=== PATIENT | female | born 2000 | race Caucasian/White ===

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

== ENCOUNTER 2020-01-02 18:16 | Observation (INO) | payer OTHER, SELFPAY ==
[2019-08-16 15:17] VITALS: BMI 20.7
[2020-01-02] VITALS (7 sets, daily range): BP systolic 117–161; BP diastolic 67–84; PULSE 68–85; RESP 15–18; TEMP 36; O2SAT 95–100; BMI 19.5
[2020-01-02] MEDS: SODIUM CHLORIDE 0.9% 1,000 ML 1000 ML IV (18:59)
[2020-01-02] MEDS: ONDANSETRON 4 MG/2 ML INJ IV (18:59)
[2020-01-02 19:02] LABS: Bacteria Urine None Seen; WBC Urine None Seen (0-5/HPF)
--- NOTE | 2020-01-02 19:03 | ED.GENADULT ---
HPI - General Adult General Chief complaint: Diabetic Problem Stated complaint: Thinks Ketoacidosis Time Seen by Provider: 01/02/20 18:45 Source: patient Mode of arrival: Ambulatory Limitations: no limitations History of Present Illness HPI narrative: CC: I feel sick and question whether not I have diabetic ketoacidosis. HPI: The patient is a 19-year-old female who has a history of type 1 diabetes mellitus diagnosed at the age of 16. She has had multiple episodes of diabetic ketoacidosis in the past. She came in today because she was feeling sick. She states that she was on a trip this weekend and has not been eating and just not feeling well. She has been taking her insulin. Periodically her chest gets tight intense. She has been very nauseous but has not vomited but almost vomited. She has been having diarrhea with multiple liquid bowel movements without melena or hematochezia. She denies a history of irritable bowel syndrome, Crohn's disease or ulcerative colitis. She states that she has lost 10 lb over 3 days. She denies any fever chills or sweats. She has been incontinent of urine while she has been sleeping. She denies a history of recurrent seizures but had 1 seizure in grade school when she was sniffing and smelling markers. She denies the use of drugs at this time arm except for marijuana. She does not drink alcohol but does smoke cigarettes. She has complained of a mild headache arm but has not fallen or injured herself. She has tingling paresthesias in her feet. She complains of sinus congestion but no sore throat. She has a cough that is dry and some associated with intermittent wheezing palpitations and dizziness. She denies any other shortness of breath. Her last menstrual period was 2-3 months ago and she has been on Depo-Provera. She has had no other urinary symptoms other than her incontinence while sleeping. Related Data Home Medications Medication Instructions Recorded Confirmed Humalog U-100 Insulin 1 unit SUBCUT ACHS 01/02/20 01/02/20 albuterol sulfate 2 puff INHALATION Q4HR 01/02/20 01/02/20 clonidine HCl 0.1 mg PO BEDTIME 01/02/20 01/02/20 escitalopram oxalate 10 mg PO DAILY 01/02/20 01/02/20 Previous Rx's Medication Instructions Recorded Lantus Solostar U-100 Insulin 20 unit SUBCUT QPM #15 ml 01/03/20 Allergies Allergy/AdvReac Type Severity Reaction Status Date / Time No Known Drug Allergies Allergy Verified 01/02/20 18:30 Review of Systems Review of Systems ROS Unobtainable: All systems reviewed & are unremarkable except as noted in HPI and below Patient History Medical History Atypical chest pain (Acute) Depression (Acute) Diabetic neuropathy (Acute) Genital herpes (Inactive) Type 1 diabetes mellitus (Acute) Surgical History History of wisdom tooth extraction (Acute) Family History (Updated 01/03/20 @ 01:14 by TOMMY Dean) Grandfather Type I diabetes mellitus Father Heart murmur Mother Diabetes mellitus Thyroid disease Grandmother Breast cancer Social History household members: significant other, family and children Smoking Status: Current every day smoker alcohol intake: current Smoking Status: Current every day smoker alcohol intake frequency: holidays/special occasions only Substance Use Type: marijuana Exam Narrative Exam Narrative: PHYSICAL EXAM: CONSTITUTIONAL: Awake, Alert, Oriented, Coherent, Cooperative in NAD. Does not appear toxic or ill. She appears as though she has been arm diaphoretic mildly disheveled pale and very thin. HEAD: AT/NC EENT: PERRL, FROM of eyes, no discharge, no nystagmus No epistaxis or nasal drainage Oral mucosa is moist and pink, posterior pharynx is without erythema or exudate. NECK: Supple, no obvious JVD, Trachea is midline without stridor, no palpable LN or masses. SPINE: No gross deformity, no palpable tenderness of the cervical, thoracic, lumbar or sacral spine. No CVA tenderness. THORAX: No deformity, retractions, chest wall tenderness, subcutaneous air or crepitice. LUNGS: Clear with symmetrical breath sounds without respiratory distress HEART: Normal heart tones, regular rhythm and rate without murmur. ABDOMEN: Soft, non-tender, normal bowel sounds without guarding, rebound, rigidity or palpable mass or organomegaly. EXTREMITIES: No edema, cyanosis, deformity or tenderness. SKIN: No rash, bruising, petechiae or purpura. Multiple tattoos over her arms. NEURO: Awake, alert, oriented, conversive, cranial nerves II-XII are symmetrical and normal, moves all 4 extremities and is ambulatory Initial Vital Signs Initial Vital Signs: Vital Signs Pulse Rate 75 01/02/20 18:30 Respiratory Rate 16 01/02/20 18:30 Blood Pressure 138/84 01/02/20 18:30 Pulse Oximetry 99 01/02/20 18:30 Course Course Course Narrative: 194: The patient's VBG is revealed a pH is 7.350. Orders Ordered: Discontinued Medications Acetaminophen (Tylenol) 650 mg PO Q6HR PRN PRN Reason: Fever/Mild Pain (1-3) Clonidine HCl (Catapres) 0.1 mg PO BEDTIME [facility] Dextrose (D50w) 25 gm IV PRN PRN; Protocol PRN Reason: Hypoglycemia Enoxaparin Sodium (Lovenox) 40 mg SUBCUT DAILY [facility] Last Admin: 01/03/20 10:39 Dose: 40 mg Documented by: CHEL Escitalopram Oxalate (Lexapro) 10 mg PO DAILY [facility] Last Admin: 01/03/20 10:39 Dose: 10 mg Documented by: CHEL Sodium Chloride (Normal Saline 0.9%) 1,000 mls @ 1,000 mls/hr IV BOLUS ONE Stop: 01/02/20 19:45 Last Infusion: 01/02/20 21:52 Dose: 0 mls/hr Documented by: Admin: 01/02/20 18:59 Dose: 1,000 mls/hr Documented by: KBROTEM Sodium Chloride (Normal Saline 0.9%) 1,000 mls @ 150 mls/hr IV CONT [facility] Last Admin: 01/02/20 22:41 Dose: 150 mls/hr Documented by: ELIO Sodium Chloride (Normal Saline 0.9%) 1,000 mls @ 100 mls/hr IV CONT FAREED Last Infusion: 01/03/20 09:28 Dose: 0 mls/hr Documented by: Admin: 01/02/20 22:56 Dose: 100 mls/hr Documented by: KACEY Potassium Chloride 40 meq/ (Sodium Chloride) 520 mls @ 130 mls/hr IV NOW ONE Stop: 01/03/20 09:54 Last Infusion: 01/03/20 10:50 Dose: 0 mls/hr Documented by: CHEL Cosigned by: Y Admin: 01/03/20 06:13 Dose: 130 mls/hr Documented by: DALTON Cosigned by: MICHAEL Insulin Aspart (Novolog Flexpen) 0 unit SUBCUT ACHS [facility]; Protocol Last Admin: 01/03/20 17:15 Dose: 1 unit Documented by: TRACEY Cosigned by: MARIANO Admin: 01/03/20 12:41 Dose: 2 unit Documented by: CHEL Cosigned by: MUNA Admin: 01/03/20 09:25 Dose: Not Given Documented by: CHEL Insulin Glargine (Lantus Solostar (Pen)) 20 unit SUBCUT BEDTIME [facility] Last Admin: 01/03/20 01:37 Dose: Not Given Documented by: MICHAEL Insulin Glargine (Lantus Solostar (Pen)) 25 unit SUBCUT BEDTIME [facility] Last Admin: 01/03/20 00:52 Dose: 25 unit Documented by: MICHAEL Cosigned by: DALTON Insulin Glargine (Lantus Solostar (Pen)) 15 unit SUBCUT BEDTIME [facility] Insulin Human Regular (Humulin R) 10 unit IV NOW ONE Stop: 01/02/20 21:23 Last Admin: 01/02/20 21:51 Dose: 10 unit Documented by: RAHEEL Cosigned by: MONA Metoclopramide HCl (Reglan) 5 mg IV Q8HR [facility] Last Admin: 01/03/20 14:15 Dose: Not Given Documented by: Admin: 01/03/20 06:13 Dose: 5 mg Documented by: DALTON Naloxone HCl (Narcan) 0.2 mg IV Q2MIN PRN PRN Reason: Opiate Reversal Ondansetron HCl (Zofran) 4 mg IV NOW ONE Stop: 01/02/20 18:47 Last Admin: 01/02/20 18:59 Dose: 4 mg Documented by: KBROTEM Sodium Chloride (Normal Saline 0.9% Flush) 10 ml IV PRN PRN PRN Reason: Flush Sodium Chloride (Normal Saline 0.9% Flush) 10 ml IV BID [facility] Vital Signs Vital signs: Vital Signs - 8 hr 01/02/20 18:30 Pulse Rate 75 Respiratory Rate 16 Blood Pressure 138/84 Pulse Oximetry 99 Medical Decision Making Medical Records Medical records reviewed: Yes I reviewed the patient's medical records. Lab Data Lab results reviewed: Yes I reviewed the patient's lab results. Result diagrams: 01/03/20 04:22 01/03/20 04:22 Labs: Lab Results 01/02/20 01/02/20 01/02/20 Range/Units 18:31 18:31 18:31 WBC 5.6 (4.5-11.0) X10^3/uL RBC 4.41 (4.0-5.2) X10^6/uL Hgb 14.4 (12.0-16.0) g/dL Hct 42.7 (36-46) % MCV 97.0 (80-100) fL MCH 32.7 (26-34) PG MCHC 33.7 (30-36) % RDW 13.0 (11.6-14.8) % Plt Count 197 (150-400) X10^3/uL Neut % (Auto) 45.1 L (50-75) % Lymph % (Auto) 36.8 (25-40) % [place] % (Auto) 7.7 (3-14) % Eos % (Auto) 9.9 H (2-4) % Baso % (Auto) 0.5 (0-2) % Neut # (Auto) 2500 (4579-0605) /uL Lymph # (Auto) 2100 (3852-9158) /uL [place] # (Auto) 400 (0-900) /uL Eos # (Auto) 600 H (0-450) /uL Baso # (Auto) 0 (0-100) /uL VBG pH (7.33-7.43) Sodium 138 (137-145) mmol/L Potassium 4.0 (3.4-5.1) mmol/L Chloride 99 (98-107) mmol/L Carbon Dioxide 22 (22-32) mmol/L BUN 10 (7-17) mg/dL Creatinine 0.50 L (0.52-1.04) mg/dL Estimated GFR > 60.0 (>60) mL/min BUN/Creatinine Ratio 20.0 (6-22) Glucose 397 H (70-100) mg/dL Hemoglobin A1c (4.0-6.0) % Lactate 1.6 (0.7-2.1) mmol/L Calcium 10.3 H (8.4-10.2) mg/dL Magnesium 1.9 (1.6-2.3) mg/dL Total Bilirubin 1.0 (0.2-1.3) mg/dL AST 21 (14-36) IU/L ALT 17 (<35) IU/L Alkaline Phosphatase 142 H (38-126) U/L Total Protein 9.0 H (6.3-8.2) g/dL Albumin 5.2 H (3.5-5.0) g/dL Globulin 3.8 (1.7-4.1) g/dL Albumin/Globulin Ratio 1.4 (1.0-2.8) Lipase 64 (23-300) U/L Urine RBC (0-5/HPF) Urine WBC (0-5/HPF) Urine Bacteria (None) Ur Culture Indicated? Urine Test (Negative) U Opiates 300ng/mL cut (Negative) Ur Oxycodone Screen (Negative) Urine Methadone Screen (Negative) Ur Barbiturates Screen (Negative) U Tricyclic Antidepress (Negative) Ur Phencyclidine Scrn (Negative) Ur Amphetamines Screen (Negative) U Methamphetamines Scrn (Negative) Ur MDMA Scrn (Ecstasy) (Negative) U Benzodiazepines Scrn (Negative) Urine Cocaine Screen (Negative) U Marijuana (THC) Screen (Negative) Ketones 4.64 H (<0.27) mmol/L 01/02/20 01/02/20 01/02/20 Range/Units 18:31 18:31 18:31 WBC (4.5-11.0) X10^3/uL RBC (4.0-5.2) X10^6/uL Hgb (12.0-16.0) g/dL Hct (36-46) % MCV (80-100) fL MCH (26-34) PG MCHC (30-36) % RDW (11.6-14.8) % Plt Count (150-400) X10^3/uL Neut % (Auto) (50-75) % Lymph % (Auto) (25-40) % [place] % (Auto) (3-14) % Eos % (Auto) (2-4) % Baso % (Auto) (0-2) % Neut # (Auto) (3978-2892) /uL Lymph # (Auto) (1058-8151) /uL [place] # (Auto) (0-900) /uL Eos # (Auto) (0-450) /uL Baso # (Auto) (0-100) /uL VBG pH (7.33-7.43) Sodium (137-145) mmol/L Potassium (3.4-5.1) mmol/L Chloride (98-107) mmol/L Carbon Dioxide (22-32) mmol/L BUN (7-17) mg/dL Creatinine (0.52-1.04) mg/dL Estimated GFR (>60) mL/min BUN/Creatinine Ratio (6-22) Glucose (70-100) mg/dL Hemoglobin A1c (4.0-6.0) % Lactate (0.7-2.1) mmol/L Calcium (8.4-10.2) mg/dL Magnesium (1.6-2.3) mg/dL Total Bilirubin (0.2-1.3) mg/dL AST (14-36) IU/L ALT (<35) IU/L Alkaline Phosphatase (38-126) U/L Total Protein (6.3-8.2) g/dL Albumin (3.5-5.0) g/dL Globulin (1.7-4.1) g/dL Albumin/Globulin Ratio (1.0-2.8) Lipase (23-300) U/L Urine RBC 0-1/hpf (0-5/HPF) Urine WBC None seen (0-5/HPF) Urine Bacteria None seen (None) Ur Culture Indicated? Cult not indicated Urine Test Negative (Negative) U Opiates 300ng/mL cut Negative (Negative) Ur Oxycodone Screen Negative (Negative) Urine Methadone Screen Negative (Negative) Ur Barbiturates Screen Negative (Negative) U Tricyclic Antidepress Negative (Negative) Ur Phencyclidine Scrn Negative (Negative) Ur Amphetamines Screen Negative (Negative) U Methamphetamines Scrn Negative (Negative) Ur MDMA Scrn (Ecstasy) Negative (Negative) U Benzodiazepines Scrn Negative (Negative) Urine Cocaine Screen Negative (Negative) U Marijuana (THC) Screen Positive H (Negative) Ketones (<0.27) mmol/L 01/02/20 01/02/20 Range/Units 18:31 19:18 WBC (4.5-11.0) X10^3/uL RBC (4.0-5.2) X10^6/uL Hgb (12.0-16.0) g/dL Hct (36-46) % MCV (80-100) fL MCH (26-34) PG MCHC (30-36) % RDW (11.6-14.8) % Plt Count (150-400) X10^3/uL Neut % (Auto) (50-75) % Lymph % (Auto) (25-40) % [place] % (Auto) (3-14) % Eos % (Auto) (2-4) % Baso % (Auto) (0-2) % Neut # (Auto) (8293-6979) /uL Lymph # (Auto) (9252-1053) /uL [place] # (Auto) (0-900) /uL Eos # (Auto) (0-450) /uL Baso # (Auto) (0-100) /uL VBG pH 7.35 (7.33-7.43) Sodium (137-145) mmol/L Potassium (3.4-5.1) mmol/L Chloride (98-107) mmol/L Carbon Dioxide (22-32) mmol/L BUN (7-17) mg/dL Creatinine (0.52-1.04) mg/dL Estimated GFR (>60) mL/min BUN/Creatinine Ratio (6-22) Glucose (70-100) mg/dL Hemoglobin A1c 10.9 H (4.0-6.0) % Lactate (0.7-2.1) mmol/L Calcium (8.4-10.2) mg/dL Magnesium (1.6-2.3) mg/dL Total Bilirubin (0.2-1.3) mg/dL AST (14-36) IU/L ALT (<35) IU/L Alkaline Phosphatase (38-126) U/L Total Protein (6.3-8.2) g/dL Albumin (3.5-5.0) g/dL Globulin (1.7-4.1) g/dL Albumin/Globulin Ratio (1.0-2.8) Lipase (23-300) U/L Urine RBC (0-5/HPF) Urine WBC (0-5/HPF) Urine Bacteria (None) Ur Culture Indicated? Urine Test (Negative) U Opiates 300ng/mL cut (Negative) Ur Oxycodone Screen (Negative) Urine Methadone Screen (Negative) Ur Barbiturates Screen (Negative) U Tricyclic Antidepress (Negative) Ur Phencyclidine Scrn (Negative) Ur Amphetamines Screen (Negative) U Methamphetamines Scrn (Negative) Ur MDMA Scrn (Ecstasy) (Negative) U Benzodiazepines Scrn (Negative) Urine Cocaine Screen (Negative) U Marijuana (THC) Screen (Negative) Ketones (<0.27) mmol/L Point of Care Testing Test Results Negative Glucose POC 363 Urine Dip Bedside Urine Glucose 1000 mg/dl Bedside Urine Bilirubin - Negative Bedside Urine Ketone +++ 80 Urine Specific [place] 1.025 Bedside Urine Occult Blood - Negative Bedside Urine pH 5.5 Bedside Urine Protein + 30 Bedside Urine Urobilinogen - Negative Bedside Urine Nitrite - Negative Bedside Urine Leukocytes - Negative Esterase Point of care testing: Point of Care Testing Test Results Negative Glucose POC 363 Urine Dip Bedside Urine Glucose 1000 mg/dl Bedside Urine Bilirubin - Negative Bedside Urine Ketone +++ 80 Urine Specific [place] 1.025 Bedside Urine Occult Blood - Negative Bedside Urine pH 5.5 Bedside Urine Protein + 30 Bedside Urine Urobilinogen - Negative Bedside Urine Nitrite - Negative Bedside Urine Leukocytes - Negative Esterase ECG Data Attestation: I personally reviewed and interpreted this ECG as follows: Interpretation: The patient's EKG obtained at 19:0 6:40 a.m. on January 02 reveals a normal sinus rhythm with inverted T-waves in V1. Her T-waves are prominent and mildly peaked. There are no other abnormal ST or T-wave abnormalities noted. Ventricular rate is 60. Intervals are normal she has a normal axis. Her EKG otherwise is normal. Discharge Plan Departure Patient Disposition: Admitted as Observation Clinical Impression: Acute hyperglycemia, Dehydration, Nausea, Diabetic ketosis Discharge Date/Time: 01/02/20 22:29 Instructions: DI for Dehydration -- Adult, DI for Diabetes Type 1 -- Adult, DI for Hyperglycemia -- Adult, DI for Nausea -- Adult, DI for Diabetic Ketoacidosis Referrals: Huber Medina DO [Primary Care Provider] - 1 Week Admit Date/Time: 01/02/20 22:19 Admit Provider: Roge Reeves
[2020-01-02 19:10] LABS: Alanine Aminotransferase 17 IU/L (<35); Albumin 5.2 g/dL (3.5-5.0); Albumin Globulin Ratio 1.4 (1.0-2.8); Alkaline Phosphatase 142 U/L (38-126); Aspartate Aminotransferase 21 IU/L (14-36); Blood Urea Nitrogen 10 mg/dL (7-17); Calcium 10.3 mg/dL (8.4-10.2); Carbon Dioxide 22 mmol/L (22-32); Chloride 99 mmol/L (98-107); Estimated Glomerular Filt Rate > 60.0 mL/min (>60); Globulin 3.8 g/dL (1.7-4.1); Glucose 397 mg/dL (70-100); HEMOLYSIS < 15 (0-50); Lipase 64 U/L (23-300); Magnesium 1.9 mg/dL (1.6-2.3); Sodium 138 mmol/L (137-145)
[2020-01-02 19:13] LABS: Add Manual Diff / Slide Review NO; Basophils Absolute Auto 0 /uL (0-100); Basophils Percent Auto 0.5 % (0-2); Eosinophils Absolute Auto 600 /uL (0-450); Eosinophils Percent Auto 9.9 % (2-4); Hematocrit 42.7 % (36-46); Hemoglobin 14.4 g/dL (12.0-16.0); Lymphocytes Absolute Auto 2100 /uL (1100-4500); Lymphocytes Percent Auto 36.8 % (25-40); Mean Corpuscular HGB Conc 33.7 % (30-36); Mean Corpuscular Hemoglobin 32.7 PG (26-34); Monocytes Absolute Auto 400 /uL (0-900); Monocytes Percent Auto 7.7 % (3-14); Neutrophils Absolute Auto 2500 /uL (1500-7000); Neutrophils Percent Auto 45.1 % (50-75); Platelet Count 197 X10^3/uL (150-400); Red Blood Cell Count 4.41 X10^6/uL (4.0-5.2); White Blood Cell Count 5.6 X10^3/uL (4.5-11.0)
[2020-01-02 19:14] LABS: Ketones (Beta-Hydroxybutyrate) 4.64 mmol/L (<0.27)
[2020-01-02 19:23] LABS: Ur Creatinine Normal (Normal); Ur Specific Gravity Normal (Normal); Urine Tetrahydrocannabinol Positive (Negative); Urine pH Normal (Normal)
[2020-01-02 19:24] LABS: Culture Indicated Urine Cult Not Indicated; RBC Urine 0-1/HPF (0-5/HPF); UR Morphine/Opiate cutoff 300 Negative (Negative); Urine Amphetamines Negative (Negative); Urine Barbiturates Negative (Negative); Urine Benzodiazepines Negative (Negative); Urine Cocaine Negative (Negative); Urine MDMA Negative (Negative); Urine Methadone Negative (Negative); Urine Methamphetamines Negative (Negative); Urine Oxycodone Negative (Negative); Urine Phencyclidine Negative (Negative); Urine Tricyclic Antidepressant Negative (Negative)
[2020-01-02 19:25] LABS: Pregnancy Test Urine Negative (Negative)
[2020-01-02 19:40] LABS: Lactate (Lactic Acid) 1.6 mmol/L (0.7-2.1)
[2020-01-02 19:41] LABS: pH VBG 7.35 (7.33-7.43)
[2020-01-02] MEDS: INSULIN REGULAR 100 UNIT/ML 3 ML VIAL 10 UNIT IV (21:51)
[2020-01-02 21:52] LABS: Hemoglobin A1C% w Est Avg Glu 10.9 % (4.0-6.0)
--- NOTE | 2020-01-02 22:33 | P.HP_ITS ---
History of Present Illness History of Present Illness Date Patient Seen: 01/02/20 Time Patient Seen: 22:10 Chief complaint: Thinks Ketoacidosis Narrative: Ms. Nettie Stone is a 19 year old female with history significant for type 1 diabetes, depression, atypical chest pain and neuropathy who presents to the ER for ?feeling sick?. Patient stays she was visiting a friend in [place] for 4 days reports that all she had to drink was apple juice. She has been feeling nauseated off and on reports no vomiting. She has not been eating and developed diarrhea that has become liquid in character without melena or hematochezia. She reports a 10 lb weight loss in 3 days. She reports she has been taking her insulin but acknowledges that her blood sugars have been running high. Her last admission for diabetic ketoacidosis was in July 2019. Patient additionally endorses history of depression for which she takes escitalopram daily and acknowledges feeling depressed but denies suicidal ideation but has had prior suicide attempt. At present she is alert and conversant denies fevers or chills, headaches or dizziness. She has no nasal congestion or sore throat. She reports developing intermittent tightness across her chest but denies palpitations. She has no shortness of breath cough or wheezing. She has nausea and diarrhea as discussed above. Patient complains of urinary incontinence in her sleep but denies urgency frequency or burning. She denies vaginal pain or irritation, last menstrual period 2 months ago and is using Depo-Provera control She denies back or joint pains and is independent in ADLs. Upon arrival to the ER temperature is not documented, has a heart rate of 75, blood pressure 138/84, respirations 16 saturation 99% on room air. Twelve lead EKG was obtained showing sinus rhythm sinus arrhythmia with an incomplete right bundle branch block, no ectopy or ischemia. On laboratory evaluation shows whit e count of 5.6, hemoglobin of 14.4, hematocrit of 42.7 and platelets of 197. She has an increased eosinophil count at 9.9%. Her electrolytes are within normal range with BUN of 10 and creatinine is 0.5 and blood sugar is 397. Her total bilirubin is 1.0 with an AST of 21, ALT of 17 and elevated alkaline phosphatase of 142. Her magnesium level is 1.9. She has serum ketones 4.64 in urine is positive for ketones protein but negative for leukocyte esterase wbc's or nitrates. Urine is negative, urine tox screen is positive for marijuana. In the ER the patient received Zofran and 1 L of normal saline and 10 units of insulin IV. The patient is admitted to the medicine service for gastroenteritis with type 1 diabetes and hyperglycemia. Patient History Medical History Atypical chest pain (Acute) Depression (Acute) Diabetic neuropathy (Acute) Genital herpes (Inactive) Type 1 diabetes mellitus (Acute) Surgical History History of wisdom tooth extraction (Acute) Family & Social History Family History (Updated 01/03/20 @ 01:14 by TOMMY Dean) Grandfather Type I diabetes mellitus Father Heart murmur Mother Diabetes mellitus Thyroid disease Grandmother Breast cancer Social History: household members significant other,family,children Safety & Behavioral: Feels Safe in Current Yes Environment Tobacco & Substance use: Smoking Status Current every day smoker alcohol intake frequency holiday/special occasion Substance Use Type marijuana Comment: Patient states she is single lives in a single family home with her parents. She endorses a family history of cancer with her mother having thyroid cancer, grandmother and great grandmother having breast cancer. Her grandfather also is a type 1 diabetic. She knows little of her father's health history but does know he has a murmur. Occupation: Unemployed Smoking: Patient is a current smoker stating she smokes 1-2 times per week associated with stress. Alcohol: Patient reports rarely drinking alcohol. Substance use: Patient reports daily marijuana use for sleep. Advanced directives: Patient does not have formal advanced directives but states her wish to be FULL CODE. She designates her mother Deloris Garcias to be her surrogate decision maker. Meds Home Medications and Allergies Home Medications Medication Instructions Recorded Confirmed Type Lantus Solostar U-100 Insulin 20 unit SUBCUT QPM 08/16/19 01/02/20 History albuterol sulfate 2 puff INHALATION Q4HR 01/02/20 01/02/20 History clonidine HCl 0.1 mg PO BEDTIME 01/02/20 01/02/20 History escitalopram oxalate 10 mg PO DAILY 01/02/20 01/02/20 History insulin lispro [Humalog U-100 1 unit SUBCUT ACHS 01/02/20 01/02/20 History Insulin] Allergies Allergy/AdvReac Type Severity Reaction Status Date / Time No Known Drug Allergies Allergy Verified 01/02/20 18:30 Review of Systems Review of Systems Narrative: All systems reviewed and found unremarkable under discussed in the HPI above. Exam Vital Signs (past 8 hours): - 01/02/20 18:30 01/02/20 19:30 01/02/20 21:37 Pulse Rate 75 73 72 Respiratory Rate 16 18 Blood Pressure 138/84 Blood Pressure [Left Arm] 117/67 121/77 Pulse Oximetry 99 100 98 01/02/20 22:27 Pulse Rate 85 Respiratory Rate 15 Blood Pressure 133/82 Blood Pressure [Left Arm] Pulse Oximetry 98 Oxygen Delivery Method Room Air Narrative Exam Narrative: GENERAL APPEARANCE: well developed, thin female with a BMI of 19.5 in no acute distress. HEENT: Normocephalic, PERRLA, conjunctiva clear, EOMs intact without nystagmus, no sinus tenderness to percussion, no rhinorrhea, mucous membranes are moist and pink without lesions or exudate. NECK/THYROID: neck supple, no JVD, no carotid bruit, no thyromegaly, trachea midline. LYMPH NODES: no cervical or supraclavicular lymphadenopathy. SKIN: Asher, warm and dry, Multiple tattoos on arms and facial body piercing, redness surrounding lower lip piercing. HEART: regular rate and rhythm, S1-S2, no murmur, no rubs or gallops, brisk capillary refill, no edema LUNGS: clear to auscultation bilaterally, no coarseness crackles or wheezing, no cough present CHEST: Symmetrical movement, no accessory muscle use, good tidal volume. ABDOMEN: Soft, no distention, mild epigastric tenderness, no guarding or peritoneal signs, no organomegaly, no flank or suprapubic tenderness, active bowel tones. BACK: Normal curvature, nontender to palpation, no CVA tenderness on percussion EXTREMITIES: moves all extremities, strength is 5/5 and symmetrical, no deformities or joint effusions. NEUROLOGIC: AAO x4, cranial nerves 2-12 grossly intact, diminished sensation plantar surface bilateral feet. PSYCH: Difficult historian, providing differing information to defer providers, interactive, denies suicidal ideation. Objective Labs Result Diagrams: 01/02/20 18:31 01/02/20 18:31 Labs: Laboratory Results - last 24 hr 01/02/20 01/02/20 01/02/20 18:31 18:31 18:31 WBC 5.6 RBC 4.41 Hgb 14.4 Hct 42.7 MCV 97.0 MCH 32.7 MCHC 33.7 RDW 13.0 Plt Count 197 Neut % (Auto) 45.1 L Lymph % (Auto) 36.8 [place] % (Auto) 7.7 Eos % (Auto) 9.9 H Baso % (Auto) 0.5 Neut # (Auto) 2500 Lymph # (Auto) 2100 [place] # (Auto) 400 Eos # (Auto) 600 H Baso # (Auto) 0 VBG pH Sodium 138 Potassium 4.0 Chloride 99 Carbon Dioxide 22 BUN 10 Creatinine 0.50 L Estimated GFR > 60.0 BUN/Creatinine Ratio 20.0 Glucose 397 H Hemoglobin A1c Lactate 1.6 Calcium 10.3 H Magnesium 1.9 Total Bilirubin 1.0 AST 21 ALT 17 Alkaline Phosphatase 142 H Total Protein 9.0 H Albumin 5.2 H Globulin 3.8 Albumin/Globulin Ratio 1.4 Lipase 64 Urine RBC Urine WBC Urine Bacteria Ur Culture Indicated? Urine Test U Opiates 300ng/mL cut Ur Oxycodone Screen Urine Methadone Screen Ur Barbiturates Screen U Tricyclic Antidepress Ur Phencyclidine Scrn Ur Amphetamines Screen U Methamphetamines Scrn Ur MDMA Scrn (Ecstasy) U Benzodiazepines Scrn Urine Cocaine Screen U Marijuana (THC) Screen Ketones 4.64 H 01/02/20 01/02/20 01/02/20 18:31 18:31 18:31 WBC RBC Hgb Hct MCV MCH MCHC RDW Plt Count Neut % (Auto) Lymph % (Auto) [place] % (Auto) Eos % (Auto) Baso % (Auto) Neut # (Auto) Lymph # (Auto) [place] # (Auto) Eos # (Auto) Baso # (Auto) VBG pH Sodium Potassium Chloride Carbon Dioxide BUN Creatinine Estimated GFR BUN/Creatinine Ratio Glucose Hemoglobin A1c Lactate Calcium Magnesium Total Bilirubin AST ALT Alkaline Phosphatase Total Protein Albumin Globulin Albumin/Globulin Ratio Lipase Urine RBC 0-1/hpf Urine WBC None seen Urine Bacteria None seen Ur Culture Indicated? Cult not indicated Urine Test Negative U Opiates 300ng/mL cut Negative Ur Oxycodone Screen Negative Urine Methadone Screen Negative Ur Barbiturates Screen Negative U Tricyclic Antidepress Negative Ur Phencyclidine Scrn Negative Ur Amphetamines Screen Negative U Methamphetamines Scrn Negative Ur MDMA Scrn (Ecstasy) Negative U Benzodiazepines Scrn Negative Urine Cocaine Screen Negative U Marijuana (THC) Screen Positive H Ketones 01/02/20 01/02/20 01/02/20 18:31 19:20 Unknown WBC RBC Hgb Hct MCV MCH MCHC RDW Plt Count Neut % (Auto) Lymph % (Auto) [place] % (Auto) Eos % (Auto) Baso % (Auto) Neut # (Auto) Lymph # (Auto) [place] # (Auto) Eos # (Auto) Baso # (Auto) VBG pH 7.35 Sodium Potassium Chloride Carbon Dioxide BUN Creatinine Estimated GFR BUN/Creatinine Ratio Glucose Hemoglobin A1c 10.9 H Lactate Calcium Magnesium Total Bilirubin AST ALT Alkaline Phosphatase Total Protein Albumin Globulin Albumin/Globulin Ratio Lipase Urine RBC Urine WBC Urine Bacteria Ur Culture Indicated? Urine Test U Opiates 300ng/mL cut Ur Oxycodone Screen Urine Methadone Screen Ur Barbiturates Screen U Tricyclic Antidepress Ur Phencyclidine Scrn Ur Amphetamines Screen U Methamphetamines Scrn Ur MDMA Scrn (Ecstasy) U Benzodiazepines Scrn Urine Cocaine Screen U Marijuana (THC) Screen Ketones Cancelled Assessment & Plan Assessment & Plan narrative: This is a thin 19-year-old female patient with history of type 1 diabetes with prior episodes of diabetic ketoacidosis who pre sents today with ketotic hyperglycemia in the setting of poor nutrition secondary to gastroenteritis. 1. Diabetic type 1, uncontrolled with hyperglycemia, present on admission, active. -patient with recurrent admissions for diabetic ketoacidosis last admission at [facility] was July 2019. -patient was subjective symptoms of intermittent nausea likely related to gastroparesis, absence of Kussmaul's respirations with respiratory rate of 16. -blood sugar on admission is 397, serum ketones are for 4.64, CO2 level on chemistries 22 with initial anion gap of 17. -patient states she subjectively feeling better following receiving 1 liter IV fluid in the emergency room and infusion 150 cc/hour, and 10 units regular insulin IV. -upon arrival to the floor the patient's fingerstick blood sugars 189, continue fingerstick blood sugars AC and HS with correctional insulin medium dose range. -will continue patient's home regimen of Lantus 25 mg subcutaneously nightly -medium constant carbohydrate diet -ordered Reglan 5 mg every 6 hours as needed for nausea. -patient requires reinforcement of diabetic diet and disease management. 2. Metabolic acidosis secondary to hyperglycemia complicated by dehydration, present on admission, active. -blood sugar on admission is 397, improved to 189 post 10 units of IV insulin, serum ketones are for 4.64, CO2 level on chemistries 22 with initial anion gap of 17. -No respiratory compensation or complaints of shortness of breath. -Will continue to hydrate the patient received 1 L normal saline in the emergency department, will continue 150 cc/hour. 3. Acute gastroenteritis, probable viral, present on admission, active. -Patient with 3-4 days of nausea, vomiting and diarrhea which is become watery. Patient reports poor appetite and 10 lb weight loss in 3 days. -Patient denies questionable food sources but has been traveling and non adhere nt to a diabetic diet. -White blood cell count is 5.6, no left shift, eosinophilia of 9.9%. -Obtain GI PCR. Patient has not had a stool since arriving at the hospital. 4. Depression, chronic, present on admission, active. -History of depression with previous suicidal attempt by alcohol overdose. The patient presently denies suicidal ideation. -Continue home regimen of escitalopram 10 mg daily. VTE prophylaxis: SCDs, Lovenox Diet: Medium constant carbohydrate IVF: Normal saline 150 cc/hour decreased to 100 cc/hour. The patient is admitted to the hospital due to the severity of her symptoms and risk for worsening condition complications and adverse events. Patient is admitted as observation with expected length of stay to be less than 2 midnights. Scores GCS Geovany coma scale eye opening: Spontaneous Davis coma scale verbal response: Orientated Davis coma scale motor response: Obey commands Geovany coma scale total score: 15
[2020-01-02] MEDS: SODIUM CHLORIDE 0.9% 1,000 ML 150 ML IV (22:41)
[2020-01-02] MEDS: SODIUM CHLORIDE 0.9% 1,000 ML 100 ML IV (22:56)
[2020-01-03] VITALS (8 sets, daily range): BP systolic 102–122; BP diastolic 54–76; PULSE 64–72; RESP 16–20; TEMP 36.1–36.9; O2SAT 95–100; BMI 19.2
[2020-01-03] MEDS: INSULIN GLARGINE 100 UNIT/ML 3ML PEN 25 UNIT SUBCUT (00:52)
--- NOTE | 2020-01-03 02:39 | PC.NURSE ---
Shift note: Patient is AxOx3, able to make needs known, uses call light appropriately. Has had a steady stream of visitors and family members at bedside. Given patient verbal education on the risks of unmanaged diabetes and potential group home side effects of elevated blood sugar. Patient acknowledges teaching and states she's aware she needs to make changes. Reports that over the weekend was helping a friend move and didn't really eat for 3 days and only had access to apple juice. Patient also reports that her depression makes it hard to manage her diabetes. RN PATIENT SERVICES notified of patients depression statements. Patient reported to this RN no symptoms of neuropathy but did report them to RN PATIENT SERVICES during H&P, patient has neuropathy to the soles of both feet. At 0200 blood sugar check, patient had CB and 45, RN PATIENT SERVICES notified and patient given orange juice, cheese stick, peanut butter with crackers. At recheck at 0245 was 84, will continue to monitor it closely. VSS, on room air, heart rate regular. Patient is a moderate fall risk, bed alarm on and functioning, call light in reach.
[2020-01-03 04:34] LABS: Add Manual Diff / Slide Review NO; Basophils Absolute Auto 0 /uL (0-100); Basophils Percent Auto 0.5 % (0-2); Eosinophils Absolute Auto 1100 /uL (0-450); Hematocrit 35.8 % (36-46); Hemoglobin 12.3 g/dL (12.0-16.0); Lymphocytes Absolute Auto 3400 /uL (1100-4500); Lymphocytes Percent Auto 46.5 % (25-40); Mean Corpuscular HGB Conc 34.4 % (30-36); Mean Corpuscular Hemoglobin 33.4 PG (26-34); Mean Corpuscular Volume 96.9 fL (80-100); Monocytes Absolute Auto 700 /uL (0-900); Monocytes Percent Auto 9.6 % (3-14); Neutrophils Absolute Auto 2100 /uL (1500-7000); Neutrophils Percent Auto 28.4 % (50-75); Platelet Count 167 X10^3/uL (150-400); Red Blood Cell Count 3.69 X10^6/uL (4.0-5.2); White Blood Cell Count 7.4 X10^3/uL (4.5-11.0)
[2020-01-03 04:44] LABS: Blood Urea Nitrogen 10 mg/dL (7-17); Calcium 8.9 mg/dL (8.4-10.2); Carbon Dioxide 24 mmol/L (22-32); Chloride 106 mmol/L (98-107); Estimated Glomerular Filt Rate > 60.0 mL/min (>60); Glucose 93 mg/dL (70-100); HEMOLYSIS < 15 (0-50); Potassium 3.3 mmol/L (3.4-5.1); Sodium 140 mmol/L (137-145)
[2020-01-03 04:45] LABS: Magnesium 1.8 mg/dL (1.6-2.3); Phosphorous 4.1 mg/dL (4.5-5.5)
[2020-01-03] MEDS: POTASSIUM CHLORIDE 40 MEQ in SODIUM CHLORIDE 0.9% 500 ML 130 ML IV (06:13)
[2020-01-03] MEDS: METOCLOPRAMIDE 10 MG/2 ML INJ 5 MG IV (06:13)
[2020-01-03] MEDS: ESCITALOPRAM 10 MG TABLET PO (10:39)
[2020-01-03] MEDS: ENOXAPARIN 40 MG/0.4 ML SYRINGE SUBCUT (10:39)
--- NOTE | 2020-01-03 10:55 | PC.NURSE ---
Day Shift- Pt slept most of morning, pt's mother Leslie rooming in who stated pt didn't go to sleep until 0500 this morning. RVP swab sent to lab at [address] Grimaldo order. Pt denies nausea, shortness of breath, chest pain or pressure. Chronic neuropathy to soles of feet. IVF S/L'd, K-rider completed started from rn shift mgr. Crab Fisherman Jud into see pt around 1040. BG rechecked at 1045 for 81 mg per DL, pt wanted to try her breakfast meal of frittata and potatoes. No sliding scale given at that time per parameters.
--- NOTE | 2020-01-03 11:19 | DIET.PN ---
Dietary Progress Note Assessment: 19y F admitted for T1D related hyperglycemia and gastroenteritis who has been previously admitted 08/13 for DKA. Pt referred to nutrition for DM education and motivational interviewing/behavior modifications. Pt still under care of [facility] until 21y. will allow CGM and insulin pump if she can have good BG control for 3mo. Pt reports being compliant for a week or two at a time then falls off. Pt's mom reports pt's A1c of 10.7 better than 6mo ago when it was 13. Barriers include being 19yo, having sweet tooth, depression, close contacts eating non-compliant foods/habits around her, feeling its not fair that she has T1D. Motivations include: better compliance when having regular work schedule (currently unemployed), motivation for good control to get insulin pump, feeling better when in better control. Pt lives at home with parents with siblings (she is 2nd of 6), dx c T1D at 16yo, feels she got good initial education but endorses that continued ed is helpful. HT: 160cm WT: 49.2kg UBW: 53kg (08/13) BMI: 19.2 Labs: BG on admit 397 H, BG before breakfast 87, A1c 10.9 H, K+ 3.3 L repleting, Cr 0.4 L, Phos 4.1 L MNA: 8 at risk for malnutrition Marcelo: 22 Nutrition Diagnosis: Interventions: 1. 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 Pt and mom are watching set of [place] videos explaining T1D and its complications in hand drawn cartoon style through [facility] Ed series and one on Diabetic Gastroparesis through [employer]. 2. Recc pts boyfriend, siblings, and close friends watch same video set so they understand how to support her. Mom took photo of [employer] links to share. 3. Discussed pt's sweet tooth, shared better choices when she wants to consume sweet foods (including [employer]rina[employer] stevia chocolate chips and Zevia soft drinks). 4. Reinforced pts efforts for better control, that falling off track happens, encouraged strategies of support around barriers. Diet Order: CCD3 EER: 1700kcal, 50g PRO (1g/kg), 1.6L fluids Monitoring/Evaluations: pt has contact info if she wants to come in or call for support
[2020-01-03 12:20] LABS: Adenovirus Not Detected (Not Detect); Bordetella pertussis Not Detected (Not Detect); Chlamydophila pneumoniae Not Detected (Not Detect); Coronavirus 229E Not Detected (Not Detect); Coronavirus HKU1 Not Detected (Not Detect); Coronavirus NL 63 Not Detected (Not Detect); Coronavirus OC43 Not Detected (Not Detect); Human Metapneumovirus Not Detected (Not Detect); Human Rhinovirus/Enterovirus Not Detected (Not Detect); Influenza A Not Detected (Not Detect); Influenza B Not Detected (Not Detect); Mycoplasma pneumoniae Not Detected (Not Detect); Parainfluenza Virus 1 Not Detected (Not Detect); Parainfluenza Virus 2 Not Detected (Not Detect); Parainfluenza Virus 3 Not Detected (Not Detect); Parainfluenza Virus 4 Not Detected (Not Detect); Respiratory Syncytial Virus Not Detected (Not Detect)
[2020-01-03] MEDS: INSULIN ASPART 100 UNIT/ML INSULN PEN SUBCUT ×2 (12:41→17:15)
--- NOTE | 2020-01-03 14:28 | P.DS_ITS ---
History of Present Illness History of Present Illness Date Patient Seen: 01/02/20 Chief complaint: Thinks Ketoacidosis Narrative: Written by Roge SANDERS: Ms. Nettie Stone is a 19 year old female with history significant for type 1 diabetes, depression, atypical chest pain and neuropathy who presents to the ER for ?feeling sick?. Patient stays she was visiting a friend in [place] for 4 days reports that all she had to drink was apple juice. She has been feeling nauseated off and on reports no vomiting. She has not been eating and developed diarrhea that has become liquid in character without melena or hematochezia. She reports a 10 lb weight loss in 3 days. She reports she has been taking her insulin but acknowledges that her blood sugars have been running high. Her last admission for diabetic ketoacidosis was in July 2019. Michaelle ent additionally endorses history of depression for which she takes escitalopram daily and acknowledges feeling depressed but denies suicidal ideation but has had prior suicide attempt. At present she is alert and conversant denies fevers or chills, headaches or dizziness. She has no nasal congestion or sore throat. She reports developing intermittent tightness across her chest but denies palpi tations. She has no shortness of breath cough or wheezing. She has nausea and diarrhea as discussed above. Patient complains of urinary incontinence in her sleep but denies urgency frequency or burning. She denies vaginal pain or irritation, last menstrual period 2 months ago and is using Depo-Provera control She denies back or joint pains and is independent in ADLs. Upon arrival to the ER temperature is not documented, has a heart rate of 75, blood pressure 138/84, respirations 16 saturation 99% on room air. Twelve lead EKG was obtained showing sinus rhythm sinus arrhythmia with an incomplete right bundle branch block, no ectopy or ischemia. On laboratory evaluation shows white count of 5.6, hemoglobin of 14.4, hematocrit of 42.7 and platelets of 197. She has an increased eosinophil count at 9.9%. Her electrolytes are within normal range with BUN of 10 and creatinine is 0.5 and blood sugar is 397. Her total bilirubin is 1.0 with an AST of 21, ALT of 17 and elevated alkaline phosphatase of 142. Her magnesium level is 1.9. She has serum ketones 4.64 in urine is positive for ketones protein but negative for leukocyte esterase wbc's or nitrates. Urine is negative, urine tox screen is positive for marijuana. In the ER the patient received Zofran and 1 L of normal saline and 10 units of insulin IV. The patient is admitted to the medicine service for gastroenteritis with type 1 diabetes and hyperglycemia. Discharge Providers Provider Date of admission: 01/02/20 22:19 Discharge Date: 01/03/20 Primary care physician: Huber Medina DO Consults: 01/02/20 22:26 Consult to Dietitian, Adult Routine Comment: Reason For Exam: Diabetes type 1, acute weight loss 10# in 3 days Discharge provider: Cathy Grimaldo DO Summary Hospital Course Discharge Diagnosis: 1. Early diabetic ketoacidosis, secondary to diabetes mellitus type 1, present on admission. DKA resolved. 2. Anion gap metabolic acidosis, secondary to DKA, present on admission. Resolved. 3. Acute gastroenteritis, likely viral, present on admission. Resolved. 4. Acute hypokalemia, not present on admission. Resolved. 5. Depression, chronic, present on admission. Stable. Hospital Course: Nettie Cuellar is a 19-year-old female with a past medical history significant for diabetes mellitus type 1 with prior episodes of diabetic ketoacidosis who presented today mild DKA in the setting of poor nutrition secondary to gastroenteritis. 1. Early diabetic ketoacidosis, secondary to diabetes mellitus type 1, present on admission. DKA resolved. -Patient with recurrent admissions for diabetic ketoacidosis last admission at [facility] was July 2019. -Patient presented with nausea, vomiting, and watery diarrhea for 3-4 days possibly due to viral gastroenteritis versus symptomatic hyperglycemia. -Initial blood glucose 397 on admission. Serum ketones elevated at 4.64. Initial anion gap 17. Serum bicarb 22. -Received regular insulin 10 units IV x1, 1 L NS, and normal saline 150 mL/hr in ED. Blood glucose improved to 189 and anion gap closed now 10. -Continued ACHS blood glucose checks and medium dose correctional scale insulin -Restarted patient's home Lantus 25 units at bedtime when the patient arrived to the floor. Patient became hypoglycemic and was provided food with resolution. -Continued carbohydrate consistent diet. -Ordered Reglan 5 mg every 6 hours as needed for nausea. -Consulted dietitian who provided patient with several different resources including videos regarding physiology of diabetes and diabetic diet including carb counting. Recommended outpatient diabetic self management education (DSME) and referral will need to be placed by patient's PCP. 2. Anion gap metabolic acidosis, secondary to DKA, present on admission. Resolved. -Initial blood glucose 397 on admission. Serum ketones elevated at 4.64. Initial anion gap 17. Serum bicarb 22. -No respiratory compensation or complaints of shortness of breath. -Continued to treat underlying cause as above. 3. Acute gastroenteritis, likely viral, present on admission. Resolved. -Patient presented with nausea, vomiting, and watery diarrhea for 3-4 days. Patient reports poor appetite and approximately 10 lbs weight loss over 3 days. -Patient denies questionable food sources but has been traveling and non- adherent to a diabetic diet. -Initial WBC 5.6 without left shift and eosinophilia of 9.9%. -GI stool panel not performed as patient had well-formed stool. Respiratory viral PCR negative. 4. Acute hypokalemia, not present on admission. Resolved. -Initial electrolyte were within normal limits with potassium 4.0 and magnesium 1.9. Continued to monitor electrolytes closely and replete as necessary. Patient's potassium dropped to 3.3 due to IV fluid administration and received potassium chloride 40 mEq IV x1. -Continued to monitor electrolytes closely and replete as necessary. 5. Depression, chronic, present on admission. Stable. -History of depression with previous suicidal attempt by alcohol overdose. The patient presently denies suicidal ideation. -Continued home escitalopram 10 mg daily. Exam Vital Signs (past 8 hours): - 01/03/20 06:57 01/03/20 07:30 01/03/20 07:35 Temperature 98.5 F Pulse Rate 72 Respiratory Rate 16 Blood Pressure 102/57 L Pulse Oximetry 100 99 99 Oxygen Delivery Method Room Air Oxygen Flow Rate 0 Narrative Exam Narrative: General: Young thin female sitting in bed and in no acute distress, well- developed, appropriately interactive. HEENT: Normocephalic, atraumatic. External ears without defect. Pupils equal, round, and reactive to light. Anicteric sclerae, moist conjunctivae, and no lid lag. Oropharynx free of erythema and cobble stoning with moist mucosa. Neck: Supple with full range of motion. No jugular venous distension. No lymphadenopathy or thyromegaly. Cardiovascular: Regular rate and rhythm without murmurs, rubs, or gallops appreciated Pulmonary: Clear to auscultation bilaterally without crackles, wheezes, or rhonchi. Normal respiratory effort with no use of accessory muscles. Abdomen: Soft, bowel sounds present, nontender, nondistended. No hepatos plenomegaly or masses appreciated. Extremities: No clubbing, cyanosis, or edema. Skin: Normal temperature, turgor, and texture; no rash, ulcers, or subcutaneous nodules appreciated. Neurological: Cranial nerves grossly intact. Normal muscle strength, tone, and bulk. Reflexes, coordination, and sensory function within normal limits. No known gait impairment. Psychiatric: Mildly depressed mood and affect. Alert and oriented to person, place, and time. Objective Labs Result Diagrams: 01/03/20 04:22 01/03/20 04:22 Labs: Laboratory Results - last 24 hr 01/02/20 01/02/20 01/02/20 18:31 18:31 18:31 WBC 5.6 RBC 4.41 Hgb 14.4 Hct 42.7 MCV 97.0 MCH 32.7 MCHC 33.7 RDW 13.0 Plt Count 197 Neut % (Auto) 45.1 L Lymph % (Auto) 36.8 [place] % (Auto) 7.7 Eos % (Auto) 9.9 H Baso % (Auto) 0.5 Neut # (Auto) 2500 Lymph # (Auto) 2100 [place] # (Auto) 400 Eos # (Auto) 600 H Baso # (Auto) 0 VBG pH Sodium 138 Potassium 4.0 Chloride 99 Carbon Dioxide 22 BUN 10 Creatinine 0.50 L Estimated GFR > 60.0 BUN/Creatinine Ratio 20.0 Glucose 397 H Hemoglobin A1c Lactate 1.6 Calcium 10.3 H Phosphorus Magnesium 1.9 Total Bilirubin 1.0 AST 21 ALT 17 Alkaline Phosphatase 142 H Total Protein 9.0 H Albumin 5.2 H Globulin 3.8 Albumin/Globulin Ratio 1.4 Lipase 64 Urine RBC Urine WBC Urine Bacteria Ur Culture Indicated? Urine Test U Opiates 300ng/mL cut Ur Oxycodone Screen Urine Methadone Screen Ur Barbiturates Screen U Tricyclic Antidepress Ur Phencyclidine Scrn Ur Amphetamines Screen U Methamphetamines Scrn Ur MDMA Scrn (Ecstasy) U Benzodiazepines Scrn Urine Cocaine Screen U Marijuana (THC) Screen Ketones 4.64 H Chlamy pneumoniae PCR Adenovirus (PCR) B.parapertussis DNA PCR Coronavirus OC43 (PCR) Coronavirus HKU1 (PCR) Coronavirus 229E (PCR) Coronavirus NL63 (PCR) Human Metapneumovir PCR Influenza Type A (PCR) Influenza Type B (PCR) M. pneumoniae (PCR) Parainfluenza 1 (PCR) Parainfluenza 2 (PCR) Parainfluenza 3 (PCR) Parainfluenza 4 (PCR) RSV (PCR) Entero/Rhino (PCR) 01/02/20 01/02/20 01/02/20 18:31 18:31 18:31 WBC RBC Hgb Hct MCV MCH MCHC RDW Plt Count Neut % (Auto) Lymph % (Auto) [place] % (Auto) Eos % (Auto) Baso % (Auto) Neut # (Auto) Lymph # (Auto) [place] # (Auto) Eos # (Auto) Baso # (Auto) VBG pH Sodium Potassium Chloride Carbon Dioxide BUN Creatinine Estimated GFR BUN/Creatinine Ratio Glucose Hemoglobin A1c Lactate Calcium Phosphorus Magnesium Total Bilirubin AST ALT Alkaline Phosphatase Total Protein Albumin Globulin Albumin/Globulin Ratio Lipase Urine RBC 0-1/hpf Urine WBC None seen Urine Bacteria None seen Ur Culture Indicated? Cult not indicated Urine Test Negative U Opiates 300ng/mL cut Negative Ur Oxycodone Screen Negative Urine Methadone Screen Negative Ur Barbiturates Screen Negative U Tricyclic Antidepress Negative Ur Phencyclidine Scrn Negative Ur Amphetamines Screen Negative U Methamphetamines Scrn Negative Ur MDMA Scrn (Ecstasy) Negative U Benzodiazepines Scrn Negative Urine Cocaine Screen Negative U Marijuana (THC) Screen Positive H Ketones Chlamy pneumoniae PCR Adenovirus (PCR) B.parapertussis DNA PCR Coronavirus OC43 (PCR) Coronavirus HKU1 (PCR) Coronavirus 229E (PCR) Coronavirus NL63 (PCR) Human Metapneumovir PCR Influenza Type A (PCR) Influenza Type B (PCR) M. pneumoniae (PCR) Parainfluenza 1 (PCR) Parainfluenza 2 (PCR) Parainfluenza 3 (PCR) Parainfluenza 4 (PCR) RSV (PCR) Entero/Rhino (PCR) 01/02/20 01/02/20 01/02/20 18:31 19:18 Unknown WBC RBC Hgb Hct MCV MCH MCHC RDW Plt Count Neut % (Auto) Lymph % (Auto) [place] % (Auto) Eos % (Auto) Baso % (Auto) Neut # (Auto) Lymph # (Auto) [place] # (Auto) Eos # (Auto) Baso # (Auto) VBG pH 7.35 Sodium Potassium Chloride Carbon Dioxide BUN Creatinine Estimated GFR BUN/Creatinine Ratio Glucose Hemoglobin A1c 10.9 H Lactate Calcium Phosphorus Magnesium Total Bilirubin AST ALT Alkaline Phosphatase Total Protein Albumin Globulin Albumin/Globulin Ratio Lipase Urine RBC Urine WBC Urine Bacteria Ur Culture Indicated? Urine Test U Opiates 300ng/mL cut Ur Oxycodone Screen Urine Methadone Screen Ur Barbiturates Screen U Tricyclic Antidepress Ur Phencyclidine Scrn Ur Amphetamines Screen U Methamphetamines Scrn Ur MDMA Scrn (Ecstasy) U Benzodiazepines Scrn Urine Cocaine Screen U Marijuana (THC) Screen Ketones Cancelled Chlamy pneumoniae PCR Adenovirus (PCR) B.parapertussis DNA PCR Coronavirus OC43 (PCR) Coronavirus HKU1 (PCR) Coronavirus 229E (PCR) Coronavirus NL63 (PCR) Human Metapneumovir PCR Influenza Type A (PCR) Influenza Type B (PCR) M. pneumoniae (PCR) Parainfluenza 1 (PCR) Parainfluenza 2 (PCR) Parainfluenza 3 (PCR) Parainfluenza 4 (PCR) RSV (PCR) Entero/Rhino (PCR) 01/03/20 01/03/20 01/03/20 04:22 04:22 04:22 WBC 7.4 RBC 3.69 L Hgb 12.3 Hct 35.8 L MCV 96.9 MCH 33.4 MCHC 34.4 RDW 13.0 Plt Count 167 Neut % (Auto) 28.4 L Lymph % (Auto) 46.5 H [place] % (Auto) 9.6 Eos % (Auto) 15.0 H Baso % (Auto) 0.5 Neut # (Auto) 2100 Lymph # (Auto) 3400 [place] # (Auto) 700 Eos # (Auto) 1100 H Baso # (Auto) 0 VBG pH Sodium 140 Potassium 3.3 L Chloride 106 Carbon Dioxide 24 BUN 10 Creatinine 0.40 L Estimated GFR > 60.0 BUN/Creatinine Ratio 25.0 H Glucose 93 D Hemoglobin A1c Lactate Calcium 8.9 Phosphorus 4.1 L Magnesium Total Bilirubin AST ALT Alkaline Phosphatase Total Protein Albumin Globulin Albumin/Globulin Ratio Lipase Urine RBC Urine WBC Urine Bacteria Ur Culture Indicated? Urine Test U Opiates 300ng/mL cut Ur Oxycodone Screen Urine Methadone Screen Ur Barbiturates Screen U Tricyclic Antidepress Ur Phencyclidine Scrn Ur Amphetamines Screen U Methamphetamines Scrn Ur MDMA Scrn (Ecstasy) U Benzodiazepines Scrn Urine Cocaine Screen U Marijuana (THC) Screen Ketones Chlamy pneumoniae PCR Adenovirus (PCR) B.parapertussis DNA PCR Coronavirus OC43 (PCR) Coronavirus HKU1 (PCR) Coronavirus 229E (PCR) Coronavirus NL63 (PCR) Human Metapneumovir PCR Influenza Type A (PCR) Influenza Type B (PCR) M. pneumoniae (PCR) Parainfluenza 1 (PCR) Parainfluenza 2 (PCR) Parainfluenza 3 (PCR) Parainfluenza 4 (PCR) RSV (PCR) Entero/Rhino (PCR) 01/03/20 01/03/20 04:22 08:50 WBC RBC Hgb Hct MCV MCH MCHC RDW Plt Count Neut % (Auto) Lymph % (Auto) [place] % (Auto) Eos % (Auto) Baso % (Auto) Neut # (Auto) Lymph # (Auto) [place] # (Auto) Eos # (Auto) Baso # (Auto) VBG pH Sodium Potassium Chloride Carbon Dioxide BUN Creatinine Estimated GFR BUN/Creatinine Ratio Glucose Hemoglobin A1c Lactate Calcium Phosphorus Magnesium 1.8 Total Bilirubin AST ALT Alkaline Phosphatase Total Protein Albumin Globulin Albumin/Globulin Ratio Lipase Urine RBC Urine WBC Urine Bacteria Ur Culture Indicated? Urine Test U Opiates 300ng/mL cut Ur Oxycodone Screen Urine Methadone Screen Ur Barbiturates Screen U Tricyclic Antidepress Ur Phencyclidine Scrn Ur Amphetamines Screen U Methamphetamines Scrn Ur MDMA Scrn (Ecstasy) U Benzodiazepines Scrn Urine Cocaine Screen U Marijuana (THC) Screen Ketones Chlamy pneumoniae PCR Not detected Adenovirus (PCR) Not detected B.parapertussis DNA PCR Not detected Coronavirus OC43 (PCR) Not detected Coronavirus HKU1 (PCR) Not detected Coronavirus 229E (PCR) Not detected Coronavirus NL63 (PCR) Not detected Human Metapneumovir PCR Not detected Influenza Type A (PCR) Not detected Influenza Type B (PCR) Not detected M. pneumoniae (PCR) Not detected Parainfluenza 1 (PCR) Not detected Parainfluenza 2 (PCR) Not detected Parainfluenza 3 (PCR) Not detected Parainfluenza 4 (PCR) Not detected RSV (PCR) Not detected Entero/Rhino (PCR) Not detected Discharge Plan Discharge Plan Patient Disposition: Home Discharge comment: You are being discharged home. You had mild diabetic ketoacidosis which has been treated. There was no source of infection found. You likely went into DKA due to your diet. Your hemoglobin A1c is 10.9% which is an average blood glucose of 250-300 at all times. Your goal hemoglobin A1c should be less than 7%. 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 Recommend a referral to diabetic Education here at [facility]. Continue your usual insulin regimen with Humalog after meals based on sliding scale and Lantus 25 units at bedtime. Please consider adding nutritional insulin either scheduled, based on carb load, or sliding scale to your regimen. Recommend consideration of continuous glucose monitor and insulin pump in the near future. Please continue monitoring your blood glucose levels multiple times throughout the day. Continue yearly eye check for retinopathy and every 6 month feet check for neuropathy. You have been provided counseling regarding the disease process of diabetes and the risks and complications that can occur and provided several resources from the dietitian and physicians. You have been provided a temporary prescription for Lantus 25 units subcutaneous at bedtime qty 3 pens. Discharge orders & Medications Prescriptions: Continued clonidine HCl 0.1 mg Tablet 0.1 mg PO BEDTIME RF: 0 albuterol sulfate 90 mcg/actuation Hfa Aerosol Inhaler 2 puff INHALATION Q4HR RF: 0 Humalog U-100 Insulin 100 unit/mL Cartridge 1 unit subcut ACHS RF: 0 escitalopram oxalate 10 mg Tablet 10 mg PO DAILY RF: 0 Lantus Solostar U-100 Insulin 100 unit/mL (3 mL) Insulin Pen 20 unit SUBCUT QPM Qty: 15 RF: 0 Follow up/Referrals: Huber Medina DO [Primary Care Provider] - 1 Week Diet/Activity/Treatments Diet: Diet as Tolerated, Carb-consistent/Diabetic and Low-fat Activity: Activity as tolerated Visit Report/Discharge Packet Instructions: DI for Dehydration -- Adult, DI for Diabetes Type 1 -- Adult, DI for Hyperglycemia -- Adult, DI for Nausea -- Adult, DI for Diabetic Ketoacidosis Discharge Data Primary Care Provider: Huber Medina Attending Provider: Roge Reeves Admit Date/Time: 01/02/20 22:19
--- NOTE | 2020-01-03 15:01 | CM.DANOTE ---
DCP/Assessment: Reviewed chart. Patient is a 19yr old female admitted to [facility] with DKA. Primary payor is 1)[employer] 2)[employer] pay. PCP listed is Huber Medina. Met with patient and mother at bedside explained CM/SW role. Patient drawing in bed at time of visit. Patient diagnosed with diabetes approximately 2yrs ago. Patient reports that she lives with her family and that they are very supportive. Dietitian saw patient today and provided outpatient recommendations. No additional resources indicated. P: Home when stable. BRIANNA Barrios Discharge Planning/Care Management CM Discharge Assessment Start: 01/03/20 14:57 Freq: Status: Active Protocol: Document 01/03/20 14:57 KJS (Rec: 01/03/20 15:01 KJS [id number]) Discharge Planning Assessment Assigned Youth Accommodation Support Worker BRIANNA Barrios Contact Information Deloris Garcias (mother) [phone] Advance Directives? No History Provided By Patient,Family Member,Medical Record Prior Living Arrangements House Household Members significant other,family, children Independent with ADL's Yes Is patient alert and oriented? Yes Caregiver for Another No Barriers to Discharge No Discharge Plan Home Transportation Arrangement Family to provide transportation Referrals Initiated Granulator Additional Comment Patient active as outpatient with counseling for anxiety and depression. Whiteboard Updated in Patient Room with Yes name and ext. # of Youth Accommodation Support Worker Review Status In Process Next Review Type Continued Stay Review
--- NOTE | 2020-01-03 18:29 | PC.NURSE ---
Assumed care of pt at 1500. Pt resting in bed during bedside hand-off. BG 175 at dinner, 1 unit of insulin given per mar. Discharge paperwork and education provided. Pt verbalized she will monitor her BG and nutritional intake closer she states she will follow her insulin orders as directed. Pt escorted off unit by SHIPPING LEAD and step-father. Pt left in stable condition with all personal belongings including d/c paperwork and script for lantus.
== END 2020-01-03 18:30 | disposition home or self-care (01) ==
LOC: ED 21:58 → AC 22:21
PROVIDERS: Internal Medicine; Admitting Provider Nurse Practitioner Adult Health; Emergency Provider Emergency Medicine; PCP Pediatrics; Visit Provider Nurse Practitioner Adult Health
DX: E10.10 Type 1 diabetes mellitus with ketoacidosis without coma (principal); R11.0 Nausea; K52.9 Noninfective gastroenteritis and colitis, unspecified; R07.89 Other chest pain; I49.9 Cardiac arrhythmia, unspecified; E86.0 Dehydration; E87.6 Hypokalemia; N39.44 Nocturnal enuresis; F32.9 Major depressive disorder, single episode, unspecified; F17.210 Nicotine dependence, cigarettes, uncomplicated; F12.90 Cannabis use, unspecified, uncomplicated; Z79.4 Long term (current) use of insulin
CPT/HCPCS: 36415; 80048; 80053; 80305; 81003; 81015; 81025; 82009; 82962; 83036; 83605; 83690; 83735; 83986; 84100; 85025; 87633; 93005; 96361; 96365; 96366; 96372; 96375; 99284; G0378; J1650; J2405; J2765; J3480

== ENCOUNTER 2020-01-29 19:13 | Emergency (ER) | payer OTHER, SELFPAY ==
[2020-01-02 22:43] VITALS: BMI 19.5
[2020-01-29 19:43] VITALS: BP 137/94; PULSE 156; RESP 24; TEMP 36.1; O2SAT 98
--- NOTE | 2020-01-29 20:01 | ED.SOB ---
HPI - SOB/Dyspnea General Chief Complaint: Shortness of Breath/Dyspnea Stated Complaint: HIGH GLUCOSE HIGH BLOOD PRESSURE HARD TIME BREATHI Time Seen by Provider: 01/29/20 19:35 Source: patient Mode of arrival: Ambulatory History of Present Illness HPI Narrative: 19-year-old female smoker with type 1 diabetes and history of DKA presents with chief complaint of about 1 weeks worth of some feeling a bit under the weather including some cough and shortness of breath for which she was evaluated by her primary care provider and told she has a viral upper respiratory infection. She has been using her insulin as prescribed including in infection regimen instituted by her primary. She denies any fever or chills but is nauseated in the absence of vomiting. She denies any change in bowel habits and has no dysuria, frequency or urgency. She denies any vaginal bleeding or discharge. MD Complaint: shortness of breath and cough Onset (ago): day(s) Context: recent illness Severity: moderate Consistency/Duration: intermittent Relieving factors: nothing Exacerbating factors: exertion Associated symptoms: cough, polyuria and polydipsia Treatment prior to arrival: none Related Data Home oxygen amount: none Home Medications Medication Instructions Recorded Confirmed Humalog U-100 Insulin 1 unit SUBCUT ACHS 01/02/20 01/02/20 albuterol sulfate 2 puff INHALATION Q4HR 01/02/20 01/02/20 clonidine HCl 0.1 mg PO BEDTIME 01/02/20 01/02/20 escitalopram oxalate 10 mg PO DAILY 01/02/20 01/02/20 Previous Rx's Medication Instructions Recorded Lantus Solostar U-100 Insulin 20 unit SUBCUT QPM #15 ml 01/03/20 Allergies Allergy/AdvReac Type Severity Reaction Status Date / Time No Known Drug Allergies Allergy Verified 01/02/20 18:30 Review of Systems Constitutional Constitutional: Denies chills, Denies fatigue, Denies fever(s), Denies frequent falls, Denies lethargy and Reports weakness Eyes Eyes: Denies change in vision, Denies eye discharge, Denies irritation and Denies loss of vision ENT Ears, Nose, Mouth, and Throat: Denies change in voice, Denies dizziness, Denies neck pain, Denies sore throat and Denies throat swelling Cardiovascular Cardiovascular: Denies chest pain, Denies irregular heart rhythm, Denies lightheadedness, Denies palpitations, Denies dyspnea, Denies dyspnea on exertion and Denies orthopnea Respiratory Respiratory: Denies cough, Denies dyspnea, Denies dyspnea on exertion and Denies wheezing Gastrointestinal Gastrointestinal: Denies abdominal pain, Denies change in bowel habits, Denies diarrhea, Reports nausea and Denies vomiting Genitourinary Genitourinary: Denies hematuria, Denies flank pain, Denies urinary incontinence and Denies urinary urgency Musculoskeletal Musculoskeletal: Denies back pain, Denies muscle weakness, Denies neck pain, Denies numbness and Denies tingling Integumentary/Breasts Skin/Breast: Denies pruritus, Denies erythema, Denies rash and Denies wounds Neurologic Neurologic: Denies behavioral changes, Denies confusion, Denies dizziness, Denies frequent falls, Denies loss of vision, Denies numbness, Denies tingling and Reports weakness Psychiatric Psychiatric: Denies anxiety, Denies behavioral changes, Denies confusion, Denies depression, Denies homicidal ideation and Denies suicidal ideation Endocrine Endocrine: Denies fatigue, Denies flushing and Denies palpitations Hematologic/Lymphatic Hematologic/Lymphatic: Denies easy bruising Allergic/Immunologic Allergic/Immunologic: Denies urticaria, Denies throat swelling and Denies wheezing Patient History Medical History Atypical chest pain (Acute) Depression (Acute) Diabetic neuropathy (Acute) Genital herpes (Inactive) Type 1 diabetes mellitus (Acute) Surgical History History of wisdom tooth extraction (Acute) Family History Grandfather Type I diabetes mellitus Father Heart murmur Mother Diabetes mellitus Thyroid disease Grandmother Breast cancer Social History household members: significant other, family and children Smoking Status: Current some day smoker alcohol intake: current Smoking Status: Current some day smoker alcohol intake frequency: holidays/special occasions only Substance Use Type: marijuana Exam Narrative Exam Narrative: GENERAL: [19] year old patient appears stated age. Well-nourished, well-developed patient, in mild distress. HEAD: Atraumatic. Normocephalic. EYES: Pupils equal round and reactive. Extraocular motions intact. No scleral icterus. No injection or drainage. ENT: Nose without bleeding, purulent drainage. Throat without erythema, tonsillar hypertrophy or exudate. Airway patent. NECK: Trachea midline. Non tender CARDIOVASCULAR: Tachycardic rate and rhythm without murmurs, gallops, or rubs. RESPIRATORY: Clear to auscultation. Breath sounds equal bilaterally. No wheezes, rales, or rhonchi. GASTROINTESTINAL: Abdomen soft, non-tender, nondistended. EXTREMITIES: No edema or joint tenderness. BACK: Nontender without deformity or crepitance. No flank tenderness. NEURO: AOx3. SKIN: No rash or erythema of visible areas Initial Vital Signs Initial Vital Signs: Vital Signs Temperature 96.9 F L 01/29/20 19:43 Pulse Rate 156 H 01/29/20 19:43 Respiratory Rate 24 01/29/20 19:43 Blood Pressure 137/94 H 01/29/20 19:43 Pulse Oximetry 98 01/29/20 19:43 Course Orders Ordered: Discontinued Medications Lactated Ringer's (Lactated Ringers) 1,000 mls @ 1,000 mls/hr IV BOLUS ONE Stop: 01/29/20 21:00 Last Infusion: 01/29/20 21:37 Dose: 0 mls/hr Documented by: Admin: 01/29/20 20:19 Dose: 1,000 mls/hr Documented by: RAHEEL Lactated Ringer's (Lactated Ringers) 1,000 mls @ 1,000 mls/hr IV BOLUS ONE Stop: 01/29/20 22:12 Last Infusion: 01/29/20 22:15 Dose: 0 mls/hr Documented by: Admin: 01/29/20 21:36 Dose: 1,000 mls/hr Documented by: MELA Ondansetron HCl (Zofran) 4 mg IV NOW ONE Stop: 01/29/20 20:02 Last Admin: 01/29/20 20:19 Dose: 4 mg Documented by: RAHEEL Reevaluation(s) Reevaluation #1: patient upright, feeling much better. Repeating labs Vital Signs Vital signs: Vital Signs - 8 hr 01/29/20 19:43 01/29/20 20:30 01/29/20 21:11 Temperature 96.9 F L Pulse Rate 156 H 113 H 110 H Respiratory Rate 24 23 23 Blood Pressure 137/94 H Blood Pressure [Right Arm] 115/67 111/75 Pulse Oximetry 98 96 95 01/29/20 22:53 Temperature Pulse Rate 90 Respiratory Rate 24 Blood Pressure Blood Pressure [Right Arm] 108/79 Pulse Oximetry 94 MDM - SOB/Dyspnea Lab Data Result diagrams: 01/29/20 20:05 01/29/20 22:40 Labs: Lab Results 01/29/20 01/29/20 01/29/20 Range/Units 20:05 20:05 20:05 WBC 12.4 H (4.5-11.0) X10^3/uL RBC 4.78 (4.0-5.2) X10^6/uL Hgb 15.9 (12.0-16.0) g/dL Hct 46.2 H (36-46) % MCV 96.6 (80-100) fL MCH 33.3 (26-34) PG MCHC 34.5 (30-36) % RDW 13.0 (11.6-14.8) % Plt Count 204 (150-400) X10^3/uL Neut % (Auto) 48.9 L (50-75) % Lymph % (Auto) 24.0 L (25-40) % [place] % (Auto) 8.1 (3-14) % Eos % (Auto) 18.1 H (2-4) % Baso % (Auto) 0.9 (0-2) % Neut # (Auto) 6100 (6868-9468) /uL Lymph # (Auto) 3000 (5083-0788) /uL [place] # (Auto) 1000 H (0-900) /uL Eos # (Auto) 2200 H (0-450) /uL Baso # (Auto) 100 (0-100) /uL VBG pH (7.33-7.43) VBG pCO2 (45-50) mmHg VBG pO2 (35-45) mmHg VBG HCO3 (23-28) mmol/L VBG Total CO2 (24-29) mmol/L VBG O2 Saturation (70-75) % VBG Base Excess (0-4) mmol/L Sodium 136 L (137-145) mmol/L Potassium 3.9 (3.4-5.1) mmol/L Chloride 104 (98-107) mmol/L Carbon Dioxide 17 L (22-32) mmol/L BUN 11 (7-17) mg/dL Creatinine 0.40 L (0.52-1.04) mg/dL Estimated GFR > 60.0 (>60) mL/min BUN/Creatinine Ratio 27.5 H (6-22) Glucose 172 H (70-100) mg/dL Lactate 3.9 H (0.7-2.1) mmol/L Calcium 10.6 H (8.4-10.2) mg/dL Total Bilirubin 0.5 (0.2-1.3) mg/dL AST 29 (14-36) IU/L ALT 18 (<35) IU/L Alkaline Phosphatase 118 (38-126) U/L Total Protein 9.1 H (6.3-8.2) g/dL Albumin 5.0 (3.5-5.0) g/dL Globulin 4.1 (1.7-4.1) g/dL Albumin/Globulin Ratio 1.2 (1.0-2.8) Procalcitonin (<0.5) ng/mL Urine RBC (0-5/HPF) Urine WBC (0-5/HPF) Ur Squamous Epith Cells (0-5/HPF) Urine Bacteria (None) Hyaline Casts (None) Ur Culture Indicated? Ketones 0.73 H (<0.27) mmol/L Chlamy pneumoniae PCR (Not Detect) Adenovirus (PCR) (Not Detect) B.parapertussis DNA PCR (Not Detect) Coronavirus OC43 (PCR) (Not Detect) Coronavirus HKU1 (PCR) (Not Detect) Coronavirus 229E (PCR) (Not Detect) Coronavirus NL63 (PCR) (Not Detect) Human Metapneumovir PCR (Not Detect) Influenza Type A (PCR) (Not Detect) Influenza Type B (PCR) (Not Detect) M. pneumoniae (PCR) (Not Detect) Parainfluenza 1 (PCR) (Not Detect) Parainfluenza 2 (PCR) (Not Detect) Parainfluenza 3 (PCR) (Not Detect) Parainfluenza 4 (PCR) (Not Detect) RSV (PCR) (Not Detect) Entero/Rhino (PCR) (Not Detect) 01/29/20 01/29/2001/28/20 Range/Units 20:06 20:10 20:18 WBC (4.5-11.0) X10^3/uL RBC (4.0-5.2) X10^6/uL Hgb (12.0-16.0) g/dL Hct (36-46) % MCV (80-100) fL MCH (26-34) PG MCHC (30-36) % RDW (11.6-14.8) % Plt Count (150-400) X10^3/uL Neut % (Auto) (50-75) % Lymph % (Auto) (25-40) % [place] % (Auto) (3-14) % Eos % (Auto) (2-4) % Baso % (Auto) (0-2) % Neut # (Auto) (9339-4266) /uL Lymph # (Auto) (3192-8505) /uL [place] # (Auto) (0-900) /uL Eos # (Auto) (0-450) /uL Baso # (Auto) (0-100) /uL VBG pH 7.40 (7.33-7.43) VBG pCO2 27.7 L (45-50) mmHg VBG pO2 45 (35-45) mmHg VBG HCO3 17 L (23-28) mmol/L VBG Total CO2 18 L (24-29) mmol/L VBG O2 Saturation 82 H (70-75) % VBG Base Excess -7.0 L (0-4) mmol/L Sodium (137-145) mmol/L Potassium (3.4-5.1) mmol/L Chloride (98-107) mmol/L Carbon Dioxide (22-32) mmol/L BUN (7-17) mg/dL Creatinine (0.52-1.04) mg/dL Estimated GFR (>60) mL/min BUN/Creatinine Ratio (6-22) Glucose (70-100) mg/dL Lactate (0.7-2.1) mmol/L Calcium (8.4-10.2) mg/dL Total Bilirubin (0.2-1.3) mg/dL AST (14-36) IU/L ALT (<35) IU/L Alkaline Phosphatase (38-126) U/L Total Protein (6.3-8.2) g/dL Albumin (3.5-5.0) g/dL Globulin (1.7-4.1) g/dL Albumin/Globulin Ratio (1.0-2.8) Procalcitonin < 0.05 (<0.5) ng/mL Urine RBC (0-5/HPF) Urine WBC (0-5/HPF) Ur Squamous Epith Cells (0-5/HPF) Urine Bacteria (None) Hyaline Casts (None) Ur Culture Indicated? Ketones (<0.27) mmol/L Chlamy pneumoniae PCR Not detected (Not Detect) Adenovirus (PCR) Not detected (Not Detect) B.parapertussis DNA PCR Not detected (Not Detect) Coronavirus OC43 (PCR) Not detected (Not Detect) Coronavirus HKU1 (PCR) Not detected (Not Detect) Coronavirus 229E (PCR) Not detected (Not Detect) Coronavirus NL63 (PCR) Not detected (Not Detect) Human Metapneumovir PCR Not detected (Not Detect) Influenza Type A (PCR) Not detected (Not Detect) Influenza Type B (PCR) Not detected (Not Detect) M. pneumoniae (PCR) Not detected (Not Detect) Parainfluenza 1 (PCR) Not detected (Not Detect) Parainfluenza 2 (PCR) Not detected (Not Detect) Parainfluenza 3 (PCR) Not detected (Not Detect) Parainfluenza 4 (PCR) Not detected (Not Detect) RSV (PCR) Not detected (Not Detect) Entero/Rhino (PCR) Not detected (Not Detect) 01/29/20 01/29/20 01/29/20 Range/Units 22:38 22:40 22:40 WBC (4.5-11.0) X10^3/uL RBC (4.0-5.2) X10^6/uL Hgb (12.0-16.0) g/dL Hct (36-46) % MCV (80-100) fL MCH (26-34) PG MCHC (30-36) % RDW (11.6-14.8) % Plt Count (150-400) X10^3/uL Neut % (Auto) (50-75) % Lymph % (Auto) (25-40) % [place] % (Auto) (3-14) % Eos % (Auto) (2-4) % Baso % (Auto) (0-2) % Neut # (Auto) (3401-3269) /uL Lymph # (Auto) (1432-9974) /uL [place] # (Auto) (0-900) /uL Eos # (Auto) (0-450) /uL Baso # (Auto) (0-100) /uL VBG pH (7.33-7.43) VBG pCO2 (45-50) mmHg VBG pO2 (35-45) mmHg VBG HCO3 (23-28) mmol/L VBG Total CO2 (24-29) mmol/L VBG O2 Saturation (70-75) % VBG Base Excess (0-4) mmol/L Sodium 134 L (137-145) mmol/L Potassium 3.9 (3.4-5.1) mmol/L Chloride 102 (98-107) mmol/L Carbon Dioxide 25 (22-32) mmol/L BUN 10 (7-17) mg/dL Creatinine 0.40 L (0.52-1.04) mg/dL Estimated GFR > 60.0 (>60) mL/min BUN/Creatinine Ratio 25.0 H (6-22) Glucose 181 H (70-100) mg/dL Lactate 1.9 (0.7-2.1) mmol/L Calcium 9.7 (8.4-10.2) mg/dL Total Bilirubin (0.2-1.3) mg/dL AST (14-36) IU/L ALT (<35) IU/L Alkaline Phosphatase (38-126) U/L Total Protein (6.3-8.2) g/dL Albumin (3.5-5.0) g/dL Globulin (1.7-4.1) g/dL Albumin/Globulin Ratio (1.0-2.8) Procalcitonin (<0.5) ng/mL Urine RBC 0-1/hpf (0-5/HPF) Urine WBC 0-1/hpf (0-5/HPF) Ur Squamous Epith Cells 0-1 /hpf (0-5/HPF) Urine Bacteria Occasional (0-1) (None) Hyaline Casts 0-1/lpf (None) Ur Culture Indicated? Cult not indicated Ketones (<0.27) mmol/L Chlamy pneumoniae PCR (Not Detect) Adenovirus (PCR) (Not Detect) B.parapertussis DNA PCR (Not Detect) Coronavirus OC43 (PCR) (Not Detect) Coronavirus HKU1 (PCR) (Not Detect) Coronavirus 229E (PCR) (Not Detect) Coronavirus NL63 (PCR) (Not Detect) Human Metapneumovir PCR (Not Detect) Influenza Type A (PCR) (Not Detect) Influenza Type B (PCR) (Not Detect) M. pneumoniae (PCR) (Not Detect) Parainfluenza 1 (PCR) (Not Detect) Parainfluenza 2 (PCR) (Not Detect) Parainfluenza 3 (PCR) (Not Detect) Parainfluenza 4 (PCR) (Not Detect) RSV (PCR) (Not Detect) Entero/Rhino (PCR) (Not Detect) Point of Care Testing Test Results Negative Urine Dip Bedside Urine Glucose Negative Bedside Urine Bilirubin - Negative Bedside Urine Ketone +/- 5 Urine Specific [place] 1.015 Bedside Urine Occult Blood - Negative Bedside Urine pH 6.0 Bedside Urine Protein ++ 100 Bedside Urine Urobilinogen - Negative Bedside Urine Nitrite - Negative Bedside Urine Leukocytes ++ 125 Esterase Imaging Data Chest x-ray: Radiologist's Impression: [address] [address] XRay Report Signed Patient: Nettie Stone PMR#: [id number] : 2000Acct:[id number] Age/Sex: 19 / FDate of Service: 01/29/20 Loc: ED Accession Number: [id number] Procedure: XR chest 1V Ordering Provider: Davon Brady D.O. PROCEDURE: XR CHEST 1V INDICATIONS: cough, trouble breathing TECHNIQUE: One view of the chest was acquired. COMPARISON: [facility], , XR CHEST 1V, 08/16/2019, 10:58. FINDINGS: Surgical changes and devices: None. Lungs and pleura: Lungs are clear. No pleural effusions or pneumothorax. Mediastinum: Mediastinal contours appear normal. Heart size is normal. Bones and chest wall: No suspicious bony lesions. Overlying soft tissues appear unremarkable. IMPRESSION: No acute process. Dictated by: Kylie Banks M.D. on 01/29/2020 at 20:42 Approved by: Kylie Banks M.D. on 01/29/2020 at 20:42 Discharge Plan Departure Patient Disposition: Home Clinical Impression: Acute hyperglycemia Discharge Date/Time: 01/29/20 23:39 Instructions: DI for Hyperglycemia -- Adult Activity Restrictions/Additional Instructions: *You have been diagnosed with [acute hyperglycemia, resolved] *What to do: *Take medications as directed *Follow up with your primary care provider in 2-3 days, call for an appointment. Let them know you were seen in the Emergency Department and that we ask that you be seen in follow up *Return to ER if you should have any new, worsening or concerning symptoms Prescriptions: No Action clonidine HCl 0.1 mg Tablet 0.1 mg PO BEDTIME RF: 0 albuterol sulfate 90 mcg/actuation Hfa Aerosol Inhaler 2 puff INHALATION Q4HR RF: 0 Humalog U-100 Insulin 100 unit/mL Cartridge 1 unit subcut ACHS RF: 0 escitalopram oxalate 10 mg Tablet 10 mg PO DAILY RF: 0 Lantus Solostar U-100 Insulin 100 unit/mL (3 mL) Insulin Pen 20 unit SUBCUT QPM Qty: 15 RF: 0 Referrals: Huber Medina DO [Primary Care Provider] -
[2020-01-29] MEDS: LACTATED RINGERS 1,000 ML 1000 ML IV ×2 (20:19→21:36)
[2020-01-29] MEDS: ONDANSETRON 4 MG/2 ML INJ IV (20:19)
[2020-01-29 20:30] VITALS: BP 115/67; PULSE 113; RESP 23; O2SAT 96
[2020-01-29 20:40] LABS: Add Manual Diff / Slide Review NO; Basophils Absolute Auto 100 /uL (0-100); Basophils Percent Auto 0.9 % (0-2); Eosinophils Absolute Auto 2200 /uL (0-450); Eosinophils Percent Auto 18.1 % (2-4); Hematocrit 46.2 % (36-46); Hemoglobin 15.9 g/dL (12.0-16.0); Lymphocytes Absolute Auto 3000 /uL (1100-4500); Mean Corpuscular HGB Conc 34.5 % (30-36); Mean Corpuscular Hemoglobin 33.3 PG (26-34); Mean Corpuscular Volume 96.6 fL (80-100); Monocytes Absolute Auto 1000 /uL (0-900); Monocytes Percent Auto 8.1 % (3-14); Neutrophils Absolute Auto 6100 /uL (1500-7000); Neutrophils Percent Auto 48.9 % (50-75); Platelet Count 204 X10^3/uL (150-400); Red Blood Cell Count 4.78 X10^6/uL (4.0-5.2); White Blood Cell Count 12.4 X10^3/uL (4.5-11.0)
[2020-01-29 20:45] LABS: PCO2 VBG 27.7 mmHg (45-50); PO2 VBG 45 mmHg (35-45)
[2020-01-29 20:46] LABS: HCO3 VBG 17 mmol/L (23-28); Oxygen Saturation VBG 82 % (70-75); Total CO2 VBG 18 mmol/L (24-29)
[2020-01-29 20:49] LABS: Alanine Aminotransferase 18 IU/L (<35); Albumin Globulin Ratio 1.2 (1.0-2.8); Alkaline Phosphatase 118 U/L (38-126); Aspartate Aminotransferase 29 IU/L (14-36); BUN Creatinine Ratio 27.5 (6-22); Bilirubin Total 0.5 mg/dL (0.2-1.3); Blood Urea Nitrogen 11 mg/dL (7-17); Calcium 10.6 mg/dL (8.4-10.2); Carbon Dioxide 17 mmol/L (22-32); Chloride 104 mmol/L (98-107); Estimated Glomerular Filt Rate > 60.0 mL/min (>60); Globulin 4.1 g/dL (1.7-4.1); Glucose 172 mg/dL (70-100); HEMOLYSIS 45 (0-50); Potassium 3.9 mmol/L (3.4-5.1); Sodium 136 mmol/L (137-145); Total Protein 9.1 g/dL (6.3-8.2)
[2020-01-29 20:52] LABS: Lactate (Lactic Acid) 3.9 mmol/L (0.7-2.1)
[2020-01-29 20:53] LABS: Ketones (Beta-Hydroxybutyrate) 0.73 mmol/L (<0.27)
[2020-01-29 21:11] VITALS: BP 111/75; PULSE 110; RESP 23; O2SAT 95
[2020-01-29 21:16] LABS: Procalcitonin < 0.05 ng/mL (<0.5)
[2020-01-29 22:17] LABS: Adenovirus Not Detected (Not Detect); Bordetella pertussis Not Detected (Not Detect); Chlamydophila pneumoniae Not Detected (Not Detect); Coronavirus 229E Not Detected (Not Detect); Coronavirus HKU1 Not Detected (Not Detect); Coronavirus NL 63 Not Detected (Not Detect); Coronavirus OC43 Not Detected (Not Detect); Human Metapneumovirus Not Detected (Not Detect); Human Rhinovirus/Enterovirus Not Detected (Not Detect); Influenza A Not Detected (Not Detect); Influenza B Not Detected (Not Detect); Mycoplasma pneumoniae Not Detected (Not Detect); Parainfluenza Virus 1 Not Detected (Not Detect); Parainfluenza Virus 2 Not Detected (Not Detect); Parainfluenza Virus 3 Not Detected (Not Detect); Parainfluenza Virus 4 Not Detected (Not Detect); Respiratory Syncytial Virus Not Detected (Not Detect)
[2020-01-29 22:29] LABS: Reflexed Lactate in 2 Hours Y
[2020-01-29 22:53] VITALS: BP 108/79; PULSE 90; RESP 24; O2SAT 94
[2020-01-29 23:00] LABS: Blood Urea Nitrogen 10 mg/dL (7-17); Calcium 9.7 mg/dL (8.4-10.2); Carbon Dioxide 25 mmol/L (22-32); Chloride 102 mmol/L (98-107); Estimated Glomerular Filt Rate > 60.0 mL/min (>60); Glucose 181 mg/dL (70-100); HEMOLYSIS < 15 (0-50); Lactate 2HR (Lactic Acid Rflx) 1.9 mmol/L (0.7-2.1); Potassium 3.9 mmol/L (3.4-5.1); Sodium 134 mmol/L (137-145)
[2020-01-29 23:14] LABS: Bacteria Urine Occasional (0-1); Culture Indicated Urine Cult Not Indicated; Hyaline Casts Urine 0-1/LPF; RBC Urine 0-1/HPF (0-5/HPF); Squamous Epithelial Cell Urine 0-1 /HPF (0-5/HPF); WBC Urine 0-1/HPF (0-5/HPF)
[2020-01-29 23:39] VITALS: BP 118/72; PULSE 79; RESP 16; O2SAT 99
== END 2020-01-29 23:39 | disposition home or self-care (01) ==
PROVIDERS: Emergency Provider Emergency Medicine; PCP Pediatrics
DX: E10.65 Type 1 diabetes mellitus with hyperglycemia (principal); R06.02 Shortness of breath; R05 Cough; I10 Essential (primary) hypertension
CPT/HCPCS: 36415; 71045; 80048; 80053; 81003; 81015; 81025; 82009; 82805; 83605; 84145; 85025; 87040; 87633; 93005; 93010; 96361; 96374; 99284; J2405

== ENCOUNTER 2020-02-07 18:05 | Observation (INO) | payer OTHER, SELFPAY ==
[2020-01-02 22:43] VITALS: BMI 19.5
[2020-02-07] VITALS (7 sets, daily range): BP systolic 113–130; BP diastolic 65–87; PULSE 86–130; RESP 18–30; TEMP 36.7; O2SAT 94–97; BMI 19.5
--- NOTE | 2020-02-07 18:33 | ED.GENADULT ---
HPI - General Adult <DO Yani Hampton Last Filed: 02/07/20 19:07> General Chief complaint: Diabetic Problem Stated complaint: Type 1 Diabetic/Cough/SOB/Weakness/R Kidney Pain Time Seen by Provider: 02/07/20 18:29 Mode of arrival: Ambulatory Related Data Home Medications Medication Instructions Recorded Confirmed Humalog U-100 Insulin 1 unit SUBCUT ACHS 01/02/20 01/02/20 albuterol sulfate 2 puff INHALATION Q4HR 01/02/20 01/02/20 clonidine HCl 0.1 mg PO BEDTIME 01/02/20 01/02/20 escitalopram oxalate 10 mg PO DAILY 01/02/20 01/02/20 Previous Rx's Medication Instructions Recorded Lantus Solostar U-100 Insulin 20 unit SUBCUT QPM #15 ml 01/03/20 Allergies Allergy/AdvReac Type Severity Reaction Status Date / Time No Known Drug Allergies Allergy Verified 01/02/20 18:30 Patient History <DO Yani Hampton Last Filed: 02/07/20 19:07> Social History household members: significant other, family and children Smoking Status: Current some day smoker alcohol intake: current Smoking Status: Current some day smoker alcohol intake frequency: holidays/special occasions only Substance Use Type: marijuana Exam <DO Yani Hampton Last Filed: 02/07/20 19:07> Initial Vital Signs Initial Vital Signs: Vital Signs Temperature 98.1 F 02/07/20 18:09 Pulse Rate 130 H 02/07/20 18:09 Respiratory Rate 24 02/07/20 18:09 Blood Pressure 130/87 02/07/20 18:09 Pulse Oximetry 97 02/07/20 18:09 <TOMMY Robles - Last Filed: 02/07/20 21:56> Initial Vital Signs Initial Vital Signs: Vital Signs Temperature 98.1 F 02/07/20 18:09 Pulse Rate 130 H 02/07/20 18:09 Respiratory Rate 24 02/07/20 18:09 Blood Pressure 130/87 02/07/20 18:09 Pulse Oximetry 97 02/07/20 18:09 Course <DO Yani Hampton Last Filed: 02/07/20 19:07> Orders Ordered: ED Orders 02/07/20 18:30 Urinalysis and Microscopic Stat Urine Culture Stat Urine Drug Screen, Rapid Stat 02/07/20 18:36 CMP [Comprehensive Metabolic Panel] Stat Complete Blood Count AUTO DIFF Stat Ethanol (ETOH) Stat Lactate (Lactic Acid) Stat Lipase Stat Magnesium Stat Phosphorous Stat Test Serum,Qual Stat Procalcitonin Stat Thyroid Stimulating Hormone Stat 02/07/20 18:45 Blood Culture Stat 02/07/20 18:48 XR chest 1V Stat 02/07/20 19:17 Arterial Blood Gas Stat 02/07/20 20:39 Respiratory Panel (Film Array) Stat Sodium Chloride (Normal Saline 0.9%) 1,000 mls @ 200 mls/hr IV CONT FAREED Last Admin: 02/07/20 20:04 Dose: 200 mls/hr Documented by: QUIRINO Potassium Phosphate 10 mmol/ (Sodium Chloride) 1,003.3333 mls @ 100 mls/hr IV CONT FAREED Last Admin: 02/07/20 20:03 Dose: 100 mls/hr Documented by: QUIRINO INSULIN DRIP PREMIX (Myxredlin Drip Premix) 100 unit in 100 mls @ 5 mls/hr IV TITRATE FAREED; Protocol Last Titration: 02/07/20 21:44 Dose: 0 mls/hr Documented by: LANNY Cosigned by: JONNATHAN Admin: 02/07/20 20:37 Dose: 5 ml/hr, 5 mls/hr Documented by: LANNY Cosigned by: JONNATHAN Discontinued Medications Albuterol/Ipratropium (Duoneb) 6 ml INH NOW ONE Stop: 02/07/20 19:38 Last Admin: 02/07/20 19:33 Dose: 6 ml Documented by: JORGE Sodium Chloride (Normal Saline 0.9%) 1,000 mls @ 1,000 mls/hr IV BOLUS ONE Stop: 02/07/20 19:38 Last Infusion: 02/07/20 20:00 Dose: 0 mls/hr Documented by: Admin: 02/07/20 18:52 Dose: 1,000 mls/hr Documented by: QUIRINO Levalbuterol HCl (Xopenex) 0.63 mg INH NOW ONE Stop: 02/07/20 18:49 Last Admin: 02/07/20 20:04 Dose: Not Given Documented by: QUIRINO Vital Signs Vital signs: Vital Signs - 8 hr 02/07/20 18:09 02/07/20 19:33 02/07/20 20:30 Temperature 98.1 F Pulse Rate 130 H 106 H 97 H Respiratory Rate 24 30 H 18 Blood Pressure 130/87 Blood Pressure [Right Arm] 116/65 Pulse Oximetry 97 94 97 02/07/20 21:30 Temperature Pulse Rate 86 Respiratory Rate 20 Blood Pressure Blood Pressure [Right Arm] 116/67 Pulse Oximetry 96 <TOMMY Robles - Last Filed: 02/07/20 21:56> Orders Ordered: ED Orders 02/07/20 18:30 Urinalysis and Microscopic Stat Urine Culture Stat Urine Drug Screen, Rapid Stat 02/07/20 18:36 CMP [Comprehensive Metabolic Panel] Stat Complete Blood Count AUTO DIFF Stat Ethanol (ETOH) Stat Lactate (Lactic Acid) Stat Lipase Stat Magnesium Stat Phosphorous Stat Test Serum,Qual Stat Procalcitonin Stat Thyroid Stimulating Hormone Stat 02/07/20 18:45 Blood Culture Stat 02/07/20 18:48 XR chest 1V Stat 02/07/20 19:17 Arterial Blood Gas Stat 02/07/20 20:39 Respiratory Panel (Film Array) Stat Sodium Chloride (Normal Saline 0.9%) 1,000 mls @ 200 mls/hr IV CONT FAREED Last Admin: 02/07/20 20:04 Dose: 200 mls/hr Documented by: QUIRINO Potassium Phosphate 10 mmol/ (Sodium Chloride) 1,003.3333 mls @ 100 mls/hr IV CONT FAREED Last Admin: 02/07/20 20:03 Dose: 100 mls/hr Documented by: QUIRINO INSULIN DRIP PREMIX (Myxredlin Drip Premix) 100 unit in 100 mls @ 5 mls/hr IV TITRATE FAREED; Protocol Last Titration: 02/07/20 21:44 Dose: 0 mls/hr Documented by: LANNY Cosigned by: JONNATHAN Admin: 02/07/20 20:37 Dose: 5 ml/hr, 5 mls/hr Documented by: LANNY Cosigned by: JONNATHAN Discontinued Medications Albuterol/Ipratropium (Duoneb) 6 ml INH NOW ONE Stop: 02/07/20 19:38 Last Admin: 02/07/20 19:33 Dose: 6 ml Documented by: JORGE Sodium Chloride (Normal Saline 0.9%) 1,000 mls @ 1,000 mls/hr IV BOLUS ONE Stop: 02/07/20 19:38 Last Infusion: 02/07/20 20:00 Dose: 0 mls/hr Documented by: Admin: 02/07/20 18:52 Dose: 1,000 mls/hr Documented by: QUIRINO Levalbuterol HCl (Xopenex) 0.63 mg INH NOW ONE Stop: 02/07/20 18:49 Last Admin: 02/07/20 20:04 Dose: Not Given Documented by: QUIRINO Vital Signs Vital signs: Vital Signs - 8 hr 02/07/20 18:09 02/07/20 19:33 02/07/20 20:30 Temperature 98.1 F Pulse Rate 130 H 106 H 97 H Respiratory Rate 24 30 H 18 Blood Pressure 130/87 Blood Pressure [Right Arm] 116/65 Pulse Oximetry 97 94 97 02/07/20 21:30 Temperature Pulse Rate 86 Respiratory Rate 20 Blood Pressure Blood Pressure [Right Arm] 116/67 Pulse Oximetry 96 Medical Decision Making <Duke Graham, - Last Filed: 02/07/20 19:07> Lab Data Result diagrams: 02/07/20 18:36 02/07/20 18:36 Labs: Lab Results 02/07/20 02/07/20 02/07/20 Range/Units 18:30 18:30 18:36 WBC 6.6 (4.5-11.0) X10^3/uL RBC 4.43 (4.0-5.2) X10^6/uL Hgb 14.7 (12.0-16.0) g/dL Hct 42.6 (36-46) % MCV 96.2 (80-100) fL MCH 33.3 (26-34) PG MCHC 34.6 (30-36) % RDW 13.1 (11.6-14.8) % Plt Count 163 (150-400) X10^3/uL Neut % (Auto) 59.9 (50-75) % Lymph % (Auto) 19.7 L (25-40) % Mchenry % (Auto) 12.5 (3-14) % Eos % (Auto) 7.4 H (2-4) % Baso % (Auto) 0.5 (0-2) % Neut # (Auto) 3900 (7608-8524) /uL Lymph # (Auto) 1300 (4043-1604) /uL Mchenry # (Auto) 800 (0-900) /uL Eos # (Auto) 500 H (0-450) /uL Baso # (Auto) 0 (0-100) /uL ABG pH (7.35-7.45) ABG pCO2 (35-45) mmHg ABG pO2 (80-100) mmHg ABG HCO3 (22-26) mmol/L ABG Total CO2 (21-31) mmol/L ABG O2 Saturation (95-100) % ABG Base Excess (-2-2) mmol/L FiO2 Sodium (137-145) mmol/L Potassium (3.4-5.1) mmol/L Chloride (98-107) mmol/L Carbon Dioxide (22-32) mmol/L BUN (7-17) mg/dL Creatinine (0.52-1.04) mg/dL Estimated GFR (>60) mL/min BUN/Creatinine Ratio (6-22) Glucose (70-100) mg/dL Lactate (0.7-2.1) mmol/L Calcium (8.4-10.2) mg/dL Phosphorus (4.5-5.5) mg/dL Magnesium (1.6-2.3) mg/dL Total Bilirubin (0.2-1.3) mg/dL AST (14-36) IU/L ALT (<35) IU/L Alkaline Phosphatase (38-126) U/L Total Protein (6.3-8.2) g/dL Albumin (3.5-5.0) g/dL Globulin (1.7-4.1) g/dL Albumin/Globulin Ratio (1.0-2.8) Lipase (23-300) U/L Procalcitonin (<0.5) ng/mL TSH (0.47-4.68) uIU/mL Serum , Qual (Negative) Urine Color Yellow Urine Appearance Clear Urine pH 5.0 (4.5-8.0) Ur Specific [place] 1.015 (1.000-1.035) Urine Protein Negative (Negative) Urine Glucose (UA) 1+ H (Negative) g/dL Urine Ketones 3+ H (NEGATIVE) Urine Occult Blood Trace-lysed (Negative) Urine Nitrate Negative (Negative) Urine Bilirubin Negative (NEGATIVE) Urine Urobilinogen 0.2 (0.2) E.U./dL Ur Leukocyte Esterase Negative (NEGATIVE) Urine RBC 0-1/hpf (0-5/HPF) Urine WBC 5-10/hpf H (0-5/HPF) Ur Squamous Epith Cells 1-5 /hpf (0-5/HPF) Amorphous Sediment 1+ Urine Bacteria Few (2-10) H (None) Ur Culture Indicated? Specimen cultured U Opiates 300ng/mL cut Negative (Negative) Ur Oxycodone Screen Negative (Negative) Urine Methadone Screen Negative (Negative) Ur Barbiturates Screen Negative (Negative) U Tricyclic Antidepress Negative (Negative) Ur Phencyclidine Scrn Negative (Negative) Ur Amphetamines Screen Negative (Negative) U Methamphetamines Scrn Negative (Negative) Ur MDMA Scrn (Ecstasy) Negative (Negative) U Benzodiazepines Scrn Negative (Negative) Urine Cocaine Screen Negative (Negative) U Marijuana (THC) Screen Positive H (Negative) Ethyl Alcohol ( - 10) mg/dL 02/07/20 02/07/20 02/07/20 Range/Units 18:36 18:36 18:36 WBC (4.5-11.0) X10^3/uL RBC (4.0-5.2) X10^6/uL Hgb (12.0-16.0) g/dL Hct (36-46) % MCV (80-100) fL MCH (26-34) PG MCHC (30-36) % RDW (11.6-14.8) % Plt Count (150-400) X10^3/uL Neut % (Auto) (50-75) % Lymph % (Auto) (25-40) % Mchenry % (Auto) (3-14) % Eos % (Auto) (2-4) % Baso % (Auto) (0-2) % Neut # (Auto) (1050-0703) /uL Lymph # (Auto) (4741-4295) /uL Mchenry # (Auto) (0-900) /uL Eos # (Auto) (0-450) /uL Baso # (Auto) (0-100) /uL ABG pH (7.35-7.45) ABG pCO2 (35-45) mmHg ABG pO2 (80-100) mmHg ABG HCO3 (22-26) mmol/L ABG Total CO2 (21-31) mmol/L ABG O2 Saturation (95-100) % ABG Base Excess (-2-2) mmol/L FiO2 Sodium 133 L (137-145) mmol/L Potassium 4.2 (3.4-5.1) mmol/L Chloride 100 (98-107) mmol/L Carbon Dioxide 19 L (22-32) mmol/L BUN 15 (7-17) mg/dL Creatinine 0.50 L (0.52-1.04) mg/dL Estimated GFR > 60.0 (>60) mL/min BUN/Creatinine Ratio 30.0 H (6-22) Glucose 386 H D (70-100) mg/dL Lactate 2.9 H (0.7-2.1) mmol/L Calcium 10.3 H (8.4-10.2) mg/dL Phosphorus 3.8 L (4.5-5.5) mg/dL Magnesium 1.9 (1.6-2.3) mg/dL Total Bilirubin 0.5 (0.2-1.3) mg/dL AST 20 (14-36) IU/L ALT 16 (<35) IU/L Alkaline Phosphatase 137 H (38-126) U/L Total Protein 8.3 H (6.3-8.2) g/dL Albumin 4.7 (3.5-5.0) g/dL Globulin 3.6 (1.7-4.1) g/dL Albumin/Globulin Ratio 1.3 (1.0-2.8) Lipase (23-300) U/L Procalcitonin (<0.5) ng/mL TSH (0.47-4.68) uIU/mL Serum , Qual (Negative) Urine Color Urine Appearance Urine pH (4.5-8.0) Ur Specific [place] (1.000-1.035) Urine Protein (Negative) Urine Glucose (UA) (Negative) g/dL Urine Ketones (NEGATIVE) Urine Occult Blood (Negative) Urine Nitrate (Negative) Urine Bilirubin (NEGATIVE) Urine Urobilinogen (0.2) E.U./dL Ur Leukocyte Esterase (NEGATIVE) Urine RBC (0-5/HPF) Urine WBC (0-5/HPF) Ur Squamous Epith Cells (0-5/HPF) Amorphous Sediment Urine Bacteria (None) Ur Culture Indicated? U Opiates 300ng/mL cut (Negative) Ur Oxycodone Screen (Negative) Urine Methadone Screen (Negative) Ur Barbiturates Screen (Negative) U Tricyclic Antidepress (Negative) Ur Phencyclidine Scrn (Negative) Ur Amphetamines Screen (Negative) U Methamphetamines Scrn (Negative) Ur MDMA Scrn (Ecstasy) (Negative) U Benzodiazepines Scrn (Negative) Urine Cocaine Screen (Negative) U Marijuana (THC) Screen (Negative) Ethyl Alcohol < 10 ( - 10) mg/dL 02/07/20 02/07/20 02/07/20 Range/Units 18:36 18:36 18:36 WBC (4.5-11.0) X10^3/uL RBC (4.0-5.2) X10^6/uL Hgb (12.0-16.0) g/dL Hct (36-46) % MCV (80-100) fL MCH (26-34) PG MCHC (30-36) % RDW (11.6-14.8) % Plt Count (150-400) X10^3/uL Neut % (Auto) (50-75) % Lymph % (Auto) (25-40) % Mchenry % (Auto) (3-14) % Eos % (Auto) (2-4) % Baso % (Auto) (0-2) % Neut # (Auto) (5089-0257) /uL Lymph # (Auto) (3470-4729) /uL Mchenry # (Auto) (0-900) /uL Eos # (Auto) (0-450) /uL Baso # (Auto) (0-100) /uL ABG pH (7.35-7.45) ABG pCO2 (35-45) mmHg ABG pO2 (80-100) mmHg ABG HCO3 (22-26) mmol/L ABG Total CO2 (21-31) mmol/L ABG O2 Saturation (95-100) % ABG Base Excess (-2-2) mmol/L FiO2 Sodium (137-145) mmol/L Potassium (3.4-5.1) mmol/L Chloride (98-107) mmol/L Carbon Dioxide (22-32) mmol/L BUN (7-17) mg/dL Creatinine (0.52-1.04) mg/dL Estimated GFR (>60) mL/min BUN/Creatinine Ratio (6-22) Glucose (70-100) mg/dL Lactate (0.7-2.1) mmol/L Calcium (8.4-10.2) mg/dL Phosphorus (4.5-5.5) mg/dL Magnesium (1.6-2.3) mg/dL Total Bilirubin (0.2-1.3) mg/dL AST (14-36) IU/L ALT (<35) IU/L Alkaline Phosphatase (38-126) U/L Total Protein (6.3-8.2) g/dL Albumin (3.5-5.0) g/dL Globulin (1.7-4.1) g/dL Albumin/Globulin Ratio (1.0-2.8) Lipase 50 (23-300) U/L Procalcitonin (<0.5) ng/mL TSH 1.35 (0.47-4.68) uIU/mL Serum , Qual Negative (Negative) Urine Color Urine Appearance Urine pH (4.5-8.0) Ur Specific [place] (1.000-1.035) Urine Protein (Negative) Urine Glucose (UA) (Negative) g/dL Urine Ketones (NEGATIVE) Urine Occult Blood (Negative) Urine Nitrate (Negative) Urine Bilirubin (NEGATIVE) Urine Urobilinogen (0.2) E.U./dL Ur Leukocyte Esterase (NEGATIVE) Urine RBC (0-5/HPF) Urine WBC (0-5/HPF) Ur Squamous Epith Cells (0-5/HPF) Amorphous Sediment Urine Bacteria (None) Ur Culture Indicated? U Opiates 300ng/mL cut (Negative) Ur Oxycodone Screen (Negative) Urine Methadone Screen (Negative) Ur Barbiturates Screen (Negative) U Tricyclic Antidepress (Negative) Ur Phencyclidine Scrn (Negative) Ur Amphetamines Screen (Negative) U Methamphetamines Scrn (Negative) Ur MDMA Scrn (Ecstasy) (Negative) U Benzodiazepines Scrn (Negative) Urine Cocaine Screen (Negative) U Marijuana (THC) Screen (Negative) Ethyl Alcohol ( - 10) mg/dL 02/07/20 02/07/20 02/07/20 Range/Units 18:36 19:17 20:50 WBC (4.5-11.0) X10^3/uL RBC (4.0-5.2) X10^6/uL Hgb (12.0-16.0) g/dL Hct (36-46) % MCV (80-100) fL MCH (26-34) PG MCHC (30-36) % RDW (11.6-14.8) % Plt Count (150-400) X10^3/uL Neut % (Auto) (50-75) % Lymph % (Auto) (25-40) % Mchenry % (Auto) (3-14) % Eos % (Auto) (2-4) % Baso % (Auto) (0-2) % Neut # (Auto) (3748-1854) /uL Lymph # (Auto) (7485-2782) /uL Mchenry # (Auto) (0-900) /uL Eos # (Auto) (0-450) /uL Baso # (Auto) (0-100) /uL ABG pH 7.39 (7.35-7.45) ABG pCO2 29.2 L (35-45) mmHg ABG pO2 65 L (80-100) mmHg ABG HCO3 18 L (22-26) mmol/L ABG Total CO2 18 L (21-31) mmol/L ABG O2 Saturation 93 L (95-100) % ABG Base Excess -7.0 L (-2-2) mmol/L FiO2 21 Sodium (137-145) mmol/L Potassium (3.4-5.1) mmol/L Chloride (98-107) mmol/L Carbon Dioxide (22-32) mmol/L BUN (7-17) mg/dL Creatinine (0.52-1.04) mg/dL Estimated GFR (>60) mL/min BUN/Creatinine Ratio (6-22) Glucose (70-100) mg/dL Lactate 2.0 (0.7-2.1) mmol/L Calcium (8.4-10.2) mg/dL Phosphorus (4.5-5.5) mg/dL Magnesium (1.6-2.3) mg/dL Total Bilirubin (0.2-1.3) mg/dL AST (14-36) IU/L ALT (<35) IU/L Alkaline Phosphatase (38-126) U/L Total Protein (6.3-8.2) g/dL Albumin (3.5-5.0) g/dL Globulin (1.7-4.1) g/dL Albumin/Globulin Ratio (1.0-2.8) Lipase (23-300) U/L Procalcitonin < 0.05 (<0.5) ng/mL TSH (0.47-4.68) uIU/mL Serum , Qual (Negative) Urine Color Urine Appearance Urine pH (4.5-8.0) Ur Specific [place] (1.000-1.035) Urine Protein (Negative) Urine Glucose (UA) (Negative) g/dL Urine Ketones (NEGATIVE) Urine Occult Blood (Negative) Urine Nitrate (Negative) Urine Bilirubin (NEGATIVE) Urine Urobilinogen (0.2) E.U./dL Ur Leukocyte Esterase (NEGATIVE) Urine RBC (0-5/HPF) Urine WBC (0-5/HPF) Ur Squamous Epith Cells (0-5/HPF) Amorphous Sediment Urine Bacteria (None) Ur Culture Indicated? U Opiates 300ng/mL cut (Negative) Ur Oxycodone Screen (Negative) Urine Methadone Screen (Negative) Ur Barbiturates Screen (Negative) U Tricyclic Antidepress (Negative) Ur Phencyclidine Scrn (Negative) Ur Amphetamines Screen (Negative) U Methamphetamines Scrn (Negative) Ur MDMA Scrn (Ecstasy) (Negative) U Benzodiazepines Scrn (Negative) Urine Cocaine Screen (Negative) U Marijuana (THC) Screen (Negative) Ethyl Alcohol ( - 10) mg/dL Point of Care Testing Glucose POC 234 Point of care testing: Point of Care Testing Glucose POC 234 <TOMMY Robles - Last Filed: 02/07/20 21:56> Lab Data Labs: Lab Results 02/07/20 02/07/20 02/07/20 Range/Units 18:30 18:30 18:36 WBC 6.6 (4.5-11.0) X10^3/uL RBC 4.43 (4.0-5.2) X10^6/uL Hgb 14.7 (12.0-16.0) g/dL Hct 42.6 (36-46) % MCV 96.2 (80-100) fL MCH 33.3 (26-34) PG MCHC 34.6 (30-36) % RDW 13.1 (11.6-14.8) % Plt Count 163 (150-400) X10^3/uL Neut % (Auto) 59.9 (50-75) % Lymph % (Auto) 19.7 L (25-40) % Mchenry % (Auto) 12.5 (3-14) % Eos % (Auto) 7.4 H (2-4) % Baso % (Auto) 0.5 (0-2) % Neut # (Auto) 3900 (4158-1277) /uL Lymph # (Auto) 1300 (7600-4157) /uL [place]hen[place] # (Auto) 800 (0-900) /uL Eos # (Auto) 500 H (0-450) /uL Baso # (Auto) 0 (0-100) /uL ABG pH (7.35-7.45) ABG pCO2 (35-45) mmHg ABG pO2 (80-100) mmHg ABG HCO3 (22-26) mmol/L ABG Total CO2 (21-31) mmol/L ABG O2 Saturation (95-100) % ABG Base Excess (-2-2) mmol/L FiO2 Sodium (137-145) mmol/L Potassium (3.4-5.1) mmol/L Chloride (98-107) mmol/L Carbon Dioxide (22-32) mmol/L BUN (7-17) mg/dL Creatinine (0.52-1.04) mg/dL Estimated GFR (>60) mL/min BUN/Creatinine Ratio (6-22) Glucose (70-100) mg/dL Lactate (0.7-2.1) mmol/L Calcium (8.4-10.2) mg/dL Phosphorus (4.5-5.5) mg/dL Magnesium (1.6-2.3) mg/dL Total Bilirubin (0.2-1.3) mg/dL AST (14-36) IU/L ALT (<35) IU/L Alkaline Phosphatase (38-126) U/L Total Protein (6.3-8.2) g/dL Albumin (3.5-5.0) g/dL Globulin (1.7-4.1) g/dL Albumin/Globulin Ratio (1.0-2.8) Lipase (23-300) U/L Procalcitonin (<0.5) ng/mL TSH (0.47-4.68) uIU/mL Serum , Qual (Negative) Urine Color Yellow Urine Appearance Clear Urine pH 5.0 (4.5-8.0) Ur Specific [place] 1.015 (1.000-1.035) Urine Protein Negative (Negative) Urine Glucose (UA) 1+ H (Negative) g/dL Urine Ketones 3+ H (NEGATIVE) Urine Occult Blood Trace-lysed (Negative) Urine Nitrate Negative (Negative) Urine Bilirubin Negative (NEGATIVE) Urine Urobilinogen 0.2 (0.2) E.U./dL Ur Leukocyte Esterase Negative (NEGATIVE) Urine RBC 0-1/hpf (0-5/HPF) Urine WBC 5-10/hpf H (0-5/HPF) Ur Squamous Epith Cells 1-5 /hpf (0-5/HPF) Amorphous Sediment 1+ Urine Bacteria Few (2-10) H (None) Ur Culture Indicated? Specimen cultured U Opiates 300ng/mL cut Negative (Negative) Ur Oxycodone Screen Negative (Negative) Urine Methadone Screen Negative (Negative) Ur Barbiturates Screen Negative (Negative) U Tricyclic Antidepress Negative (Negative) Ur Phencyclidine Scrn Negative (Negative) Ur Amphetamines Screen Negative (Negative) U Methamphetamines Scrn Negative (Negative) Ur MDMA Scrn (Ecstasy) Negative (Negative) U Benzodiazepines Scrn Negative (Negative) Urine Cocaine Screen Negative (Negative) U Marijuana (THC) Screen Positive H (Negative) Ethyl Alcohol ( - 10) mg/dL 02/07/20 02/07/20 02/07/20 Range/Units 18:36 18:36 18:36 WBC (4.5-11.0) X10^3/uL RBC (4.0-5.2) X10^6/uL Hgb (12.0-16.0) g/dL Hct (36-46) % MCV (80-100) fL MCH (26-34) PG MCHC (30-36) % RDW (11.6-14.8) % Plt Count (150-400) X10^3/uL Neut % (Auto) (50-75) % Lymph % (Auto) (25-40) % Mchen[place] % (Auto) (3-14) % Eos % (Auto) (2-4) % Baso % (Auto) (0-2) % Neut # (Auto) (7917-8167) /uL Lymph # (Auto) (4641-2442) /uL [place] # (Auto) (0-900) /uL Eos # (Auto) (0-450) /uL Baso # (Auto) (0-100) /uL ABG pH (7.35-7.45) ABG pCO2 (35-45) mmHg ABG pO2 (80-100) mmHg ABG HCO3 (22-26) mmol/L ABG Total CO2 (21-31) mmol/L ABG O2 Saturation (95-100) % ABG Base Excess (-2-2) mmol/L FiO2 Sodium 133 L (137-145) mmol/L Potassium 4.2 (3.4-5.1) mmol/L Chloride 100 (98-107) mmol/L Carbon Dioxide 19 L (22-32) mmol/L BUN 15 (7-17) mg/dL Creatinine 0.50 L (0.52-1.04) mg/dL Estimated GFR > 60.0 (>60) mL/min BUN/Creatinine Ratio 30.0 H (6-22) Glucose 386 H D (70-100) mg/dL Lactate 2.9 H (0.7-2.1) mmol/L Calcium 10.3 H (8.4-10.2) mg/dL Phosphorus 3.8 L (4.5-5.5) mg/dL Magnesium 1.9 (1.6-2.3) mg/dL Total Bilirubin 0.5 (0.2-1.3) mg/dL AST 20 (14-36) IU/L ALT 16 (<35) IU/L Alkaline Phosphatase 137 H (38-126) U/L Total Protein 8.3 H (6.3-8.2) g/dL Albumin 4.7 (3.5-5.0) g/dL Globulin 3.6 (1.7-4.1) g/dL Albumin/Globulin Ratio 1.3 (1.0-2.8) Lipase (23-300) U/L Procalcitonin (<0.5) ng/mL TSH (0.47-4.68) uIU/mL Serum , Qual (Negative) Urine Color Urine Appearance Urine pH (4.5-8.0) Ur Specific [place] (1.000-1.035) Urine Protein (Negative) Urine Glucose (UA) (Negative) g/dL Urine Ketones (NEGATIVE) Urine Occult Blood (Negative) Urine Nitrate (Negative) Urine Bilirubin (NEGATIVE) Urine Urobilinogen (0.2) E.U./dL Ur Leukocyte Esterase (NEGATIVE) Urine RBC (0-5/HPF) Urine WBC (0-5/HPF) Ur Squamous Epith Cells (0-5/HPF) Amorphous Sediment Urine Bacteria (None) Ur Culture Indicated? U Opiates 300ng/mL cut (Negative) Ur Oxycodone Screen (Negative) Urine Methadone Screen (Negative) Ur Barbiturates Screen (Negative) U Tricyclic Antidepress (Negative) Ur Phencyclidine Scrn (Negative) Ur Amphetamines Screen (Negative) U Methamphetamines Scrn (Negative) Ur MDMA Scrn (Ecstasy) (Negative) U Benzodiazepines Scrn (Negative) Urine Cocaine Screen (Negative) U Marijuana (THC) Screen (Negative) Ethyl Alcohol < 10 ( - 10) mg/dL 02/07/20 02/07/20 02/07/20 Range/Units 18:36 18:36 18:36 WBC (4.5-11.0) X10^3/uL RBC (4.0-5.2) X10^6/uL Hgb (12.0-16.0) g/dL Hct (36-46) % MCV (80-100) fL MCH (26-34) PG MCHC (30-36) % RDW (11.6-14.8) % Plt Count (150-400) X10^3/uL Neut % (Auto) (50-75) % Lymph % (Auto) (25-40) % [place] % (Auto) (3-14) % Eos % (Auto) (2-4) % Baso % (Auto) (0-2) % Neut # (Auto) (9012-7582) /uL Lymph # (Auto) (1926-1054) /uL [place] # (Auto) (0-900) /uL Eos # (Auto) (0-450) /uL Baso # (Auto) (0-100) /uL ABG pH (7.35-7.45) ABG pCO2 (35-45) mmHg ABG pO2 (80-100) mmHg ABG HCO3 (22-26) mmol/L ABG Total CO2 (21-31) mmol/L ABG O2 Saturation (95-100) % ABG Base Excess (-2-2) mmol/L FiO2 Sodium (137-145) mmol/L Potassium (3.4-5.1) mmol/L Chloride (98-107) mmol/L Carbon Dioxide (22-32) mmol/L BUN (7-17) mg/dL Creatinine (0.52-1.04) mg/dL Estimated GFR (>60) mL/min BUN/Creatinine Ratio (6-22) Glucose (70-100) mg/dL Lactate (0.7-2.1) mmol/L Calcium (8.4-10.2) mg/dL Phosphorus (4.5-5.5) mg/dL Magnesium (1.6-2.3) mg/dL Total Bilirubin (0.2-1.3) mg/dL AST (14-36) IU/L ALT (<35) IU/L Alkaline Phosphatase (38-126) U/L Total Protein (6.3-8.2) g/dL Albumin (3.5-5.0) g/dL Globulin (1.7-4.1) g/dL Albumin/Globulin Ratio (1.0-2.8) Lipase 50 (23-300) U/L Procalcitonin (<0.5) ng/mL TSH 1.35 (0.47-4.68) uIU/mL Serum , Qual Negative (Negative) Urine Color Urine Appearance Urine pH (4.5-8.0) Ur Specific [place] (1.000-1.035) Urine Protein (Negative) Urine Glucose (UA) (Negative) g/dL Urine Ketones (NEGATIVE) Urine Occult Blood (Negative) Urine Nitrate (Negative) Urine Bilirubin (NEGATIVE) Urine Urobilinogen (0.2) E.U./dL Ur Leukocyte Esterase (NEGATIVE) Urine RBC (0-5/HPF) Urine WBC (0-5/HPF) Ur Squamous Epith Cells (0-5/HPF) Amorphous Sediment Urine Bacteria (None) Ur Culture Indicated? U Opiates 300ng/mL cut (Negative) Ur Oxycodone Screen (Negative) Urine Methadone Screen (Negative) Ur Barbiturates Screen (Negative) U Tricyclic Antidepress (Negative) Ur Phencyclidine Scrn (Negative) Ur Amphetamines Screen (Negative) U Methamphetamines Scrn (Negative) Ur MDMA Scrn (Ecstasy) (Negative) U Benzodiazepines Scrn (Negative) Urine Cocaine Screen (Negative) U Marijuana (THC) Screen (Negative) Ethyl Alcohol ( - 10) mg/dL 02/07/20 02/07/20 02/07/20 Range/Units 18:36 19:17 20:50 WBC (4.5-11.0) X10^3/uL RBC (4.0-5.2) X10^6/uL Hgb (12.0-16.0) g/dL Hct (36-46) % MCV (80-100) fL MCH (26-34) PG MCHC (30-36) % RDW (11.6-14.8) % Plt Count (150-400) X10^3/uL Neut % (Auto) (50-75) % Lymph % (Auto) (25-40) % [place] % (Auto) (3-14) % Eos % (Auto) (2-4) % Baso % (Auto) (0-2) % Neut # (Auto) (2513-4518) /uL Lymph # (Auto) (1819-2933) /uL [place] # (Auto) (0-900) /uL Eos # (Auto) (0-450) /uL Baso # (Auto) (0-100) /uL ABG pH 7.39 (7.35-7.45) ABG pCO2 29.2 L (35-45) mmHg ABG pO2 65 L (80-100) mmHg ABG HCO3 18 L (22-26) mmol/L ABG Total CO2 18 L (21-31) mmol/L ABG O2 Saturation 93 L (95-100) % ABG Base Excess -7.0 L (-2-2) mmol/L FiO2 21 Sodium (137-145) mmol/L Potassium (3.4-5.1) mmol/L Chloride (98-107) mmol/L Carbon Dioxide (22-32) mmol/L BUN (7-17) mg/dL Creatinine (0.52-1.04) mg/dL Estimated GFR (>60) mL/min BUN/Creatinine Ratio (6-22) Glucose (70-100) mg/dL Lactate 2.0 (0.7-2.1) mmol/L Calcium (8.4-10.2) mg/dL Phosphorus (4.5-5.5) mg/dL Magnesium (1.6-2.3) mg/dL Total Bilirubin (0.2-1.3) mg/dL AST (14-36) IU/L ALT (<35) IU/L Alkaline Phosphatase (38-126) U/L Total Protein (6.3-8.2) g/dL Albumin (3.5-5.0) g/dL Globulin (1.7-4.1) g/dL Albumin/Globulin Ratio (1.0-2.8) Lipase (23-300) U/L Procalcitonin < 0.05 (<0.5) ng/mL TSH (0.47-4.68) uIU/mL Serum , Qual (Negative) Urine Color Urine Appearance Urine pH (4.5-8.0) Ur Specific [place] (1.000-1.035) Urine Protein (Negative) Urine Glucose (UA) (Negative) g/dL Urine Ketones (NEGATIVE) Urine Occult Blood (Negative) Urine Nitrate (Negative) Urine Bilirubin (NEGATIVE) Urine Urobilinogen (0.2) E.U./dL Ur Leukocyte Esterase (NEGATIVE) Urine RBC (0-5/HPF) Urine WBC (0-5/HPF) Ur Squamous Epith Cells (0-5/HPF) Amorphous Sediment Urine Bacteria (None) Ur Culture Indicated? U Opiates 300ng/mL cut (Negative) Ur Oxycodone Screen (Negative) Urine Methadone Screen (Negative) Ur Barbiturates Screen (Negative) U Tricyclic Antidepress (Negative) Ur Phencyclidine Scrn (Negative) Ur Amphetamines Screen (Negative) U Methamphetamines Scrn (Negative) Ur MDMA Scrn (Ecstasy) (Negative) U Benzodiazepines Scrn (Negative) Urine Cocaine Screen (Negative) U Marijuana (THC) Screen (Negative) Ethyl Alcohol ( - 10) mg/dL Point of Care Testing Glucose POC 234 Point of care testing: Point of Care Testing Glucose POC 234 Discharge Plan Departure Patient Disposition: Admitted As Inpatient Referrals: eSveriano Arrieta [Primary Care Provider] -
[2020-02-07 18:38] LABS: Appearance Urine UA CLEAR; Bilirubin Urine UA NEGATIVE (NEGATIVE); Color Urine UA YELLOW; Glucose Urine UA 1+ g/dL (Negative); Ketones Urine UA 3+ (NEGATIVE); Leukocyte Esterase Urine UA NEGATIVE (NEGATIVE); Nitrite Urine UA NEGATIVE (Negative); Occult Blood Urine UA TRACE-LYSED (Negative); Protein Urine UA NEGATIVE (Negative); Specific Gravity Urine UA 1.015 (1.000-1.035); Urobilinogen Urine UA 0.2 E.U./dL (0.2)
[2020-02-07 18:44] LABS: Add Manual Diff / Slide Review NO; Basophils Absolute Auto 0 /uL (0-100); Basophils Percent Auto 0.5 % (0-2); Eosinophils Absolute Auto 500 /uL (0-450); Eosinophils Percent Auto 7.4 % (2-4); Hematocrit 42.6 % (36-46); Hemoglobin 14.7 g/dL (12.0-16.0); Lymphocytes Absolute Auto 1300 /uL (1100-4500); Lymphocytes Percent Auto 19.7 % (25-40); Mean Corpuscular HGB Conc 34.6 % (30-36); Mean Corpuscular Hemoglobin 33.3 PG (26-34); Mean Corpuscular Volume 96.2 fL (80-100); Monocytes Absolute Auto 800 /uL (0-900); Monocytes Percent Auto 12.5 % (3-14); Neutrophils Absolute Auto 3900 /uL (1500-7000); Neutrophils Percent Auto 59.9 % (50-75); Platelet Count 163 X10^3/uL (150-400); Red Blood Cell Count 4.43 X10^6/uL (4.0-5.2); Red Cell Distribution Width 13.1 % (11.6-14.8); White Blood Cell Count 6.6 X10^3/uL (4.5-11.0)
[2020-02-07 18:44] LABS: UR Morphine/Opiate cutoff 300 Negative (Negative); Ur Creatinine Normal (Normal); Ur Specific Gravity Normal (Normal); Urine Amphetamines Negative (Negative); Urine Barbiturates Negative (Negative); Urine Benzodiazepines Negative (Negative); Urine Cocaine Negative (Negative); Urine MDMA Negative (Negative); Urine Methadone Negative (Negative); Urine Methamphetamines Negative (Negative); Urine Oxycodone Negative (Negative); Urine Phencyclidine Negative (Negative); Urine Tetrahydrocannabinol Positive (Negative); Urine Tricyclic Antidepressant Negative (Negative); Urine pH Normal (Normal)
[2020-02-07 18:46] LABS: Amorphous Sediment Urine 1+; Bacteria Urine Few (2-10); Culture Indicated Urine Specimen Cultured; RBC Urine 0-1/HPF (0-5/HPF); Squamous Epithelial Cell Urine 1-5 /HPF (0-5/HPF); WBC Urine 5-10/HPF (0-5/HPF)
--- NOTE | 2020-02-07 18:48 | DI.RAD.S_ITS ---
PROCEDURE: XR CHEST 1V INDICATIONS: wheezing, DKA, eval for PNA TECHNIQUE: One view of the chest was acquired. COMPARISON: [facility], CR, XR CHEST 1V, 01/29/2020, 20:30. FINDINGS: Surgical changes and devices: None. Lungs and pleura: Lungs are clear. No pleural effusions or pneumothorax. Mediastinum: Mediastinal contours appear normal. Heart size is normal. Bones and chest wall: No suspicious bony lesions. Overlying soft tissues appear unremarkable. IMPRESSION: No evidence acute pulmonary process. Dictated by: Bola Salinas M.D. on 02/07/2020 at 19:13 Approved by: Bola Salinas M.D. on 02/07/2020 at 19:14
[2020-02-07] MEDS: SODIUM CHLORIDE 0.9% 1,000 ML 1000 ML IV (18:52)
[2020-02-07 18:59] LABS: Alanine Aminotransferase 16 IU/L (<35); Albumin 4.7 g/dL (3.5-5.0); Albumin Globulin Ratio 1.3 (1.0-2.8); Alkaline Phosphatase 137 U/L (38-126); Aspartate Aminotransferase 20 IU/L (14-36); Bilirubin Total 0.5 mg/dL (0.2-1.3); Blood Urea Nitrogen 15 mg/dL (7-17); Calcium 10.3 mg/dL (8.4-10.2); Carbon Dioxide 19 mmol/L (22-32); Chloride 100 mmol/L (98-107); Estimated Glomerular Filt Rate > 60.0 mL/min (>60); Ethanol (ETOH) < 10 mg/dL; Globulin 3.6 g/dL (1.7-4.1); Glucose 386 mg/dL (70-100); HEMOLYSIS < 15 (0-50); Lactate (Lactic Acid) 2.9 mmol/L (0.7-2.1); Magnesium 1.9 mg/dL (1.6-2.3); Phosphorous 3.8 mg/dL (4.5-5.5); Potassium 4.2 mmol/L (3.4-5.1); Sodium 133 mmol/L (137-145); Total Protein 8.3 g/dL (6.3-8.2)
[2020-02-07 19:00] LABS: Lipase 50 U/L (23-300)
[2020-02-07 19:09] LABS: Pregnancy Test Serum,Qual Negative (Negative)
[2020-02-07] MEDS: ALBUTEROL/IPRATROPIUM 3 ML AMPUL 6 ML INH (19:33)
[2020-02-07 19:42] LABS: Thyroid Stimulating Hormone 1.35 uIU/mL (0.47-4.68)
[2020-02-07 19:56] LABS: Fractionated Inspired Oxygen 21; HCO3 ABG 18 mmol/L (22-26); Oxygen Saturation ABG 93 % (95-100); PCO2 ABG 29.2 mmHg (35-45); PO2 ABG 65 mmHg (80-100); TCO2 ABG 18 mmol/L (21-31); pH ABG 7.39 (7.35-7.45)
[2020-02-07] MEDS: POTASSIUM PHOSPHATE 10 MMOL in SODIUM CHLORIDE 0.9% 1,000 ML 100 MMOL IV (20:03)
[2020-02-07] MEDS: SODIUM CHLORIDE 0.9% 1,000 ML 200 ML IV (20:04)
[2020-02-07] MEDS: INSULIN DRIP PREMIX 100 UNIT/100 ML PLAST..BAG IV (20:37)
[2020-02-07 20:39] LABS: Reflexed Lactate in 2 Hours Y
[2020-02-07 21:08] LABS: Procalcitonin < 0.05 ng/mL (<0.5)
[2020-02-07 22:03] LABS: Adenovirus Not Detected (Not Detect); Coronavirus 229E Not Detected (Not Detect); Coronavirus HKU1 Detected (Not Detect)
[2020-02-07 22:04] LABS: Bordetella pertussis Not Detected (Not Detect); Chlamydophila pneumoniae Not Detected (Not Detect); Coronavirus NL 63 Not Detected (Not Detect); Coronavirus OC43 Not Detected (Not Detect); Human Metapneumovirus Not Detected (Not Detect); Human Rhinovirus/Enterovirus Not Detected (Not Detect); Influenza A Not Detected (Not Detect); Influenza B Not Detected (Not Detect); Mycoplasma pneumoniae Not Detected (Not Detect); Parainfluenza Virus 1 Not Detected (Not Detect); Parainfluenza Virus 2 Not Detected (Not Detect); Parainfluenza Virus 3 Not Detected (Not Detect); Parainfluenza Virus 4 Not Detected (Not Detect); Respiratory Syncytial Virus Not Detected (Not Detect)
[2020-02-07 22:44] LABS: BUN Creatinine Ratio 33.3 (6-22); Blood Urea Nitrogen 12 mg/dL (7-17); Calcium 8.8 mg/dL (8.4-10.2); Carbon Dioxide 21 mmol/L (22-32); Chloride 108 mmol/L (98-107); Estimated Glomerular Filt Rate > 60.0 mL/min (>60); Glucose 202 mg/dL (70-100); HEMOLYSIS < 15 (0-50); Potassium 3.6 mmol/L (3.4-5.1); Sodium 136 mmol/L (137-145)
--- NOTE | 2020-02-07 23:37 | P.HP_ITS ---
History of Present Illness History of Present Illness Date Patient Seen: 02/07/20 Time Patient Seen: 22:30 Chief complaint: Type 1 Diabetic/Cough/SOB/Weakness/R Kidney Pain Narrative: Ms. Nettie Stone is a 19 year old female with history significant for type 1 diabetes, depression, atypical chest pain and neuropathy who presents to the ER for ?feeling sick?. States she has been short of breath, and intermittently using her inhalers. She does state she has had nausea, has not vomited, and that her kidneys hurt. Denies cough, congestion, abdominal pain, dysurea, diarrhea or constipation. She reports she has been taking her insulin but acknowledges that her blood sugars have been running high. Her last admission for diabetic ketoacidosis was in December of this year. She was again seen in the ED a week ago for hyperglycemia and discharged to home. Mother who is in the room with her states she lives with 7 family members, none of whom report cold or flu symptoms, but are continuing to work in public spaces. Patient additionally endorses history of depression for which she takes escitalopram daily and acknowledges feeling depressed but denies suicidal ideation but has had prior suicide attempt. At present she is alert and conversant denies fevers or chills, headaches or dizziness. She has no nasal congestion or sore throat. Last menstrual period 4 months ago and is using Depo-Provera control and is overdue for her injection. She denies back or joint pains and is independent in ADLs. Patient History Medical History Acute hyperglycemia (Acute) Atypical chest pain (Inactive) Coronavirus infection (Acute) Depression (Acute) Diabetic neuropathy (Acute) Genital herpes (Chronic) Hyperosmolar hyperglycemic coma due to diabetes mellitus without ketoacidosis (Acute) Type 1 diabetes mellitus (Acute) Surgical History History of wisdom tooth extraction (Acute) Family & Social History Family History Grandfather Type I diabetes mellitus Father Heart murmur Mother Diabetes mellitus Thyroid disease Grandmother Breast cancer Social History: household members significant other,family,children Safety & Behavioral: Feels Safe in Current Yes Environment Been Physically Hurt or No Threatened By a Person Tobacco & Substance use: Tobacco type e-cigarettes Smoking Status Current some day smoker alcohol intake current alcohol intake frequency holiday/special occasion Substance Use Type marijuana Meds Home Medications and Allergies Home Medications Medication Instructions Recorded Confirmed Type Humalog U-100 Insulin 1 unit SUBCUT ACHS 01/02/20 01/02/20 History albuterol sulfate 2 puff INHALATION Q4HR 01/02/20 01/02/20 History clonidine HCl 0.1 mg PO BEDTIME 01/02/20 01/02/20 History escitalopram oxalate 10 mg PO DAILY 01/02/20 01/02/20 History Lantus Solostar U-100 Insulin 20 unit SUBCUT QPM #15 ml 01/03/20 Rx Allergies Allergy/AdvReac Type Severity Reaction Status Date / Time No Known Drug Allergies Allergy Verified 01/02/20 18:30 Review of Systems Review of Systems ROS: Yes All systems reviewed with the patient and are negative except as otherwise documented Exam Vital Signs (past 8 hours): - 02/07/20 18:09 02/07/20 19:33 02/07/20 20:30 Temperature 98.1 F Pulse Rate 130 H 106 H 97 H Respiratory Rate 24 30 H 18 Blood Pressure 130/87 Blood Pressure [Right Arm] 116/65 Pulse Oximetry 97 94 97 02/07/20 21:30 02/07/20 22:00 02/07/20 22:30 Temperature Pulse Rate 86 89 90 Respiratory Rate 20 18 18 Blood Pressure Blood Pressure [Right Arm] 116/67 113/66 114/67 Pulse Oximetry 96 97 95 02/07/20 22:42 Temperature Pulse Rate Respiratory Rate Blood Pressure Blood Pressure [Right Arm] Pulse Oximetry 96 Oxygen Delivery Method Room Air Narrative Exam Narrative: Gen: Alert, oriented, ill-appearing 19 y.o. female HEENT: normocephalic, atraumatic, conjunctiva clear, sclera non-icteric, oral mucosa pink and moist Neck: supple, full ROM Resp: Bilateral wheezing, worse in upper lung abrams, non-labored breathing, 93% O2 sat CV: RRR, no murmur or rubs Abd: soft, non-tender, normoactive BTs Skin: no lesions or rashes, dry and intact Neuro: Alert and oriented X 4 w/no focal deficits Extremities: moves all 4 extremities, is ambulatory, negative Margoth?s sign Psyche: depressed affect. Objective Labs Result Diagrams: 02/07/20 18:36 02/07/20 23:40 Labs: Laboratory Results - last 24 hr 02/07/20 02/07/20 02/07/20 18:30 18:30 18:36 WBC 6.6 RBC 4.43 Hgb 14.7 Hct 42.6 MCV 96.2 MCH 33.3 MCHC 34.6 RDW 13.1 Plt Count 163 Neut % (Auto) 59.9 Lymph % (Auto) 19.7 L [place] % (Auto) 12.5 Eos % (Auto) 7.4 H Baso % (Auto) 0.5 Neut # (Auto) 3900 Lymph # (Auto) 1300 [place] # (Auto) 800 Eos # (Auto) 500 H Baso # (Auto) 0 ABG pH ABG pCO2 ABG pO2 ABG HCO3 ABG Total CO2 ABG O2 Saturation ABG Base Excess FiO2 Sodium Potassium Chloride Carbon Dioxide BUN Creatinine Estimated GFR BUN/Creatinine Ratio Glucose Lactate Calcium Phosphorus Magnesium Total Bilirubin AST ALT Alkaline Phosphatase Total Protein Albumin Globulin Albumin/Globulin Ratio Lipase Procalcitonin TSH Serum , Qual Urine Color Yellow Urine Appearance Clear Urine pH 5.0 Ur Specific [place] 1.015 Urine Protein Negative Urine Glucose (UA) 1+ H Urine Ketones 3+ H Urine Occult Blood Trace-lysed Urine Nitrate Negative Urine Bilirubin Negative Urine Urobilinogen 0.2 Ur Leukocyte Esterase Negative Urine RBC 0-1/hpf Urine WBC 5-10/hpf H Ur Squamous Epith Cells 1-5 /hpf Amorphous Sediment 1+ Urine Bacteria Few (2-10) H Ur Culture Indicated? Specimen cultured U Opiates 300ng/mL cut Negative Ur Oxycodone Screen Negative Urine Methadone Screen Negative Ur Barbiturates Screen Negative U Tricyclic Antidepress Negative Ur Phencyclidine Scrn Negative Ur Amphetamines Screen Negative U Methamphetamines Scrn Negative Ur MDMA Scrn (Ecstasy) Negative U Benzodiazepines Scrn Negative Urine Cocaine Screen Negative U Marijuana (THC) Screen Positive H Ethyl Alcohol Chlamy pneumoniae PCR Adenovirus (PCR) B.parapertussis DNA PCR Coronavirus OC43 (PCR) Coronavirus HKU1 (PCR) Coronavirus 229E (PCR) Coronavirus NL63 (PCR) Human Metapneumovir PCR Influenza Type A (PCR) Influenza Type B (PCR) M. pneumoniae (PCR) Parainfluenza 1 (PCR) Parainfluenza 2 (PCR) Parainfluenza 3 (PCR) Parainfluenza 4 (PCR) RSV (PCR) Entero/Rhino (PCR) 02/07/20 02/07/20 02/07/20 18:36 18:36 18:36 WBC RBC Hgb Hct MCV MCH MCHC RDW Plt Count Neut % (Auto) Lymph % (Auto) [place] % (Auto) Eos % (Auto) Baso % (Auto) Neut # (Auto) Lymph # (Auto) [place] # (Auto) Eos # (Auto) Baso # (Auto) ABG pH ABG pCO2 ABG pO2 ABG HCO3 ABG Total CO2 ABG O2 Saturation ABG Base Excess FiO2 Sodium 133 L Potassium 4.2 Chloride 100 Carbon Dioxide 19 L BUN 15 Creatinine 0.50 L Estimated GFR > 60.0 BUN/Creatinine Ratio 30.0 H Glucose 386 H D Lactate 2.9 H Calcium 10.3 H Phosphorus 3.8 L Magnesium 1.9 Total Bilirubin 0.5 AST 20 ALT 16 Alkaline Phosphatase 137 H Total Protein 8.3 H Albumin 4.7 Globulin 3.6 Albumin/Globulin Ratio 1.3 Lipase Procalcitonin TSH Serum , Qual Urine Color Urine Appearance Urine pH Ur Specific [place] Urine Protein Urine Glucose (UA) Urine Ketones Urine Occult Blood Urine Nitrate Urine Bilirubin Urine Urobilinogen Ur Leukocyte Esterase Urine RBC Urine WBC Ur Squamous Epith Cells Amorphous Sediment Urine Bacteria Ur Culture Indicated? U Opiates 300ng/mL cut Ur Oxycodone Screen Urine Methadone Screen Ur Barbiturates Screen U Tricyclic Antidepress Ur Phencyclidine Scrn Ur Amphetamines Screen U Methamphetamines Scrn Ur MDMA Scrn (Ecstasy) U Benzodiazepines Scrn Urine Cocaine Screen U Marijuana (THC) Screen Ethyl Alcohol < 10 Chlamy pneumoniae PCR Adenovirus (PCR) B.parapertussis DNA PCR Coronavirus OC43 (PCR) Coronavirus HKU1 (PCR) Coronavirus 229E (PCR) Coronavirus NL63 (PCR) Human Metapneumovir PCR Influenza Type A (PCR) Influenza Type B (PCR) M. pneumoniae (PCR) Parainfluenza 1 (PCR) Parainfluenza 2 (PCR) Parainfluenza 3 (PCR) Parainfluenza 4 (PCR) RSV (PCR) Entero/Rhino (PCR) 02/07/20 02/07/20 02/07/20 18:36 18:36 18:36 WBC RBC Hgb Hct MCV MCH MCHC RDW Plt Count Neut % (Auto) Lymph % (Auto) [place] % (Auto) Eos % (Auto) Baso % (Auto) Neut # (Auto) Lymph # (Auto) [place] # (Auto) Eos # (Auto) Baso # (Auto) ABG pH ABG pCO2 ABG pO2 ABG HCO3 ABG Total CO2 ABG O2 Saturation ABG Base Excess FiO2 Sodium Potassium Chloride Carbon Dioxide BUN Creatinine Estimated GFR BUN/Creatinine Ratio Glucose Lactate Calcium Phosphorus Magnesium Total Bilirubin AST ALT Alkaline Phosphatase Total Protein Albumin Globulin Albumin/Globulin Ratio Lipase 50 Procalcitonin TSH 1.35 Serum , Qual Negative Urine Color Urine Appearance Urine pH Ur Specific [place] Urine Protein Urine Glucose (UA) Urine Ketones Urine Occult Blood Urine Nitrate Urine Bilirubin Urine Urobilinogen Ur Leukocyte Esterase Urine RBC Urine WBC Ur Squamous Epith Cells Amorphous Sediment Urine Bacteria Ur Culture Indicated? U Opiates 300ng/mL cut Ur Oxycodone Screen Urine Methadone Screen Ur Barbiturates Screen U Tricyclic Antidepress Ur Phencyclidine Scrn Ur Amphetamines Screen U Methamphetamines Scrn Ur MDMA Scrn (Ecstasy) U Benzodiazepines Scrn Urine Cocaine Screen U Marijuana (THC) Screen Ethyl Alcohol Chlamy pneumoniae PCR Adenovirus (PCR) B.parapertussis DNA PCR Coronavirus OC43 (PCR) Coronavirus HKU1 (PCR) Coronavirus 229E (PCR) Coronavirus NL63 (PCR) Human Metapneumovir PCR Influenza Type A (PCR) Influenza Type B (PCR) M. pneumoniae (PCR) Parainfluenza 1 (PCR) Parainfluenza 2 (PCR) Parainfluenza 3 (PCR) Parainfluenza 4 (PCR) RSV (PCR) Entero/Rhino (PCR) 02/07/20 02/07/20 02/07/20 18:36 19:17 20:39 WBC RBC Hgb Hct MCV MCH MCHC RDW Plt Count Neut % (Auto) Lymph % (Auto) [place] % (Auto) Eos % (Auto) Baso % (Auto) Neut # (Auto) Lymph # (Auto) [place] # (Auto) Eos # (Auto) Baso # (Auto) ABG pH 7.39 ABG pCO2 29.2 L ABG pO2 65 L ABG HCO3 18 L ABG Total CO2 18 L ABG O2 Saturation 93 L ABG Base Excess -7.0 L FiO2 21 Sodium Potassium Chloride Carbon Dioxide BUN Creatinine Estimated GFR BUN/Creatinine Ratio Glucose Lactate Calcium Phosphorus Magnesium Total Bilirubin AST ALT Alkaline Phosphatase Total Protein Albumin Globulin Albumin/Globulin Ratio Lipase Procalcitonin < 0.05 TSH Serum , Qual Urine Color Urine Appearance Urine pH Ur Specific [place] Urine Protein Urine Glucose (UA) Urine Ketones Urine Occult Blood Urine Nitrate Urine Bilirubin Urine Urobilinogen Ur Leukocyte Esterase Urine RBC Urine WBC Ur Squamous Epith Cells Amorphous Sediment Urine Bacteria Ur Culture Indicated? U Opiates 300ng/mL cut Ur Oxycodone Screen Urine Methadone Screen Ur Barbiturates Screen U Tricyclic Antidepress Ur Phencyclidine Scrn Ur Amphetamines Screen U Methamphetamines Scrn Ur MDMA Scrn (Ecstasy) U Benzodiazepines Scrn Urine Cocaine Screen U Marijuana (THC) Screen Ethyl Alcohol Chlamy pneumoniae PCR Not detected Adenovirus (PCR) Not detected B.parapertussis DNA PCR Not detected Coronavirus OC43 (PCR) Not detected Coronavirus HKU1 (PCR) Detected H Coronavirus 229E (PCR) Not detected Coronavirus NL63 (PCR) Not detected Human Metapneumovir PCR Not detected Influenza Type A (PCR) Not detected Influenza Type B (PCR) Not detected M. pneumoniae (PCR) Not detected Parainfluenza 1 (PCR) Not detected Parainfluenza 2 (PCR) Not detected Parainfluenza 3 (PCR) Not detected Parainfluenza 4 (PCR) Not detected RSV (PCR) Not detected Entero/Rhino (PCR) Not detected 02/07/20 02/07/20 20:50 22:25 WBC RBC Hgb Hct MCV MCH MCHC RDW Plt Count Neut % (Auto) Lymph % (Auto) [place] % (Auto) Eos % (Auto) Baso % (Auto) Neut # (Auto) Lymph # (Auto) [place] # (Auto) Eos # (Auto) Baso # (Auto) ABG pH ABG pCO2 ABG pO2 ABG HCO3 ABG Total CO2 ABG O2 Saturation ABG Base Excess FiO2 Sodium 136 L Potassium 3.6 Chloride 108 H Carbon Dioxide 21 L BUN 12 Creatinine 0.36 L Estimated GFR > 60.0 BUN/Creatinine Ratio 33.3 H Glucose 202 H D Lactate 2.0 Calcium 8.8 Phosphorus Magnesium Total Bilirubin AST ALT Alkaline Phosphatase Total Protein Albumin Globulin Albumin/Globulin Ratio Lipase Procalcitonin TSH Serum , Qual Urine Color Urine Appearance Urine pH Ur Specific [place] Urine Protein Urine Glucose (UA) Urine Ketones Urine Occult Blood Urine Nitrate Urine Bilirubin Urine Urobilinogen Ur Leukocyte Esterase Urine RBC Urine WBC Ur Squamous Epith Cells Amorphous Sediment Urine Bacteria Ur Culture Indicated? U Opiates 300ng/mL cut Ur Oxycodone Screen Urine Methadone Screen Ur Barbiturates Screen U Tricyclic Antidepress Ur Phencyclidine Scrn Ur Amphetamines Screen U Methamphetamines Scrn Ur MDMA Scrn (Ecstasy) U Benzodiazepines Scrn Urine Cocaine Screen U Marijuana (THC) Screen Ethyl Alcohol Chlamy pneumoniae PCR Adenovirus (PCR) B.parapertussis DNA PCR Coronavirus OC43 (PCR) Coronavirus HKU1 (PCR) Coronavirus 229E (PCR) Coronavirus NL63 (PCR) Human Metapneumovir PCR Influenza Type A (PCR) Influenza Type B (PCR) M. pneumoniae (PCR) Parainfluenza 1 (PCR) Parainfluenza 2 (PCR) Parainfluenza 3 (PCR) Parainfluenza 4 (PCR) RSV (PCR) Entero/Rhino (PCR) Assessment & Plan Assessment & Plan narrative: This is a thin 19-year-old female patient with history of type 1 diabetes with prior episodes of diabetic ketoacidosis who presents today with non-ketotic hyperglycemia in the setting of poor nutrition likely secondary to a viral upper respiratory infection. 1. Diabetic type 1, uncontrolled with hyperglycemia, present on admission, active. -patient with recurrent admissions for diabetic ketoacidosis last admission at [facility] was December 2019. -patient was subjective symptoms of intermittent nausea likely related to gastroparesis, tachypnea of 30 respirations per minute, now 18. -blood sugar on admission is 386, serum CO2 of 18 with a normal anion gap of 7. -upon arrival to the floor the patient's fingerstick blood sugars 347, continue fingerstick blood sugars q6 hours adjust insulin drip per protocol. -will continue patient's home regimen of Lantus 25 mg subcutaneously nightly -NPO until the am -ordered IV Zofran 4 mg every 6 hours as needed for nausea. -patient requires reinforcement of diabetic diet and disease management. 2. Viral upper respiratory infection, acute, present on admission -She is positive with Coronavirus HKU1, a common virus -Discussed with Dr. Staley regarding precautions and for need to further test for the COVID-19, I have requested a lab add-on. 3. Asthma exacerbation w/acute hypoxia, likely due to upper respiratory infection, resolving, present on admission -She is written for albuterol and flovent MDIs with a spacer per recommendations of RT -continuous pulse oximetry 4. Depression, chronic, active. -History of depression with previous suicidal attempt by alcohol overdose. The patient presently denies suicidal ideation. -Continue home regimen of escitalopram 10 mg daily. FEN: IV NS at 100 ml/hour, NPO , chemistries in the am Patient is admitted inpatient placed into the intensive care unit. Her stay is likely to exceed 2 midnights. VTE Prophylaxis: bilateral scds and enoxaparin 40 mg subQ daily Medications reconciled: Yes Disposition: Probable discharge to home Code Status: Full Code Quality VTE Deep Vein Thrombosis/Pulmonary Embolism Present on Admission: No
[2020-02-07 23:58] LABS: BUN Creatinine Ratio 28.9 (6-22); Blood Urea Nitrogen 11 mg/dL (7-17); Calcium 8.4 mg/dL (8.4-10.2); Carbon Dioxide 18 mmol/L (22-32); Chloride 107 mmol/L (98-107); Estimated Glomerular Filt Rate > 60.0 mL/min (>60); Glucose 247 mg/dL (70-100); HEMOLYSIS < 15 (0-50); Potassium 3.8 mmol/L (3.4-5.1); Sodium 135 mmol/L (137-145)
[2020-02-08 00:05] VITALS: BP 121/72; PULSE 81; RESP 14; TEMP 36.7; O2SAT 97
--- NOTE | 2020-02-08 00:34 | ED.GENADULT ---
HPI - General Adult General Chief complaint: Diabetic Problem Stated complaint: Type 1 Diabetic/Cough/SOB/Weakness/R Kidney Pain Time Seen by Provider: 02/07/20 18:29 Source: patient Mode of arrival: Ambulatory Limitations: no limitations History of Present Illness HPI narrative: Patient is a 19-year-old insulin-dependent diabetic female here with her mother. Patient reports that for the past several days she has not been feeling very well. Describes a cough and chest congestion. No fevers. She states that she has been checking her blood sugars at home but potentially not as often as she should. She has dosing herself with her insulin. Mother states they have been doing the ?sick day dosing ?of her insulin. She has been having ketones in her urine. Mother states that despite their efforts to decrease her blood sugars they have been elevated and she has continued to have ketones in her urine. Patient describes generalized abdominal pain with nausea. No vomiting. No fevers. States she has right-sided flank pain. No rashes. No recent travel. No known sick contacts. Related Data Home Medications Medication Instructions Recorded Confirmed Humalog U-100 Insulin 9 unit SUBCUT ACHS 01/02/20 02/08/20 albuterol sulfate 2 puff INHALATION Q4HR 01/02/20 02/08/20 clonidine HCl 0.1 mg PO BEDTIME 01/02/20 02/08/20 escitalopram oxalate 10 mg PO DAILY 01/02/20 02/08/20 Previous Rx's Medication Instructions Recorded Lantus Solostar U-100 Insulin 20 unit SUBCUT QPM #15 ml 01/03/20 Allergies Allergy/AdvReac Type Severity Reaction Status Date / Time No Known Drug Allergies Allergy Verified 01/02/20 18:30 Review of Systems Constitutional Constitutional: Reports fatigue, Denies fever(s) and Reports lethargy Eyes Eyes: Denies change in vision Cardiovascular Cardiovascular: Denies chest pain and Denies dyspnea Respiratory Respiratory: Reports chest congestion, Reports cough and Denies dyspnea Gastrointestinal Gastrointestinal: Reports abdominal pain, Reports nausea and Denies vomiting Genitourinary Genitourinary: Denies dysuria and Denies vaginal discharge Musculoskeletal Musculoskeletal: Reports myalgias and Denies arthralgias Integumentary/Breasts Skin/Breast: Denies lesions and Denies rash Neurologic Neurologic: Denies behavioral changes Psychiatric Psychiatric: Denies behavioral changes Endocrine Endocrine: Reports fatigue Hematologic/Lymphatic Hematologic/Lymphatic: Denies easy bleeding and Denies easy bruising Patient History Medical History Acute hyperglycemia (Acute) Atypical chest pain (Inactive) Coronavirus infection (Acute) Depression (Acute) Diabetic neuropathy (Acute) Genital herpes (Chronic) Hyperosmolar hyperglycemic coma due to diabetes mellitus without ketoacidosis (Acute) Type 1 diabetes mellitus (Acute) Surgical History History of wisdom tooth extraction (Acute) Family History Grandfather Type I diabetes mellitus Father Heart murmur Mother Diabetes mellitus Thyroid disease Grandmother Breast cancer Social History household members: significant other, family and children Smoking Status: Current some day smoker alcohol intake: current Smoking Status: Current some day smoker alcohol intake frequency: holidays/special occasions only Substance Use Type: marijuana Exam Initial Vital Signs Initial Vital Signs: Vital Signs Temperature 98.1 F 02/07/20 18:09 Pulse Rate 130 H 02/07/20 18:09 Respiratory Rate 24 02/07/20 18:09 Blood Pressure 130/87 02/07/20 18:09 Pulse Oximetry 97 02/07/20 18:09 Const General: cooperative and comfortable Limitations: mental status not altered HENMT Head: normal to inspection and normocephalic Resp Effort & Inspection: normal respiratory effort Auscultation: clear to auscultation bilaterally Cardio Rate: tachycardic Rhythm: regular rhythm GI Inspection: non-distended Palpation: soft Back/Spine/Pelvis Back: CVA tenderness right Skin Lesions: no lesions Rashes: no rashes Neuro General: alert and awake Cognition: normal cognition Speech: speech normal Extrem General: capillary refill normal Psych Appearance: grossly normal and well kempt Scores GCS [place] coma scale eye opening: Spontaneous [place] coma scale verbal response: Orientated [place] coma scale motor response: Obey commands [place] coma scale total score: 15 Course Orders Ordered: ED Orders 02/07/20 18:36 CMP [Comprehensive Metabolic Panel] Stat Complete Blood Count AUTO DIFF Stat Ethanol (ETOH) Stat Lactate (Lactic Acid) Stat Lipase Stat Magnesium Stat Phosphorous Stat Test Serum,Qual Stat Procalcitonin Stat Thyroid Stimulating Hormone Stat 02/07/20 18:45 Blood Culture Stat 02/07/20 18:48 XR chest 1V Stat 02/07/20 19:17 Arterial Blood Gas Stat 02/07/20 20:39 Respiratory Panel (Film Array) Stat 02/07/20 22:25 Basic Metabolic Panel Stat Acetaminophen (Tylenol) 650 mg PO Q6HR PRN PRN Reason: Fever/Mild Pain (1-3) Last Admin: 02/08/20 00:50 Dose: 650 mg Documented by: DALTON Albuterol (Ventolin Hfa) 2 puff INH RTQ4HR PRN PRN Reason: Shortness Of Breath Last Admin: 02/08/20 02:39 Dose: 2 puff Documented by: DAYNE Dextrose (D50w) 25 gm IV PRN PRN PRN Reason: Hypoglycemia Enoxaparin Sodium (Lovenox) 40 mg SUBCUT DAILY FAREED Escitalopram Oxalate (Lexapro) 10 mg PO DAILY FAREED Fluticasone Propionate (Flovent Hfa) 2 puff INH RTBID FAREED Potassium Phosphate 10 mmol/ (Sodium Chloride) 1,003.3333 mls @ 100 mls/hr IV CONT FAREED Last Infusion: 02/08/20 00:00 Dose: 100 mls/hr Documented by: Admin: 02/07/20 20:03 Dose: 100 mls/hr Documented by: QUIRINO INSULIN DRIP PREMIX (Myxredlin Drip Premix) 100 unit in 100 mls @ 5 mls/hr IV TITRATE FAREED; Protocol Last Titration: 02/08/20 02:14 Dose: 4 ml/hr, 4 mls/hr Documented by: DALTON Cosigned by: RCATLIN Titration: 02/08/20 01:58 Dose: 3 mls/hr Documented by: DALTON Cosigned by: RCATLIN Titration: 02/07/20 21:44 Dose: 0 mls/hr Documented by: LANNY Cosigned by: JONNATHAN Admin: 02/07/20 20:37 Dose: 5 ml/hr, 5 mls/hr Documented by: LANNY Cosigned by: JONNATHAN Sodium Chloride (Normal Saline 0.9%) 1,000 mls @ 100 mls/hr IV CONT FAREED Last Admin: 02/08/20 00:49 Dose: 100 mls/hr Documented by: DALTON Lorazepam (Ativan) 1 mg 0.02 mg/kg (1 mg) IV Q6HR PRN PRN Reason: Sedation Last Admin: 02/08/20 03:04 Dose: 1 mg Documented by: DALTON Ondansetron HCl (Zofran) 4 mg IV Q8HR PRN PRN Reason: Nausea And Vomiting Discontinued Medications Albuterol/Ipratropium (Duoneb) 6 ml INH NOW ONE Stop: 02/07/20 19:38 Last Admin: 02/07/20 19:33 Dose: 6 ml Documented by: JORGE Sodium Chloride (Normal Saline 0.9%) 1,000 mls @ 1,000 mls/hr IV BOLUS ONE Stop: 02/07/20 19:38 Last Infusion: 02/07/20 20:00 Dose: 0 mls/hr Documented by: Admin: 02/07/20 18:52 Dose: 1,000 mls/hr Documented by: QUIRINO Sodium Chloride (Normal Saline 0.9%) 1,000 mls @ 200 mls/hr IV CONT FAREED Last Infusion: 02/08/20 01:03 Dose: 0 mls/hr Documented by: Infusion: 02/08/20 00:00 Dose: 200 mls/hr Documented by: Admin: 02/07/20 20:04 Dose: 200 mls/hr Documented by: QUIRINO Insulin Human Regular 100 unit (/ Sodium Chloride) 100 mls @ 6 mls/hr IV TITRATE FAREED; Protocol Levalbuterol HCl (Xopenex) 0.63 mg INH NOW ONE Stop: 02/07/20 18:49 Last Admin: 02/07/20 20:04 Dose: Not Given Documented by: QUIRINO Vital Signs Vital signs: Vital Signs - 8 hr 02/07/20 19:33 02/07/20 20:30 02/07/20 21:30 Pulse Rate 106 H 97 H 86 Respiratory Rate 30 H 18 20 Blood Pressure [Right Arm] 116/65 116/67 Pulse Oximetry 94 97 96 02/07/20 22:00 02/07/20 22:30 02/07/20 22:42 Pulse Rate 89 90 Respiratory Rate 18 18 Blood Pressure [Right Arm] 113/66 114/67 Pulse Oximetry 97 95 96 Medical Decision Making Medical Records Medical records reviewed: Yes I reviewed the patient's medical records. Lab Data Lab results reviewed: Yes I reviewed the patient's lab results. Result diagrams: 02/07/20 18:36 02/07/20 23:40 Labs: Lab Results 02/07/20 02/07/20 02/07/20 Range/Units 18:30 18:30 18:36 WBC 6.6 (4.5-11.0) X10^3/uL RBC 4.43 (4.0-5.2) X10^6/uL Hgb 14.7 (12.0-16.0) g/dL Hct 42.6 (36-46) % MCV 96.2 (80-100) fL MCH 33.3 (26-34) PG MCHC 34.6 (30-36) % RDW 13.1 (11.6-14.8) % Plt Count 163 (150-400) X10^3/uL Neut % (Auto) 59.9 (50-75) % Lymph % (Auto) 19.7 L (25-40) % [place] % (Auto) 12.5 (3-14) % Eos % (Auto) 7.4 H (2-4) % Baso % (Auto) 0.5 (0-2) % Neut # (Auto) 3900 (5903-3441) /uL Lymph # (Auto) 1300 (1174-6149) /uL [place] # (Auto) 800 (0-900) /uL Eos # (Auto) 500 H (0-450) /uL Baso # (Auto) 0 (0-100) /uL ABG pH (7.35-7.45) ABG pCO2 (35-45) mmHg ABG pO2 (80-100) mmHg ABG HCO3 (22-26) mmol/L ABG Total CO2 (21-31) mmol/L ABG O2 Saturation (95-100) % ABG Base Excess (-2-2) mmol/L FiO2 Sodium (137-145) mmol/L Potassium (3.4-5.1) mmol/L Chloride (98-107) mmol/L Carbon Dioxide (22-32) mmol/L BUN (7-17) mg/dL Creatinine (0.52-1.04) mg/dL Estimated GFR (>60) mL/min BUN/Creatinine Ratio (6-22) Glucose (70-100) mg/dL Lactate (0.7-2.1) mmol/L Calcium (8.4-10.2) mg/dL Phosphorus (4.5-5.5) mg/dL Magnesium (1.6-2.3) mg/dL Total Bilirubin (0.2-1.3) mg/dL AST (14-36) IU/L ALT (<35) IU/L Alkaline Phosphatase (38-126) U/L Total Protein (6.3-8.2) g/dL Albumin (3.5-5.0) g/dL Globulin (1.7-4.1) g/dL Albumin/Globulin Ratio (1.0-2.8) Lipase (23-300) U/L Procalcitonin (<0.5) ng/mL TSH (0.47-4.68) uIU/mL Serum , Qual (Negative) Urine Color Yellow Urine Appearance Clear Urine pH 5.0 (4.5-8.0) Ur Specific [place] 1.015 (1.000-1.035) Urine Protein Negative (Negative) Urine Glucose (UA) 1+ H (Negative) g/dL Urine Ketones 3+ H (NEGATIVE) Urine Occult Blood Trace-lysed (Negative) Urine Nitrate Negative (Negative) Urine Bilirubin Negative (NEGATIVE) Urine Urobilinogen 0.2 (0.2) E.U./dL Ur Leukocyte Esterase Negative (NEGATIVE) Urine RBC 0-1/hpf (0-5/HPF) Urine WBC 5-10/hpf H (0-5/HPF) Ur Squamous Epith Cells 1-5 /hpf (0-5/HPF) Amorphous Sediment 1+ Urine Bacteria Few (2-10) H (None) Ur Culture Indicated? Specimen cultured U Opiates 300ng/mL cut Negative (Negative) Ur Oxycodone Screen Negative (Negative) Urine Methadone Screen Negative (Negative) Ur Barbiturates Screen Negative (Negative) U Tricyclic Antidepress Negative (Negative) Ur Phencyclidine Scrn Negative (Negative) Ur Amphetamines Screen Negative (Negative) U Methamphetamines Scrn Negative (Negative) Ur MDMA Scrn (Ecstasy) Negative (Negative) U Benzodiazepines Scrn Negative (Negative) Urine Cocaine Screen Negative (Negative) U Marijuana (THC) Screen Positive H (Negative) Ethyl Alcohol ( - 10) mg/dL Chlamy pneumoniae PCR (Not Detect) Adenovirus (PCR) (Not Detect) B.parapertussis DNA PCR (Not Detect) Coronavirus OC43 (PCR) (Not Detect) Coronavirus HKU1 (PCR) (Not Detect) Coronavirus 229E (PCR) (Not Detect) Coronavirus NL63 (PCR) (Not Detect) Human Metapneumovir PCR (Not Detect) Influenza Type A (PCR) (Not Detect) Influenza Type B (PCR) (Not Detect) M. pneumoniae (PCR) (Not Detect) Parainfluenza 1 (PCR) (Not Detect) Parainfluenza 2 (PCR) (Not Detect) Parainfluenza 3 (PCR) (Not Detect) Parainfluenza 4 (PCR) (Not Detect) RSV (PCR) (Not Detect) Entero/Rhino (PCR) (Not Detect) 02/07/20 02/07/20 02/07/20 Range/Units 18:36 18:36 18:36 WBC (4.5-11.0) X10^3/uL RBC (4.0-5.2) X10^6/uL Hgb (12.0-16.0) g/dL Hct (36-46) % MCV (80-100) fL MCH (26-34) PG MCHC (30-36) % RDW (11.6-14.8) % Plt Count (150-400) X10^3/uL Neut % (Auto) (50-75) % Lymph % (Auto) (25-40) % [place] % (Auto) (3-14) % Eos % (Auto) (2-4) % Baso % (Auto) (0-2) % Neut # (Auto) (7214-3362) /uL Lymph # (Auto) (4196-2264) /uL [place] # (Auto) (0-900) /uL Eos # (Auto) (0-450) /uL Baso # (Auto) (0-100) /uL ABG pH (7.35-7.45) ABG pCO2 (35-45) mmHg ABG pO2 (80-100) mmHg ABG HCO3 (22-26) mmol/L ABG Total CO2 (21-31) mmol/L ABG O2 Saturation (95-100) % ABG Base Excess (-2-2) mmol/L FiO2 Sodium 133 L (137-145) mmol/L Potassium 4.2 (3.4-5.1) mmol/L Chloride 100 (98-107) mmol/L Carbon Dioxide 19 L (22-32) mmol/L BUN 15 (7-17) mg/dL Creatinine 0.50 L (0.52-1.04) mg/dL Estimated GFR > 60.0 (>60) mL/min BUN/Creatinine Ratio 30.0 H (6-22) Glucose 386 H D (70-100) mg/dL Lactate 2.9 H (0.7-2.1) mmol/L Calcium 10.3 H (8.4-10.2) mg/dL Phosphorus 3.8 L (4.5-5.5) mg/dL Magnesium 1.9 (1.6-2.3) mg/dL Total Bilirubin 0.5 (0.2-1.3) mg/dL AST 20 (14-36) IU/L ALT 16 (<35) IU/L Alkaline Phosphatase 137 H (38-126) U/L Total Protein 8.3 H (6.3-8.2) g/dL Albumin 4.7 (3.5-5.0) g/dL Globulin 3.6 (1.7-4.1) g/dL Albumin/Globulin Ratio 1.3 (1.0-2.8) Lipase (23-300) U/L Procalcitonin (<0.5) ng/mL TSH (0.47-4.68) uIU/mL Serum , Qual (Negative) Urine Color Urine Appearance Urine pH (4.5-8.0) Ur Specific [place] (1.000-1.035) Urine Protein (Negative) Urine Glucose (UA) (Negative) g/dL Urine Ketones (NEGATIVE) Urine Occult Blood (Negative) Urine Nitrate (Negative) Urine Bilirubin (NEGATIVE) Urine Urobilinogen (0.2) E.U./dL Ur Leukocyte Esterase (NEGATIVE) Urine RBC (0-5/HPF) Urine WBC (0-5/HPF) Ur Squamous Epith Cells (0-5/HPF) Amorphous Sediment Urine Bacteria (None) Ur Culture Indicated? U Opiates 300ng/mL cut (Negative) Ur Oxycodone Screen (Negative) Urine Methadone Screen (Negative) Ur Barbiturates Screen (Negative) U Tricyclic Antidepress (Negative) Ur Phencyclidine Scrn (Negative) Ur Amphetamines Screen (Negative) U Methamphetamines Scrn (Negative) Ur MDMA Scrn (Ecstasy) (Negative) U Benzodiazepines Scrn (Negative) Urine Cocaine Screen (Negative) U Marijuana (THC) Screen (Negative) Ethyl Alcohol < 10 ( - 10) mg/dL Chlamy pneumoniae PCR (Not Detect) Adenovirus (PCR) (Not Detect) B.parapertussis DNA PCR (Not Detect) Coronavirus OC43 (PCR) (Not Detect) Coronavirus HKU1 (PCR) (Not Detect) Coronavirus 229E (PCR) (Not Detect) Coronavirus NL63 (PCR) (Not Detect) Human Metapneumovir PCR (Not Detect) Influenza Type A (PCR) (Not Detect) Influenza Type B (PCR) (Not Detect) M. pneumoniae (PCR) (Not Detect) Parainfluenza 1 (PCR) (Not Detect) Parainfluenza 2 (PCR) (Not Detect) Parainfluenza 3 (PCR) (Not Detect) Parainfluenza 4 (PCR) (Not Detect) RSV (PCR) (Not Detect) Entero/Rhino (PCR) (Not Detect) 02/07/20 02/07/20 02/07/20 Range/Units 18:36 18:36 18:36 WBC (4.5-11.0) X10^3/uL RBC (4.0-5.2) X10^6/uL Hgb (12.0-16.0) g/dL Hct (36-46) % MCV (80-100) fL MCH (26-34) PG MCHC (30-36) % RDW (11.6-14.8) % Plt Count (150-400) X10^3/uL Neut % (Auto) (50-75) % Lymph % (Auto) (25-40) % [place] % (Auto) (3-14) % Eos % (Auto) (2-4) % Baso % (Auto) (0-2) % Neut # (Auto) (8426-4301) /uL Lymph # (Auto) (4437-7061) /uL [place] # (Auto) (0-900) /uL Eos # (Auto) (0-450) /uL Baso # (Auto) (0-100) /uL ABG pH (7.35-7.45) ABG pCO2 (35-45) mmHg ABG pO2 (80-100) mmHg ABG HCO3 (22-26) mmol/L ABG Total CO2 (21-31) mmol/L ABG O2 Saturation (95-100) % ABG Base Excess (-2-2) mmol/L FiO2 Sodium (137-145) mmol/L Potassium (3.4-5.1) mmol/L Chloride (98-107) mmol/L Carbon Dioxide (22-32) mmol/L BUN (7-17) mg/dL Creatinine (0.52-1.04) mg/dL Estimated GFR (>60) mL/min BUN/Creatinine Ratio (6-22) Glucose (70-100) mg/dL Lactate (0.7-2.1) mmol/L Calcium (8.4-10.2) mg/dL Phosphorus (4.5-5.5) mg/dL Magnesium (1.6-2.3) mg/dL Total Bilirubin (0.2-1.3) mg/dL AST (14-36) IU/L ALT (<35) IU/L Alkaline Phosphatase (38-126) U/L Total Protein (6.3-8.2) g/dL Albumin (3.5-5.0) g/dL Globulin (1.7-4.1) g/dL Albumin/Globulin Ratio (1.0-2.8) Lipase 50 (23-300) U/L Procalcitonin (<0.5) ng/mL TSH 1.35 (0.47-4.68) uIU/mL Serum , Qual Negative (Negative) Urine Color Urine Appearance Urine pH (4.5-8.0) Ur Specific [place] (1.000-1.035) Urine Protein (Negative) Urine Glucose (UA) (Negative) g/dL Urine Ketones (NEGATIVE) Urine Occult Blood (Negative) Urine Nitrate (Negative) Urine Bilirubin (NEGATIVE) Urine Urobilinogen (0.2) E.U./dL Ur Leukocyte Esterase (NEGATIVE) Urine RBC (0-5/HPF) Urine WBC (0-5/HPF) Ur Squamous Epith Cells (0-5/HPF) Amorphous Sediment Urine Bacteria (None) Ur Culture Indicated? U Opiates 300ng/mL cut (Negative) Ur Oxycodone Screen (Negative) Urine Methadone Screen (Negative) Ur Barbiturates Screen (Negative) U Tricyclic Antidepress (Negative) Ur Phencyclidine Scrn (Negative) Ur Amphetamines Screen (Negative) U Methamphetamines Scrn (Negative) Ur MDMA Scrn (Ecstasy) (Negative) U Benzodiazepines Scrn (Negative) Urine Cocaine Screen (Negative) U Marijuana (THC) Screen (Negative) Ethyl Alcohol ( - 10) mg/dL Chlamy pneumoniae PCR (Not Detect) Adenovirus (PCR) (Not Detect) B.parapertussis DNA PCR (Not Detect) Coronavirus OC43 (PCR) (Not Detect) Coronavirus HKU1 (PCR) (Not Detect) Coronavirus 229E (PCR) (Not Detect) Coronavirus NL63 (PCR) (Not Detect) Human Metapneumovir PCR (Not Detect) Influenza Type A (PCR) (Not Detect) Influenza Type B (PCR) (Not Detect) M. pneumoniae (PCR) (Not Detect) Parainfluenza 1 (PCR) (Not Detect) Parainfluenza 2 (PCR) (Not Detect) Parainfluenza 3 (PCR) (Not Detect) Parainfluenza 4 (PCR) (Not Detect) RSV (PCR) (Not Detect) Entero/Rhino (PCR) (Not Detect) 02/07/20 02/07/20 02/07/20 Range/Units 18:36 19:17 20:39 WBC (4.5-11.0) X10^3/uL RBC (4.0-5.2) X10^6/uL Hgb (12.0-16.0) g/dL Hct (36-46) % MCV (80-100) fL MCH (26-34) PG MCHC (30-36) % RDW (11.6-14.8) % Plt Count (150-400) X10^3/uL Neut % (Auto) (50-75) % Lymph % (Auto) (25-40) % [place] % (Auto) (3-14) % Eos % (Auto) (2-4) % Baso % (Auto) (0-2) % Neut # (Auto) (9143-3374) /uL Lymph # (Auto) (3712-8594) /uL [place] # (Auto) (0-900) /uL Eos # (Auto) (0-450) /uL Baso # (Auto) (0-100) /uL ABG pH 7.39 (7.35-7.45) ABG pCO2 29.2 L (35-45) mmHg ABG pO2 65 L (80-100) mmHg ABG HCO3 18 L (22-26) mmol/L ABG Total CO2 18 L (21-31) mmol/L ABG O2 Saturation 93 L (95-100) % ABG Base Excess -7.0 L (-2-2) mmol/L FiO2 21 Sodium (137-145) mmol/L Potassium (3.4-5.1) mmol/L Chloride (98-107) mmol/L Carbon Dioxide (22-32) mmol/L BUN (7-17) mg/dL Creatinine (0.52-1.04) mg/dL Estimated GFR (>60) mL/min BUN/Creatinine Ratio (6-22) Glucose (70-100) mg/dL Lactate (0.7-2.1) mmol/L Calcium (8.4-10.2) mg/dL Phosphorus (4.5-5.5) mg/dL Magnesium (1.6-2.3) mg/dL Total Bilirubin (0.2-1.3) mg/dL AST (14-36) IU/L ALT (<35) IU/L Alkaline Phosphatase (38-126) U/L Total Protein (6.3-8.2) g/dL Albumin (3.5-5.0) g/dL Globulin (1.7-4.1) g/dL Albumin/Globulin Ratio (1.0-2.8) Lipase (23-300) U/L Procalcitonin < 0.05 (<0.5) ng/mL TSH (0.47-4.68) uIU/mL Serum , Qual (Negative) Urine Color Urine Appearance Urine pH (4.5-8.0) Ur Specific [place] (1.000-1.035) Urine Protein (Negative) Urine Glucose (UA) (Negative) g/dL Urine Ketones (NEGATIVE) Urine Occult Blood (Negative) Urine Nitrate (Negative) Urine Bilirubin (NEGATIVE) Urine Urobilinogen (0.2) E.U./dL Ur Leukocyte Esterase (NEGATIVE) Urine RBC (0-5/HPF) Urine WBC (0-5/HPF) Ur Squamous Epith Cells (0-5/HPF) Amorphous Sediment Urine Bacteria (None) Ur Culture Indicated? U Opiates 300ng/mL cut (Negative) Ur Oxycodone Screen (Negative) Urine Methadone Screen (Negative) Ur Barbiturates Screen (Negative) U Tricyclic Antidepress (Negative) Ur Phencyclidine Scrn (Negative) Ur Amphetamines Screen (Negative) U Methamphetamines Scrn (Negative) Ur MDMA Scrn (Ecstasy) (Negative) U Benzodiazepines Scrn (Negative) Urine Cocaine Screen (Negative) U Marijuana (THC) Screen (Negative) Ethyl Alcohol ( - 10) mg/dL Chlamy pneumoniae PCR Not detected (Not Detect) Adenovirus (PCR) Not detected (Not Detect) B.parapertussis DNA PCR Not detected (Not Detect) Coronavirus OC43 (PCR) Not detected (Not Detect) Coronavirus HKU1 (PCR) Detected H (Not Detect) Coronavirus 229E (PCR) Not detected (Not Detect) Coronavirus NL63 (PCR) Not detected (Not Detect) Human Metapneumovir PCR Not detected (Not Detect) Influenza Type A (PCR) Not detected (Not Detect) Influenza Type B (PCR) Not detected (Not Detect) M. pneumoniae (PCR) Not detected (Not Detect) Parainfluenza 1 (PCR) Not detected (Not Detect) Parainfluenza 2 (PCR) Not detected (Not Detect) Parainfluenza 3 (PCR) Not detected (Not Detect) Parainfluenza 4 (PCR) Not detected (Not Detect) RSV (PCR) Not detected (Not Detect) Entero/Rhino (PCR) Not detected (Not Detect) 02/07/20 02/07/20 Range/Units 20:50 22:25 WBC (4.5-11.0) X10^3/uL RBC (4.0-5.2) X10^6/uL Hgb (12.0-16.0) g/dL Hct (36-46) % MCV (80-100) fL MCH (26-34) PG MCHC (30-36) % RDW (11.6-14.8) % Plt Count (150-400) X10^3/uL Neut % (Auto) (50-75) % Lymph % (Auto) (25-40) % [place] % (Auto) (3-14) % Eos % (Auto) (2-4) % Baso % (Auto) (0-2) % Neut # (Auto) (1981-6397) /uL Lymph # (Auto) (3954-1771) /uL [place] # (Auto) (0-900) /uL Eos # (Auto) (0-450) /uL Baso # (Auto) (0-100) /uL ABG pH (7.35-7.45) ABG pCO2 (35-45) mmHg ABG pO2 (80-100) mmHg ABG HCO3 (22-26) mmol/L ABG Total CO2 (21-31) mmol/L ABG O2 Saturation (95-100) % ABG Base Excess (-2-2) mmol/L FiO2 Sodium 136 L (137-145) mmol/L Potassium 3.6 (3.4-5.1) mmol/L Chloride 108 H (98-107) mmol/L Carbon Dioxide 21 L (22-32) mmol/L BUN 12 (7-17) mg/dL Creatinine 0.36 L (0.52-1.04) mg/dL Estimated GFR > 60.0 (>60) mL/min BUN/Creatinine Ratio 33.3 H (6-22) Glucose 202 H D (70-100) mg/dL Lactate 2.0 (0.7-2.1) mmol/L Calcium 8.8 (8.4-10.2) mg/dL Phosphorus (4.5-5.5) mg/dL Magnesium (1.6-2.3) mg/dL Total Bilirubin (0.2-1.3) mg/dL AST (14-36) IU/L ALT (<35) IU/L Alkaline Phosphatase (38-126) U/L Total Protein (6.3-8.2) g/dL Albumin (3.5-5.0) g/dL Globulin (1.7-4.1) g/dL Albumin/Globulin Ratio (1.0-2.8) Lipase (23-300) U/L Procalcitonin (<0.5) ng/mL TSH (0.47-4.68) uIU/mL Serum , Qual (Negative) Urine Color Urine Appearance Urine pH (4.5-8.0) Ur Specific [place] (1.000-1.035) Urine Protein (Negative) Urine Glucose (UA) (Negative) g/dL Urine Ketones (NEGATIVE) Urine Occult Blood (Negative) Urine Nitrate (Negative) Urine Bilirubin (NEGATIVE) Urine Urobilinogen (0.2) E.U./dL Ur Leukocyte Esterase (NEGATIVE) Urine RBC (0-5/HPF) Urine WBC (0-5/HPF) Ur Squamous Epith Cells (0-5/HPF) Amorphous Sediment Urine Bacteria (None) Ur Culture Indicated? U Opiates 300ng/mL cut (Negative) Ur Oxycodone Screen (Negative) Urine Methadone Screen (Negative) Ur Barbiturates Screen (Negative) U Tricyclic Antidepress (Negative) Ur Phencyclidine Scrn (Negative) Ur Amphetamines Screen (Negative) U Methamphetamines Scrn (Negative) Ur MDMA Scrn (Ecstasy) (Negative) U Benzodiazepines Scrn (Negative) Urine Cocaine Screen (Negative) U Marijuana (THC) Screen (Negative) Ethyl Alcohol ( - 10) mg/dL Chlamy pneumoniae PCR (Not Detect) Adenovirus (PCR) (Not Detect) B.parapertussis DNA PCR (Not Detect) Coronavirus OC43 (PCR) (Not Detect) Coronavirus HKU1 (PCR) (Not Detect) Coronavirus 229E (PCR) (Not Detect) Coronavirus NL63 (PCR) (Not Detect) Human Metapneumovir PCR (Not Detect) Influenza Type A (PCR) (Not Detect) Influenza Type B (PCR) (Not Detect) M. pneumoniae (PCR) (Not Detect) Parainfluenza 1 (PCR) (Not Detect) Parainfluenza 2 (PCR) (Not Detect) Parainfluenza 3 (PCR) (Not Detect) Parainfluenza 4 (PCR) (Not Detect) RSV (PCR) (Not Detect) Entero/Rhino (PCR) (Not Detect) Point of Care Testing Glucose POC 225 Point of care testing: Point of Care Testing Glucose POC 225 MDM Narrative Medical decision making narrative: Patient is hyperglycemic hand has ketones in her urine for reports of patient at home. She is not acidotic. His pH is 7.38. Anion gap of 14. Does have a CO2 level on her chemistry of 19. I feel that patient is borderline DKA given her physical exam and clinical presentation and history. This could be secondary to her compliance with checking her blood sugars at home potentially complicated by the upper respiratory issues that she has been having recently. I feel that despite the fact that she does not exactly meet the definition of DKA due the fact that she is not acidotic that if patient is discharged home he would be most likely that she would return a very short time in DKA. She has been admitted in the past for DKA and she states this feels like those prior admissions but just not as bad. She was started on an insulin drip. This was started after her blood sugars dropped below 250. Her potassium and phosphorus were replaced. I did discuss the case with JONATHAN Goff the night hospitalist who recommended that we do a respiratory panel on the patient given the current situation with COVID-19. This did return positive for casanova virus however not COVID-19 casanova virus. Despite this secondary diagnosis, JONATHAN Goff thought that the patient should be tested for COVID -19. Patient was admitted under precautions related to this. Will admit for further evaluation treatment. Discharge Plan Departure Patient Disposition: Admitted As Inpatient Clinical Impression: Hyperglycemia, Coronavirus infection Discharge Date/Time: 02/08/20 00:00 Admit Date/Time: 02/07/20 22:57 Admit Provider: Arabella Goff
[2020-02-08] MEDS: SODIUM CHLORIDE 0.9% 1,000 ML 100 ML IV (00:49)
[2020-02-08] MEDS: ACETAMINOPHEN 325 MG TABLET 650 MG PO (00:50)
--- NOTE | 2020-02-08 02:27 | PC.NURSE ---
Addendum entered by Rhea Jean R.N. 02/08/20 06:48: 0600 Pt desating in sleep to 87% on RA. Pt placed on 3.5L with sats improving to 92%. Arabella SANDERS notified of drop in CBG of greater than 100 points and actions taken according to non DKA insulin infusion orders. CBG currently 178 with infusion rate at 1.5 units an hour. Pt arouses easily, but returns to sleep. Arabella also notified of desats and current O2 administration. Addendum entered by Rhea Jean R.N. 02/08/20 04:20: 0400 CBG 109. Insulin infusion turned off. Pt sleeping. Resp even and unlabored @ present. Addendum entered by Rhea Jean R.N. 02/08/20 03:29: [id number] Pt less agitated after Arabella SANDERS in to explain and interacted with patient and mother. Orders received for Ativan and same given. Warm blankets given. Mother remains in room with patient. CBG 113. Insulin infusion reduced TO 0.5 Units per hour. Pt continues to report that pain in chest and headache is much improved. Continues to rate discomfort at 3/10. Original Note: [id number] Pt admitted to Room 231 and discussed plan of care. Pt and mother asking when patient could eat. Discussed need for NPO status and rationale explained. Admission assessment completed. Insulin drip off when patient admitted to ICU from ED. CBG 224 on admission. Arabella SANDERS to ICU to discuss orders. Insulin drip resumed at 3 units/hr per non DKA insulin infusion orders. [id number] Patient crying and requesting food. Mother at bedside and discussion regarding feeding patient. Arabella SANDERS Called regarding patient's inability to understand need to remain NPO. Patient continues to cry and rant with mother in room. Assisted patient to bathroom and returned to bed.
[2020-02-08] MEDS: ALBUTEROL HFA 60 PUFF/8 GM INH INH (02:39)
[2020-02-08 02:48] VITALS: O2SAT 97
[2020-02-08] MEDS: LORazepam 2 MG/ML INJ 1 MG IV (03:04)
[2020-02-08 04:05] VITALS: BP 120/72; PULSE 79; RESP 22; TEMP 36.6; O2SAT 94
[2020-02-08 05:15] LABS: Add Manual Diff / Slide Review NO; Basophils Absolute Auto 0 /uL (0-100); Basophils Percent Auto 0.3 % (0-2); Eosinophils Absolute Auto 1100 /uL (0-450); Eosinophils Percent Auto 19.7 % (2-4); Hematocrit 35.5 % (36-46); Hemoglobin 12.1 g/dL (12.0-16.0); Lymphocytes Absolute Auto 1700 /uL (1100-4500); Lymphocytes Percent Auto 30.7 % (25-40); Mean Corpuscular Hemoglobin 33.1 PG (26-34); Mean Corpuscular Volume 97.6 fL (80-100); Monocytes Absolute Auto 700 /uL (0-900); Monocytes Percent Auto 13.4 % (3-14); Neutrophils Absolute Auto 2000 /uL (1500-7000); Neutrophils Percent Auto 35.9 % (50-75); Platelet Count 117 X10^3/uL (150-400); Red Blood Cell Count 3.64 X10^6/uL (4.0-5.2); Red Cell Distribution Width 12.9 % (11.6-14.8); White Blood Cell Count 5.5 X10^3/uL (4.5-11.0)
[2020-02-08 05:21] LABS: Magnesium 1.6 mg/dL (1.6-2.3); Phosphorous 2.9 mg/dL (4.5-5.5)
[2020-02-08 09:00] VITALS: PULSE 84; RESP 22; TEMP 37.2; O2SAT 95
[2020-02-08] MEDS: ESCITALOPRAM 10 MG TABLET PO (09:49)
[2020-02-08] MEDS: FLUTICASONE 220MCG HFA 120 PUFF INH (09:50)
--- NOTE | 2020-02-08 10:37 | PC.NURSE ---
Addendum entered by Ama Mayo R.N. 02/08/20 11:44: PREPARED FOR DISCHARGE- REMOVED IV ACCESS X2 AND ALLOWED TO REST UNTIL DISCHARGE Original Note: PT WITH WHEEZES BILAT BOTH INS/EXP NOT REQUIRING ANY O2 THIS AM WITH ROOM AIR SPO2 95%- TURNED OFF IVF/INSULIN GTT AT THIS TIME SO PT COULD SHOWER- URINATING WELL WITHOUT DIFFICULTY AND TAKING CARB CONSISTENT DIET- HOPEFUL FOR DISCHARGE LATER THIS DATE
--- NOTE | 2020-02-08 11:54 | PC.NURSE ---
REVIEWED DISCHARGE PLAN WITH PT AND HER MOTHER AT THE BEDSIDE- GIVEN CDC GUIDELINES ON HOME/SELF QUARANTINE FOR THE DURATION OF THIS VIRAL ILLNESS- ALSO DEMONSTRATED AND EXPLAINED USE OF INHALER WITH SPACER- PT SEEMS TO PAY ATTENTION- AND ALL QUESTIONS ANSWERED TO THEIR SATISFACTION ( PT AND HER MOTHER)- ENCOURAGED TO FOLLOW UP WITH BOTH PRIMARY MD AND ENTREPRENEURSHIP PROGRAM DIRECTOR R/T DIABETES
--- NOTE | 2020-02-08 17:49 | PM.DS.1 ---
History of Present Illness History of Present Illness Date Patient Seen: 02/08/20 Chief complaint: Type 1 Diabetic/Cough/SOB/Weakness/R Kidney Pain Narrative: Ms. Nettie Stone is a 19 year old female with history significant for type 1 diabetes, depression, atypical chest pain and neuropathy who presents to the ER for ?feeling sick?. States she has been short of breath, and intermittently using her inhalers. She does state she has had nausea, has not vomited, and that her kidneys hurt. Denies cough, congestion, abdominal pain, dysurea, diarrhea or constipation. She reports she has been taking her insulin but acknowledges that her blood sugars have been running high. Her last admission for diabetic ketoacidosis was in December of this year. She was again seen in the ED a week ago for hyperglycemia and discharged to home. Mother who is in the room with her states she lives with 7 family members, none of whom report cold or flu symptoms, but are continuing to work in public spaces. Patient additionally endorses history of depression for which she takes escitalopram daily and acknowledges feeling depressed but denies suicidal ideation but has had prior suicide attempt. At present she is alert and conversant denies fevers or chills, headaches or dizziness. She has no nasal congestion or sore throat. Last menstrual period 4 months ago and is using Depo-Provera control and is overdue for her injection. She denies back or joint pains and is independent in ADLs. Discharge Providers Provider Date of admission: 02/07/20 22:57 Discharge Date: 02/08/20 Primary care physician: Severiano Arrieta Consults: 02/07/20 23:06 Consult to Dietitian, Adult Routine Comment: Reason For Exam: [facility] [place] Discharge provider: Eliana Ashley MD Summary Hospital Course Discharge Diagnosis: 1. Type 1 diabetes, poorly controlled presenting with hyperglycemia, no evidence of DKA 2. Upper respiratory tract infection secondary to casanova virus HKAU 1 3. Asthma 4. Depression Hospital Course: Patient is a 19-year-old female presented to the hospital feeling sick. Patient had worsening of her asthma. She was also found to have hyperglycemia. The patient was placed on an insulin drip with improvement of her blood sugars. She was treated with nebulizers for her breathing. She continued to have some wheezing. However she felt back to her baseline. Patient was able to eat and tolerated her diet without difficulty. Blood sugar this morning was 131. She resumed her usual home insulin. She was deemed appropriate for discharge and arrangements were made for her to discharge home. Status at Discharge Cognitive/behavioral status at discharge: oriented Functional status at discharge: independent ambulation Overall status at discharge: patient is back to baseline Time Spent with Patient Time spent: Less than 30 minutes Exam Vital Signs (past 8 hours): Oxygen Delivery Method Room Air Oxygen Flow Rate 0 Narrative Exam Narrative: Frail ill-appearing female in no obvious distress A lungs: Decreased breath sounds with end-expiratory wheezing bilaterally Cardiac exam: Regular rate and rhythm normal S1-S2 Abdomen: Soft nontender nondistended Extremities: No edema Objective Labs Result Diagrams: 02/08/20 04:35 02/07/20 23:40 Labs: Laboratory Results - last 24 hr 02/07/20 02/07/20 02/07/20 18:30 18:30 18:36 WBC 6.6 RBC 4.43 Hgb 14.7 Hct 42.6 MCV 96.2 MCH 33.3 MCHC 34.6 RDW 13.1 Plt Count 163 Neut % (Auto) 59.9 Lymph % (Auto) 19.7 L [place] % (Auto) 12.5 Eos % (Auto) 7.4 H Baso % (Auto) 0.5 Neut # (Auto) 3900 Lymph # (Auto) 1300 [place] # (Auto) 800 Eos # (Auto) 500 H Baso # (Auto) 0 ABG pH ABG pCO2 ABG pO2 ABG HCO3 ABG Total CO2 ABG O2 Saturation ABG Base Excess FiO2 Sodium Potassium Chloride Carbon Dioxide BUN Creatinine Estimated GFR BUN/Creatinine Ratio Glucose Hemoglobin A1c Lactate Calcium Phosphorus Magnesium Total Bilirubin AST ALT Alkaline Phosphatase Total Protein Albumin Globulin Albumin/Globulin Ratio Lipase Procalcitonin TSH Serum , Qual Urine Color Yellow Urine Appearance Clear Urine pH 5.0 Ur Specific [place] 1.015 Urine Protein Negative Urine Glucose (UA) 1+ H Urine Ketones 3+ H Urine Occult Blood Trace-lysed Urine Nitrate Negative Urine Bilirubin Negative Urine Urobilinogen 0.2 Ur Leukocyte Esterase Negative Urine RBC 0-1/hpf Urine WBC 5-10/hpf H Ur Squamous Epith Cells 1-5 /hpf Amorphous Sediment 1+ Urine Bacteria Few (2-10) H Ur Culture Indicated? Specimen cultured U Opiates 300ng/mL cut Negative Ur Oxycodone Screen Negative Urine Methadone Screen Negative Ur Barbiturates Screen Negative U Tricyclic Antidepress Negative Ur Phencyclidine Scrn Negative Ur Amphetamines Screen Negative U Methamphetamines Scrn Negative Ur MDMA Scrn (Ecstasy) Negative U Benzodiazepines Scrn Negative Urine Cocaine Screen Negative U Marijuana (THC) Screen Positive H Ethyl Alcohol Chlamy pneumoniae PCR Adenovirus (PCR) B.parapertussis DNA PCR Coronavirus OC43 (PCR) Coronavirus HKU1 (PCR) Coronavirus 229E (PCR) Coronavirus NL63 (PCR) Human Metapneumovir PCR Influenza Type A (PCR) Influenza Type B (PCR) M. pneumoniae (PCR) Parainfluenza 1 (PCR) Parainfluenza 2 (PCR) Parainfluenza 3 (PCR) Parainfluenza 4 (PCR) RSV (PCR) Entero/Rhino (PCR) 02/07/20 02/07/20 02/07/20 18:36 18:36 18:36 WBC RBC Hgb Hct MCV MCH MCHC RDW Plt Count Neut % (Auto) Lymph % (Auto) [place] % (Auto) Eos % (Auto) Baso % (Auto) Neut # (Auto) Lymph # (Auto) [place] # (Auto) Eos # (Auto) Baso # (Auto) ABG pH ABG pCO2 ABG pO2 ABG HCO3 ABG Total CO2 ABG O2 Saturation ABG Base Excess FiO2 Sodium 133 L Potassium 4.2 Chloride 100 Carbon Dioxide 19 L BUN 15 Creatinine 0.50 L Estimated GFR > 60.0 BUN/Creatinine Ratio 30.0 H Glucose 386 H D Hemoglobin A1c Lactate 2.9 H Calcium 10.3 H Phosphorus 3.8 L Magnesium 1.9 Total Bilirubin 0.5 AST 20 ALT 16 Alkaline Phosphatase 137 H Total Protein 8.3 H Albumin 4.7 Globulin 3.6 Albumin/Globulin Ratio 1.3 Lipase Procalcitonin TSH Serum , Qual Urine Color Urine Appearance Urine pH Ur Specific [place] Urine Protein Urine Glucose (UA) Urine Ketones Urine Occult Blood Urine Nitrate Urine Bilirubin Urine Urobilinogen Ur Leukocyte Esterase Urine RBC Urine WBC Ur Squamous Epith Cells Amorphous Sediment Urine Bacteria Ur Culture Indicated? U Opiates 300ng/mL cut Ur Oxycodone Screen Urine Methadone Screen Ur Barbiturates Screen U Tricyclic Antidepress Ur Phencyclidine Scrn Ur Amphetamines Screen U Methamphetamines Scrn Ur MDMA Scrn (Ecstasy) U Benzodiazepines Scrn Urine Cocaine Screen U Marijuana (THC) Screen Ethyl Alcohol < 10 Chlamy pneumoniae PCR Adenovirus (PCR) B.parapertussis DNA PCR Coronavirus OC43 (PCR) Coronavirus HKU1 (PCR) Coronavirus 229E (PCR) Coronavirus NL63 (PCR) Human Metapneumovir PCR Influenza Type A (PCR) Influenza Type B (PCR) M. pneumoniae (PCR) Parainfluenza 1 (PCR) Parainfluenza 2 (PCR) Parainfluenza 3 (PCR) Parainfluenza 4 (PCR) RSV (PCR) Entero/Rhino (PCR) 02/07/20 02/07/20 02/07/20 18:36 18:36 18:36 WBC RBC Hgb Hct MCV MCH MCHC RDW Plt Count Neut % (Auto) Lymph % (Auto) [place] % (Auto) Eos % (Auto) Baso % (Auto) Neut # (Auto) Lymph # (Auto) [place] # (Auto) Eos # (Auto) Baso # (Auto) ABG pH ABG pCO2 ABG pO2 ABG HCO3 ABG Total CO2 ABG O2 Saturation ABG Base Excess FiO2 Sodium Potassium Chloride Carbon Dioxide BUN Creatinine Estimated GFR BUN/Creatinine Ratio Glucose Hemoglobin A1c Lactate Calcium Phosphorus Magnesium Total Bilirubin AST ALT Alkaline Phosphatase Total Protein Albumin Globulin Albumin/Globulin Ratio Lipase 50 Procalcitonin TSH 1.35 Serum , Qual Negative Urine Color Urine Appearance Urine pH Ur Specific [place] Urine Protein Urine Glucose (UA) Urine Ketones Urine Occult Blood Urine Nitrate Urine Bilirubin Urine Urobilinogen Ur Leukocyte Esterase Urine RBC Urine WBC Ur Squamous Epith Cells Amorphous Sediment Urine Bacteria Ur Culture Indicated? U Opiates 300ng/mL cut Ur Oxycodone Screen Urine Methadone Screen Ur Barbiturates Screen U Tricyclic Antidepress Ur Phencyclidine Scrn Ur Amphetamines Screen U Methamphetamines Scrn Ur MDMA Scrn (Ecstasy) U Benzodiazepines Scrn Urine Cocaine Screen U Marijuana (THC) Screen Ethyl Alcohol Chlamy pneumoniae PCR Adenovirus (PCR) B.parapertussis DNA PCR Coronavirus OC43 (PCR) Coronavirus HKU1 (PCR) Coronavirus 229E (PCR) Coronavirus NL63 (PCR) Human Metapneumovir PCR Influenza Type A (PCR) Influenza Type B (PCR) M. pneumoniae (PCR) Parainfluenza 1 (PCR) Parainfluenza 2 (PCR) Parainfluenza 3 (PCR) Parainfluenza 4 (PCR) RSV (PCR) Entero/Rhino (PCR) 02/07/20 02/07/20 02/07/20 18:36 19:17 20:39 WBC RBC Hgb Hct MCV MCH MCHC RDW Plt Count Neut % (Auto) Lymph % (Auto) [place] % (Auto) Eos % (Auto) Baso % (Auto) Neut # (Auto) Lymph # (Auto) [place] # (Auto) Eos # (Auto) Baso # (Auto) ABG pH 7.39 ABG pCO2 29.2 L ABG pO2 65 L ABG HCO3 18 L ABG Total CO2 18 L ABG O2 Saturation 93 L ABG Base Excess -7.0 L FiO2 21 Sodium Potassium Chloride Carbon Dioxide BUN Creatinine Estimated GFR BUN/Creatinine Ratio Glucose Hemoglobin A1c Lactate Calcium Phosphorus Magnesium Total Bilirubin AST ALT Alkaline Phosphatase Total Protein Albumin Globulin Albumin/Globulin Ratio Lipase Procalcitonin < 0.05 TSH Serum , Qual Urine Color Urine Appearance Urine pH Ur Specific [place] Urine Protein Urine Glucose (UA) Urine Ketones Urine Occult Blood Urine Nitrate Urine Bilirubin Urine Urobilinogen Ur Leukocyte Esterase Urine RBC Urine WBC Ur Squamous Epith Cells Amorphous Sediment Urine Bacteria Ur Culture Indicated? U Opiates 300ng/mL cut Ur Oxycodone Screen Urine Methadone Screen Ur Barbiturates Screen U Tricyclic Antidepress Ur Phencyclidine Scrn Ur Amphetamines Screen U Methamphetamines Scrn Ur MDMA Scrn (Ecstasy) U Benzodiazepines Scrn Urine Cocaine Screen U Marijuana (THC) Screen Ethyl Alcohol Chlamy pneumoniae PCR Not detected Adenovirus (PCR) Not detected B.parapertussis DNA PCR Not detected Coronavirus OC43 (PCR) Not detected Coronavirus HKU1 (PCR) Detected H Coronavirus 229E (PCR) Not detected Coronavirus NL63 (PCR) Not detected Human Metapneumovir PCR Not detected Influenza Type A (PCR) Not detected Influenza Type B (PCR) Not detected M. pneumoniae (PCR) Not detected Parainfluenza 1 (PCR) Not detected Parainfluenza 2 (PCR) Not detected Parainfluenza 3 (PCR) Not detected Parainfluenza 4 (PCR) Not detected RSV (PCR) Not detected Entero/Rhino (PCR) Not detected 02/07/20 02/07/20 02/07/20 20:50 22:25 23:40 WBC RBC Hgb Hct MCV MCH MCHC RDW Plt Count Neut % (Auto) Lymph % (Auto) [place] % (Auto) Eos % (Auto) Baso % (Auto) Neut # (Auto) Lymph # (Auto) [place] # (Auto) Eos # (Auto) Baso # (Auto) ABG pH ABG pCO2 ABG pO2 ABG HCO3 ABG Total CO2 ABG O2 Saturation ABG Base Excess FiO2 Sodium 136 L 135 L Potassium 3.6 3.8 Chloride 108 H 107 Carbon Dioxide 21 L 18 L BUN 12 11 Creatinine 0.36 L 0.38 L Estimated GFR > 60.0 > 60.0 BUN/Creatinine Ratio 33.3 H 28.9 H Glucose 202 H D 247 H Hemoglobin A1c Lactate 2.0 Calcium 8.8 8.4 Phosphorus Magnesium Total Bilirubin AST ALT Alkaline Phosphatase Total Protein Albumin Globulin Albumin/Globulin Ratio Lipase Procalcitonin TSH Serum , Qual Urine Color Urine Appearance Urine pH Ur Specific [place] Urine Protein Urine Glucose (UA) Urine Ketones Urine Occult Blood Urine Nitrate Urine Bilirubin Urine Urobilinogen Ur Leukocyte Esterase Urine RBC Urine WBC Ur Squamous Epith Cells Amorphous Sediment Urine Bacteria Ur Culture Indicated? U Opiates 300ng/mL cut Ur Oxycodone Screen Urine Methadone Screen Ur Barbiturates Screen U Tricyclic Antidepress Ur Phencyclidine Scrn Ur Amphetamines Screen U Methamphetamines Scrn Ur MDMA Scrn (Ecstasy) U Benzodiazepines Scrn Urine Cocaine Screen U Marijuana (THC) Screen Ethyl Alcohol Chlamy pneumoniae PCR Adenovirus (PCR) B.parapertussis DNA PCR Coronavirus OC43 (PCR) Coronavirus HKU1 (PCR) Coronavirus 229E (PCR) Coronavirus NL63 (PCR) Human Metapneumovir PCR Influenza Type A (PCR) Influenza Type B (PCR) M. pneumoniae (PCR) Parainfluenza 1 (PCR) Parainfluenza 2 (PCR) Parainfluenza 3 (PCR) Parainfluenza 4 (PCR) RSV (PCR) Entero/Rhino (PCR) 02/08/20 02/08/20 02/08/20 04:35 04:35 04:35 WBC 5.5 RBC 3.64 L Hgb 12.1 Hct 35.5 L MCV 97.6 MCH 33.1 MCHC 34.0 RDW 12.9 Plt Count 117 L Neut % (Auto) 35.9 L D Lymph % (Auto) 30.7 [place] % (Auto) 13.4 Eos % (Auto) 19.7 H Baso % (Auto) 0.3 Neut # (Auto) 2000 Lymph # (Auto) 1700 [place] # (Auto) 700 Eos # (Auto) 1100 H Baso # (Auto) 0 ABG pH ABG pCO2 ABG pO2 ABG HCO3 ABG Total CO2 ABG O2 Saturation ABG Base Excess FiO2 Sodium Potassium Chloride Carbon Dioxide BUN Creatinine Estimated GFR BUN/Creatinine Ratio Glucose Hemoglobin A1c 11.0 H Lactate Calcium Phosphorus 2.9 L Magnesium 1.6 Total Bilirubin AST ALT Alkaline Phosphatase Total Protein Albumin Globulin Albumin/Globulin Ratio Lipase Procalcitonin TSH Serum , Qual Urine Color Urine Appearance Urine pH Ur Specific [place] Urine Protein Urine Glucose (UA) Urine Ketones Urine Occult Blood Urine Nitrate Urine Bilirubin Urine Urobilinogen Ur Leukocyte Esterase Urine RBC Urine WBC Ur Squamous Epith Cells Amorphous Sediment Urine Bacteria Ur Culture Indicated? U Opiates 300ng/mL cut Ur Oxycodone Screen Urine Methadone Screen Ur Barbiturates Screen U Tricyclic Antidepress Ur Phencyclidine Scrn Ur Amphetamines Screen U Methamphetamines Scrn Ur MDMA Scrn (Ecstasy) U Benzodiazepines Scrn Urine Cocaine Screen U Marijuana (THC) Screen Ethyl Alcohol Chlamy pneumoniae PCR Adenovirus (PCR) B.parapertussis DNA PCR Coronavirus OC43 (PCR) Coronavirus HKU1 (PCR) Coronavirus 229E (PCR) Coronavirus NL63 (PCR) Human Metapneumovir PCR Influenza Type A (PCR) Influenza Type B (PCR) M. pneumoniae (PCR) Parainfluenza 1 (PCR) Parainfluenza 2 (PCR) Parainfluenza 3 (PCR) Parainfluenza 4 (PCR) RSV (PCR) Entero/Rhino (PCR) Discharge Plan Discharge Plan Patient Disposition: Home Discharge orders & Medications Prescriptions: New Flovent HFA 220 mcg/actuation Hfa Aerosol Inhaler 2 puff INH RTBID 30 Days RF: 0 Continued clonidine HCl 0.1 mg Tablet 0.1 mg PO BEDTIME RF: 0 albuterol sulfate 90 mcg/actuation Hfa Aerosol Inhaler 2 puff INHALATION Q4HR RF: 0 Humalog U-100 Insulin 100 unit/mL Cartridge 9 unit subcut ACHS RF: 0 escitalopram oxalate 10 mg Tablet 10 mg PO DAILY RF: 0 Lantus Solostar U-100 Insulin 100 unit/mL (3 mL) Insulin Pen 20 unit SUBCUT QPM Qty: 15 RF: 0 Follow up/Referrals: Severiano Arrieta [Primary Care Provider] - Diet/Activity/Treatments Diet: Carb-consistent/Diabetic Visit Report/Discharge Packet Visit Report Forms: Patient Portal/API, Stroke Signs & Symptoms Discharge Data Primary Care Provider: Severiano Arrieta Attending Provider: Arabella Goff Admit Date/Time: 02/07/20 22:57 Discharges patient from system. Discharge Date/Time: 02/08/20 12:56 Quality VTE Deep Vein Thrombosis/Pulmonary Embolism Present on Admission: No
[2020-02-09 12:19] LABS: Legionella pneumo Antigen Negative (Negative)
[2020-02-09 14:36] LABS: Osmolality, Serum 293 mOsmol/kg (275-295)
[2020-02-17 22:58] LABS: COVID19 Sendout Not Detected (Not Detected)
== END 2020-02-08 12:56 | disposition home or self-care (01) ==
LOC: ED 20:27 → ICU 02-08 09:09 → AC 02-08 10:09 → ICU 02-08 10:10
PROVIDERS: Admitting Provider Nurse Practitioner Family; Emergency Provider Emergency Medicine; PCP Family Medicine; Referring Provider Emergency Medicine; Visit Provider Nurse Practitioner Family
DX: E10.65 Type 1 diabetes mellitus with hyperglycemia (principal); J45.901 Unspecified asthma with (acute) exacerbation; J06.9 Acute upper respiratory infection, unspecified; F32.9 Major depressive disorder, single episode, unspecified; Z79.4 Long term (current) use of insulin; F17.210 Nicotine dependence, cigarettes, uncomplicated; B34.2 Coronavirus infection, unspecified
CPT/HCPCS: 36415; 36600; 71045; 80048; 80053; 80305; 80320; 81001; 82805; 82962; 83036; 83605; 83690; 83735; 83930; 84100; 84145; 84443; 84703; 85025; 87040; 87086; 87449; 87633; 87635; 94640; 96361; 96365; 96366; 99284; 99285; G0378; J2060

== ENCOUNTER 2020-12-28 12:01 | Emergency (ER) | payer OTHER, MEDICAID, SELFPAY ==
[2020-02-07 23:01] VITALS: BMI 19.5
[2020-12-28 12:12] VITALS: BP 121/69; PULSE 90; RESP 20; TEMP 36.7; O2SAT 99
[2020-12-28 12:14] VITALS: BMI 21.2
--- NOTE | 2020-12-28 12:54 | ED_ITS ---
HPI - General Chief complaint: OB/Uterine Contractions Stated complaint: Type 1 Diabetic, 6 wks pregant, cramping Time Seen by Provider: 12/28/20 12:12 Source: patient Mode of arrival: Ambulatory Limitations: no limitations History of Present Illness HPI Narrative: Patient is a 20-year-old female with history of type 1 diabetes, at presenting now possibly 6 weeks with abdominal cramping. He says she was in 2019 and had a miscarriage. She had out last week that she was again. She started having abdominal cramping today day. She is getting set up with Ob she is high risk because of the diabetes. She denies any vaginal bleeding no real specific pain. Mostly just wanted to check and make sure things were okay with cramping. She is not complaining of any nausea. Blood sugars are fairly well controlled. She is here with Mom is good support person. Last menstrual period 11/19/2020, usually regular does not miss periods MD Complaint: abdominal pain Location: pelvis Patient : Yes Related Data Home Medications Medication Instructions Recorded Confirmed Humalog U-100 Insulin 9 unit SUBCUT ACHS 01/02/20 02/08/20 albuterol sulfate 2 puff INHALATION Q4HR 01/02/20 02/08/20 clonidine HCl 0.1 mg PO BEDTIME 01/02/20 02/08/20 escitalopram oxalate 10 mg PO DAILY 01/02/20 02/08/20 Previous Rx's Medication Instructions Recorded Lantus Solostar U-100 Insulin 20 unit SUBCUT QPM #15 ml 01/03/20 Allergies Allergy/AdvReac Type Severity Reaction Status Date / Time No Known Drug Allergies Allergy Verified 01/02/20 18:30 Review of Systems Review of Systems Narrative: GENERAL: Denies chills, fatigue, malaise, fever, sweats, travel HEENT: Denies sinus pain, ear pain, sore throat, difficulty swallowing, neck pain RESPIRATORY: Denies dyspnea, cough, wheezing, hemoptysis, sputum. CARDIOVASCULAR: Denies chest pain, palpitations, orthopnea, edema GASTROINTESTINAL: Denies nausea, vomiting, abdominal pain, diarrhea, constipation, melena. COMPUTER INFORMATION SYSTEMS PROFESSOR: See HPI : Denies dysuria, frequency, incontinence, hematuria, urinary retention, flank pain. MUSCULOSKELETAL: Denies weakness, joint pain, or bony pain SKIN: No rash, no erythema, no pruritus NEUROLOGIC: Denies weakness, dizziness, headache, numbness, change in speech, confusion PSYCHIATRIC: No concerning psychosocial issues. 12 point review of systems is negative except for those stated above and HPI PMFSH - Past Medical History Additional medical history: Diabetes Surgical history: Reports no surgical history Patient : Yes Exam Initial Vital Signs Initial Vital Signs: Vital Signs Temperature 98.0 F 12/28/20 12:12 Pulse Rate 90 12/28/20 12:12 Respiratory Rate 20 12/28/20 12:12 Blood Pressure 121/69 12/28/20 12:12 Pulse Oximetry 99 12/28/20 12:12 GENERAL: Well-appearing, well-nourished and in no acute distress. HEENT: Head atraumatic,EOMI, pupils reactive, face symmetric, moist mucous membranes CARDIOVASCULAR: Regular rate and rhythm without murmurs, rubs or gallops. RESPIRATORY: Breath sounds equal bilaterally, no wheezes rales or rhonchi. ABDOMEN: Soft, nontender. Normoactive bowel sounds all 4 quadrants. No guarding or rebound. PELVIC: External genitalia is normal, no vaginal bleeding, no adnexal tenderness, speculum exam not done patient extremely afraid EXTREMITIES: Normal range of motion, no clubbing or edema. Neurovascularly intact NEUROLOGICAL: Alert and oriented x4.Normal gait and speech. Cranial nerves II through XII grossly intact. SKIN: Warm, dry, no laceration, no petechiae, no rashes or lesions. Course Orders Ordered: ED Orders 12/28/20 12:53 US OB <= 14 weeks fetus Stat 12/28/20 13:37 ABO RH Type Stat Complete Blood Count AUTO DIFF Stat Comprehensive Metabolic Panel Stat HCG Quantitative /Beta subunit Stat Vital Signs Vital signs: Vital Signs - 8 hr 12/28/20 12:12 12/28/20 14:56 Temperature 98.0 F Pulse Rate 90 88 Respiratory Rate 20 16 Blood Pressure 117/68 Blood Pressure [Left Arm] 121/69 Pulse Oximetry 99 97 MDM - OB/Uterine Contractions Lab Data Attestation: I reviewed the patient's lab results. Result diagrams: 12/28/20 13:37 12/28/20 13:37 Labs: Lab Results 12/28/20 12/28/20 12/28/20 Range/Units 13:37 13:37 13:37 WBC 5.3 (4.5-11.0) X10^3/uL RBC 3.97 L (4.0-5.2) X10^6/uL Hgb 13.2 (12.0-16.0) g/dL Hct 38.5 (36-46) % MCV 96.9 (80-100) fL MCH 33.3 (26-34) PG MCHC 34.4 (30-36) % RDW 12.2 (11.6-14.8) % Plt Count 169 (150-400) X10^3/uL Neut % (Auto) 45.6 L (50-75) % Lymph % (Auto) 33.5 (25-40) % [place] % (Auto) 8.0 (3-14) % Eos % (Auto) 12.0 H (2-4) % Baso % (Auto) 0.9 (0-2) % Neut # (Auto) 2400 (1025-6324) /uL Lymph # (Auto) 1800 (8639-7989) /uL [place] # (Auto) 400 (0-900) /uL Eos # (Auto) 600 H (0-450) /uL Baso # (Auto) 0 (0-100) /uL Sodium 135 L (137-145) mmol/L Potassium 4.0 (3.4-5.1) mmol/L Chloride 105 (98-107) mmol/L Carbon Dioxide 23 (22-32) mmol/L BUN 7 (7-17) mg/dL Creatinine 0.51 L (0.52-1.04) mg/dL Estimated GFR > 60.0 (>60) mL/min BUN/Creatinine Ratio 13.7 (6-22) Glucose 149 H (70-100) mg/dL Calcium 8.9 (8.4-10.2) mg/dL Total Bilirubin 0.4 (0.2-1.3) mg/dL AST 16 (14-36) IU/L ALT 11 (<35) IU/L Alkaline Phosphatase 75 (38-126) U/L Total Protein 7.2 (6.3-8.2) g/dL Albumin 4.2 (3.5-5.0) g/dL Globulin 3.0 (1.7-4.1) g/dL Albumin/Globulin Ratio 1.4 (1.0-2.8) HCG, Quant 210.0 mIU/mL Blood Type O Positive Point of Care Testing Test Results Positive Urine Dip Bedside Urine Glucose 1000 mg/dl Bedside Urine Bilirubin - Negative Bedside Urine Ketone - Negative Urine Specific [place] 1.020 Bedside Urine Occult Blood - Negative Bedside Urine pH 7.0 Bedside Urine Protein - Negative Bedside Urine Urobilinogen - Negative Bedside Urine Nitrite - Negative Bedside Urine Leukocytes - Negative Esterase Imaging Data US - OB: Radiologist's Impression: PROCEDURE: US OB <= 14 WEEKS FETUS INDICATIONS: CRAMPING TECHNIQUE: Real-time scanning was performed of the fetus and maternal pelvic organs, with image documentation. Endovaginal scanning was also performed to better visualize the fetus and maternal ovaries. COMPARISON: None. FINDINGS: The uterus measures 4.1 x 5.1 x 8.3 cm. The endometrial stripe complex measures approximately 16 mm in double air thickness. There is no gestational sac in the uterine fundus or other sonographic evidence of an intrauterine . Both ovaries are normal in size, measuring 2.3 x 2.7 x 3.8 cm on the right and 1.2 x 2.7 x 3.1 cm on the left. The right ovary contains a complex cyst with peripheral vascularity measuring 1.7 x 1.8 x 1.9 cm. IMPRESSION: No findings of intrauterine . Thickened endometrium, likely physiologic. Complex cyst in the right ovary measuring up to 1.9 cm with peripheral va scularity is likely a resolving hemorrhagic cyst. Follow-up in 4-6 weeks recommended to document resolution and help differentiate from other differential considerations. Dictated by: Aram Zee M.D. on 12/28/2020 at 13:37 MDM Narrative Medical decision making narrative: The patient is found have low HCG of 210 and no IUP is identified. She is found have a right ovarian cyst she has no adnexal tenderness she has no severe pain. Low suspicion for ectopic. However I did discuss this with both mom and patient strongly recommended close follow-up with serial HCGs and exam. I discussed all findings with the patient and mother, Education has been performed regarding treatment plan, diagnosis, warning signs and symptoms and all concerns have been addressed. Verbally agree with and understood all of the above. Discharge Plan Departure Patient Disposition: Home Clinical Impression: , spontaneous threatened Instructions: DI for Threatened Activity Restrictions/Additional Instructions: HCG =210 *You have been diagnosed with threatened *What to do: At this time ultrasound does not show intrauterine . A may be extremely early. Your blood levels are also very low. Concern for either very early or possible impending miscarriage. you need to have HCG redrawn in 2 days[place] *Continue to take medications as directed *Follow up with your primary care provider in 2-3 days Please follow-up with OBGYN by Saturday tab blood work redrawn *Return to ER if you should have increasing pain, cramping, bleeding or any new, worsening or concerning symptoms Prescriptions: No Action clonidine HCl 0.1 mg Tablet 0.1 mg PO BEDTIME RF: 0 albuterol sulfate 90 mcg/actuation Hfa Aerosol Inhaler 2 puff INHALATION Q4HR RF: 0 Humalog U-100 Insulin 100 unit/mL Cartridge 9 unit subcut ACHS RF: 0 escitalopram oxalate 10 mg Tablet 10 mg PO DAILY RF: 0 Lantus Solostar U-100 Insulin 100 unit/mL (3 mL) Insulin Pen 20 unit SUBCUT QPM Qty: 15 RF: 0 Referrals: [employer] [facility] [Provider Group] Severiano Arrieta [Primary Care Provider] -
[2020-12-28 13:53] LABS: Add Manual Diff / Slide Review NO; Basophils Absolute Auto 0 /uL (0-100); Basophils Percent Auto 0.9 % (0-2); Eosinophils Absolute Auto 600 /uL (0-450); Hematocrit 38.5 % (36-46); Hemoglobin 13.2 g/dL (12.0-16.0); Lymphocytes Absolute Auto 1800 /uL (1100-4500); Lymphocytes Percent Auto 33.5 % (25-40); Mean Corpuscular HGB Conc 34.4 % (30-36); Mean Corpuscular Hemoglobin 33.3 PG (26-34); Mean Corpuscular Volume 96.9 fL (80-100); Monocytes Absolute Auto 400 /uL (0-900); Neutrophils Absolute Auto 2400 /uL (1500-7000); Neutrophils Percent Auto 45.6 % (50-75); Platelet Count 169 X10^3/uL (150-400); Red Blood Cell Count 3.97 X10^6/uL (4.0-5.2); Red Cell Distribution Width 12.2 % (11.6-14.8); White Blood Cell Count 5.3 X10^3/uL (4.5-11.0)
[2020-12-28 14:04] LABS: Alanine Aminotransferase 11 IU/L (<35); Albumin 4.2 g/dL (3.5-5.0); Albumin Globulin Ratio 1.4 (1.0-2.8); Alkaline Phosphatase 75 U/L (38-126); Aspartate Aminotransferase 16 IU/L (14-36); BUN Creatinine Ratio 13.7 (6-22); Bilirubin Total 0.4 mg/dL (0.2-1.3); Blood Urea Nitrogen 7 mg/dL (7-17); Calcium 8.9 mg/dL (8.4-10.2); Carbon Dioxide 23 mmol/L (22-32); Chloride 105 mmol/L (98-107); Estimated Glomerular Filt Rate > 60.0 mL/min (>60); Glucose 149 mg/dL (70-100); HEMOLYSIS < 15 (0-50); Sodium 135 mmol/L (137-145); Total Protein 7.2 g/dL (6.3-8.2)
[2020-12-28 14:56] VITALS: BP 117/68; PULSE 88; RESP 16; O2SAT 97
== END 2020-12-28 14:57 | disposition home or self-care (01) ==
PROVIDERS: Emergency Provider Emergency Medicine; PCP Family Medicine
DX: O20.0 Threatened abortion (principal)
CPT/HCPCS: 36415; 76801; 76817; 80053; 81003; 81025; 84702; 85025; 86900; 86901; 99284

== ENCOUNTER 2021-01-27 12:38 | Emergency (ER) | payer OTHER, MEDICAID, SELFPAY ==
[2020-02-07 23:01] VITALS: BMI 19.5
[2021-01-27 12:44] VITALS: BP 135/65; PULSE 109; RESP 14; TEMP 36.9; O2SAT 100; BMI 24.6
--- NOTE | 2021-01-27 12:54 | DI.US.S_ITS ---
PROCEDURE: OB <= 14 WEEKS FETUS INDICATIONS: VAGINAL BLEEDING - EIGHT WEEKS OUTSIDE/PRIOR DATING DATA: Last menstrual period (LMP): 11/19/2020 LMP-based estimated date of delivery (SADAF): 09/05/2021 First dating scan (date and location): 01/27/2021 Estimated date of delivery (SADAF) from first dating scan: 09/18/2021 TECHNIQUE: Real-time scanning was performed of the fetus and maternal pelvic organs, with image documentation. Endovaginal scanning was also performed to better visualize the fetus and maternal ovaries. COMPARISON: [facility], OB <= 14 WEEKS FETUS, 12/28/2020, 13:06. FINDINGS: Embryo: There is an irregular appearing intrauterine gestational sac measures approximately 1.7 cm in diameter with estimated gestational age of 6 weeks, 4 days. No pole or cardiac activity is detected. No yolk sac is seen. Measurement variability in dating: +/- 4 weeks by LMP, +/- 7 days by mean sac diameter (use before 6 weeks gestation if crown-rump length not able to be measured), +/- 5 days by crown-rump length (up to 8 weeks 6 days gestation), +/- 7 days by crown-rump length (up to 13 weeks 6 days gestation). Maternal organs: Left ovary measures 3.4 x 1.6 x 1.4 cm in size and is within normal limits. Right ovary measures 3 x 2 x 2.1 cm in size. Previously described complex cystic structure in right ovary is not well seen. IMPRESSION: 1. Irregular appearing intrauterine gestational sac without pole or cardiac activity. Finding is concerning for spontaneous . 2. No gross abnormality is seen in bilateral ovaries. Previously described complex, possibly a resolving hemorrhagic cyst in right ovary is not well seen on the images provided. Dictated by: Alverto Franco M.D. on 01/27/2021 at 14:23 Approved by: Alverto Franco M.D. on 01/27/2021 at 14:33
--- NOTE | 2021-01-27 13:26 | ED.PREGNANCY ---
HPI - <TOMMY Mccarthy - Last Filed: 01/27/21 16:05> General Chief complaint: Vaginal Bleeding Stated complaint: 8wks preg,cramps, light spotting Time Seen by Provider: 01/27/21 12:53 Source: patient Mode of arrival: Ambulatory Limitations: no limitations History of Present Illness HPI Narrative: 20yo female , presents to the ED for vaginal bleeding during that started yesterday. She states the amount is very small and is light. She has some lower intermittent cramping in her back but no abdominal pain. She reports nausea but no vomiting. She had a recent ultrasound on 01/17 at showing a twin . She denies any clots, severe pain, fevers cough, shortness of breath, dizziness, or any other concerns. Related Data Home Medications Medication Instructions Recorded Confirmed Humalog U-100 Insulin 9 unit SUBCUT ACHS 01/02/20 02/08/20 albuterol sulfate 2 puff INHALATION Q4HR 01/02/20 02/08/20 clonidine HCl 0.1 mg PO BEDTIME 01/02/20 02/08/20 escitalopram oxalate 10 mg PO DAILY 01/02/20 02/08/20 Previous Rx's Medication Instructions Recorded Lantus Solostar U-100 Insulin 20 unit SUBCUT QPM #15 ml 01/03/20 Allergies Allergy/AdvReac Type Severity Reaction Status Date / Time Sulfa (Sulfonamide Allergy Verified 01/27/21 12:49 Antibiotics) Review of Systems <TOMMY Mccarthy - Last Filed: 01/27/21 16:05> Review of Systems Narrative: REVIEW OF SYSTEMS: GENERAL: Denies fever and chills. HENT: No head trauma. CARDIOVASCULAR: No chest pain. RESPIRATORY: No cough. GASTROINTESTINAL: Denies abdominal pain. GENITOURINARY: No flank pain. Reports light vaginal bleeding, see HPI. MUSCULOSKELETAL: No pain. INTEGUMENTARY: No rash. NEURO: No numbness or tingling. PMFSH - <TOMMY Mccarthy - Last Filed: 01/27/21 16:05> Past Medical History Additional medical history: Diabetes Surgical history: Reports no surgical history Exam <TOMMY Mccarthy - Last Filed: 01/27/21 16:05> Initial Vital Signs Initial Vital Signs: Vital Signs Temperature 98.5 F 01/27/21 12:44 Pulse Rate 109 H 01/27/21 12:44 Respiratory Rate 14 01/27/21 12:44 Blood Pressure 135/65 01/27/21 12:44 Pulse Oximetry 100 01/27/21 12:44 PHYSICAL EXAMINATION: GENERAL: Awake and alert. HENT: Normocephalic, atraumatic. Hearing intact. Oral mucosa is pink and moist. EYES: Conjunctiva pink, sclera white, no periorbital swelling. CARDIOVASCULAR: S1 and S2 sounds normal. Regular rate and rhythm, no murmurs, clicks, or bruits. No pedal edema. RESPIRATORY: Normal respiratory rate, trachea midline, airway patent. No stridor, nasal flaring or accessory muscle use. GASTROINTESTINAL: Bowel sounds normoactive. Abdomen is soft and non-tender. No organomegaly, no palpable masses. GENITALURINARY: No flank tenderness. MUSCULOSKELETAL: Normal gait and coordination. Equal tone and mass bilaterally. EXTREMITIES: CMS intact, no pedal edema. SKIN: Warm, dry, soft, appropriate color for ethnicity. No lesions, rashes, or wounds to visualized areas. NEURO: Alert and Oriented X 3. Good coordination. No ataxia, or sensory deficits, or cognitive issues. PSYCH: Appropriate affect and mood. <Duke Graham DO - Last Filed: 01/27/21 16:48> Initial Vital Signs Initial Vital Signs: Vital Signs Temperature 98.5 F 01/27/21 12:44 Pulse Rate 109 H 01/27/21 12:44 Respiratory Rate 14 01/27/21 12:44 Blood Pressure 135/65 01/27/21 12:44 Pulse Oximetry 100 01/27/21 12:44 Course <TOMMY Mccarthy - Last Filed: 01/27/21 16:05> Orders Ordered: ED Orders 01/27/21 12:54 US OB <= 14 weeks fetus Stat 01/27/21 13:20 ABO RH Type Stat Complete Blood Count AUTO DIFF Stat Comprehensive Metabolic Panel Stat HCG Quantitative /Beta subunit Stat Vital Signs Vital signs: Vital Signs - 8 hr 01/27/21 12:44 01/27/21 14:57 Temperature 98.5 F Pulse Rate 109 H 85 Respiratory Rate 14 16 Blood Pressure 135/65 133/79 Pulse Oximetry 100 100 <Duke Graham DO - Last Filed: 01/27/21 16:48> Orders Ordered: ED Orders 01/27/21 12:54 US OB <= 14 weeks fetus Stat 01/27/21 13:20 ABO RH Type Stat Complete Blood Count AUTO DIFF Stat Comprehensive Metabolic Panel Stat HCG Quantitative /Beta subunit Stat Vital Signs Vital signs: Vital Signs - 8 hr 01/27/21 12:44 01/27/21 14:57 Temperature 98.5 F Pulse Rate 109 H 85 Respiratory Rate 14 16 Blood Pressure 135/65 133/79 Pulse Oximetry 100 100 MDM - OB/Uterine Contractions <TOMMY Mccarthy - Last Filed: 01/27/21 16:05> Medical Records Attestation: I reviewed the patient's medical records. Lab Data Attestation: I reviewed the patient's lab results. Result diagrams: 01/27/21 13:20 01/27/21 13:20 Labs: Lab Results 01/27/21 01/27/21 01/27/21 Range/Units 13:20 13:20 13:20 WBC 6.1 (4.5-11.0) X10^3/uL RBC 4.12 (4.0-5.2) X10^6/uL Hgb 13.5 (12.0-16.0) g/dL Hct 39.9 (36-46) % MCV 96.7 (80-100) fL MCH 32.7 (26-34) PG MCHC 33.8 (30-36) % RDW 12.1 (11.6-14.8) % Plt Count 206 (150-400) X10^3/uL Neut % (Auto) 54.9 (50-75) % Lymph % (Auto) 30.1 (25-40) % [place] % (Auto) 9.3 (3-14) % Eos % (Auto) 4.9 H (2-4) % Baso % (Auto) 0.8 (0-2) % Neut # (Auto) 3400 (6155-5405) /uL Lymph # (Auto) 1800 (4215-2352) /uL [place] # (Auto) 600 (0-900) /uL Eos # (Auto) 300 (0-450) /uL Baso # (Auto) 0 (0-100) /uL Sodium 135 L (137-145) mmol/L Potassium 3.8 (3.4-5.1) mmol/L Chloride 102 (98-107) mmol/L Carbon Dioxide 25 (22-32) mmol/L BUN 11 (7-17) mg/dL Creatinine 0.57 (0.52-1.04) mg/dL Estimated GFR > 60.0 (>60) mL/min BUN/Creatinine Ratio 19.3 (6-22) Glucose 121 H (70-100) mg/dL Calcium 9.5 (8.4-10.2) mg/dL Total Bilirubin 0.2 (0.2-1.3) mg/dL AST 18 (14-36) IU/L ALT 13 (<35) IU/L Alkaline Phosphatase 80 (38-126) U/L Total Protein 7.6 (6.3-8.2) g/dL Albumin 4.5 (3.5-5.0) g/dL Globulin 3.1 (1.7-4.1) g/dL Albumin/Globulin Ratio 1.5 (1.0-2.8) HCG, Quant 22004 mIU/mL Blood Type O Positive Urine Dip Bedside Urine Glucose 1000 mg/dl Bedside Urine Bilirubin - Negative Bedside Urine Ketone - Negative Urine Specific [place] 1.030 Bedside Urine Occult Blood - Negative Bedside Urine pH 6 Bedside Urine Protein - Negative Bedside Urine Urobilinogen - Negative Bedside Urine Nitrite - Negative Bedside Urine Leukocytes - Negative Esterase Imaging Data US - OB: Radiologist's Impression: [address] [id number] ReportSigned Patient: Nettie Stone PMR#: [id number]: [id number]:[id number]/Sex: 20 / FDate of Service: 01/27/21Loc: EDAccession Number: [id number] Procedure: US OB <= 14 weeks fetus Ordering Provider: Guerita Fitzpatrick PROCEDURE: US OB <= 14 WEEKS FETUS INDICATIONS: VAGINAL BLEEDING - EIGHT WEEKS OUTSIDE/PRIOR DATING DATA: Last menstrual period (LMP): 11/19/2020 LMP-based estimated date of delivery (SADAF): 09/05/2021 First dating scan (date and location): 01/27/2021 Estimated date of delivery (SADAF) from first dating scan: 09/18/2021 TECHNIQUE: Real-time scanning was performed of the fetus and maternal pelvic organs, with image documentation. Endovaginal scanning was also performed to better visualize the fetus and maternal ovaries. COMPARISON: [facility], , OB <= 14 WEEKS FETUS, 12/28/2020, 13:06. FINDINGS: Embryo: There is an irregular appearing intrauterine gestational sac measures approximately 1.7 cm in diameter with estimated gestational age of 6 weeks, 4 days. No pole or cardiac activity is detected. No yolk sac is seen. Measurement variability in dating: +/- 4 weeks by LMP, +/- 7 days by mean sac diameter (use before 6 weeks gestation if crown-rump length not able to be measured), +/- 5 days by crown-rump length (up to 8 weeks 6 days gestation), +/- 7 days by crown-rump length (up to 13 weeks 6 days gestation). Maternal organs: Left ovary measures 3.4 x 1.6 x 1.4 cm in size and is within normal limits. Right ovary measures 3 x 2 x 2.1 cm in size. Previously described complex cystic structure in right ovary is not well seen. IMPRESSION: 1. Irregular appearing intrauterine gestational sac without pole or cardiac activity. Finding is concerning for spontaneous . 2. No gross abnormality is seen in bilateral ovaries. Previously described complex, possibly a resolving hemorrhagic cyst in right ovary is not well seen on the images provided. Dictated by: Alverto Franco M.D. on 01/27/2021 at 14:23 Approved by: Alverto Franco M.D. on 01/27/2021 at 14:33 MDM Narrative Medical decision making narrative: Female presents to the emergency department for cramping and bleeding in . I suspect this most likely be due to threatened spontaneous given lack of pole or activity seen on ultrasound, additionally, there is some irregular characteristics to the gestational sac. However, this may be too early to confirm. Patient does have elevated hCG. Discussed with patient that she would need to follow up with OBGYN, she is to call their office today to schedule an appointment as read testing is needed to be done in approximately 42-72 hours. Hemoglobin hematocrit are within normal limits, she is non symptomatic for acute blood loss. She describes her bleeding light, she is non tachycardic and hemodynamically stable. Less concern for urinary infection given POC is negative for blood, leukocytes, and nitrates. Return precautions given for new or worsening symptoms especially heavy bleeding, syncope, severe pain. Patient agreed to plan of care verbalized understanding. <Duke Graham DO - Last Filed: 01/27/21 16:48> Lab Data Labs: Lab Results 01/27/21 01/27/21 01/27/21 Range/Units 13:20 13:20 13:20 WBC 6.1 (4.5-11.0) X10^3/uL RBC 4.12 (4.0-5.2) X10^6/uL Hgb 13.5 (12.0-16.0) g/dL Hct 39.9 (36-46) % MCV 96.7 (80-100) fL MCH 32.7 (26-34) PG MCHC 33.8 (30-36) % RDW 12.1 (11.6-14.8) % Plt Count 206 (150-400) X10^3/uL Neut % (Auto) 54.9 (50-75) % Lymph % (Auto) 30.1 (25-40) % [place] % (Auto) 9.3 (3-14) % Eos % (Auto) 4.9 H (2-4) % Baso % (Auto) 0.8 (0-2) % Neut # (Auto) 3400 (8899-5023) /uL Lymph # (Auto) 1800 (5272-5551) /uL [place] # (Auto) 600 (0-900) /uL Eos # (Auto) 300 (0-450) /uL Baso # (Auto) 0 (0-100) /uL Sodium 135 L (137-145) mmol/L Potassium 3.8 (3.4-5.1) mmol/L Chloride 102 (98-107) mmol/L Carbon Dioxide 25 (22-32) mmol/L BUN 11 (7-17) mg/dL Creatinine 0.57 (0.52-1.04) mg/dL Estimated GFR > 60.0 (>60) mL/min BUN/Creatinine Ratio 19.3 (6-22) Glucose 121 H (70-100) mg/dL Calcium 9.5 (8.4-10.2) mg/dL Total Bilirubin 0.2 (0.2-1.3) mg/dL AST 18 (14-36) IU/L ALT 13 (<35) IU/L Alkaline Phosphatase 80 (38-126) U/L Total Protein 7.6 (6.3-8.2) g/dL Albumin 4.5 (3.5-5.0) g/dL Globulin 3.1 (1.7-4.1) g/dL Albumin/Globulin Ratio 1.5 (1.0-2.8) HCG, Quant 79516 mIU/mL Blood Type O Positive Urine Dip Bedside Urine Glucose 1000 mg/dl Bedside Urine Bilirubin - Negative Bedside Urine Ketone - Negative Urine Specific [place] 1.030 Bedside Urine Occult Blood - Negative Bedside Urine pH 6 Bedside Urine Protein - Negative Bedside Urine Urobilinogen - Negative Bedside Urine Nitrite - Negative Bedside Urine Leukocytes - Negative Esterase Discharge Plan Departure Patient Disposition: Home Clinical Impression: Threatened miscarriage Instructions: DI for Miscarriage, DI for Vaginal Bleeding Activity Restrictions/Additional Instructions: Thank you for entrusting me with your care today. As discussed, your ultrasound today is concerning for a miscarriage, there is an irregular appearing gestational sac without pole or cardiac activity. [place] [address] today. I do recommend calling the OBGYN listed below to schedule follow-up as retesting is usually required. Take Tylenol as needed for cramping pain. Return emergency department for any new or worsening symptoms such as severe pain, severe bleeding, dizziness, syncope, or any other concerns. Prescriptions: No Action clonidine HCl 0.1 mg Tablet 0.1 mg PO BEDTIME RF: 0 albuterol sulfate 90 mcg/actuation Hfa Aerosol Inhaler 2 puff INHALATION Q4HR RF: 0 Humalog U-100 Insulin 100 unit/mL Cartridge 9 unit subcut ACHS RF: 0 escitalopram oxalate 10 mg Tablet 10 mg PO DAILY RF: 0 Lantus Solostar U-100 Insulin 100 unit/mL (3 mL) Insulin Pen 20 unit SUBCUT QPM Qty: 15 RF: 0 Referrals: [place] [Physician] - Severiano Arrieta [Primary Care Provider] - <Duke Graham DO - Last Filed: 01/27/21 16:48> [facility]: Dr Graham Co-Sign Statement: I was available for consultation during this patient's emergency department visit. This chart is signed by myself for administrative purposes only. I did not have direct contact with this patient during this visit. They were seen independently by the APC.
[2021-01-27 13:32] LABS: Add Manual Diff / Slide Review NO; Basophils Absolute Auto 0 /uL (0-100); Basophils Percent Auto 0.8 % (0-2); Eosinophils Absolute Auto 300 /uL (0-450); Eosinophils Percent Auto 4.9 % (2-4); Hematocrit 39.9 % (36-46); Hemoglobin 13.5 g/dL (12.0-16.0); Lymphocytes Absolute Auto 1800 /uL (1100-4500); Lymphocytes Percent Auto 30.1 % (25-40); Mean Corpuscular HGB Conc 33.8 % (30-36); Mean Corpuscular Hemoglobin 32.7 PG (26-34); Mean Corpuscular Volume 96.7 fL (80-100); Monocytes Absolute Auto 600 /uL (0-900); Monocytes Percent Auto 9.3 % (3-14); Neutrophils Absolute Auto 3400 /uL (1500-7000); Neutrophils Percent Auto 54.9 % (50-75); Platelet Count 206 X10^3/uL (150-400); Red Blood Cell Count 4.12 X10^6/uL (4.0-5.2); Red Cell Distribution Width 12.1 % (11.6-14.8); White Blood Cell Count 6.1 X10^3/uL (4.5-11.0)
[2021-01-27 13:45] LABS: Alanine Aminotransferase 13 IU/L (<35); Albumin 4.5 g/dL (3.5-5.0); Albumin Globulin Ratio 1.5 (1.0-2.8); Alkaline Phosphatase 80 U/L (38-126); Aspartate Aminotransferase 18 IU/L (14-36); BUN Creatinine Ratio 19.3 (6-22); Bilirubin Total 0.2 mg/dL (0.2-1.3); Blood Urea Nitrogen 11 mg/dL (7-17); Calcium 9.5 mg/dL (8.4-10.2); Carbon Dioxide 25 mmol/L (22-32); Chloride 102 mmol/L (98-107); Estimated Glomerular Filt Rate > 60.0 mL/min (>60); Globulin 3.1 g/dL (1.7-4.1); Glucose 121 mg/dL (70-100); HEMOLYSIS < 15 (0-50); Potassium 3.8 mmol/L (3.4-5.1); Sodium 135 mmol/L (137-145); Total Protein 7.6 g/dL (6.3-8.2)
[2021-01-27 14:01] LABS: HCG Quantitative /Beta subunit 12754 mIU/mL
[2021-01-27 14:57] VITALS: BP 133/79; PULSE 85; RESP 16; O2SAT 100
== END 2021-01-27 14:58 | disposition home or self-care (01) ==
PROVIDERS: Emergency Provider Nurse Practitioner; PCP Family Medicine
DX: O20.0 Threatened abortion (principal); Z3A.01 Less than 8 weeks gestation of pregnancy
CPT/HCPCS: 36415; 76801; 80053; 81003; 84702; 85025; 86900; 86901; 99283

== ENCOUNTER 2021-01-31 09:54 | Emergency (ER) | payer OTHER, MEDICAID, SELFPAY ==
[2020-02-07 23:01] VITALS: BMI 19.5
[2021-01-31] VITALS (11 sets, daily range): BP systolic 121–140; BP diastolic 66–95; PULSE 71–95; RESP 13–23; TEMP 36.6–37.3; O2SAT 99–100; BMI 24.7
--- NOTE | 2021-01-31 | PATH_ITS ---
[facility] Accession Number: [id number] . 01 Material submitted: . product of conception - PRODUCTS OF CONCEPTION . 01 Clinical history: . POSSIBLE MISCARRIGE . 02 Diagnosis: Products of Conception: Products of conception identified. MRV 02/03/2021 1118 Local . 02 Electronically signed: . Kathya Rapp MD, Pathologist NPI- [id number] . 01 Gross description: . The specimen is received in formalin, labeled products of conception and consists of multiple coronel-pink fragments of soft tissue and clotted blood measuring 9.0 x 8.0 x 2.0 cm in aggregate. Multiple chorionic villi are identified. No parts are identified. Blade Filer sections are submitted in cassettes A1-A4. ([id number]) /MRV 02/01/2021 1457 Local . 02 Pathologist provided ICD-10: O02.1 . 02 CPT . [id number] Performed at: 01 [facility] [address] [facility] [address] [facility] [place], [place], [place] [id number] MD Tl Islas MD Phone: [phone] Performed at: 02 [facility] [address] [place], [place] [id number] MD Adriana Daniels MD Phone: [phone]
--- NOTE | 2021-01-31 10:11 | ED_ITS ---
HPI - General Chief complaint: OB/Uterine Contractions Stated complaint: possible miscarrige Time Seen by Provider: 01/31/21 09:59 Source: patient Mode of arrival: Ambulatory Limitations: no limitations History of Present Illness HPI Narrative: 20-year-old female nonsmoker is a at about 7 weeks who re turns for re-evaluation of pelvic cramping and spotting. She states she is bleeding like a normal period, nothing significantly heavy and not requiring pads. She is not dizzy nor weak or lightheaded. She denies any fever or chills. She was seen here a few days ago and had an ultrasound that demo nstrated no heart rate and suspicion of pending miscarriage was very high. She has been unable to follow-up with a automatic lump making machine tender and is here for re- evaluation. MD Complaint: vaginal bleeding Onset (ago): hour(s) Pain Consistency: intermittent Location: pelvis Severity: moderate Quality: Aching and Cramping Relieving factors: none Exacerbating factors: none Vaginal discharge: none Vaginal bleeding: light OB History - Current : other OB History - Previous Pregnancies: miscarriage care: none Related Data Home Medications Medication Instructions Recorded Confirmed Humalog U-100 Insulin 3 unit SUBCUT ACHS 01/02/20 01/31/21 albuterol sulfate 2 puff INHALATION Q4HR 01/02/20 01/31/21 Previous Rx's Medication Instructions Recorded Lantus Solostar U-100 Insulin 20 unit SUBCUT QPM #15 ml 01/03/20 oxycodone-acetaminophen [Percocet] 1 tab PO Q4-6H PRN #10 tab 01/31/21 Allergies Allergy/AdvReac Type Severity Reaction Status Date / Time Sulfa (Sulfonamide Allergy Verified 01/31/21 13:52 Antibiotics) Review of Systems Constitutional Constitutional: Denies chills, Denies fatigue, Denies fever(s), Denies frequent falls, Denies lethargy and Denies weakness Eyes Eyes: Denies change in vision, Denies eye discharge, Denies irritation and Denies loss of vision ENT Ears, Nose, Mouth, and Throat: Denies change in voice, Denies dizziness, Denies neck pain, Denies sore throat and Denies throat swelling Cardiovascular Cardiovascular: Denies chest pain, Denies irregular heart rhythm, Denies lightheadedness, Denies palpitations, Denies dyspnea, Denies dyspnea on exertion and Denies orthopnea Respiratory Respiratory: Denies cough, Denies dyspnea, Denies dyspnea on exertion and Denies wheezing Gastrointestinal Gastrointestinal: Denies abdominal pain, Denies change in bowel habits, Denies diarrhea, Denies nausea and Denies vomiting Genitourinary Genitourinary: Reports abnormal vaginal bleeding Musculoskeletal Musculoskeletal: Denies neck pain and Denies numbness Integumentary/Breasts Skin/Breast: Denies pruritus, Denies erythema, Denies rash and Denies wounds Neurologic Neurologic: Denies behavioral changes, Denies confusion, Denies dizziness, Denies frequent falls, Denies loss of vision, Denies numbness and Denies weakness Psychiatric Psychiatric: Denies anxiety, Denies behavioral changes, Denies confusion, Denies depression, Denies homicidal ideation and Denies suicidal ideation Endocrine Endocrine: Denies fatigue, Denies flushing and Denies palpitations Hematologic/Lymphatic Hematologic/Lymphatic: Denies easy bruising Allergic/Immunologic Allergic/Immunologic: Denies urticaria, Denies throat swelling and Denies wheezing PMFSH - Past Medical History Additional medical history: Diabetes Surgical history: Reports no surgical history Exam Narrative Exam Narrative: GENERAL: [20] year old patient appears stated age. Well- nourished, well-developed patient, in mild distress. HEAD: Atraumatic. Normocephalic. EYES: Pupils equal round and reactive. Extraocular motions intact. No scleral icterus. No injection or drainage. ENT: Nose without bleeding, purulent drainage. Throat without erythema, tonsillar hypertrophy or exudate. Airway patent. NECK: Trachea midline. Non tender CARDIOVASCULAR: Regular rate and rhythm without murmurs, gallops, or rubs. RESPIRATORY: Clear to auscultation. Breath sounds equal bilaterally. No wheezes, rales, or rhonchi. GASTROINTESTINAL: Abdomen soft, non-tender, nondistended. EXTREMITIES: No edema or joint tenderness. BACK: Nontender without deformity or crepitance. No flank tenderness. NEURO: AOx3. SKIN: No rash or erythema of visible areas Initial Vital Signs Initial Vital Signs: Vital Signs Temperature 97.8 F 01/31/21 09:55 Pulse Rate 95 H 01/31/21 09:55 Respiratory Rate 14 01/31/21 09:55 Blood Pressure 140/83 01/31/21 09:55 Pulse Oximetry 100 01/31/21 09:55 Course Course Course Narrative: I've reviewed the case with the on-call OB and she will see the patient at bedside Dr. Nick to take patient to the OR Orders Ordered: ED Orders 01/31/21 10:12 US OB <= 14 weeks fetus Stat 01/31/21 10:25 Complete Blood Count AUTO DIFF Stat Comprehensive Metabolic Panel Stat HCG Quantitative /Beta subunit Stat 01/31/21 13:05 COVID19 Stat Discontinued Medications Acetaminophen (Acetaminophen 325 Mg Tablet) 975 mg PO PACUNOW PRN PRN Reason: Pain, Mild (1-3) Last Admin: 01/31/21 15:46 Dose: 975 mg Documented by: JERRY Benzocaine (Benzocaine/Menthol 1 Jerome Pkt) 1 each PO PRN PRN PRN Reason: Sore Throat Fentanyl (Fentanyl 100 Mcg/2 Ml Inj) 0 mcg IV Q5M PRN PRN Reason: Pain, Moderate (4-6) Hydroxyzine HCl (Hydroxyzine 50 Mg/Ml Inj) 25 mg IM NOW PRN PRN Reason: Pain, Mild (1-3) Hydroxyzine Pamoate (Hydroxyzine Pamoate 25 Mg Capsule) 25 mg PO NOW PRN PRN Reason: Pain, Mild (1-3) Last Admin: 01/31/21 16:00 Dose: 25 mg Documented by: CHENTE Lactated Ringer's (Lactated Ringers) 1,000 mls @ 100 mls/hr IV CONT FAREED Last Admin: 01/31/21 13:51 Dose: 100 mls/hr Documented by: JAKSARAN Lactated Ringer's (Lactated Ringers) 1,000 mls @ 42 mls/hr IV CONT FAREED Famotidine (Pepcid) 20 mg in 50 mls @ 200 mls/hr IV NOW ONE Stop: 01/31/21 14:14 Metoclopramide HCl (Metoclopramide 10 Mg/2 Ml Inj) 10 mg IV NOW ONE Stop: 01/31/21 14:01 Ondansetron HCl (Ondansetron 4 Mg/2 Ml Inj) 4 mg IV NOW PRN PRN Reason: Nausea And Vomiting Oxycodone HCl (Oxycodone Ir 5 Mg Tablet) 5 mg PO PACUNOW PRN PRN Reason: Mild or moderate pain Last Admin: 01/31/21 16:40 Dose: 5 mg Documented by: Admin: 01/31/21 15:45 Dose: 5 mg Documented by: JERRY Vital Signs Vital signs: Vital Signs - 8 hr 01/31/21 12:04 01/31/21 12:05 01/31/21 12:08 Pulse Rate 82 Respiratory Rate 16 Blood Pressure 121/66 Pulse Oximetry 99 MDM - OB/Uterine Contractions Lab Data Result diagrams: 01/31/21 10:25 01/31/21 10:25 Labs: Lab Results 01/31/21 01/31/21 01/31/21 Range/Units 10:25 10:25 13:05 WBC 5.4 (4.5-11.0) X10^3/uL RBC 4.28 (4.0-5.2) X10^6/uL Hgb 14.0 (12.0-16.0) g/dL Hct 41.6 (36-46) % MCV 97.3 (80-100) fL MCH 32.7 (26-34) PG MCHC 33.7 (30-36) % RDW 12.0 (11.6-14.8) % Plt Count 193 (150-400) X10^3/uL Neut % (Auto) 46.7 L (50-75) % Lymph % (Auto) 37.7 (25-40) % [place] % (Auto) 8.6 (3-14) % Eos % (Auto) 6.3 H (2-4) % Baso % (Auto) 0.7 (0-2) % Neut # (Auto) 2500 (0948-1611) /uL Lymph # (Auto) 2100 (9673-1407) /uL [place] # (Auto) 500 (0-900) /uL Eos # (Auto) 300 (0-450) /uL Baso # (Auto) 0 (0-100) /uL Sodium 132 L (137-145) mmol/L Potassium 4.3 (3.4-5.1) mmol/L Chloride 101 (98-107) mmol/L Carbon Dioxide 24 (22-32) mmol/L BUN 12 (7-17) mg/dL Creatinine 0.44 L (0.52-1.04) mg/dL Estimated GFR > 60.0 (>60) mL/min BUN/Creatinine Ratio 27.3 H (6-22) Glucose 199 H (70-100) mg/dL Calcium 9.3 (8.4-10.2) mg/dL Total Bilirubin 0.3 (0.2-1.3) mg/dL AST 17 (14-36) IU/L ALT 12 (<35) IU/L Alkaline Phosphatase 85 (38-126) U/L Total Protein 7.8 (6.3-8.2) g/dL Albumin 4.5 (3.5-5.0) g/dL Globulin 3.3 (1.7-4.1) g/dL Albumin/Globulin Ratio 1.4 (1.0-2.8) HCG, Quant 63574 mIU/mL SARS-CoV-2 (PCR) Negative (Negative) Urine Dip Bedside Urine Glucose Negative Bedside Urine Bilirubin - Negative Bedside Urine Ketone - Negative Urine Specific [place] 1.030 Bedside Urine Occult Blood - Negative Bedside Urine pH 6.0 Bedside Urine Protein - Negative Bedside Urine Urobilinogen - Negative Bedside Urine Nitrite - Negative Bedside Urine Leukocytes - Negative Esterase Imaging Data 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 PROCEDURE: US OB <= 14 WEEKS FETUS INDICATIONS: INCREASED PAIN AND BLEEDING OUTSIDE/PRIOR DATING DATA: Last menstrual period (LMP): 11/19/20 LMP-based estimated date of delivery (SADAF): 09/05/21 First dating scan (date and location): 01/27/21 Estimated date of delivery (SADAF) from first dating scan: 11/18/21 +/-7 days. TECHNIQUE: Real-time scanning was performed of the fetus and maternal pelvic organs, with image documentation. Endovaginal scanning was also performed to better visualize the fetus and maternal ovaries. COMPARISON: [facility], OB <= 14 WEEKS FETUS, 01/27/2021, 13:45. [facility], OB <= 14 WEEKS FETUS, 12/28/2020, 13:06. FINDINGS: Embryo: A gestational is not seen. The study from 01/27/21 did identify a gestational sac with a mean sac diameter of 1.7 cm which correlated with a gestational age of 6 weeks 4 days, +/-[address]. [address] the current gestation at 7 weeks 1 day but the current gestational sac diameter of 1.3 cm argues towards an involuting , measuring 1.3 cm mean sac diameter with estimated gestational age today of only 6 weeks 1 day, +/-7 days. The gestational sac appears somewhat flaccid, and a pole with cardiac activity is not seen. Possible 2 yolk sacs, an uncertain finding. Note is made of a perigestational bleed adjacent to the gestational sac superiorly measuring 2.6 x 2.4 x 0.5 cm. Measurement variability in dating: +/- 4 weeks by LMP, +/- 7 days by mean sac diameter (use before 6 weeks gestation if crown-rump length not able to be measured), +/- 5 days by crown-rump length (up to 8 weeks 6 days gestation), +/- 7 days by crown-rump length (up to 13 weeks 6 days gestation). Maternal organs: Ovaries normal considering gestational status. IMPRESSION: Uncertain gestational status as discussed above. The mean sac diameter has decreased rather than increased. There is a perigestational hemorrhage above the gestational sac which measures up to 2.6 cm in maximal dimension. A pole with cardiac activity is not seen. Correlation with quantita tive beta HCG is recommended to determine whether there is evidence of demise and early involution, or whether follow-up OB ultrasound in 7-10 days is warranted. Dictated by: Leandro Blackwood M.D. on 01/31/2021 at 10:41 Approved by: Leandro Blackwood M.D. on 01/31/2021 at 10:50 Discharge Plan Departure Patient Disposition: Admitted to Surgery Clinical Impression: Threatened miscarriage Admit Date/Time: 01/31/21 13:18 Admit Provider: Maylin Nick
[2021-01-31 10:31] LABS: Add Manual Diff / Slide Review NO; Basophils Absolute Auto 0 /uL (0-100); Basophils Percent Auto 0.7 % (0-2); Eosinophils Absolute Auto 300 /uL (0-450); Eosinophils Percent Auto 6.3 % (2-4); Hematocrit 41.6 % (36-46); Lymphocytes Absolute Auto 2100 /uL (1100-4500); Lymphocytes Percent Auto 37.7 % (25-40); Mean Corpuscular HGB Conc 33.7 % (30-36); Mean Corpuscular Hemoglobin 32.7 PG (26-34); Mean Corpuscular Volume 97.3 fL (80-100); Monocytes Absolute Auto 500 /uL (0-900); Monocytes Percent Auto 8.6 % (3-14); Neutrophils Absolute Auto 2500 /uL (1500-7000); Neutrophils Percent Auto 46.7 % (50-75); Platelet Count 193 X10^3/uL (150-400); Red Blood Cell Count 4.28 X10^6/uL (4.0-5.2); White Blood Cell Count 5.4 X10^3/uL (4.5-11.0)
[2021-01-31 10:50] LABS: Alanine Aminotransferase 12 IU/L (<35); Albumin 4.5 g/dL (3.5-5.0); Albumin Globulin Ratio 1.4 (1.0-2.8); Alkaline Phosphatase 85 U/L (38-126); Aspartate Aminotransferase 17 IU/L (14-36); BUN Creatinine Ratio 27.3 (6-22); Bilirubin Total 0.3 mg/dL (0.2-1.3); Blood Urea Nitrogen 12 mg/dL (7-17); Calcium 9.3 mg/dL (8.4-10.2); Carbon Dioxide 24 mmol/L (22-32); Chloride 101 mmol/L (98-107); Estimated Glomerular Filt Rate > 60.0 mL/min (>60); Globulin 3.3 g/dL (1.7-4.1); Glucose 199 mg/dL (70-100); HEMOLYSIS < 15 (0-50); Potassium 4.3 mmol/L (3.4-5.1); Sodium 132 mmol/L (137-145); Total Protein 7.8 g/dL (6.3-8.2)
[2021-01-31 11:07] LABS: HCG Quantitative /Beta subunit 12575 mIU/mL
--- NOTE | 2021-01-31 13:08 | P.HP_ITS ---
History of Present Illness History of Present Illness Date Patient Seen: 01/31/21 Time Patient Seen: 13:08 Chief complaint: possible miscarrige Narrative: Patient is a 20-year-old 2 para 0 with a missed Ab with twins at 7 weeks gestation. Patient is a type 1 diabetic. She takes Lantus 20 units at bedtime. She takes Humalog 1 unit per 10 g of carbs with each meal. She was seen 4 days ago in the emergency department. She has not followed up with an OBGYN in the interim. She returns today with vaginal bleeding. The ultrasound was reviewed from January 27, 2021 and today. It appears that she started out with a twin gestation. No poles or heart rate were ever visualized. She was also seen at the [facility] in December and had empty sacs as well. This is where the twin gestation was diagnosed. Patient History Medical History (Updated 01/27/21 @ 14:51 by TOMMY Mccarthy) Acute hyperglycemia Atypical chest pain Coronavirus infection Depression Diabetic neuropathy Genital herpes Hyperosmolar hyperglycemic coma due to diabetes mellitus without ketoacidosis Type 1 diabetes mellitus Surgical History History of wisdom tooth extraction Family & Social History Family History Grandfather Type I diabetes mellitus Father Heart murmur Mother Diabetes mellitus Thyroid disease Grandmother Breast cancer Social History: household members significant other,family,children Safety & Behavioral: Feels Safe in Current Yes Environment Been Physically Hurt or No Threatened By a Person Tobacco & Substance use: Tobacco type e-cigarettes,cannabis/marijuana Smoking Status Former smoker alcohol intake current alcohol intake frequency holiday/special occasion Substance Use Type former substance user,marijuana Meds Home Medications and Allergies Home Medications Medication Instructions Recorded Confirmed Type Humalog U-100 Insulin 9 unit SUBCUT ACHS 01/02/20 02/08/20 History albuterol sulfate 2 puff INHALATION Q4HR 01/02/20 02/08/20 History clonidine HCl 0.1 mg PO BEDTIME 01/02/20 02/08/20 History escitalopram oxalate 10 mg PO DAILY 01/02/20 02/08/20 History Lantus Solostar U-100 Insulin 20 unit SUBCUT QPM #15 ml 01/03/20 02/08/20 Rx Allergies Allergy/AdvReac Type Severity Reaction Status Date / Time Sulfa (Sulfonamide Allergy Verified 01/31/21 10:04 Antibiotics) Exam Vital Signs (past 8 hours): - 01/31/21 09:55 01/31/21 12:04 01/31/21 12:05 Temperature 97.8 F Pulse Rate 95 H 82 Respiratory Rate 14 Blood Pressure 140/83 121/66 Pulse Oximetry 100 99 01/31/21 12:08 Temperature Pulse Rate Respiratory Rate 16 Blood Pressure Pulse Oximetry Oxygen Delivery Method Room Air Narrative Exam Narrative: Generally: Patient is sitting up in bed, no acute distress Lungs: Clear to auscultation bilaterally Cardiovascular: Regular rate and rhythm Abdomen: Soft and flat. External genitalia: Old blood Vagina: Old blood Cervix: Slightly open with bright red blood coming from the os Bimanual exam: An 8 week size anteverted uterus. No adnexal masses or tenderness. Blood type: O positive Objective Labs Result Diagrams: 01/31/21 10:25 01/31/21 10:25 Labs: Laboratory Results - last 24 hr 01/31/21 01/31/21 10:25 10:25 WBC 5.4 RBC 4.28 Hgb 14.0 Hct 41.6 MCV 97.3 MCH 32.7 MCHC 33.7 RDW 12.0 Plt Count 193 Neut % (Auto) 46.7 L Lymph % (Auto) 37.7 [place] % (Auto) 8.6 Eos % (Auto) 6.3 H Baso % (Auto) 0.7 Neut # (Auto) 2500 Lymph # (Auto) 2100 [place] # (Auto) 500 Eos # (Auto) 300 Baso # (Auto) 0 Sodium 132 L Potassium 4.3 Chloride 101 Carbon Dioxide 24 BUN 12 Creatinine 0.44 L Estimated GFR > 60.0 BUN/Creatinine Ratio 27.3 H Glucose 199 H Calcium 9.3 Total Bilirubin 0.3 AST 17 ALT 12 Alkaline Phosphatase 85 Total Protein 7.8 Albumin 4.5 Globulin 3.3 Albumin/Globulin Ratio 1.4 HCG, Quant 58053 Assessment & Plan Assessment & Plan narrative: Assessment: 20-year-old 2 para 0 with a missed at 7 weeks gestation with twins Rh positive blood type Plan: Suction D&C The risks, benefits, and alternatives to the procedure were explained to the patient. The risks including bleeding, infection, and uterine perforation. She understands these risks and agrees to proceed. A full par Q was held and consent form was signed. Time Spent With Patient Time with patient: 15-24 minutes
--- NOTE | 2021-01-31 13:13 | PM.PREOP ---
Pre-operative Note COVID-19 COVID-19 status: Result pending Interval Note History & Physical reviewed/Exam performed by Physician: Yes Changes to H&P: No H&P completed within 30 days and has changed as indicated here:: January 31, 2021
[2021-01-31 13:29] LABS: COVID19 -Nasal RAPID Negative (Negative)
[2021-01-31] MEDS: LACTATED RINGERS 1,000 ML 100 ML IV (13:51)
--- NOTE | 2021-01-31 15:03 | SUR.OPER ---
Lithotomy on padded OR bed, head on pillow, arms secured on padded arm boards at <90 degrees abduction. Legs secured in padded yellow fins stirrups.
--- NOTE | 2021-01-31 15:16 | PM.GYNOP.1 ---
Operative Date/Time/Diagnoses Date of procedure: 01/31/21 Time of procedure: 15:16 Pre-op diagnosis: Missed with twins at 7 weeks gestation Type 1 diabetes Post-op diagnosis: same Procedure & Clinicians Procedure: Procedures Operation Date: 01/31/21 14:15 <No data on this case meets the specified criteria> suction D&C Indications: Missed at 7 weeks gestation with twins Type 1 diabetic Surgeon: Maylin Nick Anesthesia Type: General (LMA) Operative Notes Findings: Eight week size anteverted uterus Large amount of products of conception Closure Type: not applicable Specimen(s): other (Products of conception) Estimated blood loss (mL): 100 Blood products transfused: none Procedure in detail: After informed consent was obtained, the patient was taken to the operating room where she was placed in the dorsal supine position. After adequate LMA general anesthesia was achieved, she was placed in the dorsal lithotomy position, and prepped and draped in the usual sterile fashion. A time-out was performed. A bimanual exam was performed which revealed an 8 week size anteverted uterus. A bivalve speculum was placed into the vagina. A single-tooth tenaculum was placed on the anterior lip of the cervix. The cervical os was sequentially dilated with the Hegar dilators to the # 7. The # 7 curved plastic curette passed easily into the endometrial cavity. The 1st few rounds of suction revealed a large amount of tissue, fluid, and blood. There was a piece of tissue stuck to the end of the curette. This was removed. Several more passes with suction revealed blood only. Gentle sharp curettage was performed yielding a minimal amount of tissue. The next 3 passes with suction revealed small amount of tissue on the first one. Blood only on the last two. The instruments were removed from the uterus. The single-tooth tenaculum was removed from the anterior lip of the cervix. There was minimal amount of bleeding coming from the cervical os. A bimanual exam was performed which revealed a well contracted 7 week size uterus. Sponge, lap, and instrument counts were correct x2. The patient tolerated the procedure well, and was taken to PACU in stable condition. Complications: none Post-operative Condition: stable Disposition: PACU Plan for aftercare: Home after recovery
[2021-01-31] MEDS: OXYCODONE IR 5 MG TABLET PO ×2 (15:45→16:40)
[2021-01-31] MEDS: ACETAMINOPHEN 325 MG TABLET 975 MG PO (15:46)
[2021-01-31] MEDS: hydrOXYzine pamoate 25 MG CAPSULE PO (16:00)
== END 2021-01-31 13:26 ==
LOC: ED 13:04 → AC 14:24
PROVIDERS: Emergency Provider Emergency Medicine; PCP Family Medicine; Referring Provider Emergency Medicine; Visit Provider Obstetrics & Gynecology
PROC: (CPT 58120; principal; 2021-01-31 14:15)
DX: O20.0 Threatened abortion (principal); Z20.822 Contact with and (suspected) exposure to COVID-19
CPT/HCPCS: 59820; 36415; 76801; 76817; 80053; 81003; 82962; 84702; 85025; 87635; 99282; 99284; C9803; J1885; J2250; J2405; J2704; J3010

== ENCOUNTER 2021-05-17 14:16 | Emergency (ER) | payer OTHER, MEDICAID, SELFPAY ==
[2020-02-07 23:01] VITALS: BMI 19.5
[2021-05-17 14:22] VITALS: BP 139/87; PULSE 93; RESP 22; TEMP 37.2; O2SAT 98
[2021-05-17 14:40] LABS: Add Manual Diff / Slide Review NO; Basophils Absolute Auto 0 /uL (0-100); Basophils Percent Auto 0.4 % (0-2); Eosinophils Absolute Auto 100 /uL (0-450); Eosinophils Percent Auto 1.6 % (2-4); Hematocrit 42.9 % (36-46); Hemoglobin 14.8 g/dL (12.0-16.0); Lymphocytes Absolute Auto 2000 /uL (1100-4500); Lymphocytes Percent Auto 28.2 % (25-40); Mean Corpuscular HGB Conc 34.6 % (30-36); Mean Corpuscular Hemoglobin 33.2 PG (26-34); Monocytes Absolute Auto 500 /uL (0-900); Monocytes Percent Auto 6.8 % (3-14); Neutrophils Absolute Auto 4600 /uL (1500-7000); Platelet Count 194 X10^3/uL (150-400); Red Blood Cell Count 4.46 X10^6/uL (4.0-5.2); Red Cell Distribution Width 12.5 % (11.6-14.8); White Blood Cell Count 7.2 X10^3/uL (4.5-11.0)
[2021-05-17 14:52] LABS: Alanine Aminotransferase 11 IU/L (<35); Albumin 4.5 g/dL (3.5-5.0); Albumin Globulin Ratio 1.3 (1.0-2.8); Alkaline Phosphatase 85 U/L (38-126); Aspartate Aminotransferase 16 IU/L (14-36); BUN Creatinine Ratio 20.5 (6-22); Bilirubin Total 0.5 mg/dL (0.2-1.3); Blood Urea Nitrogen 8 mg/dL (7-17); Calcium 9.3 mg/dL (8.4-10.2); Carbon Dioxide 19 mmol/L (22-32); Chloride 103 mmol/L (98-107); Estimated Glomerular Filt Rate > 60.0 mL/min (>60); Globulin 3.5 g/dL (1.7-4.1); Glucose 171 mg/dL (70-100); HEMOLYSIS < 15 (0-50); Lipase 24 U/L (23-300); Potassium 3.6 mmol/L (3.4-5.1); Sodium 134 mmol/L (137-145)
--- NOTE | 2021-05-17 15:06 | DI.US.S_ITS ---
PROCEDURE: US OB <= 14 WEEKS FETUS INDICATIONS: PAIN OUTSIDE/PRIOR DATING DATA: Last menstrual period (LMP): Not available. LMP-based estimated date of delivery (SADAF): Not available. First dating scan (date and location): 05/17/2021 at . Estimated date of delivery (SADAF) from first dating scan: 12/06/2021. TECHNIQUE: Real-time scanning was performed of the fetuses and maternal pelvic organs, with image documentation. Endovaginal scanning: Performed for better visualization of the fetuses and maternal adnexal structures. COMPARISON: [facility], OB <= 14 WEEKS FETUS, 01/31/2021, 10:25. FINDINGS: There is a single living IUP with the estimated gestational age 9 weeks 1 day. cardiac activity is present with heart rate 182 BPM. A normal appearing yolk sac is visualized. Measurement variability in dating: +/- 4 weeks by LMP, +/- 7 days by mean sac diameter (use before 6 weeks gestation if crown-rump length unable to be measured), +/- 5 days by crown-rump length (up to 8 weeks 6 days gestation), +/- 7 days by crown-rump length (up to 13 weeks 6 days gestation). Maternal organs: Ovaries are grossly normal. There is a corpus luteal cyst in the right ovary. IMPRESSION: 1. A single living intrauterine gestation with an estimated gestational age of 9 weeks 1 day corresponding to ultrasound SADAF 12/19/2021. 2. tachycardia with heart rate at 182 BPM. The result was discussed with Dr. Bowles. Dictated by: Jose Carlos Jennings M.D. on 05/17/2021 at 17:23 Approved by: Leandro Blackwood M.D. on 05/19/2021 at 11:58
[2021-05-17] MEDS: SODIUM CHLORIDE 0.9% 1,000 ML 1000 ML IV ×2 (15:13→16:13)
[2021-05-17] MEDS: ONDANSETRON 4 MG/2 ML INJ IV (15:13)
[2021-05-17 15:39] LABS: RBC Urine None Seen (0-5/HPF); WBC Urine None Seen (0-5/HPF)
--- NOTE | 2021-05-17 15:44 | ED.NAVMDI ---
HPI - Nausea/Vomiting/Diarrhea General Chief complaint: Nausea/Vomiting/Diarrhea Stated complaint: organs hurt really bad, massive headache Time Seen by Provider: 05/17/21 14:47 Source: patient Mode of arrival: Ambulatory Limitations: no limitations History of Present Illness HPI Narrative: Patient is a 20-year-old female with history of insulin-dependent diabetes presents with vomiting and nausea ongoing for the last 2-3 days. She states she took a test a few weeks ago, it was positive. she does not know how far along she is. She actually just had a miscarriage. She has no vaginal bleeding or abdominal pain or cramping. She is not dizzy or lightheaded. She has not noticed her sugars have been elevated they continue to be in the 130 range she continues to give herself insulin. MD complaint: nausea and vomiting Related Data Home Medications Medication Instructions Recorded Confirmed Humalog U-100 Insulin 3 unit SUBCUT ACHS 01/02/20 01/31/21 albuterol sulfate 2 puff INHALATION Q4HR 01/02/20 01/31/21 Previous Rx's Medication Instructions Recorded Lantus Solostar U-100 Insulin 20 unit SUBCUT QPM #15 ml 01/03/20 oxycodone-acetaminophen [Percocet] 1 tab PO Q4-6H PRN #10 tab 01/31/21 Allergies Allergy/AdvReac Type Severity Reaction Status Date / Time Sulfa (Sulfonamide Allergy Verified 05/17/21 14:35 Antibiotics) Review of Systems Review of Systems Narrative: GENERAL: Denies chills, fatigue, malaise, fever, sweats, travel HEENT: Denies sinus pain, ear pain, sore throat, difficulty swallowing, neck pain RESPIRATORY: Denies dyspnea, cough, wheezing, hemoptysis, sputum. CARDIOVASCULAR: Denies chest pain, palpitations, orthopnea, edema GASTROINTESTINAL: See HPI : Denies dysuria, frequency, incontinence, hematuria, urinary retention, flank pain. MUSCULOSKELETAL: Denies weakness, joint pain, or bony pain SKIN: No rash, no erythema, no pruritus NEUROLOGIC: Denies weakness, dizziness, headache, numbness, change in speech, confusion PSYCHIATRIC: No concerning psychosocial issues. 12 point review of systems is negative except for those stated above and HPI Patient History Medical History (Updated 05/17/21 @ 17:56 by Luz Bowles DO) Acute hyperglycemia Atypical chest pain Coronavirus infection Depression Diabetic neuropathy Genital herpes Hyperosmolar hyperglycemic coma due to diabetes mellitus without ketoacidosis Type 1 diabetes mellitus Surgical History History of wisdom tooth extraction Family History Grandfather Type I diabetes mellitus Father Heart murmur Mother Diabetes mellitus Thyroid disease Grandmother Breast cancer Social History household members: significant other Smoking Status: Current some day smoker alcohol intake: never Smoking Status: Current some day smoker alcohol intake frequency: holidays/special occasions only Substance Use Type: marijuana Exam Initial Vital Signs Initial Vital Signs: Vital Signs Temperature 98.9 F 05/17/21 14:22 Pulse Rate 93 H 05/17/21 14:22 Respiratory Rate 22 05/17/21 14:22 Blood Pressure 139/87 05/17/21 14:22 Pulse Oximetry 98 05/17/21 14:22 GENERAL: Well-appearing, well-nourished and in no acute distress. HEENT: Head atraumatic,EOMI, pupils reactive, face symmetric, moist mucous membranes CARDIOVASCULAR: Regular rate and rhythm without murmurs, rubs or gallops. RESPIRATORY: Breath sounds equal bilaterally, no wheezes rales or rhonchi. ABDOMEN: Soft, nontender. Normoactive bowel sounds all 4 quadrants. No guarding or rebound. EXTREMITIES: Normal range of motion, no clubbing or edema. Neurovascularly intact NEUROLOGICAL: Alert and oriented x4.Normal gait and speech. Cranial nerves II through XII grossly intact. SKIN: Warm, dry, no laceration, no petechiae, no rashes or lesions. Course Orders Ordered: Discontinued Medications Sodium Chloride (Normal Saline 0.9%) 1,000 mls @ 1,000 mls/hr IV BOLUS ONE Stop: 05/17/21 16:05 Last Infusion: 05/17/21 16:13 Dose: 0 mls/hr Documented by: Admin: 05/17/21 15:13 Dose: 1,000 mls/hr Documented by: LANNY Sodium Chloride (Normal Saline 0.9%) 1,000 mls @ 1,000 mls/hr IV BOLUS ONE Stop: 05/17/21 17:05 Last Infusion: 05/17/21 17:21 Dose: 0 mls/hr Documented by: Admin: 05/17/21 16:13 Dose: 1,000 mls/hr Documented by: LANNY Ondansetron HCl (Ondansetron 4 Mg/2 Ml Inj) 4 mg IV NOW ONE Stop: 05/17/21 15:10 Last Admin: 05/17/21 15:13 Dose: 4 mg Documented by: LANNY Vital Signs Vital signs: Vital Signs - 8 hr 05/17/21 14:22 05/17/21 16:15 Temperature 98.9 F Pulse Rate 93 H 82 Respiratory Rate 22 16 Blood Pressure 139/87 114/61 Pulse Oximetry 98 99 MDM - Nausea/Vomiting/Diarrhea Lab Data Attestation: I reviewed the patient's lab results. Result diagrams: 05/17/21 14:33 05/17/21 14:33 Labs: Lab Results 05/17/21 05/17/21 05/17/21 Range/Units 14:33 14:33 14:33 WBC 7.2 (4.5-11.0) X10^3/uL RBC 4.46 (4.0-5.2) X10^6/uL Hgb 14.8 (12.0-16.0) g/dL Hct 42.9 (36-46) % MCV 96.0 (80-100) fL MCH 33.2 (26-34) PG MCHC 34.6 (30-36) % RDW 12.5 (11.6-14.8) % Plt Count 194 (150-400) X10^3/uL Neut % (Auto) 63.0 (50-75) % Lymph % (Auto) 28.2 (25-40) % [place] % (Auto) 6.8 (3-14) % Eos % (Auto) 1.6 L (2-4) % Baso % (Auto) 0.4 (0-2) % Neut # (Auto) 4600 (4624-7060) /uL Lymph # (Auto) 2000 (8843-8115) /uL [place] # (Auto) 500 (0-900) /uL Eos # (Auto) 100 (0-450) /uL Baso # (Auto) 0 (0-100) /uL Sodium 134 L (137-145) mmol/L Potassium 3.6 (3.4-5.1) mmol/L Chloride 103 (98-107) mmol/L Carbon Dioxide 19 L (22-32) mmol/L BUN 8 (7-17) mg/dL Creatinine 0.39 L (0.52-1.04) mg/dL Estimated GFR > 60.0 (>60) mL/min BUN/Creatinine Ratio 20.5 (6-22) Glucose 171 H (70-100) mg/dL Calcium 9.3 (8.4-10.2) mg/dL Total Bilirubin 0.5 (0.2-1.3) mg/dL AST 16 (14-36) IU/L ALT 11 (<35) IU/L Alkaline Phosphatase 85 (38-126) U/L Total Protein 8.0 (6.3-8.2) g/dL Albumin 4.5 (3.5-5.0) g/dL Globulin 3.5 (1.7-4.1) g/dL Albumin/Globulin Ratio 1.3 (1.0-2.8) Lipase 24 (23-300) U/L HCG, Quant 91832 mIU/mL Urine RBC (0-5/HPF) Urine WBC (0-5/HPF) Ur Squamous Epith Cells (0-5/HPF) Urine Bacteria (None) Urine Mucus (Negative) Ur Culture Indicated? Ketones (<0.27) mmol/L 05/17/21 05/17/21 Range/Units 14:33 14:53 WBC (4.5-11.0) X10^3/uL RBC (4.0-5.2) X10^6/uL Hgb (12.0-16.0) g/dL Hct (36-46) % MCV (80-100) fL MCH (26-34) PG MCHC (30-36) % RDW (11.6-14.8) % Plt Count (150-400) X10^3/uL Neut % (Auto) (50-75) % Lymph % (Auto) (25-40) % [place] % (Auto) (3-14) % Eos % (Auto) (2-4) % Baso % (Auto) (0-2) % Neut # (Auto) (5547-2996) /uL Lymph # (Auto) (8426-4120) /uL [place] # (Auto) (0-900) /uL Eos # (Auto) (0-450) /uL Baso # (Auto) (0-100) /uL Sodium (137-145) mmol/L Potassium (3.4-5.1) mmol/L Chloride (98-107) mmol/L Carbon Dioxide (22-32) mmol/L BUN (7-17) mg/dL Creatinine (0.52-1.04) mg/dL Estimated GFR (>60) mL/min BUN/Creatinine Ratio (6-22) Glucose (70-100) mg/dL Calcium (8.4-10.2) mg/dL Total Bilirubin (0.2-1.3) mg/dL AST (14-36) IU/L ALT (<35) IU/L Alkaline Phosphatase (38-126) U/L Total Protein (6.3-8.2) g/dL Albumin (3.5-5.0) g/dL Globulin (1.7-4.1) g/dL Albumin/Globulin Ratio (1.0-2.8) Lipase (23-300) U/L HCG, Quant mIU/mL Urine RBC None seen (0-5/HPF) Urine WBC None seen (0-5/HPF) Ur Squamous Epith Cells 0-1 /hpf (0-5/HPF) Urine Bacteria Few (2-10) H (None) Urine Mucus 2+ H (Negative) Ur Culture Indicated? Cult not indicated Ketones 0.75 H (<0.27) mmol/L Point of Care Testing Test Results Positive Glucose POC 188 Urine Dip Bedside Urine Glucose Negative Bedside Urine Bilirubin - Negative Bedside Urine Ketone +++ 80 Urine Specific [place] 1.030 Bedside Urine Occult Blood - Negative Bedside Urine pH 6.0 Bedside Urine Protein + 30 Bedside Urine Urobilinogen - Negative Bedside Urine Nitrite - Negative Bedside Urine Leukocytes - Negative Esterase Imaging Data US - OB: Radiologist's Impression: Fetus heart rate is 182 but did not show any other abnormal findings. Unfortunately the radiology report is not in [facility] Narrative Medical decision making narrative: Patient has anion gap of 12 with mild ketoacidosis she received 2 L of normal saline and is now tolerating oral fluids. Initial ultrasound was done prior to any IV fluids given tachycardia at 182 was found. I attempted to Doppler repeat heart tones however likely too early to tell. However after 2 L I suspect is improved. Discharge Plan Departure Patient Disposition: Home Clinical Impression: Vomiting during Instructions: DI for Hyperemesis Gravidarum Activity Restrictions/Additional Instructions: *You have been diagnosed with vomiting in *What to do: Increase fluids as tolerated. *Continue to take medications as directed Continue your insulin as directed *Follow up with your primary care provider in 2-3 days *Return to ER if you should have persistent vomiting, abdominal pain, vaginal bleeding or any new, worsening or concerning symptoms Prescriptions: No Action oxycodone-acetaminophen [Percocet] 5-325 mg tablet 1 tab PO Q4-6H PRN (Reason: pain) Qty: 10 RF: 0 albuterol sulfate 90 mcg/actuation Hfa Aerosol Inhaler 2 puff INHALATION Q4HR RF: 0 Humalog U-100 Insulin 100 unit/mL Cartridge 3 unit subcut ACHS RF: 0 Lantus Solostar U-100 Insulin 100 unit/mL (3 mL) Insulin Pen 20 unit SUBCUT QPM Qty: 15 RF: 0 Referrals: [employer] [facility] [Provider Group]
[2021-05-17 15:45] LABS: Bacteria Urine Few (2-10); Culture Indicated Urine Cult Not Indicated; Mucus Urine 2+ (Negative); Squamous Epithelial Cell Urine 0-1 /HPF (0-5/HPF)
[2021-05-17 16:13] LABS: HCG Quantitative /Beta subunit 89706 mIU/mL
[2021-05-17 16:15] VITALS: BP 114/61; PULSE 82; RESP 16; O2SAT 99
[2021-05-17 16:39] LABS: Ketones (Beta-Hydroxybutyrate) 0.75 mmol/L (<0.27)
[2021-05-17 18:17] VITALS: BP 116/73; PULSE 76; RESP 18; O2SAT 100
== END 2021-05-17 18:17 | disposition home or self-care (01) ==
PROVIDERS: Emergency Provider Emergency Medicine
DX: O26.891 Other specified pregnancy related conditions, first trimester (principal); R11.2 Nausea with vomiting, unspecified; O36.8310 Maternal care for abnormalities of the fetal heart rate or rhythm, first trimester, not applicable or unspecified; Z3A.01 Less than 8 weeks gestation of pregnancy
CPT/HCPCS: 36415; 76801; 76817; 80053; 81003; 81015; 81025; 82009; 82962; 83690; 84702; 85025; 93005; 93010; 96361; 96374; 99284; J2405

== ENCOUNTER → 2021-05-26 11:12 | Outpatient (CLI) | payer OTHER, MEDICAID, SELFPAY ==
[2021-05-26 11:08] VITALS: BMI 19.5
[2021-05-26 11:43] LABS: Add Manual Diff / Slide Review NO; Basophils Absolute Auto 0 /uL (0-100); Basophils Percent Auto 0.3 % (0-2); Eosinophils Absolute Auto 200 /uL (0-450); Eosinophils Percent Auto 3.1 % (2-4); Hematocrit 42.7 % (36-46); Hemoglobin 14.5 g/dL (12.0-16.0); Lymphocytes Absolute Auto 2200 /uL (1100-4500); Lymphocytes Percent Auto 29.2 % (25-40); Mean Corpuscular Hemoglobin 32.7 PG (26-34); Mean Corpuscular Volume 96.2 fL (80-100); Monocytes Absolute Auto 600 /uL (0-900); Monocytes Percent Auto 8.3 % (3-14); Neutrophils Absolute Auto 4400 /uL (1500-7000); Neutrophils Percent Auto 59.1 % (50-75); Platelet Count 193 X10^3/uL (150-400); Red Blood Cell Count 4.44 X10^6/uL (4.0-5.2); Red Cell Distribution Width 12.4 % (11.6-14.8); White Blood Cell Count 7.5 X10^3/uL (4.5-11.0)
[2021-05-26 11:52] LABS: Hemoglobin A1C% w Est Avg Glu 7.9 % (4.0-6.0)
[2021-05-26 12:29] LABS: Alanine Aminotransferase 10 IU/L (<35); Albumin 4.4 g/dL (3.5-5.0); Albumin Globulin Ratio 1.4 (1.0-2.8); Alkaline Phosphatase 82 U/L (38-126); Aspartate Aminotransferase 16 IU/L (14-36); BUN Creatinine Ratio 16.3 (6-22); Bilirubin Total 0.2 mg/dL (0.2-1.3); Blood Urea Nitrogen 7 mg/dL (7-17); Carbon Dioxide 22 mmol/L (22-32); Chloride 106 mmol/L (98-107); Estimated Glomerular Filt Rate > 60.0 mL/min (>60); Globulin 3.2 g/dL (1.7-4.1); HEMOLYSIS < 15 (0-50); Lactate Dehydrogenase 328 U/L (313-618); Potassium 4.1 mmol/L (3.4-5.1); Sodium 138 mmol/L (137-145); Total Protein 7.6 g/dL (6.3-8.2); Uric Acid 3.2 mg/dL (2.5-6.2)
[2021-05-26 12:42] LABS: Appearance Urine UA CLEAR; Bilirubin Urine UA NEGATIVE (NEGATIVE); Color Urine UA YELLOW; Glucose Urine UA NEGATIVE (Negative); Ketones Urine UA NEGATIVE (NEGATIVE); Leukocyte Esterase Urine UA NEGATIVE (NEGATIVE); Nitrite Urine UA NEGATIVE (Negative); Occult Blood Urine UA NEGATIVE (Negative); Protein Urine UA NEGATIVE (Negative); Specific Gravity Urine UA 1.025 (1.000-1.035); Urobilinogen Urine UA 0.2 E.U./dL (0.2)
[2021-05-26 13:02] LABS: Glucose 40 mg/dL (70-100); TSH w/ Reflex to FT4 3.45 uIU/mL (0.47-4.68)
[2021-05-26 14:23] LABS: Urine N gonorrhoeae NOT DETECTED
[2021-05-26 14:24] LABS: Urine Chlamydia NOT DETECTED
[2021-05-27 12:09] LABS: RPR Screen Non Reactive (Non Reactive); Varicella IgG Antibody 405 index (Immune >165)
[2021-05-29 16:20] LABS: HIV 1 & 2 Ab/Ag 4th Gen Combo NEGATIVE (NEGATIVE); Hep C Virus Ab w/Reflex Quant NEGATIVE s/c (NEGATIVE); Hepatitis B Surface Antigen NEGATIVE s/c (NEGATIVE); Rubella Antibody IgG 25.7 IU/mL (>15)
== END ==
PROVIDERS: Referring Provider Obstetrics & Gynecology; Visit Provider Obstetrics & Gynecology
DX: Z34.81 Encounter for supervision of other normal pregnancy, first trimester (principal); Z11.3 Encounter for screening for infections with a predominantly sexual mode of transmission; Z3A.10 10 weeks gestation of pregnancy
CPT/HCPCS: 36415; 80053; 80055; 81003; 83036; 83615; 84443; 84550; 86787; 86803; 86850; 86900; 86901; 87086; 87389; 87491; 87591

== ENCOUNTER → 2021-06-01 12:13 | Outpatient (CLI) | payer OTHER, MEDICAID, SELFPAY ==
[2021-05-26 11:08] VITALS: BMI 19.5
[2021-06-01 15:57] LABS: Collection Time Urine 24 Hours; Protein (Total) Urine Random 9 mg/dL (0-12); Total Protein 24 Hour Urine 185 mg/day (42-225); Total Volume Urine 2050 mL
== END ==
PROVIDERS: Referring Provider Obstetrics & Gynecology; Visit Provider Obstetrics & Gynecology
DX: Z34.90 Encounter for supervision of normal pregnancy, unspecified, unspecified trimester (principal)
CPT/HCPCS: 84156

== ENCOUNTER → 2021-06-09 15:06 | Outpatient (CLI) | payer OTHER, MEDICAID, SELFPAY ==
[2021-05-26 11:08] VITALS: BMI 19.5
== END ==
PROVIDERS: Referring Provider Obstetrics & Gynecology; Visit Provider Obstetrics & Gynecology
DX: Z34.81 Encounter for supervision of other normal pregnancy, first trimester (principal); Z36.0 Encounter for antenatal screening for chromosomal anomalies; Z3A.12 12 weeks gestation of pregnancy
CPT/HCPCS: 84163; 84702

== ENCOUNTER 2021-06-28 12:12 | Emergency (ER) | payer OTHER, MEDICAID, SELFPAY ==
[2021-05-26 11:08] VITALS: BMI 19.5
[2021-06-28 12:18] VITALS: BP 138/76; PULSE 109; RESP 20; TEMP 36.6; O2SAT 97; BMI 26.5
[2021-06-28 12:40] LABS: Appearance Urine UA CLEAR; Bacteria Urine None Seen; Bilirubin Urine UA NEGATIVE (NEGATIVE); Color Urine UA YELLOW; Glucose Urine UA NEGATIVE (Negative); Ketones Urine UA NEGATIVE (NEGATIVE); Leukocyte Esterase Urine UA TRACE (NEGATIVE); Nitrite Urine UA NEGATIVE (Negative); Occult Blood Urine UA NEGATIVE (Negative); Protein Urine UA TRACE (Negative); RBC Urine None Seen (0-5/HPF); Specific Gravity Urine UA 1.015 (1.000-1.035); Urobilinogen Urine UA 0.2 E.U./dL (0.2)
[2021-06-28 13:05] LABS: Culture Indicated Urine Specimen Cultured; WBC Urine 1-5/HPF (0-5/HPF)
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
[2021-06-28 13:57] LABS: COVID19 -Nasal RAPID Negative (Negative)
[2021-06-28] MEDS: predniSONE 20 MG TABLET PO (14:27)
[2021-06-28] MEDS: ALBUTEROL/IPRATROPIUM 3 ML AMPUL INH (14:31)
[2021-06-28 14:36] VITALS: PULSE 116; RESP 20; O2SAT 98
[2021-06-28 14:45] LABS: Pregnancy Test Urine Positive (Negative)
[2021-06-28] MEDS: ONDANSETRON 4 MG ODT PO (14:53)
[2021-06-28 14:56] VITALS: PULSE 88; RESP 18; O2SAT 98
[2021-06-28] MEDS: ALBUTEROL 2.5 MG/3 ML NEB (ADULT) INH (14:58)
[2021-06-28 14:59] VITALS: PULSE 121; RESP 18; O2SAT 98
== END 2021-06-28 15:50 | disposition home or self-care (01) ==
PROVIDERS: Emergency Medicine; Emergency Provider Physician Assistant
DX: J45.901 Unspecified asthma with (acute) exacerbation (principal); Z20.822 Contact with and (suspected) exposure to COVID-19
CPT/HCPCS: 81001; 81025; 87086; 87635; 94640; 99283; C9803; J7613

== ENCOUNTER 2021-06-29 15:01 | Emergency (ER) | payer OTHER, MEDICAID, SELFPAY ==
[2021-05-26 11:08] VITALS: BMI 19.5
[2021-06-29] VITALS (15 sets, daily range): BP systolic 105–132; BP diastolic 66–89; PULSE 85–123; RESP 16–40; TEMP 36.6; O2SAT 94–99; BMI 26.5
[2021-06-29 16:11] LABS: COVID19 -Nasal RAPID Negative (Negative)
--- NOTE | 2021-06-29 16:12 | PC.NURSE ---
pt is type one diabetic. reports her sugar was 36 in the lobby. reports she has not eaten today. states her sugar was 23 yesterday. was seen in the er yesterday for SOB. pt it tachypneic. BG 60, drank 2 oj and ate 4 crackers.
[2021-06-29 16:14] LABS: Bacteria Urine None Seen; RBC Urine None Seen (0-5/HPF)
[2021-06-29 16:23] LABS: Add Manual Diff / Slide Review NO; Basophils Absolute Auto 100 /uL (0-100); Basophils Percent Auto 0.3 % (0-2); Eosinophils Absolute Auto 0 /uL (0-450); Eosinophils Percent Auto 0.1 % (2-4); Hematocrit 38.2 % (36-46); Lymphocytes Absolute Auto 1400 /uL (1100-4500); Lymphocytes Percent Auto 5.7 % (25-40); Mean Corpuscular HGB Conc 33.9 % (30-36); Mean Corpuscular Hemoglobin 32.8 PG (26-34); Mean Corpuscular Volume 96.8 fL (80-100); Monocytes Absolute Auto 1700 /uL (0-900); Monocytes Percent Auto 6.6 % (3-14); Neutrophils Absolute Auto 21900 /uL (1500-7000); Neutrophils Percent Auto 87.3 % (50-75); Platelet Count 192 X10^3/uL (150-400); Red Blood Cell Count 3.94 X10^6/uL (4.0-5.2); Red Cell Distribution Width 12.8 % (11.6-14.8); White Blood Cell Count 25.1 X10^3/uL (4.5-11.0)
[2021-06-29 16:27] LABS: Lactate (Lactic Acid) 1.5 mmol/L (0.7-2.1)
[2021-06-29 16:28] LABS: Squamous Epithelial Cell Urine 1-5 /HPF (0-5/HPF); WBC Urine 1-5/HPF (0-5/HPF)
[2021-06-29 16:28] LABS: Alanine Aminotransferase 13 IU/L (<35); Albumin 4.5 g/dL (3.5-5.0); Albumin Globulin Ratio 1.1 (1.0-2.8); Alkaline Phosphatase 96 U/L (38-126); Aspartate Aminotransferase 20 IU/L (14-36); Bilirubin Total 0.7 mg/dL (0.2-1.3); Blood Urea Nitrogen 9 mg/dL (7-17); Calcium 9.8 mg/dL (8.4-10.2); Carbon Dioxide 15 mmol/L (22-32); Chloride 107 mmol/L (98-107); Estimated Glomerular Filt Rate > 60.0 mL/min (>60); Glucose 65 mg/dL (70-100); HEMOLYSIS < 15 (0-50); Lipase 13 U/L (23-300); Potassium 3.4 mmol/L (3.4-5.1); Sodium 135 mmol/L (137-145); Total Protein 8.5 g/dL (6.3-8.2)
[2021-06-29 16:29] LABS: Culture Indicated Urine Cult Not Indicated; Mucus Urine 2+ (Negative)
[2021-06-29] MEDS: ALBUTEROL/IPRATROPIUM 3 ML AMPUL INH (16:34)
[2021-06-29] MEDS: SODIUM CHLORIDE 0.9% 500 ML 1000 ML IV (16:45)
[2021-06-29 17:02] LABS: Procalcitonin 0.31 ng/mL (<0.5)
--- NOTE | 2021-06-29 17:08 | DI.US.S_ITS ---
PROCEDURE: US OB LIMITED INDICATIONS: SICK, 15 WEEKS OUTSIDE/PRIOR DATING DATA: Last menstrual period (LMP): Not available. LMP-based estimated date of delivery (SADAF): Not available . First dating scan (date and location): 05/17/21 . Estimated date of delivery (SADAF) from first dating scan: 12/19/21 . TECHNIQUE: Real-time scanning was performed of the fetus, with image documentation. Endovaginal scanning: Not needed COMPARISON: None. FINDINGS: A single living intrauterine gestation is present. Presentation: Breech. Placenta: Placental position is posterior , without previa. Amniotic fluid index: Normal. heart rate: 169 beats per minute. Maternal cervical canal: 3.1 cm long. Normal lower limit is 2.5 cm. IMPRESSION: No abnormality seen. Dictated by: Leandro Blackwood M.D. on 06/29/2021 at 17:46 Approved by: Leandro Blackwood M.D. on 06/29/2021 at 17:47
[2021-06-29 17:12] LABS: Bacteria Urine None Seen
[2021-06-29 17:15] LABS: Appearance Urine UA CLEAR; Bilirubin Urine UA 2+ (NEGATIVE); Color Urine UA YELLOW; Glucose Urine UA TRACE g/dL (Negative); Ketones Urine UA 2+ (NEGATIVE); Leukocyte Esterase Urine UA NEGATIVE (NEGATIVE); Nitrite Urine UA NEGATIVE (Negative); Occult Blood Urine UA TRACE-LYSED (Negative); Protein Urine UA 2+ (Negative); Urobilinogen Urine UA 0.2 E.U./dL (0.2)
--- NOTE | 2021-06-29 17:20 | ED_ITS ---
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 AST (14-36) IU/L ALT (<35) IU/L Alkaline Phosphatase (38-126) U/L Total Creatine Kinase 34 (30-135) U/L CK-MB (CK-2) TNP CK-MB (CK-2) Rel Index TNP Troponin I < 0.012 (0.01-0.034) ng/mL Total Protein (6.3-8.2) g/dL Albumin (3.5-5.0) g/dL Globulin (1.7-4.1) g/dL Albumin/Globulin Ratio (1.0-2.8) Lipase (23-300) U/L Procalcitonin (<0.5) ng/mL Urine Color Urine Appearance Urine pH (4.5-8.0) Ur Specific [place] (1.000-1.035) Urine Protein (Negative) Urine Glucose (UA) (Negative) g/dL Urine Ketones (NEGATIVE) Urine Occult Blood (Negative) Urine Nitrate (Negative) Urine Bilirubin (NEGATIVE) Ur Bilirubin Confirm (Negative) Urine Urobilinogen (0.2) E.U./dL Ur Leukocyte Esterase (NEGATIVE) Urine RBC (0-5/HPF) Urine WBC (0-5/HPF) Ur Squamous Epith Cells (0-5/HPF) Urine Bacteria (None) Urine Mucus (Negative) Ur Culture Indicated? U Opiates 300ng/mL cut (Negative) Ur Oxycodone Screen (Negative) Urine Methadone Screen (Negative) Ur Barbiturates Screen (Negative) U Tricyclic Antidepress (Negative) Ur Phencyclidine Scrn (Negative) Ur Amphetamines Screen (Negative) U Methamphetamines Scrn (Negative) Ur MDMA Scrn (Ecstasy) (Negative) U Benzodiazepines Scrn (Negative) Urine Cocaine Screen (Negative) U Marijuana (THC) Screen (Negative) SARS-CoV-2 (PCR) (Negative) 06/29/21 06/29/21 06/29/21 Range/Units 16:00 16:00 16:00 WBC (4.5-11.0) X10^3/uL RBC (4.0-5.2) X10^6/uL Hgb (12.0-16.0) g/dL Hct (36-46) % MCV (80-100) fL MCH (26-34) PG MCHC (30-36) % RDW (11.6-14.8) % Plt Count (150-400) X10^3/uL Neut % (Auto) (50-75) % Lymph % (Auto) (25-40) % [place] % (Auto) (3-14) % Eos % (Auto) (2-4) % Baso % (Auto) (0-2) % Neut # (Auto) (8461-0591) /uL Lymph # (Auto) (8083-9248) /uL [place] # (Auto) (0-900) /uL Eos # (Auto) (0-450) /uL Baso # (Auto) (0-100) /uL D-Dimer (<230) ng/mL Sodium (137-145) mmol/L Potassium (3.4-5.1) mmol/L Chloride (98-107) mmol/L Carbon Dioxide (22-32) mmol/L BUN (7-17) mg/dL Creatinine (0.52-1.04) mg/dL Estimated GFR (>60) mL/min BUN/Creatinine Ratio (6-22) Glucose (70-100) mg/dL Lactate (0.7-2.1) mmol/L Calcium (8.4-10.2) mg/dL Total Bilirubin (0.2-1.3) mg/dL AST (14-36) IU/L ALT (<35) IU/L Alkaline Phosphatase (38-126) U/L Total Creatine Kinase (30-135) U/L CK-MB (CK-2) CK-MB (CK-2) Rel Index Troponin I (0.01-0.034) ng/mL Total Protein (6.3-8.2) g/dL Albumin (3.5-5.0) g/dL Globulin (1.7-4.1) g/dL Albumin/Globulin Ratio (1.0-2.8) Lipase (23-300) U/L Procalcitonin (<0.5) ng/mL Urine Color Yellow Urine Appearance Clear Urine pH 6.0 (4.5-8.0) Ur Specific [place] 1.020 (1.000-1.035) Urine Protein 2+ H (Negative) Urine Glucose (UA) Trace H (Negative) g/dL Urine Ketones 2+ H (NEGATIVE) Urine Occult Blood Trace-lysed (Negative) Urine Nitrate Negative (Negative) Urine Bilirubin 2+ H (NEGATIVE) Ur Bilirubin Confirm Negative (Negative) Urine Urobilinogen 0.2 (0.2) E.U./dL Ur Leukocyte Esterase Negative (NEGATIVE) Urine RBC None seen 0-1/hpf (0-5/HPF) Urine WBC 1-5/hpf 1-5/hpf (0-5/HPF) Ur Squamous Epith Cells 1-5 /hpf 1-5 /hpf (0-5/HPF) Urine Bacteria None seen None seen (None) Urine Mucus 2+ H 2+ H (Negative) Ur Culture Indicated? Cult not indicated Cult not indicated U Opiates 300ng/mL cut Negative (Negative) Ur Oxycodone Screen Negative (Negative) Urine Methadone Screen Negative (Negative) Ur Barbiturates Screen Negative (Negative) U Tricyclic Antidepress Negative (Negative) Ur Phencyclidine Scrn Negative (Negative) Ur Amphetamines Screen Negative (Negative) U Methamphetamines Scrn Negative (Negative) Ur MDMA Scrn (Ecstasy) Negative (Negative) U Benzodiazepines Scrn Negative (Negative) Urine Cocaine Screen Negative (Negative) U Marijuana (THC) Screen Positive H (Negative) SARS-CoV-2 (PCR) (Negative) Point of Care Testing Test Results Positive Glucose POC 109 Urine Dip Bedside Urine Glucose Negative Bedside Urine Bilirubin - Negative Bedside Urine Ketone +++ 80 Urine Specific [place] 1.030 Bedside Urine Occult Blood - Negative Bedside Urine pH 6.0 Bedside Urine Protein ++ 100 Bedside Urine Urobilinogen - Negative Bedside Urine Nitrite - Negative Bedside Urine Leukocytes - Negative Esterase Imaging Data CT scan - abdomen/pelvis: Radiologist's Impression: [address] [id number] Scan ReportSigned Patient: Nettie Stone PMR#: [id number]: 2000Acct:[id number]/Sex: 20 / FDate of Service: 06/29/21Loc: EDAccession Number: [id number] Procedure: CT abdomen pelvis w con Ordering Provider: Tata Farah P.A-C PROCEDURE: CT ABDOMEN PELVIS W CON INDICATIONS: suspect appy leukocytosis, RLQ pain, +Rovs, norm OBUS TECHNIQUE: After the administration of intravenous contrast, axial sections acquired from the lung bases to the pubic symphysis. Coronal and sagittal reformats were performed. For radiation dose reduction, the following was used: automated exposure control, adjustment of mA and/or kV according to patient size. The patient and the ordering healthcare provider are aware that the patient is approximately 15 weeks . Consent was obtained for this study. COMPARISON: None. FINDINGS: Image quality: Excellent. Lung bases: A small portion of the lung bases is included on this study. There is a patchy alveolar infiltration pattern highly suspicious for representing atypical/viral pneumonia.. Heart: No significant findings. ABDOMEN: Liver: Unremarkable. Gallbladder: Unremarkable. Biliary ducts: Unremarkable. Pancreas: Unremarkable. Spleen: Unremarkable. Adrenal Glands: Unremarkable. Kidneys and Ureters: Unremarkable. Stomach and Bowel: Stomach, small bowel loops, and colon are unremarkable. Peritoneum: No abnormal intraperitoneal fluid. No free air. Ventral Wall: No hernias. Abdominal Nodes: No retroperitoneal or mesenteric adenopathy by size criteria. Vessels: Aorta and inferior vena cava are normal in size. PELVIS: Pelvic Organs: Unremarkable. Bladder: Unremarkable. Pelvic Nodes: No enlarged lymph nodes. Miscellaneous: No hernias are seen. Intrauterine gestation. Bones: Unremarkable. IMPRESSION: Atypical/viral pneumonia, early phase of involvement at each lung base. Intrauterine gestation, reportedly approximately 15 weeks . A normal or abnormal appendix was not seen and there is no secondary CT evidence of acute appendicitis. Dictated by: Leandro Blackwood M.D. on 06/29/2021 at 21:20 Approved by: Leandro Blackwood M.D. on 06/29/2021 at 21:22 CT scan - chest: Radiologist's Impression: [address] [id number] Scan ReportSigned Patient: Nettie Stone PMR#: [id number]: 2000Acct:[id number]/Sex: 20 / FDate of Service: 06/29/21Loc: EDAccession Number: [id number] Procedure: CT angio chest PE protocol Ordering Provider: Tata Farah P.A-C PROCEDURE: CT ANGIO CHEST PE PROTOCOL INDICATIONS: suspect appy leukocytosis, RLQ pain, +Rovs, norm OBUS TECHNIQUE: After the administration of intravenous contrast, 2 mm thick sections acquired from the pulmonary apices to the posterior costophrenic angles. 3-dimensional maximum intensity projection (MIP) coronal and sagittal reformats were then acquired through the thorax. For radiation dose reduction, the following was used: automated exposure control, adjustment of mA and/or kV according to patient size. COMPARISON: None. FINDINGS: Image quality: Excellent. Pulmonary arteries: Pulmonary arteries are normal in size, and demonstrate no intraluminal filling defects to suggest central pulmonary embolism. Lungs and pleura: Lungs are abnormal with a patchy bilateral alveolar infil tration pattern with an appearance highly suggestive of atypical/viral pneumonia.. No pleural effusions or pneumothorax. Central and peripheral airways are patent. Mediastinum: Heart size is normal, without pericardial effusion. No mediastinal or hilar adenopathy. Thoracic aorta is normal in caliber and enhancement. Esophagus is normal in caliber, without hiatal hernia. Bones and chest wall: No suspicious bony lesions. Ribs and thoracic spine appear intact throughout. Thyroid gland is normal where well seen. No axillary or supraclavicular adenopathy. Abdomen: Visualized upper abdominal solid organs appear normal in the early arterial phase of enhancement. IMPRESSION: Patchy bilateral atypical/viral pneumonia. No pulmonary embolus seen. Presumed covid sign report positive by appearance. Dictated by: Leandro Blackwood M.D. on 06/29/2021 at 21:22 Approved by: Leandro Blackwood M.D. on 06/29/2021 at 21:25 US - abdomen: Radiologist's Impression: [address] [id number] ReportSigned Patient: Nettie Stone PMR#: [id number]: 2000Acct:[id number]/Sex: 20 / FDate of Service: 06/29/21Loc: EDAccession Number: [id number] Procedure: US abdomen limited Ordering Provider: Tata Farah P.A-C PROCEDURE: US ABDOMEN LIMITED INDICATIONS: RLQ PAIN TECHNIQUE: Real-time focused scanning was performed of the abdomen, with image documentation. COMPARISON: None. FINDINGS: The appendix was not visualized at the right lower quadrant. Assessment of the appendix therefore is not available from this study. Right lower quadrant did not demonstrate focal point tenderness. IMPRESSION: No sonographic evidence of appendicitis but a normal appendix was not seen. Intrauterine gestation, evaluated earlier same day. Dictated by: Leandro Blackwood M.D. on 06/29/2021 at 20:36 Approved by: Leandro Blackwood M.D. on 06/29/2021 at 20:37 MDM Narrative Medical decision making narrative: Dr graham: Received turned over from MICHELET Farah. I did review the workup and labs and radiologic studies performed up to this point. The CT scans were ordered prior to my assumption of care of the patient. It was reported to me that she understood the risks and benefits of obtaining a CT scan given her status. CT scan of her abdomen did not definitively show a normal appendix however there were no secondary signs of appendicitis. The chest x-ray shows signs of atypical pneumonia. The patient has had COVID in the past. She is currently COVID negative. This very well could be the cause of her presenting symptoms today. Given her presenting symptoms and labs we will start her on antibiotics. She was given 1st dose here in the emergency department. Was sent home with a prescription for the remainder of the course. She was given return precautions and follow-up instructions. She expressed understanding and agreement. Discharge Plan Departure Patient Disposition: Home Clinical Impression: Atypical pneumonia, Instructions: Atypical Pneumonia Activity Restrictions/Additional Instructions: The workup today does have findings that are consistent with a atypical pneumonia. Given your status and also your vital signs lab work I do feel that starting you on antibiotics is appropriate. Your 1st dose was given here in the emergency department. [facility] Start taking it tomorrow as directed. Contact your primary doctor for follow-up. Keep all of your scheduled OB appointments. Return to the emergency department for any new or worsening symptoms Prescriptions: New azithromycin 250 mg tablet 250 mg PO DAILY 4 Days Qty: 4 RF: 0 No Action albuterol sulfate 90 mcg/actuation HFA aerosol inhaler 2 puff inhalation Q6H PRN (Reason: shortness of breath or wheezing) Qty: 6.7 RF: 2 prenat.vits,elsy,kqy-snzc-wzorz Tablet 1 tab PO DAILY RF: 0 valacyclovir 1 gram tablet 1,000 mg PO DAILY RF: 0 prednisone 20 mg tablet 40 mg PO DAILY 5 Days Qty: 10 RF: 0 albuterol sulfate 90 mcg/actuation Hfa Aerosol Inhaler 2 puff INHALATION Q4HR RF: 0 Humalog U-100 Insulin 100 unit/mL Cartridge 3 unit subcut ACHS RF: 0 Lantus Solostar U-100 Insulin 100 unit/mL (3 mL) Insulin Pen 20 unit SUBCUT QPM Qty: 15 RF: 0
[2021-06-29 17:21] LABS: D Dimer 546 ng/mL (<230)
[2021-06-29 17:25] LABS: RBC Urine 0-1/HPF (0-5/HPF)
[2021-06-29 17:26] LABS: Culture Indicated Urine Cult Not Indicated; Mucus Urine 2+ (Negative); Squamous Epithelial Cell Urine 1-5 /HPF (0-5/HPF); WBC Urine 1-5/HPF (0-5/HPF)
[2021-06-29 17:30] LABS: Ictotest Urine Negative (Negative)
[2021-06-29 17:31] LABS: UR Morphine/Opiate cutoff 300 Negative (Negative); Ur Creatinine Normal (Normal); Ur Specific Gravity Normal (Normal); Urine Amphetamines Negative (Negative); Urine Barbiturates Negative (Negative); Urine Benzodiazepines Negative (Negative); Urine Cocaine Negative (Negative); Urine MDMA Negative (Negative); Urine Methadone Negative (Negative); Urine Methamphetamines Negative (Negative); Urine Phencyclidine Negative (Negative); Urine Tetrahydrocannabinol Positive (Negative); Urine Tricyclic Antidepressant Negative (Negative); Urine pH Normal (Normal)
[2021-06-29] MEDS: cefTRIAXone 1,000 MG in SODIUM CHLORIDE 0.9% 100 ML 200 ML IV (17:31)
[2021-06-29 17:32] LABS: Urine Oxycodone Negative (Negative)
[2021-06-29 17:49] LABS: Creatine Kinase 34 U/L (30-135)
[2021-06-29 18:02] LABS: Troponin I < 0.012 ng/mL (0.01-0.034)
[2021-06-29] MEDS: ACETAMINOPHEN 325 MG TABLET 650 MG PO (18:22)
--- NOTE | 2021-06-29 19:09 | DI.US.S_ITS ---
PROCEDURE: US ABDOMEN LIMITED INDICATIONS: RLQ PAIN TECHNIQUE: Real-time focused scanning was performed of the abdomen, with image documentation. COMPARISON: None. FINDINGS: The appendix was not visualized at the right lower quadrant. Assessment of the appendix therefore is not available from this study. Right lower quadrant did not demonstrate focal point tenderness. IMPRESSION: No sonographic evidence of appendicitis but a normal appendix was not seen. Intrauterine gestation, evaluated earlier same day. Dictated by: Leandro Blackwood M.D. on 06/29/2021 at 20:36 Approved by: Leandro Blackwood M.D. on 06/29/2021 at 20:37
--- NOTE | 2021-06-29 20:21 | DI.CT.S_ITS ---
PROCEDURE: CT ANGIO CHEST PE PROTOCOL INDICATIONS: suspect appy leukocytosis, RLQ pain, +Rovs, norm OBUS TECHNIQUE: After the administration of intravenous contrast, 2 mm thick sections acquired from the pulmonary apices to the posterior costophrenic angles. 3-dimensional maximum intensity projection (MIP) coronal and sagittal reformats were then acquired through the thorax. For radiation dose reduction, the following was used: automated exposure control, adjustment of mA and/or kV according to patient size. COMPARISON: None. FINDINGS: Image quality: Excellent. Pulmonary arteries: Pulmonary arteries are normal in size, and demonstrate no intraluminal filling defects to suggest central pulmonary embolism. Lungs and pleura: Lungs are abnormal with a patchy bilateral alveolar infiltration pattern with an appearance highly suggestive of atypical/viral pneumonia.. No pleural effusions or pneumothorax. Central and peripheral airways are patent. Mediastinum: Heart size is normal, without pericardial effusion. No mediastinal or hilar adenopathy. Thoracic aorta is normal in caliber and enhancement. Esophagus is normal in caliber, without hiatal hernia. Bones and chest wall: No suspicious bony lesions. Ribs and thoracic spine appear intact throughout. Thyroid gland is normal where well seen. No axillary or supraclavicular adenopathy. Abdomen: Visualized upper abdominal solid organs appear normal in the early arterial phase of enhancement. IMPRESSION: Patchy bilateral atypical/viral pneumonia. No pulmonary embolus seen. Presumed covid sign report positive by appearance. Dictated by: Leandro Blackwood M.D. on 06/29/2021 at 21:22 Approved by: Leandro Blackwood M.D. on 06/29/2021 at 21:25
--- NOTE | 2021-06-29 20:21 | DI.CT.S_ITS ---
PROCEDURE: CT ABDOMEN PELVIS W CON INDICATIONS: suspect appy leukocytosis, RLQ pain, +Rovs, norm OBUS TECHNIQUE: After the administration of intravenous contrast, axial sections acquired from the lung bases to the pubic symphysis. Coronal and sagittal reformats were performed. For radiation dose reduction, the following was used: automated exposure control, adjustment of mA and/or kV according to patient size. The patient and the ordering healthcare provider are aware that the patient is approximately 15 weeks . Consent was obtained for this study. COMPARISON: None. FINDINGS: Image quality: Excellent. Lung bases: A small portion of the lung bases is included on this study. There is a patchy alveolar infiltration pattern highly suspicious for representing atypical/viral pneumonia.. Heart: No significant findings. ABDOMEN: Liver: Unremarkable. Gallbladder: Unremarkable. Biliary ducts: Unremarkable. Pancreas: Unremarkable. Spleen: Unremarkable. Adrenal Glands: Unremarkable. Kidneys and Ureters: Unremarkable. Stomach and Bowel: Stomach, small bowel loops, and colon are unremarkable. Peritoneum: No abnormal intraperitoneal fluid. No free air. Ventral Wall: No hernias. Abdominal Nodes: No retroperitoneal or mesenteric adenopathy by size criteria. Vessels: Aorta and inferior vena cava are normal in size. PELVIS: Pelvic Organs: Unremarkable. Bladder: Unremarkable. Pelvic Nodes: No enlarged lymph nodes. Miscellaneous: No hernias are seen. Intrauterine gestation. Bones: Unremarkable. IMPRESSION: Atypical/viral pneumonia, early phase of involvement at each lung base. Intrauterine gestation, reportedly approximately 15 weeks . A normal or abnormal appendix was not seen and there is no secondary CT evidence of acute appendicitis. Dictated by: Leandro Blackwood M.D. on 06/29/2021 at 21:20 Approved by: Leandro Blackwood M.D. on 06/29/2021 at 21:22
[2021-06-29] MEDS: AZITHROMYCIN 250 MG TABLET 500 MG PO (21:53)
== END 2021-06-29 22:06 | disposition home or self-care (01) ==
PROVIDERS: Emergency Medicine; Emergency Provider Student in an Organized Health Care Education/Training Program
DX: O26.892 Other specified pregnancy related conditions, second trimester (principal); J18.9 Pneumonia, unspecified organism; R07.9 Chest pain, unspecified; R19.7 Diarrhea, unspecified; Z20.822 Contact with and (suspected) exposure to COVID-19; Z3A.15 15 weeks gestation of pregnancy
CPT/HCPCS: 36415; 71275; 74177; 76705; 76815; 80053; 80305; 81001; 81003; 81015; 81025; 82550; 82962; 83605; 83690; 84145; 84484; 85025; 85379; 87040; 87635; 93005; 94640; 96361; 96365; 99285; C9803; J0696

== ENCOUNTER 2021-07-11 09:00 | Emergency (ER) | payer OTHER, MEDICAID, SELFPAY ==
[2021-05-26 11:08] VITALS: BMI 19.5
[2021-07-11 16:29] VITALS: BP 122/71; PULSE 114; RESP 22; TEMP 36.6; O2SAT 100
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
[2021-07-11 17:31] LABS: RBC Urine None Seen (0-5/HPF)
--- NOTE | 2021-07-11 17:34 | PC.NURSE ---
Assessed by Dr Graham without RN involvement. Advised no US needed. FHT completed by . Pt dc'd home.
[2021-07-11 17:43] LABS: Bacteria Urine Occasional (0-1); Culture Indicated Urine Cult Not Indicated; Mucus Urine 1+ (Negative); Squamous Epithelial Cell Urine 1-5 /HPF (0-5/HPF); WBC Urine 0-1/HPF (0-5/HPF)
== END 2021-07-11 17:35 | disposition home or self-care (01) ==
PROVIDERS: Emergency Provider Emergency Medicine; PCP Obstetrics & Gynecology; Referring Provider Obstetrics & Gynecology
DX: O26.892 Other specified pregnancy related conditions, second trimester (principal); R10.9 Unspecified abdominal pain; Z3A.17 17 weeks gestation of pregnancy
CPT/HCPCS: 81003; 81015; 99282; 99283; G0379

== ENCOUNTER → 2021-07-17 11:50 | Outpatient (CLI) | payer OTHER, MEDICAID, SELFPAY ==
[2021-05-26 11:08] VITALS: BMI 19.5
[2021-07-17 13:16] LABS: Hemoglobin A1C% w Est Avg Glu 5.8 % (4.0-6.0)
[2021-07-19 18:27] LABS: AFP Value 39.5 ng/mL (.); Gest Age on Col Date 17.9 weeks (.); Gestational Age EDD (.); Insulin Dep Diabetes Yes (.); OSBR Risk 1IN 2420 (.); Results Report (.); Test Results *Screen Negative* (.)
== END ==
PROVIDERS: Referring Provider Obstetrics & Gynecology; Visit Provider Obstetrics & Gynecology
DX: O24.012 Pre-existing type 1 diabetes mellitus, in pregnancy, second trimester (principal); Z3A.17 17 weeks gestation of pregnancy
CPT/HCPCS: 36415; 82105; 83036

== ENCOUNTER 2021-09-23 12:22 | Outpatient (CLI) | payer OTHER, SELFPAY ==
[2021-05-26 11:08] VITALS: BMI 19.5
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
[2021-09-23 13:21] LABS: Appearance Urine UA CLEAR; Bilirubin Urine UA NEGATIVE (NEGATIVE); Color Urine UA YELLOW; Glucose Urine UA 2+ g/dL (Negative); Ketones Urine UA 2+ (NEGATIVE); Leukocyte Esterase Urine UA NEGATIVE (NEGATIVE); Nitrite Urine UA NEGATIVE (Negative); Occult Blood Urine UA NEGATIVE (Negative); Protein Urine UA NEGATIVE (Negative); Urobilinogen Urine UA 0.2 E.U./dL (0.2)
[2021-09-23 13:29] LABS: pH Urine UA 5.5 (4.5-8.0)
== END 2021-09-23 13:20 | disposition home or self-care (01) ==
LOC: OB 09-26 01:31
PROVIDERS: Referring Provider Nurse Practitioner Obstetrics & Gynecology; Visit Provider Nurse Practitioner Obstetrics & Gynecology
DX: O36.8120 Decreased fetal movements, second trimester, not applicable or unspecified (principal); O24.012 Pre-existing type 1 diabetes mellitus, in pregnancy, second trimester; O26.892 Other specified pregnancy related conditions, second trimester; R10.30 Lower abdominal pain, unspecified; Z3A.27 27 weeks gestation of pregnancy; Z79.4 Long term (current) use of insulin
CPT/HCPCS: 59025; 81003; 87210; G0378; G0379

== ENCOUNTER 2021-09-27 16:25 | Emergency (ER) | payer OTHER, SELFPAY ==
[2021-05-26 11:08] VITALS: BMI 19.5
[2021-09-27] VITALS (17 sets, daily range): BP systolic 107–129; BP diastolic 55–87; PULSE 89–121; RESP 18–34; TEMP 36.6–36.9; O2SAT 95–100; BMI 29.2
[2021-09-27] MEDS: SODIUM CHLORIDE 0.9% 1,000 ML 1000 ML IV ×3 (16:49→20:33)
[2021-09-27 16:51] LABS: Appearance Urine UA CLEAR; Bilirubin Urine UA NEGATIVE (NEGATIVE); Color Urine UA YELLOW; Glucose Urine UA 1+ g/dL (Negative); Ketones Urine UA 3+ (NEGATIVE); Leukocyte Esterase Urine UA NEGATIVE (NEGATIVE); Nitrite Urine UA NEGATIVE (Negative); Occult Blood Urine UA NEGATIVE (Negative); Protein Urine UA NEGATIVE (Negative); Urobilinogen Urine UA 0.2 E.U./dL (0.2); pH Urine UA 5.5 (4.5-8.0)
[2021-09-27 16:52] LABS: Add Manual Diff / Slide Review NO; Basophils Absolute Auto 0 /uL (0-100); Basophils Percent Auto 0.2 % (0-2); Eosinophils Absolute Auto 200 /uL (0-450); Eosinophils Percent Auto 2.1 % (2-4); Hematocrit 34.5 % (36-46); Hemoglobin 11.9 g/dL (12.0-16.0); Lymphocytes Absolute Auto 1300 /uL (1100-4500); Lymphocytes Percent Auto 12.8 % (25-40); Mean Corpuscular HGB Conc 34.4 % (30-36); Mean Corpuscular Hemoglobin 33.8 PG (26-34); Mean Corpuscular Volume 98.4 fL (80-100); Monocytes Absolute Auto 800 /uL (0-900); Monocytes Percent Auto 7.6 % (3-14); Neutrophils Absolute Auto 8000 /uL (1500-7000); Neutrophils Percent Auto 77.3 % (50-75); Platelet Count 153 X10^3/uL (150-400); Red Blood Cell Count 3.51 X10^6/uL (4.0-5.2); Red Cell Distribution Width 12.4 % (11.6-14.8); White Blood Cell Count 10.3 X10^3/uL (4.5-11.0)
--- NOTE | 2021-09-27 16:59 | ED.GENADULT ---
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 Cult not indicated Ketones (<0.27) mmol/L SARS-CoV-2 (PCR) Negative (Negative) 09/27/21 09/27/21 Range/Units 21:50 21:52 WBC (4.5-11.0) X10^3/uL RBC (4.0-5.2) X10^6/uL Hgb (12.0-16.0) g/dL Hct (36-46) % MCV (80-100) fL MCH (26-34) PG MCHC (30-36) % RDW (11.6-14.8) % Plt Count (150-400) X10^3/uL Neut % (Auto) (50-75) % Lymph % (Auto) (25-40) % [place] % (Auto) (3-14) % Eos % (Auto) (2-4) % Baso % (Auto) (0-2) % Neut # (Auto) (2338-6830) /uL Lymph # (Auto) (2809-0080) /uL [place] # (Auto) (0-900) /uL Eos # (Auto) (0-450) /uL Baso # (Auto) (0-100) /uL VBG pH 7.26 L VBG pCO2 22.3 L VBG pO2 24 L VBG HCO3 10 L VBG Total CO2 11 L VBG O2 Saturation 36 L VBG Base Excess -17.0 L Sodium 136 L (137-145) mmol/L Potassium 4.1 (3.4-5.1) mmol/L Chloride 112 H (98-107) mmol/L Carbon Dioxide 10 L (22-32) mmol/L BUN 5 L (7-17) mg/dL Creatinine 0.52 (0.52-1.04) mg/dL Estimated GFR > 60.0 (>60) mL/min BUN/Creatinine Ratio 9.6 (6-22) Glucose 212 H (70-100) mg/dL Calcium 7.6 L (8.4-10.2) mg/dL Phosphorus (4.5-5.5) mg/dL Magnesium (1.6-2.3) mg/dL Total Bilirubin (0.2-1.3) mg/dL AST (14-36) IU/L ALT (<35) IU/L Alkaline Phosphatase (38-126) U/L Total Protein (6.3-8.2) g/dL Albumin (3.5-5.0) g/dL Globulin (1.7-4.1) g/dL Albumin/Globulin Ratio (1.0-2.8) Lipase (23-300) U/L HCG, Quant mIU/mL Urine Color Urine Appearance Urine pH (4.5-8.0) Ur Specific [place] (1.000-1.035) Urine Protein (Negative) Urine Glucose (UA) (Negative) g/dL Urine Ketones (NEGATIVE) Urine Occult Blood (Negative) Urine Nitrate (Negative) Urine Bilirubin (NEGATIVE) Urine Urobilinogen (0.2) E.U./dL Ur Leukocyte Esterase (NEGATIVE) Urine RBC (0-5/HPF) Urine WBC (0-5/HPF) Ur Squamous Epith Cells (0-5/HPF) Urine Bacteria (None) Ur Culture Indicated? Ketones (<0.27) mmol/L SARS-CoV-2 (PCR) (Negative) Point of Care Testing Glucose POC 256 Point of care testing: Point of Care Testing Glucose POC 256 <Renetta Abebe, DO - Last Filed: 09/28/21 00:21> Critical Care Time Critical Care Time: Yes Total Critical Care Time: 55 Attestation: The high probability of a clinically significant, sudden or life threatening deterioration of the [cardiac, pulm, neuro] system(s) required my full and direct attention, intervention and personal management. The aggregate critical care time was [] minutes. This time is in addition to time spent performing reported procedures but includes the following: [x] Data Review and interpretation [x] Patient assessment and monitoring of vital signs [x] Documentation [x] Medication orders and management Discharge Plan Departure Patient Disposition: [facility] Clinical Impression: Asthma exacerbation DKA (diabetic ketoacidosis) Qualifiers: Diabetes mellitus type: type 1 Diabetes mellitus complication detail: without coma Qualified Code(s): E10.10 - Type 1 diabetes mellitus with ketoacidosis without coma Qualifiers: Weeks of gestation: 28 weeks Qualified Code(s): Z3A.28 - 28 weeks gestation of Prescriptions: New albuterol sulfate 90 mcg/actuation HFA aerosol inhaler 2 puff inhalation Q4-6H PRN (Reason: shortness of breath or wheezing) Qty: 8.5 RF: 0 Tresiba FlexTouch U-100 100 unit/mL (3 mL) insulin pen 25 unit SUBCUT BEDTIME Qty: 15 RF: 2 Lantus Solostar U-100 Insulin 100 unit/mL (3 mL) insulin pen 25 unit SUBCUT QPM Qty: 15 RF: 2 No Action albuterol sulfate 90 mcg/actuation HFA aerosol inhaler See Rx Instructions .ROUTE .COMPLEX Qty: 6.7 RF: 0 prenat.vits,elsy,ets-ygrm-cmjcc Tablet 1 tab PO DAILY RF: 0 valacyclovir 1 gram tablet 1,000 mg PO DAILY RF: 0 albuterol sulfate 90 mcg/actuation Hfa Aerosol Inhaler 2 puff INHALATION Q4HR RF: 0 Humalog U-100 Insulin 100 unit/mL Cartridge 3 unit subcut ACHS RF: 0 Lantus Solostar U-100 Insulin 100 unit/mL (3 mL) Insulin Pen 20 unit SUBCUT QPM Qty: 15 RF: 0 Referrals: Brad Torres MD [Primary Care Provider] -
[2021-09-27 17:04] LABS: Bacteria Urine None Seen; Culture Indicated Urine Cult Not Indicated; RBC Urine None Seen (0-5/HPF); Squamous Epithelial Cell Urine 0-1 /HPF (0-5/HPF); WBC Urine 0-1/HPF (0-5/HPF)
[2021-09-27 17:05] LABS: Chloride 105 mmol/L (98-107); HEMOLYSIS < 15 (0-50)
[2021-09-27 17:07] LABS: Alanine Aminotransferase 10 IU/L (<35); Albumin 3.9 g/dL (3.5-5.0); Albumin Globulin Ratio 1.1 (1.0-2.8); Alkaline Phosphatase 120 U/L (38-126); Aspartate Aminotransferase 16 IU/L (14-36); BUN Creatinine Ratio 11.1 (6-22); Bilirubin Total 0.7 mg/dL (0.2-1.3); Blood Urea Nitrogen 5 mg/dL (7-17); Calcium 8.8 mg/dL (8.4-10.2); Carbon Dioxide 13 mmol/L (22-32); Estimated Glomerular Filt Rate > 60.0 mL/min (>60); Globulin 3.5 g/dL (1.7-4.1); Glucose 215 mg/dL (70-100); Lipase 26 U/L (23-300); Magnesium 1.9 mg/dL (1.6-2.3); Phosphorous 2.7 mg/dL (4.5-5.5); Potassium 4.2 mmol/L (3.4-5.1); Sodium 131 mmol/L (137-145); Total Protein 7.4 g/dL (6.3-8.2)
[2021-09-27 17:09] LABS: Ketones (Beta-Hydroxybutyrate) 3.75 mmol/L (<0.27)
[2021-09-27 17:22] LABS: COVID19 -Nasal RAPID Negative (Negative)
[2021-09-27 17:49] LABS: HCG Quantitative /Beta subunit 16030 mIU/mL
[2021-09-27] MEDS: ALBUTEROL 2.5 MG/3 ML NEB (ADULT) INH (18:10)
--- NOTE | 2021-09-27 18:10 | PC.NURSE ---
NST complete: baseline FHR 140, moderate variability, accelerations present, no decelerations. pt denies feeling contractions. 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
[2021-09-27 18:33] LABS: HCO3 VBG 15 mmol/L (23-28); Oxygen Saturation VBG 34 % (70-75); PCO2 VBG 27.8 mmHg (45-50); PO2 VBG 22 mmHg (35-45); Total CO2 VBG 16 mmol/L (24-29); pH VBG 7.34 (7.33-7.43)
[2021-09-27] MEDS: ACETAMINOPHEN 325 MG TABLET 650 MG PO (19:02)
[2021-09-27] MEDS: ONDANSETRON 4 MG/2 ML INJ IV (19:03)
[2021-09-27] MEDS: MAG HYDROX/ALUM/SIMETH 30 ML UDC PO (20:34)
[2021-09-27 22:10] LABS: BUN Creatinine Ratio 9.6 (6-22); Blood Urea Nitrogen 5 mg/dL (7-17); Calcium 7.6 mg/dL (8.4-10.2); Carbon Dioxide 10 mmol/L (22-32); Chloride 112 mmol/L (98-107); Estimated Glomerular Filt Rate > 60.0 mL/min (>60); Glucose 212 mg/dL (70-100); HEMOLYSIS < 15 (0-50); Potassium 4.1 mmol/L (3.4-5.1); Sodium 136 mmol/L (137-145)
[2021-09-27 22:15] LABS: HCO3 VBG 10 mmol/L (23-28); Oxygen Saturation VBG 36 % (70-75); PCO2 VBG 22.3 mmHg (45-50); PO2 VBG 24 mmHg (35-45); Total CO2 VBG 11 mmol/L (24-29); pH VBG 7.26 (7.33-7.43)
[2021-09-27] MEDS: DEXTROSE 5%-0.45% NS 1,000 ML 150 ML IV (23:27)
[2021-09-27] MEDS: INSULIN DRIP PREMIX 100 UNIT/100 ML PLAST..BAG 6 UNIT IV (23:27)
[2021-09-27] MEDS: POTASSIUM CHLORIDE IN WATER 10 MEQ/100 ML PIGGYBACK 100 MEQ IV (23:28)
== END 2021-09-28 00:31 | disposition short-term general hospital (02) ==
PROVIDERS: Emergency Medicine; Emergency Provider Emergency Medicine; PCP Obstetrics & Gynecology; Referring Provider Obstetrics & Gynecology
DX: O26.893 Other specified pregnancy related conditions, third trimester (principal); E10.10 Type 1 diabetes mellitus with ketoacidosis without coma; Z79.4 Long term (current) use of insulin; J45.901 Unspecified asthma with (acute) exacerbation; Z20.822 Contact with and (suspected) exposure to COVID-19; Z3A.28 28 weeks gestation of pregnancy
CPT/HCPCS: 36415; 80048; 80053; 81001; 82009; 82805; 82962; 83690; 83735; 84100; 84702; 85025; 87040; 87635; 94640; 96361; 96365; 96375; 99284; 99291; C9803; J2405; J7613

== ENCOUNTER 2021-10-27 12:07 | Outpatient (CLI) | payer OTHER, MEDICAID, SELFPAY ==
[2021-05-26 11:08] VITALS: BMI 19.5
== END 2021-10-27 13:15 | disposition home or self-care (01) ==
LOC: OB 10-30 11:15
PROVIDERS: PCP Obstetrics & Gynecology; Referring Provider Obstetrics & Gynecology; Visit Provider Obstetrics & Gynecology
DX: O24.013 Pre-existing type 1 diabetes mellitus, in pregnancy, third trimester (principal); Z3A.32 32 weeks gestation of pregnancy
CPT/HCPCS: 59025; G0378; G0379

== ENCOUNTER 2021-11-02 10:48 | Outpatient (CLI) | payer OTHER, MEDICAID, SELFPAY ==
[2021-05-26 11:08] VITALS: BMI 19.5
== END 2021-11-02 11:30 | disposition home or self-care (01) ==
LOC: LABOR 11:23 → OB 11-03 14:04
PROVIDERS: PCP Obstetrics & Gynecology; Referring Provider Obstetrics & Gynecology; Visit Provider Obstetrics & Gynecology
DX: O24.013 Pre-existing type 1 diabetes mellitus, in pregnancy, third trimester (principal); Z3A.33 33 weeks gestation of pregnancy
CPT/HCPCS: 59025; G0378; G0379

== ENCOUNTER 2021-11-10 10:51 | Outpatient (CLI) | payer OTHER, MEDICAID, SELFPAY ==
[2021-05-26 11:08] VITALS: BMI 19.5
== END 2021-11-10 11:45 | disposition home or self-care (01) ==
LOC: LABOR 10:59 → OB 11-14 14:21
PROVIDERS: PCP Obstetrics & Gynecology; Referring Provider Obstetrics & Gynecology; Visit Provider Obstetrics & Gynecology
DX: O24.414 Gestational diabetes mellitus in pregnancy, insulin controlled (principal); Z3A.34 34 weeks gestation of pregnancy
CPT/HCPCS: 59025; G0378; G0379

== ENCOUNTER 2021-11-20 15:53 | Outpatient (CLI) | payer OTHER, MEDICAID, SELFPAY ==
[2021-05-26 11:08] VITALS: BMI 19.5
== END 2021-11-20 16:21 | disposition home or self-care (01) ==
LOC: LABOR 16:00 → OB 11-21 13:48
PROVIDERS: PCP Obstetrics & Gynecology; Referring Provider Family Medicine; Visit Provider Family Medicine
DX: O24.013 Pre-existing type 1 diabetes mellitus, in pregnancy, third trimester (principal); Z3A.35 35 weeks gestation of pregnancy
CPT/HCPCS: 59025; G0378; G0379

== ENCOUNTER 2022-05-08 19:11 | Emergency (ER) | payer OTHER, MEDICAID, SELFPAY ==
[2021-05-26 11:08] VITALS: BMI 19.5
[2022-05-08 19:21] VITALS: BP 133/74; PULSE 121; RESP 20; TEMP 36.6; O2SAT 97; BMI 26.5
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
[2022-05-08] MEDS: SODIUM CHLORIDE 0.9% 1,000 ML 1000 ML IV ×2 (19:48→21:34)
[2022-05-08 19:54] LABS: Add Manual Diff / Slide Review NO; Basophils Absolute Auto 0 /uL (0-100); Basophils Percent Auto 0.5 % (0-2); Eosinophils Absolute Auto 700 /uL (0-450); Eosinophils Percent Auto 7.3 % (2-4); Hematocrit 45.4 % (36-46); Hemoglobin 15.9 g/dL (12.0-16.0); Lymphocytes Absolute Auto 2400 /uL (1100-4500); Lymphocytes Percent Auto 25.5 % (25-40); Mean Corpuscular HGB Conc 35.1 % (30-36); Mean Corpuscular Hemoglobin 31.9 PG (26-34); Mean Corpuscular Volume 90.8 fL (80-100); Monocytes Absolute Auto 700 /uL (0-900); Monocytes Percent Auto 7.6 % (3-14); Neutrophils Absolute Auto 5600 /uL (1500-7000); Neutrophils Percent Auto 59.1 % (50-75); Platelet Count 210 X10^3/uL (150-400); Red Cell Distribution Width 13.9 % (11.6-14.8); White Blood Cell Count 9.4 X10^3/uL (4.5-11.0)
[2022-05-08 20:00] LABS: Alanine Aminotransferase 17 IU/L (<35); Albumin 5.4 g/dL (3.5-5.0); Albumin Globulin Ratio 1.2 (1.0-2.8); Alkaline Phosphatase 125 U/L (38-126); Aspartate Aminotransferase 21 IU/L (14-36); Bilirubin Total 0.5 mg/dL (0.2-1.3); Blood Urea Nitrogen 9 mg/dL (7-17); Calcium 10.4 mg/dL (8.4-10.2); Carbon Dioxide 21 mmol/L (22-32); Chloride 103 mmol/L (98-107); Estimated Glomerular Filt Rate > 60 mL/min (>60); Ethanol (ETOH) < 10 mg/dL; Globulin 4.4 g/dL (1.7-4.1); Glucose 94 mg/dL (70-100); HEMOLYSIS < 15 (0-50); Lipase 54 U/L (23-300); Phosphorous 4.1 mg/dL (2.5-4.5); Potassium 3.6 mmol/L (3.4-5.1); Sodium 140 mmol/L (137-145); Total Protein 9.8 g/dL (6.3-8.2)
[2022-05-08 20:04] LABS: Pregnancy Test Serum,Qual Negative (Negative)
[2022-05-08 20:13] LABS: Appearance Urine UA CLOUDY; Bilirubin Urine UA 1+ (NEGATIVE); Color Urine UA YELLOW; Glucose Urine UA 1+ g/dL (Negative); Ketones Urine UA TRACE (NEGATIVE); Leukocyte Esterase Urine UA NEGATIVE (NEGATIVE); Nitrite Urine UA NEGATIVE (Negative); Occult Blood Urine UA 3+ (Negative); Protein Urine UA 3+ (Negative); Specific Gravity Urine UA >=1.030 (1.000-1.035); Urobilinogen Urine UA 0.2 E.U./dL (0.2)
[2022-05-08 20:16] LABS: Procalcitonin 0.04 ng/mL (<0.5)
[2022-05-08 20:21] LABS: Ictotest Urine Negative (Negative)
[2022-05-08 20:22] LABS: Bacteria Urine Moderate (10-30); Calcium Oxalate Crystals Urine Many; Mucus Urine 1+ (Negative); RBC Urine 0-1/HPF (0-5/HPF); Squamous Epithelial Cell Urine >30 /HPF (0-5/HPF); Transitional Epi Cells Urine >30/HPF (0-5/HPF); WBC Urine 1-5/HPF (0-5/HPF)
[2022-05-08 20:25] LABS: COVID19 -Nasal RAPID Negative (Negative)
[2022-05-08 21:32] VITALS: BP 123/68; PULSE 89; RESP 20; O2SAT 95
[2022-05-08 21:42] LABS: Reflexed Lactate in 2 Hours Y
[2022-05-08 22:21] LABS: Lactate 2HR (Lactic Acid Rflx) 1.3 mmol/L (0.7-2.1)
[2022-05-08 23:00] VITALS: BP 118/77; PULSE 86; RESP 20; O2SAT 96
== END 2022-05-08 23:01 | disposition home or self-care (01) ==
PROVIDERS: Emergency Provider Emergency Medicine; PCP Nurse Practitioner Family
DX: E86.0 Dehydration (principal); R00.0 Tachycardia, unspecified; E10.9 Type 1 diabetes mellitus without complications; R07.9 Chest pain, unspecified; Z20.822 Contact with and (suspected) exposure to COVID-19
CPT/HCPCS: 36415; 80053; 80320; 81001; 82962; 83605; 83690; 83735; 84100; 84145; 84703; 85025; 87086; 87635; 93005; 93010; 96360; 96361; 99284; C9803

== ENCOUNTER 2022-09-25 15:54 | Observation (INO) | payer OTHER, MEDICAID, SELFPAY ==
[2021-05-26 11:08] VITALS: BMI 19.5
[2022-09-25] VITALS (11 sets, daily range): BP systolic 108–123; BP diastolic 55–79; PULSE 81–116; RESP 16; TEMP 36.4; O2SAT 97–100; BMI 21.2
[2022-09-25 17:02] LABS: Add Manual Diff / Slide Review NO; Basophils Absolute Auto 0 /uL (0-100); Basophils Percent Auto 0.4 % (0-2); Eosinophils Absolute Auto 100 /uL (0-450); Eosinophils Percent Auto 1.7 % (2-4); Hematocrit 41.8 % (36-46); Hemoglobin 13.9 g/dL (12.0-16.0); Lymphocytes Absolute Auto 2200 /uL (1100-4500); Lymphocytes Percent Auto 33.5 % (25-40); Mean Corpuscular HGB Conc 33.3 % (30-36); Monocytes Absolute Auto 500 /uL (0-900); Neutrophils Absolute Auto 3700 /uL (1500-7000); Neutrophils Percent Auto 56.4 % (50-75); Platelet Count 199 X10^3/uL (150-400); Red Blood Cell Count 4.35 X10^6/uL (4.0-5.2); Red Cell Distribution Width 12.6 % (11.6-14.8); White Blood Cell Count 6.5 X10^3/uL (4.5-11.0)
[2022-09-25 17:13] LABS: Alanine Aminotransferase 18 IU/L (<35); Albumin 4.9 g/dL (3.5-5.0); Albumin Globulin Ratio 1.2 (1.0-2.8); Alkaline Phosphatase 166 U/L (38-126); Aspartate Aminotransferase 18 IU/L (14-36); BUN Creatinine Ratio 30.8 (6-22); Bilirubin Total 0.6 mg/dL (0.2-1.3); Blood Urea Nitrogen 16 mg/dL (7-17); Calcium 9.8 mg/dL (8.4-10.2); Carbon Dioxide 21 mmol/L (22-32); Chloride 98 mmol/L (98-107); Estimated Glomerular Filt Rate > 60 mL/min (>60); Globulin 4.2 g/dL (1.7-4.1); Glucose 243 mg/dL (70-100); HEMOLYSIS < 15 (0-50); Lipase 85 U/L (23-300); Potassium 4.1 mmol/L (3.4-5.1); Sodium 135 mmol/L (137-145); Total Protein 9.1 g/dL (6.3-8.2)
[2022-09-25 17:31] LABS: Influenza A - CEPHEID Flu A NEGATIVE (NEGATIVE); Influenza B - CEPHEID Flu B NEGATIVE (NEGATIVE)
[2022-09-25 17:33] LABS: COVID-19 CEPHEID 4-PLEX PCR Negative (Negative)
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
[2022-09-25 21:36] LABS: Hemoglobin A1C% w Est Avg Glu 11.5 % (4.0-6.0)
[2022-09-25] MEDS: SODIUM CHLORIDE 0.9% 1,000 ML 1000 ML IV (21:41)
[2022-09-25] MEDS: ONDANSETRON 4 MG/2 ML INJ IV (21:42)
--- NOTE | 2022-09-25 21:53 | PC.NURSE ---
Spoke with patient and family, patient has no resources as an adult diabetic. [facility] due to age and childbirth. Pt has an A1C of 11.5, continuous glucose monitor is broke and she does not qualify for another for 6 months and is doing insulin injections. Currently does not have an lining caser. Todays concern is for DKA, not currently in DKA but is at risk. [employer] consult ordered. Pt is interested in better monitoring and an insulin pump for improved diabetic management. PCP at [facility], Judith Braun.
[2022-09-25 23:28] LABS: BUN Creatinine Ratio 21.7 (6-22); Blood Urea Nitrogen 13 mg/dL (7-17); Calcium 7.7 mg/dL (8.4-10.2); Carbon Dioxide 17 mmol/L (22-32); Chloride 102 mmol/L (98-107); Estimated Glomerular Filt Rate > 60 mL/min (>60); HEMOLYSIS < 15 (0-50); Potassium 4.5 mmol/L (3.4-5.1); Sodium 132 mmol/L (137-145)
[2022-09-25 23:47] LABS: Glucose 594 mg/dL (70-100)
[2022-09-26] VITALS (13 sets, daily range): BP systolic 117–131; BP diastolic 57–78; PULSE 58–97; RESP 16–26; TEMP 37; O2SAT 97–100; BMI 21.2
[2022-09-26] MEDS: INSULIN REGULAR 100 UNIT/ML 3 ML VIAL 10 UNIT SUBCUT (00:07)
[2022-09-26] MEDS: SODIUM CHLORIDE 0.9% 1,000 ML 1000 ML IV (00:09)
[2022-09-26 00:13] LABS: Ketones (Beta-Hydroxybutyrate) 3.44 mmol/L (<0.27)
[2022-09-26 00:45] LABS: Bacteria Urine Occasional (0-1); RBC Urine None Seen (0-5/HPF); Squamous Epithelial Cell Urine 0-1 /HPF (0-5/HPF); WBC Urine 0-1/HPF (0-5/HPF)
[2022-09-26 00:46] LABS: Culture Indicated Urine Cult Not Indicated
[2022-09-26 01:43] LABS: BUN Creatinine Ratio 21.6 (6-22); Blood Urea Nitrogen 11 mg/dL (7-17); Calcium 7.4 mg/dL (8.4-10.2); Carbon Dioxide 15 mmol/L (22-32); Chloride 107 mmol/L (98-107); Estimated Glomerular Filt Rate > 60 mL/min (>60); Glucose 395 mg/dL (70-100); HEMOLYSIS < 15 (0-50); Potassium 3.6 mmol/L (3.4-5.1); Sodium 135 mmol/L (137-145)
--- NOTE | 2022-09-26 01:52 | DI.RAD.S_ITS ---
PROCEDURE: XR CHEST 1V INDICATIONS: dka TECHNIQUE: One view of the chest was acquired. COMPARISON: [facility], CR, XR CHEST 1V, 08/16/2019, 10:58. FINDINGS: Surgical changes and devices: None. Lungs and pleura: Lungs are clear. No pleural effusions or pneumothorax. Mediastinum: Mediastinal contours appear normal. Heart size is normal. Bones and chest wall: No suspicious bony lesions. Overlying soft tissues appear unremarkable. IMPRESSION: No acute cardiopulmonary abnormality. There is no significant discrepancy when compared to the overnight preliminary report. Approved by: Osmin tMz M.D. on 09/26/2022 at 8:17
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
[2022-09-26 02:24] LABS: pH VBG 7.33 (7.33-7.43)
[2022-09-26 03:04] LABS: Potassium Urine Random 17.4 mmol/L; Sodium Urine Random 91 mmol/L (30-90)
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
[2022-09-26] MEDS: LACTATED RINGERS 1,000 ML 125 ML IV (03:13)
[2022-09-26] MEDS: INSULIN DRIP PREMIX 100 UNIT/100 ML PLAST..BAG 6 UNIT IV (03:21)
[2022-09-26] MEDS: DEXTROSE 5%-0.45% NS 1,000 ML 150 ML IV (04:45)
[2022-09-26 05:25] LABS: BUN Creatinine Ratio 25.6 (6-22); Blood Urea Nitrogen 10 mg/dL (7-17); Calcium 8.3 mg/dL (8.4-10.2); Carbon Dioxide 20 mmol/L (22-32); Chloride 109 mmol/L (98-107); Estimated Glomerular Filt Rate > 60 mL/min (>60); Glucose 151 mg/dL (70-100); HEMOLYSIS 38 (0-50); Potassium 3.5 mmol/L (3.4-5.1); Sodium 137 mmol/L (137-145)
[2022-09-26] MEDS: INSULIN GLARGINE 100 UNIT/ML 3ML PEN 15 UNIT SUBCUT (06:12)
[2022-09-26] MEDS: ENOXAPARIN 40 MG/0.4 ML SYRINGE SUBCUT (09:02)
[2022-09-26] MEDS: INSULIN LISPRO 100 UNIT/ML 3ML VIAL SUBCUT (12:06)
[2022-09-26] MEDS: ACETAMINOPHEN 325 MG TABLET PO (12:11)
[2022-09-26] MEDS: POTASSIUM CHLORIDE 20 MEQ TAB 40 MEQ PO (12:13)
[2022-09-26 13:19] LABS: BUN Creatinine Ratio 14.5 (6-22); Blood Urea Nitrogen 8 mg/dL (7-17); Calcium 8.6 mg/dL (8.4-10.2); Carbon Dioxide 23 mmol/L (22-32); Chloride 102 mmol/L (98-107); Estimated Glomerular Filt Rate > 60 mL/min (>60); Glucose 274 mg/dL (70-100); HEMOLYSIS < 15 (0-50); Potassium 3.7 mmol/L (3.4-5.1); Sodium 136 mmol/L (137-145)
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
--- NOTE | 2022-09-26 14:56 | CM.DANOTE ---
Patient is a 21 yo female who was admitted on 09/26/22 for Metabolic acidosis. Pt has [facility] and [facility] for insurance and her PCP is Judith Braun. EMR was reviewed. Per MD, pt with hx of type 1 diabetes since the age of 16 and now able to come off the drip for her metabolic acidosis and hyperglycemia and high risk for DKA. Per RN, pt independent in room and has family bedside and given d/c instructions and they were needing to d/c quite quickly and SW unable to meet bedside with them. Per MD and d/c instructions, recommendation for referral to [facility] as pt has not been established with one since she gave to her current 10 mo baby. Pt also has broken continuous glucose monitor and insurance will not cover another one for about 6 months. Pt given instructions on how to test daily and better manage her blood sugars and has a hx of meeting with general manager food prior to and during . Pt lives with her mother who helps with pt's baby as well and has supportive family. SW called pt's PCP office at [facility] and confirmed pt has been established with them since April 2022 this year and has not received a referral to their [facility] and agreeable to placing that referral. SW also requested PCP f/u appointment estevan as pt's next appointment is not for another month or so in October and they will attempt to schedule her within the week for f/u due to the risk factors of DKA. Plan: Patient discharged home via mother POV and SW called PCP for f/u appointment this week as well as request for referral to [facility]. BRIANNA Rouse
[2022-09-26 23:27] LABS: Chloride, Urine 86 mmol/L (Not Estab.)
== END 2022-09-26 14:10 | disposition home or self-care (01) ==
LOC: ED 22:15 → ICU 09-26 02:20
PROVIDERS: Family Medicine Addiction Medicine; Admitting Provider Nurse Practitioner Family; Emergency Provider Emergency Medicine; PCP Nurse Practitioner Family; Referring Provider Emergency Medicine; Visit Provider Nurse Practitioner Family
DX: E10.10 Type 1 diabetes mellitus with ketoacidosis without coma (principal); E87.8 Other disorders of electrolyte and fluid balance, not elsewhere classified; Z79.4 Long term (current) use of insulin; F32.A Depression, unspecified; Z20.822 Contact with and (suspected) exposure to COVID-19; Z72.0 Tobacco use
CPT/HCPCS: 36415; 71045; 80048; 80053; 81003; 81015; 81025; 82009; 82436; 82962; 83036; 83690; 83986; 84133; 84300; 85025; 87635; 93005; 96361; 96365; 96366; 96372; 96374; 99284; C9803; G0378; J1650; J1815; J2405

== ENCOUNTER 2023-09-09 09:17 | Inpatient (IN) | payer OTHER, MEDICAID, SELFPAY ==
[2022-09-26 02:19] VITALS: BMI 21.2
[2023-09-09] VITALS (38 sets, daily range): BP systolic 109–133; BP diastolic 57–85; PULSE 92–132; RESP 20–46; TEMP 36.3–38.4; O2SAT 94–100; BMI 21.2; BMI 21.9
--- NOTE | 2023-09-09 09:29 | DI.RAD.S_ITS ---
PROCEDURE: XR CHEST 1V INDICATIONS: suspected sepsis TECHNIQUE: One view of the chest was acquired. COMPARISON: [facility], CR, XR CHEST 1V, 09/26/2022, 1:51. FINDINGS: Surgical changes and devices: None. Lungs and pleura: Lungs are clear. No pleural effusions or pneumothorax. Mediastinum: Mediastinal contours appear normal. Heart size is normal. Bones and chest wall: No suspicious bony lesions. Overlying soft tissues appear unremarkable. IMPRESSION: No evidence acute pulmonary process. Dictated by: Bola Salinas M.D. on 09/09/2023 at 10:17 Approved by: Bola Salinas M.D. on 09/09/2023 at 10:18
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
[2023-09-09] MEDS: SODIUM CHLORIDE 0.9% 1,000 ML 1000 ML IV ×2 (09:55→11:04)
[2023-09-09] MEDS: KETOROLAC 30 MG/ML VIAL 15 MG IV (10:07)
[2023-09-09] MEDS: ONDANSETRON 4 MG/2 ML INJ IV (10:07)
[2023-09-09 10:12] LABS: Add Manual Diff / Slide Review NO; Basophils Absolute Auto 0 /uL (0-100); Basophils Percent Auto 0.2 % (0-2); Eosinophils Absolute Auto 0 /uL (0-450); Hemoglobin 14.7 g/dL (12.0-16.0); Lymphocytes Absolute Auto 900 /uL (1100-4500); Lymphocytes Percent Auto 10.8 % (25-40); Mean Corpuscular HGB Conc 34.1 % (30-36); Mean Corpuscular Hemoglobin 33.2 PG (26-34); Mean Corpuscular Volume 97.2 fL (80-100); Monocytes Absolute Auto 600 /uL (0-900); Monocytes Percent Auto 7.7 % (3-14); Neutrophils Absolute Auto 6400 /uL (1500-7000); Neutrophils Percent Auto 81.3 % (50-75); Platelet Count 184 X10^3/uL (150-400); Red Blood Cell Count 4.42 X10^6/uL (4.0-5.2); Red Cell Distribution Width 12.5 % (11.6-14.8); White Blood Cell Count 7.9 X10^3/uL (4.5-11.0)
[2023-09-09 10:24] LABS: Fractionated Inspired Oxygen 21; HCO3 VBG 6 mmol/L (24-28); Oxygen Saturation VBG 61 % (70-75); PCO2 VBG < 18.0 mmHg (45-50); PO2 VBG 38 mmHg (35-45); Total CO2 VBG 6 mmol/L (24-29)
[2023-09-09 10:32] LABS: Appearance Urine UA CLEAR; Bilirubin Urine UA 1+ (NEGATIVE); Color Urine UA YELLOW; Glucose Urine UA 1+ g/dL (Negative); Ketones Urine UA 3+ (NEGATIVE); Leukocyte Esterase Urine UA NEGATIVE (NEGATIVE); Nitrite Urine UA NEGATIVE (Negative); Occult Blood Urine UA 2+ (Negative); Protein Urine UA 2+ (Negative); Specific Gravity Urine UA >=1.030 (1.000-1.035); Urobilinogen Urine UA 0.2 E.U./dL (0.2)
[2023-09-09 10:32] LABS: PTT Partial Thromboplastin Tim 28 SECONDS (26-36)
[2023-09-09 10:34] LABS: Lactate (Lactic Acid) 1.6 mmol/L (0.7-2.1)
[2023-09-09 10:46] LABS: pH Urine UA 5.5 (4.5-8.0)
[2023-09-09 10:48] LABS: Bacteria Urine Moderate (10-30); RBC Urine 5-10/HPF (0-5/HPF); Squamous Epithelial Cell Urine 1-5 /HPF (0-5/HPF); WBC Urine 1-5/HPF (0-5/HPF)
[2023-09-09 10:49] LABS: Culture Indicated Urine Cult Not Indicated; Granular Casts Urine 1-5/LPF; Ictotest Urine Negative (Negative)
--- NOTE | 2023-09-09 10:52 | DI.CT.S_ITS ---
PROCEDURE: CT KIDNEY URETER BLADDER (KUB) INDICATIONS: right flank pain TECHNIQUE: Axial sections were acquired from the lung bases to the pubic symphysis. Coronal and sagittal reformats were performed. For radiation dose reduction, the following was used: automated exposure control, adjustment of mA and/or kV according to patient size. COMPARISON: [facility], CT, CT ABDOMEN PELVIS W CON, 06/29/2021, 20:36. FINDINGS: Image quality: There is streak artifact through the upper abdomen. Or the Lung bases: Likely mild atelectasis can be seen at the lung bases. Heart: No significant findings. URINARY: Right Kidney: No stones or hydronephrosis. Mild calcification of the renal pyramids can be seen. Right Ureter: No hydroureter. Left Kidney: No stones or hydronephrosis. There is mild calcification of the renal pyramids. Left Ureter: No hydroureter. Bladder: Normal wall thickness. No stones. ABDOMEN: Liver: Unremarkable. Gallbladder: Unremarkable. Biliary ducts: Unremarkable. Pancreas: Unremarkable. Spleen: Unremarkable. Adrenal Glands: Unremarkable. Stomach and Bowel: Stomach, small bowel loops, and colon are unremarkable. No appendix (either normal or abnormal) is identified on this study. Peritoneum: No abnormal intraperitoneal fluid. No free air. Ventral Wall: No hernia. Abdominal Nodes: No enlarged retroperitoneal or mesenteric lymph nodes. Vessels: Aorta and inferior vena cava are normal in size. PELVIS: Pelvic Organs: Unremarkable. Pelvic Nodes: Unremarkable. Miscellaneous: No inguinal hernias are seen. Bones: Unremarkable. IMPRESSION: No findings of kidney stones or obstructive uropathy. Mild calcification of the renal pyramids can be seen. Please correlate with potential causes, including renal tubular acidosis. Dictated by: Sunil Warren M.D. on 09/09/2023 at 10:35 Approved by: Sunil Warren M.D. on 09/09/2023 at 10:38
[2023-09-09 11:02] LABS: Alanine Aminotransferase 19 IU/L (<35); Albumin 4.7 g/dL (3.5-5.0); Alkaline Phosphatase 120 U/L (38-126); Aspartate Aminotransferase 23 IU/L (14-36); BUN Creatinine Ratio 16.2 (6-22); Bilirubin Total 0.7 mg/dL (0.2-1.3); Blood Urea Nitrogen 11 mg/dL (7-17); Chloride 105 mmol/L (98-107); Estimated Glomerular Filt Rate > 60 mL/min (>60); Globulin 4.5 g/dL (1.7-4.1); Glucose 236 mg/dL (70-100); HEMOLYSIS 16 (0-50); Lipase 47 U/L (23-300); Potassium 4.4 mmol/L (3.4-5.1); Sodium 134 mmol/L (137-145); Total Protein 9.2 g/dL (6.3-8.2)
[2023-09-09] MEDS: MORPHINE 4 MG/ML INJ IV (11:04)
[2023-09-09 11:05] LABS: Ketones (Beta-Hydroxybutyrate) 5.69 mmol/L (<0.27)
--- NOTE | 2023-09-09 11:07 | PC.NURSE ---
Patient left department with assistive technology specialist.
[2023-09-09 11:08] LABS: Carbon Dioxide 5 mmol/L (22-32)
[2023-09-09 11:19] LABS: Procalcitonin 0.14 ng/mL (<0.5)
[2023-09-09] MEDS: POTASSIUM CHLORIDE IN WATER 10 MEQ/100 ML PIGGYBACK 112 MEQ IV (12:36)
[2023-09-09] MEDS: DEXTROSE 10 % IN WATER 250 ML 112 ML IV (12:44)
[2023-09-09] MEDS: INSULIN DRIP PREMIX 100 UNIT/100 ML PLAST..BAG IV (13:07)
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
[2023-09-09] MEDS: POTASSIUM CHLORIDE IN WATER 10 MEQ/100 ML PIGGYBACK 100 MEQ IV ×3 (13:36→18:53)
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
[2023-09-09 13:54] LABS: Blood Urea Nitrogen 10 mg/dL (7-17); Calcium 7.5 mg/dL (8.4-10.2); Chloride 112 mmol/L (98-107); Estimated Glomerular Filt Rate > 60 mL/min (>60); Glucose 148 mg/dL (70-100); HEMOLYSIS 16 (0-50); Potassium 4.8 mmol/L (3.4-5.1); Sodium 133 mmol/L (137-145)
[2023-09-09 13:55] LABS: Carbon Dioxide 9 mmol/L (22-32)
[2023-09-09] MEDS: DEXTROSE 5%-0.45% NS 1,000 ML 84 ML IV (14:10)
[2023-09-09 14:48] LABS: MRSA (Nasal) PCR Not Detected (Not Detect)
--- NOTE | 2023-09-09 15:46 | PC.ADMIT ---
Admission Note: Patient arrived to room 228 at 1215 via stretcher, able to stand and walk to bed but did endorse dizziness when standing. Alert and oriented x3. SpO2 in the 98-100% range. SR/ST 90s to low 100s, BP stable. Started on DKA protocol for insulin gtt and fluids per MD order. 20 meq KCl infused per MD order. Labs drawn from left AC IV without issue. Pt reports pain to right flank but that pain is improving. Denies nausea at this time. Oriented to room and to bed/tv/call light controls. Instructed to use call light to call for assist prior to getting up, acknowledged understanding. Mother at bedside. The patient,Nettie Stone,22 y/o, was given written information regarding hospital policies, unit procedures and contact persons. Patient's smoking status: Current every day smoker. Vital Signs - 8 hr 09/09/23 09:22 09/09/23 09:35 09/09/23 09:35 Temperature 97.4 F L Pulse Rate 132 H 126 H Respiratory Rate 44 H Blood Pressure 131/85 133/82 Pulse Oximetry 97 97 Oxygen Delivery Method Room Air 09/09/23 10:00 09/09/23 10:00 09/09/23 10:30 Temperature Pulse Rate 120 H Respiratory Rate Blood Pressure 132/83 119/75 Pulse Oximetry 96 Oxygen Delivery Method 09/09/23 10:30 09/09/23 11:00 09/09/23 11:00 Temperature Pulse Rate 106 H 115 H Respiratory Rate 31 H Blood Pressure 123/80 Pulse Oximetry 96 95 Oxygen Delivery Method 09/09/23 11:16 09/09/23 11:16 09/09/23 11:30 Temperature Pulse Rate 102 H 107 H Respiratory Rate Blood Pressure 119/69 Pulse Oximetry 96 95 Oxygen Delivery Method 09/09/23 11:30 09/09/23 12:00 09/09/23 12:00 Temperature Pulse Rate 103 H Respiratory Rate 32 H Blood Pressure 122/64 124/63 Pulse Oximetry 97 Oxygen Delivery Method 09/09/23 12:27 09/09/23 12:30 09/09/23 13:00 Temperature 98.1 F Pulse Rate 98 H 94 H Respiratory Rate 33 H 24 Blood Pressure 109/61 110/64 Pulse Oximetry 97 Oxygen Delivery Method 09/09/23 13:00 09/09/23 13:30 09/09/23 14:00 Temperature Pulse Rate 98 H 94 H 94 H Respiratory Rate 27 H 30 H 28 H Blood Pressure Pulse Oximetry 98 96 97 Oxygen Delivery Method 09/09/23 14:00 09/09/23 14:26 Temperature Pulse Rate Respiratory Rate Blood Pressure 112/57 L Pulse Oximetry Oxygen Delivery Method Room Air
[2023-09-09 17:29] LABS: HCO3 VBG 12 mmol/L (24-28); Oxygen Saturation VBG 59 % (70-75); PCO2 VBG 24.5 mmHg (45-50); PO2 VBG 34 mmHg (35-45); Total CO2 VBG 12 mmol/L (24-29); pH VBG 7.28 (7.33-7.43)
[2023-09-09 17:30] LABS: Fractionated Inspired Oxygen 21
[2023-09-09 17:40] LABS: BUN Creatinine Ratio 22.5 (6-22); Blood Urea Nitrogen 9 mg/dL (7-17); Calcium 7.9 mg/dL (8.4-10.2); Carbon Dioxide 12 mmol/L (22-32); Chloride 112 mmol/L (98-107); Estimated Glomerular Filt Rate > 60 mL/min (>60); Glucose 122 mg/dL (70-100); Sodium 134 mmol/L (137-145)
[2023-09-09 17:41] LABS: HEMOLYSIS 83 (0-50)
--- NOTE | 2023-09-09 20:28 | PM.ICURNDS ---
- Date Patient Seen: 09/09/23 Time Patient Seen: 20:28 :: This patient was seen via real time interactive two-way audiovisual telecommunication. Note: no acute events since admission pH improving now 7.29 on abg ag 10 continue DKA protocol
[2023-09-09] MEDS: ALBUTEROL 2.5 MG/3 ML NEB (ADULT) INH (20:35)
[2023-09-09] MEDS: HYDROMORPHONE 0.5 MG INJ IV (21:32)
[2023-09-09] MEDS: ACETAMINOPHEN 325 MG TABLET 650 MG PO (21:32)
[2023-09-10] VITALS (45 sets, daily range): BP systolic 98–114; BP diastolic 55–72; PULSE 99–144; RESP 15–60; TEMP 36.4–39.1; O2SAT 71–99
[2023-09-10] MEDS: HYDROMORPHONE 0.5 MG INJ IV ×4 (00:19→21:01)
[2023-09-10] MEDS: SODIUM CHLORIDE 0.9% FLUSH 10 ML IV ×3 (00:20→20:20)
--- NOTE | 2023-09-10 00:20 | RT ---
Was called to administer a prn Albuterol at 0000, pt HR was in the 130s, I withheld treatment until HR comes down. PT is satting 96 on room air, she is tachypnic with a fever...will reassess HR later.
[2023-09-10 00:23] LABS: BUN Creatinine Ratio 16.3 (6-22); Blood Urea Nitrogen 8 mg/dL (7-17); Calcium 7.8 mg/dL (8.4-10.2); Carbon Dioxide 14 mmol/L (22-32); Chloride 107 mmol/L (98-107); Estimated Glomerular Filt Rate > 60 mL/min (>60); Glucose 133 mg/dL (70-100); HEMOLYSIS 28 (0-50); Potassium 3.4 mmol/L (3.4-5.1); Sodium 132 mmol/L (137-145)
[2023-09-10] MEDS: ALBUTEROL 2.5 MG/3 ML NEB (ADULT) INH ×2 (00:50→05:05)
--- NOTE | 2023-09-10 00:56 | PM.EICU.INT ---
Teleintensivist Intervention Date/Time Was camera activated?: Yes Date Patient Seen: 09/10/23 Time Patient Seen: 00:56 Issue(s) Addressed Issue(s): Fever and Resp. Distress/Ventilator management Other:: anxiety Intervention(s) :: Patient reporting h/o COPD/asthma. Feeling acutely more SOB and anxious. HR ST in 150's- Temp also noted >102F. Tylenol and ice packs given by RN-. Neb given. When neb started patient able to calm down and HR dropping into 130's. Sat 96% Will start empiric ceftriaxone while awaiting cultures in case of bacterial co-infection. Nebs q 4 hours ordered. ativan 0.5 mg ordered. Will continue to assess.
[2023-09-10] MEDS: POTASSIUM CHLORIDE IN WATER 10 MEQ/100 ML PIGGYBACK 100 MEQ IV ×12 (01:10→21:55)
[2023-09-10] MEDS: cefTRIAXone 1,000 MG in SODIUM CHLORIDE 0.9% 100 ML 200 MG IV (01:16)
[2023-09-10] MEDS: LORazepam 2 MG/ML INJ 0.5 MG IV (01:17)
[2023-09-10] MEDS: DEXTROSE 5%-0.45% NS 1,000 ML 84 ML IV ×2 (03:52→17:00)
[2023-09-10 05:27] LABS: Add Manual Diff / Slide Review NO; Basophils Absolute Auto 0 /uL (0-100); Basophils Percent Auto 0.1 % (0-2); Eosinophils Absolute Auto 0 /uL (0-450); Eosinophils Percent Auto 0.1 % (2-4); Hematocrit 36.4 % (36-46); Hemoglobin 12.3 g/dL (12.0-16.0); Lymphocytes Absolute Auto 1300 /uL (1100-4500); Mean Corpuscular HGB Conc 33.9 % (30-36); Mean Corpuscular Hemoglobin 32.1 PG (26-34); Mean Corpuscular Volume 94.7 fL (80-100); Monocytes Absolute Auto 1300 /uL (0-900); Monocytes Percent Auto 10.6 % (3-14); Neutrophils Absolute Auto 9400 /uL (1500-7000); Neutrophils Percent Auto 78.2 % (50-75); Platelet Count 135 X10^3/uL (150-400); Red Blood Cell Count 3.84 X10^6/uL (4.0-5.2); Red Cell Distribution Width 12.5 % (11.6-14.8)
--- NOTE | 2023-09-10 06:30 | PC.NURSE ---
Steam Turbine Operator Note-Patient remains on insulin gtt throughout the night. CBG Q1h ranges from 72 to 186, see flow sheet, following protocol as ordered, received K+ riders per protocol. Had an episode of increased anxiety and hyperventilating, HR tachy up to 150s, Dr. Gaona notified, saw patient via monitor. Neb tx and Rocephin started, IV Ativan given with effectiveness. T-max 102.5, Tylenol given, ice packs applied, fan on, down to 99.5 in am. Tolerating clear liquids without N/V, advanced to full liquid, but has no appetite Mom in room overnight.
[2023-09-10] MEDS: ALBUTEROL/IPRATROPIUM 3 ML AMPUL INH ×4 (07:15→19:10)
[2023-09-10 07:17] LABS: Phosphorous 1.5 mg/dL (2.5-4.5)
[2023-09-10 07:33] LABS: Procalcitonin 1.69 ng/mL (<0.5)
[2023-09-10 08:23] LABS: Alanine Aminotransferase 15 IU/L (<35); Albumin 3.4 g/dL (3.5-5.0); Alkaline Phosphatase 92 U/L (38-126); Aspartate Aminotransferase 27 IU/L (14-36); BUN Creatinine Ratio 11.1 (6-22); Bilirubin Total 0.5 mg/dL (0.2-1.3); Blood Urea Nitrogen 5 mg/dL (7-17); Calcium 8.6 mg/dL (8.4-10.2); Carbon Dioxide 12 mmol/L (22-32); Chloride 110 mmol/L (98-107); Estimated Glomerular Filt Rate > 60 mL/min (>60); Globulin 3.4 g/dL (1.7-4.1); Glucose 79 mg/dL (70-100); HEMOLYSIS < 15 (0-50); Magnesium 1.5 mg/dL (1.6-2.3); Potassium 3.6 mmol/L (3.4-5.1); Sodium 132 mmol/L (137-145); Total Protein 6.8 g/dL (6.3-8.2)
[2023-09-10] MEDS: ENOXAPARIN 40 MG/0.4 ML SYRINGE SUBCUT (09:00)
[2023-09-10 09:37] LABS: HEMOLYSIS < 15 (0-50); Potassium 3.5 mmol/L (3.4-5.1)
[2023-09-10 09:38] LABS: BUN Creatinine Ratio 6.8 (6-22); Blood Urea Nitrogen 3 mg/dL (7-17); Calcium 8.2 mg/dL (8.4-10.2); Chloride 108 mmol/L (98-107); Estimated Glomerular Filt Rate > 60 mL/min (>60); Glucose 211 mg/dL (70-100); Sodium 131 mmol/L (137-145)
[2023-09-10 09:40] LABS: Carbon Dioxide 8 mmol/L (22-32)
--- NOTE | 2023-09-10 10:04 | PM.PN.EICU ---
Subjective Subjective IF CAMERA ACTIVATED, patient seen via real-time interactive audiovisual communication: Camera activated Consent obtained for tele-chief design drafter care: Yes Patient Location: ICU Provider location (State): [place] Other participants/roles: rn Interval history: pt remains on insulin gtt, bcarb has dropped and repeat bmp is pending Current Medications Current Medications Medications: Home Medications albuterol sulfate 90 mcg/actuation aerosol inhaler 2 puff inhalation Q4HR PRN Shortness Of Breath 01/02/20 [History Confirmed 09/09/23] insulin lispro 100 unit/mL subcutaneous cartridge (Humalog U-100 Insulin) 3 unit SUBCUT ACHS 01/02/20 [History Confirmed 09/09/23] insulin glargine 100 unit/mL subcutaneous solution (Lantus U-100 Insulin) 35 - 40 unit SUBCUT BEDTIME 09/26/22 [History Confirmed 09/09/23] Visit Medications (administered) Generic Name Dose Route Start Last Admin Trade Name Freq PRN Reason Stop Dose Admin Acetaminophen 650 mg 09/09/23 12:27 09/09/23 21:32 Acetaminophen 325 Mg Tablet PO 650 mg Q6H PRN Administration Fever/Mild Pain (1-3) Albuterol 2.5 mg 09/09/23 13:45 09/10/23 05:05 Albuterol 2.5 Mg/3 Ml Neb (Adult) INH 2.5 mg [id number] PRN Administration Shortness Of Breath Albuterol/Ipratropium 3 ml 09/10/23 07:00 09/10/23 07:15 Albuterol/Ipratropium 3 Ml Ampul INH 3 ml [id number] FAREED Administration Enoxaparin Sodium 40 mg 09/10/23 09:00 09/10/23 09:00 Enoxaparin 40 Mg/0.4 Ml Syringe SUBCUT 40 mg DAILY FAREED Administration Hydromorphone HCl 0.5 mg 09/09/23 12:27 09/10/23 09:01 Hydromorphone 0.5 Mg Inj IV 0.5 mg Q2H PRN Administration Pain, Severe (7-10) INSULIN DRIP PREMIX 100 unit in 100 mls @ 5.779 mls/hr 09/09/23 11:15 09/10/23 09:22 Myxredlin Drip Premix IV 0.1 unit/kg/hr TITRATE FAREED 5.6 mls/hr Titration Protocol 0.1 UNIT/KG/HR Dextrose 250 mls @ 58 mls/hr 09/09/23 12:00 09/10/23 06:05 D10w IV Infused TITRATE FAREED Infusion Dextrose/Sodium Chloride 1,000 mls @ 200 mls/hr 09/09/23 14:00 09/10/23 06:13 Dextrose 5%-0.45% Ns IV 84 mls/hr CONT FAREED Infusion Ceftriaxone Sodium 1,000 mg/ 100 mls @ 200 mls/hr 09/10/23 01:00 09/10/23 02:46 Sodium Chloride IV Infused Q24H FAREED Infusion Lorazepam 0.5 mg 09/10/23 00:52 09/10/23 01:17 Lorazepam 2 Mg/Ml Inj IV 0.5 mg Q6HR PRN Administration Anxiety Sodium Chloride 10 ml 09/09/23 22:17 09/10/23 00:20 Sodium Chloride 0.9% Flush IV 10 ml PRN PRN Administration Flush Sodium Chloride 10 ml 09/10/23 09:00 09/10/23 09:00 Sodium Chloride 0.9% Flush IV 10 ml BID FAREED Administration Objective Labs 09/11/23 04:30 09/11/23 04:30 Labs: Laboratory Results - last 24 hr 09/09/23 09/09/23 09/09/23 09:42 09:43 09:54 WBC 7.9 RBC 4.42 Hgb 14.7 Hct 43.0 MCV 97.2 MCH 33.2 MCHC 34.1 RDW 12.5 Plt Count 184 Neut % (Auto) 81.3 H Lymph % (Auto) 10.8 L [place] % (Auto) 7.7 Eos % (Auto) 0.0 L Baso % (Auto) 0.2 Neut # (Auto) 6400 Lymph # (Auto) 900 L [place] # (Auto) 600 Eos # (Auto) 0 Baso # (Auto) 0 PT 11.0 INR 1.0 APTT 28 VBG pH 7.20 L* VBG pCO2 < 18.0 L VBG pO2 38 VBG HCO3 6 L VBG Total CO2 6 L VBG O2 Saturation 61 L VBG Base Excess -22.0 L FiO2 21 Sodium 134 L Potassium 4.4 Chloride 105 Carbon Dioxide 5 L* BUN 11 Creatinine 0.68 Estimated GFR > 60 BUN/Creatinine Ratio 16.2 Glucose 236 H Lactate 1.6 Calcium 9.0 Phosphorus Magnesium Total Bilirubin 0.7 AST 23 ALT 19 Alkaline Phosphatase 120 Total Protein 9.2 H Albumin 4.7 Globulin 4.5 H Albumin/Globulin Ratio 1.0 Lipase 47 Procalcitonin 0.14 Urine Color Urine Appearance Urine pH Ur Specific [place] Urine Protein Urine Glucose (UA) Urine Ketones Urine Occult Blood Urine Nitrate Urine Bilirubin Ur Bilirubin Confirm Urine Urobilinogen Ur Leukocyte Esterase Urine RBC Urine WBC Ur Squamous Epith Cells Urine Bacteria Granular Casts Ur Culture Indicated? Nasal Screen MRSA (PCR) Ketones 5.69 H SARS-CoV-2 (PCR) 09/09/23 09/09/23 09/09/23 10:21 12:56 12:58 WBC RBC Hgb Hct MCV MCH MCHC RDW Plt Count Neut % (Auto) Lymph % (Auto) [place] % (Auto) Eos % (Auto) Baso % (Auto) Neut # (Auto) Lymph # (Auto) [place] # (Auto) Eos # (Auto) Baso # (Auto) PT INR APTT VBG pH VBG pCO2 VBG pO2 VBG HCO3 VBG Total CO2 VBG O2 Saturation VBG Base Excess FiO2 Sodium Potassium Chloride Carbon Dioxide BUN Creatinine Estimated GFR BUN/Creatinine Ratio Glucose Lactate Calcium Phosphorus Magnesium Total Bilirubin AST ALT Alkaline Phosphatase Total Protein Albumin Globulin Albumin/Globulin Ratio Lipase Procalcitonin Urine Color Yellow Urine Appearance Clear Urine pH 5.5 Ur Specific [place] >=1.030 H Urine Protein 2+ H Urine Glucose (UA) 1+ H Urine Ketones 3+ H Urine Occult Blood 2+ H Urine Nitrate Negative Urine Bilirubin 1+ H Ur Bilirubin Confirm Negative Urine Urobilinogen 0.2 Ur Leukocyte Esterase Negative Urine RBC 5-10/hpf H Urine WBC 1-5/hpf Ur Squamous Epith Cells 1-5 /hpf Urine Bacteria Moderate (10-30) H Granular Casts 1-5/lpf Ur Culture Indicated? Cult not indicated Nasal Screen MRSA (PCR) Not detected Ketones SARS-CoV-2 (PCR) Cancelled 09/09/23 09/09/23 09/09/23 13:20 17:12 17:16 WBC RBC Hgb Hct MCV MCH MCHC RDW Plt Count Neut % (Auto) Lymph % (Auto) [place] % (Auto) Eos % (Auto) Baso % (Auto) Neut # (Auto) Lymph # (Auto) [place] # (Auto) Eos # (Auto) Baso # (Auto) PT INR APTT VBG pH 7.28 L VBG pCO2 24.5 L VBG pO2 34 L VBG HCO3 12 L VBG Total CO2 12 L VBG O2 Saturation 59 L VBG Base Excess -15.0 L FiO2 21 Sodium 133 L 134 L Potassium 4.8 4.0 Chloride 112 H 112 H Carbon Dioxide 9 L* 12 L BUN 10 9 Creatinine 0.50 L 0.40 L Estimated GFR > 60 > 60 BUN/Creatinine Ratio 20.0 22.5 H Glucose 148 H 122 H Lactate Calcium 7.5 L 7.9 L Phosphorus Magnesium Total Bilirubin AST ALT Alkaline Phosphatase Total Protein Albumin Globulin Albumin/Globulin Ratio Lipase Procalcitonin Urine Color Urine Appearance Urine pH Ur Specific [place] Urine Protein Urine Glucose (UA) Urine Ketones Urine Occult Blood Urine Nitrate Urine Bilirubin Ur Bilirubin Confirm Urine Urobilinogen Ur Leukocyte Esterase Urine RBC Urine WBC Ur Squamous Epith Cells Urine Bacteria Granular Casts Ur Culture Indicated? Nasal Screen MRSA (PCR) Ketones SARS-CoV-2 (PCR) 09/09/23 09/10/23 09/10/23 23:00 04:25 05:00 WBC 12.0 H D RBC 3.84 L Hgb 12.3 Hct 36.4 MCV 94.7 MCH 32.1 MCHC 33.9 RDW 12.5 Plt Count 135 L Neut % (Auto) 78.2 H Lymph % (Auto) 11.0 L [place] % (Auto) 10.6 Eos % (Auto) 0.1 L Baso % (Auto) 0.1 Neut # (Auto) 9400 H Lymph # (Auto) 1300 [place] # (Auto) 1300 H Eos # (Auto) 0 Baso # (Auto) 0 PT INR APTT VBG pH VBG pCO2 VBG pO2 VBG HCO3 VBG Total CO2 VBG O2 Saturation VBG Base Excess FiO2 Sodium 132 L 132 L Potassium 3.4 3.6 Chloride 107 110 H Carbon Dioxide 14 L 12 L BUN 8 5 L Creatinine 0.49 L 0.45 L Estimated GFR > 60 > 60 BUN/Creatinine Ratio 16.3 11.1 Glucose 133 H 79 Lactate Calcium 7.8 L 8.6 Phosphorus 1.5 L Magnesium 1.5 L Total Bilirubin 0.5 AST 27 ALT 15 Alkaline Phosphatase 92 Total Protein 6.8 Albumin 3.4 L Globulin 3.4 Albumin/Globulin Ratio 1.0 Lipase Procalcitonin 1.69 H Urine Color Urine Appearance Urine pH Ur Specific [place] Urine Protein Urine Glucose (UA) Urine Ketones Urine Occult Blood Urine Nitrate Urine Bilirubin Ur Bilirubin Confirm Urine Urobilinogen Ur Leukocyte Esterase Urine RBC Urine WBC Ur Squamous Epith Cells Urine Bacteria Granular Casts Ur Culture Indicated? Nasal Screen MRSA (PCR) Ketones SARS-CoV-2 (PCR) 09/10/23 09:20 WBC RBC Hgb Hct MCV MCH MCHC RDW Plt Count Neut % (Auto) Lymph % (Auto) [place] % (Auto) Eos % (Auto) Baso % (Auto) Neut # (Auto) Lymph # (Auto) [place] # (Auto) Eos # (Auto) Baso # (Auto) PT INR APTT VBG pH VBG pCO2 VBG pO2 VBG HCO3 VBG Total CO2 VBG O2 Saturation VBG Base Excess FiO2 Sodium 131 L Potassium 3.5 Chloride 108 H Carbon Dioxide 8 L* BUN 3 L Creatinine 0.44 L Estimated GFR > 60 BUN/Creatinine Ratio 6.8 Glucose 211 H D Lactate Calcium 8.2 L Phosphorus Magnesium Total Bilirubin AST ALT Alkaline Phosphatase Total Protein Albumin Globulin Albumin/Globulin Ratio Lipase Procalcitonin Urine Color Urine Appearance Urine pH Ur Specific [place] Urine Protein Urine Glucose (UA) Urine Ketones Urine Occult Blood Urine Nitrate Urine Bilirubin Ur Bilirubin Confirm Urine Urobilinogen Ur Leukocyte Esterase Urine RBC Urine WBC Ur Squamous Epith Cells Urine Bacteria Granular Casts Ur Culture Indicated? Nasal Screen MRSA (PCR) Ketones SARS-CoV-2 (PCR) Exam Vital Signs (past 8 hours): - 09/10/23 02:23 09/10/23 02:30 09/10/23 03:00 Temperature Pulse Rate 133 H 130 H Respiratory Rate 60 H 43 H Blood Pressure Pulse Oximetry 95 95 97 Oxygen Delivery Method Oxygen Flow Rate 1 09/10/23 03:30 09/10/23 04:00 09/10/23 04:00 Temperature Pulse Rate 126 H 124 H Respiratory Rate 41 H 37 H Blood Pressure 104/65 Pulse Oximetry 96 96 Oxygen Delivery Method Oxygen Flow Rate 09/10/23 04:00 09/10/23 04:00 09/10/23 04:19 Temperature 99.5 F Pulse Rate 126 H Respiratory Rate 35 H Blood Pressure Pulse Oximetry 96 Oxygen Delivery Method Nasal Cannula Oxygen Flow Rate 09/10/23 04:19 09/10/23 04:21 09/10/23 04:21 Temperature Pulse Rate 125 H Respiratory Rate 40 H Blood Pressure 114/66 109/57 L Pulse Oximetry 96 Oxygen Delivery Method Oxygen Flow Rate 09/10/23 05:10 09/10/23 07:00 09/10/23 07:24 Temperature Pulse Rate 123 H 124 H 120 H Respiratory Rate 26 H 36 H 22 Blood Pressure Pulse Oximetry 96 93 94 Oxygen Delivery Method Room Air Room Air Oxygen Flow Rate 09/10/23 07:30 09/10/23 08:00 09/10/23 08:00 Temperature Pulse Rate 123 H 123 H Respiratory Rate 36 H 39 H Blood Pressure Pulse Oximetry 95 96 Oxygen Delivery Method Room Air Oxygen Flow Rate 09/10/23 08:00 Temperature Pulse Rate Respiratory Rate Blood Pressure 99/61 Pulse Oximetry Oxygen Delivery Method Oxygen Flow Rate Oxygen Delivery Method Room Air Oxygen Flow Rate 1 Narrative Exam Narrative: pt awake and in NAD Resp Other: symmetric chest rise Cardio Other: sinus tach Quality TeleICU VTE Deep Vein Thrombosis/Pulmonary Embolism Present on Admission: No Assessment & Plan Assessment and plan (1) DKA (diabetic ketoacidosis): Status: Acute (2) Influenza A: Status: Acute Assessment & Plan narrative: cont DKA protocol - inslulin gtt, d5 1/2 ns trend bmp adat zofran prn woudl send alpha antitrypsin iven diagnosis of COPD dvt ppx Time Spent With Patient Time with patient: 30 to 49 minutes with 50% spent counseling/coordinating care
[2023-09-10] MEDS: INSULIN DRIP PREMIX 100 UNIT/100 ML PLAST..BAG IV (10:33)
[2023-09-10] MEDS: ONDANSETRON 4 MG/2 ML INJ IV ×2 (10:33→20:20)
[2023-09-10] MEDS: MAGNESIUM CHLORIDE 64 MG TABLET 128 MG PO (10:33)
[2023-09-10] MEDS: ACETAMINOPHEN 325 MG TABLET 650 MG PO (10:48)
[2023-09-10 10:58] LABS: BUN Creatinine Ratio 6.8 (6-22); Blood Urea Nitrogen 3 mg/dL (7-17); Calcium 8.6 mg/dL (8.4-10.2); Carbon Dioxide 12 mmol/L (22-32); Chloride 107 mmol/L (98-107); Estimated Glomerular Filt Rate > 60 mL/min (>60); Glucose 171 mg/dL (70-100); HEMOLYSIS 15 (0-50); Potassium 3.7 mmol/L (3.4-5.1); Sodium 131 mmol/L (137-145)
[2023-09-10 12:31] LABS: HCG Quantitative /Beta subunit < 2.4 mIU/mL
[2023-09-10 14:23] LABS: BUN Creatinine Ratio 7.5 (6-22); Blood Urea Nitrogen 3 mg/dL (7-17); Calcium 8.4 mg/dL (8.4-10.2); Carbon Dioxide 16 mmol/L (22-32); Chloride 108 mmol/L (98-107); Estimated Glomerular Filt Rate > 60 mL/min (>60); Glucose 172 mg/dL (70-100); HEMOLYSIS 18 (0-50); Potassium 3.6 mmol/L (3.4-5.1); Sodium 131 mmol/L (137-145)
--- NOTE | 2023-09-10 14:31 | CM.DANOTE ---
Patient is a 22 yo female who was admitted on 09/09/23 for DKA. Pt has [facility] and [employer] for insurance and her PCP is Judith Braun. EMR was reviewed. Per MD, pt with type 1 DM, recent new dx of COPD, and recent dx Influenza A. Pt dehydrated and nauseous. DKA and Flu. Per RN, pt has been feeling quite poorly today and has local supportive mother bedside who is involved in pt's care. Currently no concerns noted and COPD dx is not confirmed and pt easily tearful regarding discussion of COPD. RN does not feel there likely will be any discharge barriers. Plan: SW to follow closely for improvements and to confirm plan of safe d/c home with family support when medically stable and any further identified discharge planning needs. BRIANNA Rouse Discharge Planning/Care Management CM Discharge Assessment Start: 09/10/23 14:26 Freq: Status: Active Protocol: Document 09/10/23 14:28 BF (Rec: 09/10/23 14:30 BF [id number]) Discharge Planning Assessment Assigned Produce Weigher BRIANNA Slaughter DPOA/Assigned Designee Name informally mom Advance Directives? No Advance Directives on File No History Provided By Patient,Family Member,Medical Record Has Patient been admitted in last 30 No days? Prior Living Arrangements House Household Members significant other Type of transporation used prior to Drives own vehicle admit Independent with ADL's Yes Is patient alert and oriented? Yes Caregiver for Another No Discharge Plan Home Transportation Arrangement Family to provide transportation Referrals Initiated Brush Cleaner Additional Comment Patient active as outpatient with counseling for anxiety and depression. Review Status In Process Please Provide Date Initial DC 09/10/23 Assessment Was Performed Next Review Type Continued Stay Review
--- NOTE | 2023-09-10 14:39 | PC.NURSE ---
Addendum entered by Parisa Jensen R.N. 09/10/23 18:25: Spoke with hospitalist and tele-water softener installer regarding pt's most recent labs (anion gap still closed, CO2 trending up at 17, K 3.8, blood glucose 155). Per DKA protocol, K x4 riders ordered and Dr. Meehan (tele-water softener installer) agreed with this protocol and order. Tele-water softener installer okayed switching over from insulin gtt to subcutaneous depending on pt's ketone lab. Per tele-water softener installer, RN called lab to add Ketone to BMP draw that was recently completed. Original Note: In am reported electrolyes K, Mg and Phosphorus to provider. Since pt was tolerating PO, provider ordered PO K and Mg replacement. Pt able to take Mg but unable to take K. Since pt unable to take K by mouth, IV K riders ordered. Pharmacist said that Phosphorus should not be replaced. Due to frequent labs, provider ordered midline. Good urine output. Pt complaining about pain throughout the day, medicated with dilaudid IV and tylenol. Pt stated that tylenol did not help pain and dilaudid is only thing that helps pain. Spoke with tele-water softener installer regarding pt's pain, relaying that pt may need a pain med in between tylenol and dilaudid, and pt tolerating PO - water softener installer ordered norco. Communicated with providers several times throughout the day regarding pt's anion gap being closed and patient tolerating PO - providers said they wanted to see Bicarb level/CO2 rise in labs. Pt vital signs stable, monitoring RR, BP, SPO2 with dilaudid and HR with breathing treatments.
[2023-09-10] MEDS: OXYCODONE/ACETAMINOPHEN 5/325 TABLET 1 TAB PO (15:08)
[2023-09-10] MEDS: BUTALB/APAP/CAFFEINE 50/325/40 TABLET 1 EACH PO (17:33)
[2023-09-10 18:05] LABS: BUN Creatinine Ratio 7.9 (6-22); Blood Urea Nitrogen 3 mg/dL (7-17); Calcium 8.3 mg/dL (8.4-10.2); Carbon Dioxide 17 mmol/L (22-32); Chloride 107 mmol/L (98-107); Estimated Glomerular Filt Rate > 60 mL/min (>60); Glucose 162 mg/dL (70-100); HEMOLYSIS 16 (0-50); Potassium 3.8 mmol/L (3.4-5.1); Sodium 132 mmol/L (137-145)
[2023-09-10 18:40] LABS: Ketones (Beta-Hydroxybutyrate) 0.55 mmol/L (<0.27)
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
--- NOTE | 2023-09-10 21:14 | PM.ICURNDS ---
- Date Patient Seen: 09/10/23 Time Patient Seen: 20:35 Note: 22 y.o. female w/ DKA. Although latest AG is normal, HCO3 remains low and serum ketones remained (+) on most recent serum chemistries; therefore, I opted to continue IV insulin until next serum chemistries are drawn @ 2200. Care endorsed to Dr. Guthrie.
[2023-09-10 22:40] LABS: Carbon Dioxide 21 mmol/L (22-32); Chloride 107 mmol/L (98-107); Estimated Glomerular Filt Rate > 60 mL/min (>60); Glucose 87 mg/dL (70-100); HEMOLYSIS 19 (0-50); Potassium 3.6 mmol/L (3.4-5.1); Sodium 134 mmol/L (137-145)
[2023-09-10 22:41] LABS: BUN Creatinine Ratio 5.4 (6-22); Blood Urea Nitrogen 2 mg/dL (7-17)
[2023-09-10 22:43] LABS: Ketones (Beta-Hydroxybutyrate) 0.03 mmol/L (<0.27)
--- NOTE | 2023-09-10 23:52 | PM.EVENT ---
Event Note Event Note (Rapid Response, Code, or fall): Notified by RN repeat BMP showed AG 6 and Co2 21. Will transition patient to lantus 30 units and start ISS. Continue insulin gtt per DKA protocol X 2 hours and then discontinue. D/w RN Jigna.
[2023-09-11] VITALS (17 sets, daily range): BP systolic 105–119; BP diastolic 61–74; PULSE 76–133; RESP 16–37; TEMP 36.4–37.2; O2SAT 60–100
[2023-09-11] MEDS: INSULIN GLARGINE 100 UNIT/ML 3ML PEN 30 UNIT SUBCUT (00:01)
[2023-09-11] MEDS: cefTRIAXone 1,000 MG in SODIUM CHLORIDE 0.9% 100 ML 200 MG IV (01:23)
[2023-09-11 04:38] LABS: Add Manual Diff / Slide Review NO; Basophils Absolute Auto 0 /uL (0-100); Basophils Percent Auto 0.3 % (0-2); Eosinophils Absolute Auto 0 /uL (0-450); Eosinophils Percent Auto 0.4 % (2-4); Hemoglobin 11.1 g/dL (12.0-16.0); Lymphocytes Absolute Auto 2200 /uL (1100-4500); Lymphocytes Percent Auto 20.7 % (25-40); Mean Corpuscular HGB Conc 34.6 % (30-36); Mean Corpuscular Volume 95.4 fL (80-100); Monocytes Absolute Auto 500 /uL (0-900); Monocytes Percent Auto 4.9 % (3-14); Neutrophils Absolute Auto 7900 /uL (1500-7000); Neutrophils Percent Auto 73.7 % (50-75); Platelet Count 134 X10^3/uL (150-400); Red Blood Cell Count 3.35 X10^6/uL (4.0-5.2); Red Cell Distribution Width 12.8 % (11.6-14.8); White Blood Cell Count 10.8 X10^3/uL (4.5-11.0)
[2023-09-11 04:50] LABS: Alanine Aminotransferase 14 IU/L (<35); Albumin 3.2 g/dL (3.5-5.0); Alkaline Phosphatase 96 U/L (38-126); Aspartate Aminotransferase 17 IU/L (14-36); BUN Creatinine Ratio 7.3 (6-22); Bilirubin Total 0.3 mg/dL (0.2-1.3); Blood Urea Nitrogen 3 mg/dL (7-17); Calcium 8.5 mg/dL (8.4-10.2); Carbon Dioxide 15 mmol/L (22-32); Chloride 106 mmol/L (98-107); Estimated Glomerular Filt Rate > 60 mL/min (>60); Globulin 3.3 g/dL (1.7-4.1); Glucose 282 mg/dL (70-100); HEMOLYSIS < 15 (0-50); Magnesium 2.1 mg/dL (1.6-2.3); Potassium 4.3 mmol/L (3.4-5.1); Sodium 133 mmol/L (137-145); Total Protein 6.5 g/dL (6.3-8.2)
--- NOTE | 2023-09-11 06:33 | PC.NURSE ---
security shift manager RN Note Pt awake, A&Ox4, drowsy at times, up with bedside commode with SBY assist, VSS, afebrile, PPPx4, no edema, SR/ST 80-100s, lungs clear, O2 sats >92% on RA, abd soft, tender at times, BSx4, c/o epigastric pain, dilaudid given with effect, voiding yellow urine in bedside commode, skin warm and intact, x3 periph IV sites, midline to ETTA patent, initially CBGs Q1h per protocol, hypoglycemic, asymptomatic and treated with juices, gtts adjusted per protocol, CBG improved, MD notifed of lab values and orders for 30 units lantus at 0000, all drips stopped 2h later, pt resting quietly in bed, continue to monitor
[2023-09-11] MEDS: ALBUTEROL/IPRATROPIUM 3 ML AMPUL INH ×3 (08:02→15:09)
--- NOTE | 2023-09-11 08:05 | PC.NURSE ---
Addendum entered by Parisa Jensen R.N. 09/11/23 17:23: Pt met discharge criteria, blood glucose 223 and pt feeling well. Original Note: Called hospitalist to regarding downgrading the patient to acute care status due to insulin drip off since around midnight last night. Hospitalist wants to wait until he rounds and sees her and leave on the tele-ICU consult until then as well. Plt 134 (yesterday 135) - hospitalist okayed giving lovenox.
[2023-09-11] MEDS: ENOXAPARIN 40 MG/0.4 ML SYRINGE SUBCUT (08:23)
[2023-09-11] MEDS: BUTALB/APAP/CAFFEINE 50/325/40 TABLET 1 EACH PO (08:24)
[2023-09-11] MEDS: ONDANSETRON 4 MG/2 ML INJ IV (08:24)
[2023-09-11] MEDS: INSULIN LISPRO 100 UNIT/ML 3ML VIAL SUBCUT ×5 (08:40→13:24)
[2023-09-11] MEDS: SODIUM CHLORIDE 0.9% FLUSH 10 ML IV (10:22)
[2023-09-11] MEDS: INSULIN GLARGINE 100 UNIT/ML 3ML PEN 25 UNIT SUBCUT (12:22)
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
[2023-09-19 18:38] LABS: Magnesium, RBC 4.6 mg/dL (4.2-6.8)
== END 2023-09-11 17:23 | disposition home or self-care (01) | DRG 420 ==
LOC: ED 09:43 → AC 11:54 → ICU 12:37
PROVIDERS: Anesthesiology Critical Care Medicine; Internal Medicine; Internal Medicine Critical Care Medicine; Admitting Provider Internal Medicine; Emergency Provider Emergency Medicine; PCP Nurse Practitioner Family; Referring Provider Emergency Medicine; Visit Provider Internal Medicine
DX: E10.10 Type 1 diabetes mellitus with ketoacidosis without coma (principal); G93.41 Metabolic encephalopathy; J44.9 Chronic obstructive pulmonary disease, unspecified; J10.1 Influenza due to other identified influenza virus with other respiratory manifestations; F17.290 Nicotine dependence, other tobacco product, uncomplicated
CPT/HCPCS: 36415; 36592; 71045; 74176; 80048; 80053; 81001; 81003; 81025; 82009; 82805; 82962; 83605; 83690; 83735; 84100; 84145; 84702; 85025; 85610; 85730; 87040; 87797; 93005; 94150; 94640; 96374; 96375; 99285; 99291; J0696; J1170; J1650; J1815; J1885; J2060; J2270; J2405; J7613

== ENCOUNTER 2023-10-18 11:04 | Observation (INO) | payer OTHER, MEDICAID, SELFPAY ==
[2023-09-09 13:13] VITALS: BMI 21.9
[2023-10-18] VITALS (27 sets, daily range): BP systolic 111–136; BP diastolic 59–89; PULSE 105–131; RESP 18–51; TEMP 36.5–37.4; O2SAT 91–98
--- NOTE | 2023-10-18 11:24 | DI.RAD.S_ITS ---
PROCEDURE: XR CHEST 1V INDICATIONS: chest pain TECHNIQUE: One view of the chest was acquired. COMPARISON: [facility], CR, XR CHEST 2 VIEWS, 07/31/2023, 16:49. Former[facility], CR, XR CHEST 1V, 09/26/2022, 1:51. [facility], CR, XR CHEST 1V, 09/09/2023, 9:58. FINDINGS: Surgical changes and devices: None. Lungs and pleura: On this semiupright portable chest examination, no large pneumothorax or large pleural effusions are seen. No focal infiltrates are seen. Mediastinum: Mediastinal contours appear normal. Heart size is normal. Bones and chest wall: No suspicious bony lesions. Overlying soft tissues appear unremarkable. IMPRESSION: Limited portable chest examination, without a significant cardiopulmonary abnormality identified. Dictated by: Sunil Warren M.D. on 10/18/2023 at 11:10 Approved by: Sunil Warren M.D. on 10/18/2023 at 11:10
[2023-10-18 11:35] LABS: Add Manual Diff / Slide Review NO; Basophils Absolute Auto 0 /uL (0-100); Basophils Percent Auto 0.4 % (0-2); Eosinophils Absolute Auto 900 /uL (0-450); Eosinophils Percent Auto 6.6 % (2-4); Hematocrit 41.6 % (36-46); Lymphocytes Absolute Auto 2000 /uL (1100-4500); Lymphocytes Percent Auto 15.3 % (25-40); Mean Corpuscular HGB Conc 33.6 % (30-36); Mean Corpuscular Hemoglobin 32.1 PG (26-34); Mean Corpuscular Volume 95.6 fL (80-100); Monocytes Absolute Auto 700 /uL (0-900); Monocytes Percent Auto 5.8 % (3-14); Neutrophils Absolute Auto 9300 /uL (1500-7000); Neutrophils Percent Auto 71.9 % (50-75); Platelet Count 208 X10^3/uL (150-400); Red Blood Cell Count 4.35 X10^6/uL (4.0-5.2); Red Cell Distribution Width 13.3 % (11.6-14.8)
[2023-10-18 11:37] LABS: D Dimer 326 ng/ml (<500)
[2023-10-18] MEDS: ALBUTEROL/IPRATROPIUM 3 ML AMPUL INH ×2 (11:38→20:09)
[2023-10-18 11:40] LABS: Lactate (Lactic Acid) 3.2 mmol/L (0.7-2.1)
[2023-10-18] MEDS: SODIUM CHLORIDE 0.9% 1,000 ML 150 ML IV (11:41)
[2023-10-18 11:42] LABS: Alanine Aminotransferase 18 IU/L (<35); Albumin 4.4 g/dL (3.5-5.0); Albumin Globulin Ratio 1.3 (1.0-2.8); Alkaline Phosphatase 89 U/L (38-126); Aspartate Aminotransferase 28 IU/L (14-36); Bilirubin Total 0.9 mg/dL (0.2-1.3); Blood Urea Nitrogen 6 mg/dL (7-17); Calcium 9.3 mg/dL (8.4-10.2); Carbon Dioxide 21 mmol/L (22-32); Chloride 105 mmol/L (98-107); Creatine Kinase 44 U/L (30-135); Estimated Glomerular Filt Rate > 60 mL/min (>60); Globulin 3.5 g/dL (1.7-4.1); Glucose 136 mg/dL (70-100); HEMOLYSIS 22 (0-50); Lipase 21 U/L (23-300); Potassium 3.7 mmol/L (3.4-5.1); Sodium 137 mmol/L (137-145); Total Protein 7.9 g/dL (6.3-8.2)
[2023-10-18 11:53] LABS: Troponin I < 0.012 ng/mL (0.01-0.034)
[2023-10-18 11:58] LABS: Procalcitonin 0.04 ng/mL (<0.5)
[2023-10-18 11:59] LABS: Fractionated Inspired Oxygen 28; HCO3 VBG 22 mmol/L (24-28); Oxygen Saturation VBG 55 % (70-75); PCO2 VBG 34.3 mmHg (45-50); PO2 VBG 28 mmHg (35-45); Total CO2 VBG 23 mmol/L (24-29); pH VBG 7.42 (7.33-7.43)
[2023-10-18] MEDS: ALBUTEROL 2.5 MG/3 ML NEB (ADULT) 20 MG INH (12:15)
--- NOTE | 2023-10-18 12:21 | PC.NURSE ---
Pt states she is feeling better and continues to have albuterol continuous nebulizer. Sitting up in bed on cell phone. Wheezes are decreasing however pt sounds coarse on exhalation. Moving air more freely than on arrival.
[2023-10-18 12:38] LABS: Adenovirus Not Detected (Not Detect); B. parapertussis Not Detected (Not Detecte); Bordetella pertussis Not Detected (Not Detect); Chlamydophila pneumoniae Not Detected (Not Detect); Coronavirus 229E Not Detected (Not Detect); Coronavirus HKU1 Not Detected (Not Detect); Coronavirus NL 63 Not Detected (Not Detect); Coronavirus OC43 Not Detected (Not Detect); Human Metapneumovirus Not Detected (Not Detect); Human Rhinovirus/Enterovirus Not Detected (Not Detect); Influenza A Not Detected (Not Detect); Influenza B Not Detected (Not Detect); Mycoplasma pneumoniae Not Detected (Not Detect); Parainfluenza Virus 1 Not Detected (Not Detect); Parainfluenza Virus 2 Not Detected (Not Detect); Parainfluenza Virus 3 Not Detected (Not Detect); Parainfluenza Virus 4 Not Detected (Not Detect); Respiratory Syncytial Virus Not Detected (Not Detect); SARS- CoV-2 Not Detected (Not Detecte)
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
[2023-10-18 13:11] LABS: Reflexed Lactate in 2 Hours Y
[2023-10-18 13:35] LABS: Lactate 2HR (Lactic Acid Rflx) 3.2 mmol/L (0.7-2.1)
[2023-10-18] MEDS: SODIUM CHLORIDE 0.9% 1,000 ML 1000 ML IV (14:47)
[2023-10-18 14:49] LABS: Bacteria Urine Occasional (0-1); Culture Indicated Urine Cult Not Indicated; RBC Urine 0-1/HPF (0-5/HPF); Squamous Epithelial Cell Urine 0-1 /HPF (0-5/HPF); WBC Urine 0-1/HPF (0-5/HPF)
[2023-10-18 15:17] LABS: BUN Creatinine Ratio 16.2 (6-22); Blood Urea Nitrogen 6 mg/dL (7-17); Carbon Dioxide 17 mmol/L (22-32); Chloride 105 mmol/L (98-107); Estimated Glomerular Filt Rate > 60 mL/min (>60); Glucose 266 mg/dL (70-100); HEMOLYSIS < 15 (0-50); Potassium 3.3 mmol/L (3.4-5.1); Sodium 135 mmol/L (137-145)
--- NOTE | 2023-10-18 16:50 | PC.NURSE ---
before administration of insulin infusion, pt's glucose is 333. Previous was 266 on repeat BMP. Pt reports she ate a couple cheezit crackers.
[2023-10-18] MEDS: INSULIN DRIP PREMIX 100 UNIT/100 ML PLAST..BAG IV (16:54)
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
[2023-10-18 17:57] LABS: Magnesium 1.7 mg/dL (1.6-2.3)
[2023-10-18] MEDS: LACTATED RINGERS 1,000 ML 1000 ML IV (18:01)
--- NOTE | 2023-10-18 18:06 | PC.NURSE ---
Addendum entered by Narayan Pena R.N. 10/18/23 18:43: D5 1/2NS started per protocol Original Note: Per Dr Carpio, Insulin gtt started under DKA protocol, hold D5 1/2NS for now
[2023-10-18] MEDS: predniSONE 20 MG TABLET 40 MG PO (18:32)
[2023-10-18] MEDS: POTASSIUM CHLORIDE IN WATER 10 MEQ/100 ML PIGGYBACK 100 MEQ IV ×2 (18:44→20:12)
[2023-10-18 19:09] LABS: BUN Creatinine Ratio 18.9 (6-22); Blood Urea Nitrogen 7 mg/dL (7-17); Calcium 9.3 mg/dL (8.4-10.2); Carbon Dioxide 17 mmol/L (22-32); Chloride 107 mmol/L (98-107); Estimated Glomerular Filt Rate > 60 mL/min (>60); Glucose 193 mg/dL (70-100); HEMOLYSIS 20 (0-50); Potassium 3.9 mmol/L (3.4-5.1); Sodium 138 mmol/L (137-145)
[2023-10-18] MEDS: DEXTROSE 5%-0.45% NS 1,000 ML 100 ML IV (20:13)
[2023-10-18] MEDS: BENZONATATE 100 MG CAPSULE PO (23:35)
[2023-10-19] VITALS (17 sets, daily range): BP systolic 101–143; BP diastolic 57–86; PULSE 98–117; RESP 18–37; TEMP 36.5–37.7; O2SAT 91–97
[2023-10-19 02:31] LABS: Blood Urea Nitrogen 10 mg/dL (7-17); Calcium 8.9 mg/dL (8.4-10.2); Carbon Dioxide 17 mmol/L (22-32); Chloride 108 mmol/L (98-107); Estimated Glomerular Filt Rate > 60 mL/min (>60); Glucose 154 mg/dL (70-100); HEMOLYSIS < 15 (0-50); Potassium 4.3 mmol/L (3.4-5.1); Sodium 134 mmol/L (137-145)
[2023-10-19] MEDS: ALBUTEROL 2.5 MG/3 ML NEB (ADULT) INH ×2 (02:33→02:38)
[2023-10-19 05:25] LABS: Add Manual Diff / Slide Review NO; Basophils Absolute Auto 0 /uL (0-100); Basophils Percent Auto 0.1 % (0-2); Eosinophils Absolute Auto 0 /uL (0-450); Hematocrit 37.2 % (36-46); Hemoglobin 12.6 g/dL (12.0-16.0); Lymphocytes Absolute Auto 1600 /uL (1100-4500); Lymphocytes Percent Auto 10.5 % (25-40); Mean Corpuscular Hemoglobin 32.5 PG (26-34); Mean Corpuscular Volume 95.5 fL (80-100); Monocytes Absolute Auto 600 /uL (0-900); Monocytes Percent Auto 3.8 % (3-14); Neutrophils Absolute Auto 13200 /uL (1500-7000); Neutrophils Percent Auto 85.6 % (50-75); Platelet Count 204 X10^3/uL (150-400); Red Blood Cell Count 3.89 X10^6/uL (4.0-5.2); Red Cell Distribution Width 13.1 % (11.6-14.8); White Blood Cell Count 15.4 X10^3/uL (4.5-11.0)
[2023-10-19 05:31] LABS: BUN Creatinine Ratio 33.3 (6-22); Blood Urea Nitrogen 12 mg/dL (7-17); Calcium 8.9 mg/dL (8.4-10.2); Carbon Dioxide 16 mmol/L (22-32); Chloride 111 mmol/L (98-107); Estimated Glomerular Filt Rate > 60 mL/min (>60); Glucose 181 mg/dL (70-100); HEMOLYSIS < 15 (0-50); Potassium 4.2 mmol/L (3.4-5.1); Sodium 133 mmol/L (137-145)
[2023-10-19] MEDS: DEXTROSE 5%-0.45% NS 1,000 ML 100 ML IV (06:25)
[2023-10-19] MEDS: ALBUTEROL/IPRATROPIUM 3 ML AMPUL INH (08:06)
[2023-10-19] MEDS: INSULIN GLARGINE 100 UNIT/ML 3ML PEN 25 UNIT SUBCUT (08:16)
[2023-10-19] MEDS: INSULIN LISPRO 100 UNIT/ML 3ML VIAL SUBCUT ×2 (08:17→12:11)
[2023-10-19] MEDS: predniSONE 20 MG TABLET 40 MG PO (08:18)
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
[2023-10-19 12:12] LABS: BUN Creatinine Ratio 32.4 (6-22); Blood Urea Nitrogen 12 mg/dL (7-17); Calcium 9.3 mg/dL (8.4-10.2); Carbon Dioxide 15 mmol/L (22-32); Chloride 107 mmol/L (98-107); Estimated Glomerular Filt Rate > 60 mL/min (>60); Glucose 326 mg/dL (70-100); HEMOLYSIS < 15 (0-50); Potassium 4.5 mmol/L (3.4-5.1); Sodium 132 mmol/L (137-145)
--- NOTE | 2023-10-19 12:58 | PC.NURSE ---
Assumed care of pt at 1250, A&Ox4, no c/o SOB or pain. Wheezes auscultated in bilat lower lobes of lungs, otherwise CTA. Pt resting comfortably in bed, awaiting discharge paperwork and teaching. Call light within reach.
--- NOTE | 2023-10-19 13:52 | PC.NURSE ---
Pt discharged at 1350, escorted off floor in wheelchair accompanied by significant other and hospital staff. IV removed, discharge teaching completed including new medications, follow up appointments and worsening symptoms. All belongings left the room with patient.
--- NOTE | 2023-10-19 14:16 | CM.DANOTE ---
Discharge Planning/Care Management CM Discharge Assessment Start: 10/19/23 14:09 Freq: Status: Discharge Protocol: Document 10/19/23 14:09 AVEL (Rec: 10/19/23 14:16 AVEL [id number]) Discharge Planning Assessment Assigned Wood Finisher BRIANNA Mckeon DPOA/Assigned Designee Name mother [place] Contact Information [phone] Advance Directives? No Advance Directives on File No History Provided By Patient,Family Member,Medical Record Prior Living Arrangements House Household Members significant other Type of transporation used prior to Drives own vehicle admit Independent with ADL's Yes Is patient alert and oriented? Yes Barriers to Discharge No Comment Home w/family. Close outpatient follow up recommended. Discharge Plan Home Transportation Arrangement Family to provide transportation Referrals Initiated None needed
== END 2023-10-19 13:55 | disposition home or self-care (01) ==
LOC: ED 11:16 → AC 16:25 → ICU 10-19 10:37 → AC 10-21 07:13
PROVIDERS: Internal Medicine; Admitting Provider Student in an Organized Health Care Education/Training Program; Emergency Provider Emergency Medicine; PCP Nurse Practitioner Family; Referring Provider Emergency Medicine; Visit Provider Student in an Organized Health Care Education/Training Program
DX: E10.10 Type 1 diabetes mellitus with ketoacidosis without coma (principal); J45.21 Mild intermittent asthma with (acute) exacerbation; Z79.4 Long term (current) use of insulin; Z72.0 Tobacco use; Z11.59 Encounter for screening for other viral diseases
CPT/HCPCS: 36415; 71045; 80048; 80053; 81003; 81015; 81025; 82550; 82805; 82962; 83605; 83690; 83735; 84145; 84484; 85025; 85379; 87633; 93005; 93010; 94640; 94762; 96365; 96366; 96368; 96372; 99284; G0378; J1815; J7613

== ENCOUNTER 2024-01-23 16:09 | Emergency (ER) | payer OTHER, MEDICAID, SELFPAY ==
[2024-01-23] VITALS (7 sets, daily range): BP systolic 98–123; BP diastolic 57–78; PULSE 90–125; RESP 16–33; TEMP 36.9; O2SAT 93–97; BMI 22.1
[2024-01-23 16:45] LABS: Add Manual Diff / Slide Review NO; Basophils Absolute Auto 0 /uL (0-100); Basophils Percent Auto 0.3 % (0-2); Eosinophils Absolute Auto 400 /uL (0-450); Eosinophils Percent Auto 6.3 % (2-4); Hematocrit 38.1 % (36-46); Hemoglobin 12.9 g/dL (12.0-16.0); Lymphocytes Absolute Auto 2400 /uL (1100-4500); Lymphocytes Percent Auto 41.4 % (25-40); Mean Corpuscular HGB Conc 33.8 % (30-36); Mean Corpuscular Volume 94.8 fL (80-100); Monocytes Absolute Auto 300 /uL (0-900); Monocytes Percent Auto 4.3 % (3-14); Neutrophils Absolute Auto 2800 /uL (1500-7000); Neutrophils Percent Auto 47.7 % (50-75); Platelet Count 165 X10^3/uL (150-400); Red Blood Cell Count 4.02 X10^6/uL (4.0-5.2); Red Cell Distribution Width 12.6 % (11.6-14.8); White Blood Cell Count 5.9 X10^3/uL (4.5-11.0)
[2024-01-23] MEDS: SODIUM CHLORIDE 0.9% 1,000 ML 1000 ML IV (16:50)
[2024-01-23 16:51] LABS: Appearance Urine UA CLEAR; Bilirubin Urine UA NEGATIVE (NEGATIVE); Color Urine UA YELLOW; Glucose Urine UA 3+ g/dL (Negative); Ketones Urine UA NEGATIVE (NEGATIVE); Leukocyte Esterase Urine UA NEGATIVE (NEGATIVE); Nitrite Urine UA NEGATIVE (Negative); Occult Blood Urine UA NEGATIVE (Negative); Protein Urine UA NEGATIVE (Negative); Specific Gravity Urine UA <=1.005 (1.000-1.035); Urobilinogen Urine UA 0.2 E.U./dL (0.2)
[2024-01-23 16:56] LABS: pH Urine UA 5.5 (4.5-8.0)
[2024-01-23 17:01] LABS: Alanine Aminotransferase 22 IU/L (<35); Albumin 4.2 g/dL (3.5-5.0); Albumin Globulin Ratio 1.3 (1.0-2.8); Alkaline Phosphatase 112 U/L (38-126); Aspartate Aminotransferase 26 IU/L (14-36); BUN Creatinine Ratio 13.5 (6-22); Bilirubin Total 0.5 mg/dL (0.2-1.3); Blood Urea Nitrogen 5 mg/dL (7-17); Calcium 9.5 mg/dL (8.4-10.2); Carbon Dioxide 22 mmol/L (22-32); Chloride 103 mmol/L (98-107); Estimated Glomerular Filt Rate > 60 mL/min (>60); Globulin 3.3 g/dL (1.7-4.1); Glucose 427 mg/dL (70-100); HEMOLYSIS < 15 (0-50); Potassium 3.7 mmol/L (3.4-5.1); Sodium 137 mmol/L (137-145); Total Protein 7.5 g/dL (6.3-8.2)
[2024-01-23 17:01] LABS: pH VBG 7.38 (7.33-7.43)
[2024-01-23 17:02] LABS: HCO3 VBG 22 mmol/L (24-28); PCO2 VBG 37.2 mmHg (45-50); PO2 VBG 43 mmHg (35-45)
[2024-01-23 17:02] LABS: Ketones (Beta-Hydroxybutyrate) 0.16 mmol/L (<0.27)
[2024-01-23 17:03] LABS: Fractionated Inspired Oxygen 21; Oxygen Saturation VBG 78 % (70-75); Total CO2 VBG 23 mmol/L (24-29)
[2024-01-23 17:16] LABS: Bacteria Urine None Seen; Culture Indicated Urine Cult Not Indicated; RBC Urine None Seen (0-5/HPF); Squamous Epithelial Cell Urine None Seen (0-5/HPF); Urine Volume 10mL (spun); WBC Urine None Seen (0-5/HPF)
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
== END 2024-01-23 18:45 | disposition home or self-care (01) ==
PROVIDERS: Emergency Medicine; Emergency Provider Emergency Medicine; PCP Nurse Practitioner Family
DX: E10.65 Type 1 diabetes mellitus with hyperglycemia (principal); M25.551 Pain in right hip
CPT/HCPCS: 36415; 80053; 81001; 81025; 82009; 82805; 82962; 85025; 96360; 99284

== ENCOUNTER 2024-05-25 23:17 | Emergency (ER) | payer OTHER, MEDICAID, SELFPAY ==
[2024-05-26] VITALS (8 sets, daily range): BP systolic 97–115; BP diastolic 53–80; PULSE 81–99; RESP 20–28; TEMP 37.1; O2SAT 94–99; BMI 20.7
[2024-05-26 00:43] LABS: Add Manual Diff / Slide Review NO; Basophils Absolute Auto 0 /uL (0-100); Basophils Percent Auto 0.5 % (0-2); Eosinophils Absolute Auto 300 /uL (0-450); Hematocrit 39.8 % (36-46); Hemoglobin 13.5 g/dL (12.0-16.0); Lymphocytes Absolute Auto 2400 /uL (1100-4500); Lymphocytes Percent Auto 44.9 % (25-40); Mean Corpuscular Hemoglobin 32.9 PG (26-34); Mean Corpuscular Volume 96.8 fL (80-100); Monocytes Absolute Auto 400 /uL (0-900); Monocytes Percent Auto 7.7 % (3-14); Neutrophils Absolute Auto 2200 /uL (1500-7000); Neutrophils Percent Auto 40.9 % (50-75); Platelet Count 193 X10^3/uL (150-400); Red Blood Cell Count 4.11 X10^6/uL (4.0-5.2); Red Cell Distribution Width 12.2 % (11.6-14.8); White Blood Cell Count 5.4 X10^3/uL (4.5-11.0)
[2024-05-26 00:54] LABS: Alanine Aminotransferase 17 IU/L (<35); Albumin 4.5 g/dL (3.5-5.0); Albumin Globulin Ratio 1.4 (1.0-2.8); Alkaline Phosphatase 123 U/L (38-126); Aspartate Aminotransferase 27 IU/L (14-36); Bilirubin Total 1.1 mg/dL (0.2-1.3); Blood Urea Nitrogen 9 mg/dL (7-17); Carbon Dioxide 23 mmol/L (22-32); Chloride 100 mmol/L (98-107); Estimated Glomerular Filt Rate > 60 mL/min (>60); Globulin 3.3 g/dL (1.7-4.1); HEMOLYSIS < 15 (0-50); Lipase 81 U/L (23-300); Potassium 4.6 mmol/L (3.4-5.1); Sodium 132 mmol/L (137-145); Total Protein 7.8 g/dL (6.3-8.2)
[2024-05-26 00:59] LABS: Glucose 512 mg/dL (70-100)
--- NOTE | 2024-05-26 01:01 | PC.NURSE ---
Pt is a Type 1 Diabetic, last ate around 6 pm 05/25/24 at that same time she did take insulin, unsure on dosing. She states that all day yesterday after going to a fair/carnival she started to feel ill. She reports falling a few times, sometimes without warning. Recent diagnosis of COPD.
[2024-05-26] MEDS: SODIUM CHLORIDE 0.9% 1,000 ML 1000 ML IV (01:10)
[2024-05-26 01:35] LABS: Ketones (Beta-Hydroxybutyrate) 1.84 mmol/L (<0.27)
[2024-05-26 02:32] LABS: Bacteria Urine None Seen; Culture Indicated Urine Cult Not Indicated; RBC Urine None Seen (0-5/HPF); Squamous Epithelial Cell Urine None Seen (0-5/HPF); Urine Volume 10mL (spun); WBC Urine None Seen (0-5/HPF)
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
[2024-05-26] MEDS: KETOROLAC 30 MG/ML VIAL 15 MG IV (03:50)
[2024-05-26] MEDS: MECLIZINE HCL 12.5 MG TABLET 25 MG PO (03:50)
[2024-05-26 04:13] LABS: Hemoglobin A1C% w Est Avg Glu 10.8 % (4.0-6.0)
== END 2024-05-26 04:06 | disposition home or self-care (01) ==
PROVIDERS: Emergency Provider Emergency Medicine; PCP Nurse Practitioner Family
DX: E10.65 Type 1 diabetes mellitus with hyperglycemia (principal); R42 Dizziness and giddiness; R11.2 Nausea with vomiting, unspecified
CPT/HCPCS: 36415; 80053; 81003; 81015; 81025; 82009; 83036; 83605; 83690; 85025; 96361; 96374; 99284; J1885

== ENCOUNTER 2024-06-14 13:04 | Emergency (ER) | payer OTHER, MEDICAID, SELFPAY ==
[2024-06-14 13:29] VITALS: BP 125/79; PULSE 94; RESP 18; TEMP 36.7; O2SAT 100; BMI 20.7
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
[2024-06-14 16:49] VITALS: BP 102/62; PULSE 77; RESP 16; O2SAT 100
== END 2024-06-14 16:50 | disposition home or self-care (01) ==
PROVIDERS: Emergency Provider Emergency Medicine; PCP Nurse Practitioner Family
DX: L60.0 Ingrowing nail (principal)
CPT/HCPCS: 11730; 11750; 64450; 99281; 99283

== ENCOUNTER 2024-07-25 11:37 | Emergency (ER) | payer OTHER, MEDICAID, SELFPAY ==
[2024-07-25 11:38] VITALS: BP 115/81; PULSE 86; RESP 14; TEMP 36.7; O2SAT 97; BMI 21.4
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
[2024-07-25 12:20] LABS: Add Manual Diff / Slide Review NO; Basophils Absolute Auto 0 /uL (0-100); Basophils Percent Auto 0.4 % (0-2); Eosinophils Absolute Auto 300 /uL (0-450); Eosinophils Percent Auto 6.6 % (2-4); Hematocrit 37.8 % (36-46); Hemoglobin 12.6 g/dL (12.0-16.0); Lymphocytes Absolute Auto 2200 /uL (1100-4500); Lymphocytes Percent Auto 48.6 % (25-40); Mean Corpuscular HGB Conc 33.4 % (30-36); Mean Corpuscular Hemoglobin 32.8 PG (26-34); Mean Corpuscular Volume 98.2 fL (80-100); Monocytes Absolute Auto 300 /uL (0-900); Monocytes Percent Auto 6.9 % (3-14); Neutrophils Absolute Auto 1700 /uL (1500-7000); Neutrophils Percent Auto 37.5 % (50-75); Platelet Count 139 X10^3/uL (150-400); Red Blood Cell Count 3.85 X10^6/uL (4.0-5.2); Red Cell Distribution Width 12.7 % (11.6-14.8); White Blood Cell Count 4.5 X10^3/uL (4.5-11.0)
[2024-07-25] MEDS: methylPREDNISolone 125 MG/2 ML VIAL IV (12:30)
[2024-07-25] MEDS: diphenhydrAMINE 50 MG/ML VIAL 25 MG IV (12:31)
[2024-07-25 12:33] LABS: BUN Creatinine Ratio 19.1 (6-22); Blood Urea Nitrogen 9 mg/dL (7-17); Calcium 8.3 mg/dL (8.4-10.2); Carbon Dioxide 22 mmol/L (22-32); Chloride 110 mmol/L (98-107); Estimated Glomerular Filt Rate > 60 mL/min (>60); Glucose 102 mg/dL (70-100); HEMOLYSIS < 15 (0-50); Magnesium 1.7 mg/dL (1.6-2.3); Potassium 3.8 mmol/L (3.4-5.1); Sodium 138 mmol/L (137-145)
[2024-07-25 12:45] VITALS: BP 117/78; PULSE 83; RESP 16; TEMP 37.1; O2SAT 100
[2024-07-25 13:11] VITALS: BP 113/71; PULSE 82; RESP 18; O2SAT 99
== END 2024-07-25 13:14 | disposition home or self-care (01) ==
PROVIDERS: Emergency Provider Student in an Organized Health Care Education/Training Program; PCP Nurse Practitioner Family
DX: T78.3XXA Angioneurotic edema, initial encounter (principal); T78.40XA Allergy, unspecified, initial encounter
CPT/HCPCS: 36415; 80048; 83735; 85025; 96374; 96375; 99284; J1200; J2919

== ENCOUNTER 2024-09-29 18:32 | Emergency (ER) | payer OTHER, MEDICAID, SELFPAY ==
[2024-09-29] VITALS (26 sets, daily range): BP systolic 115–152; BP diastolic 63–96; PULSE 101–142; RESP 18–40; TEMP 37.1; O2SAT 91–96; BMI 21.2
--- NOTE | 2024-09-29 18:41 | EKG_ITS ---
[place] [id number] [place] [id number] Test Date: 2024-09-29 Pat Name: Nettie Stone Department: [facility] Room: Gender: Female Moisture Meter Reader: : 2000 Requested By: Order Number: [id number] Reading MD: Narayan Camp MD Measurements Intervals [place] Rate: 144 P: 80 OR: 122 QRS: 83 QRSD: 84 T: 57 QT: 356 QTc: 551 Interpretive Statements Sinus tachycardia Possible Left atrial enlargement Cannot rule out Anterior infarct , age undetermined Electronically Signed On 09-30-2024 8:03:21 PST by Narayan Camp MD
--- NOTE | 2024-09-29 18:41 | DI.RAD.S_ITS ---
PROCEDURE: XR CHEST 1V INDICATIONS: Shortness of breath TECHNIQUE: One view of the chest was acquired. COMPARISON: [facility], JOHN, XR CHEST 1V, 10/18/2023, 11:55. [facility], CR, XR CHEST 1V, 09/09/2023, 9:58. FINDINGS: Surgical changes and devices: None. Lungs and pleura: Lungs are clear. No pleural effusions or pneumothorax. Mediastinum: Mediastinal contours appear normal. Heart size is normal. Bones and chest wall: No suspicious bony lesions. Overlying soft tissues appear unremarkable. IMPRESSION: No acute cardiopulmonary abnormality is seen. Approved by: Osmin Mtz M.D. on 09/29/2024 at 19:37
[2024-09-29] MEDS: ALBUTEROL/IPRATROPIUM 3 ML AMPUL INH ×2 (18:50)
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
[2024-09-29] MEDS: methylPREDNISolone 125 MG/2 ML VIAL IV (18:56)
[2024-09-29 19:05] LABS: Add Manual Diff / Slide Review NO; Basophils Absolute Auto 100 /uL (0-100); Basophils Percent Auto 0.4 % (0-2); Eosinophils Absolute Auto 1600 /uL (0-450); Eosinophils Percent Auto 12.2 % (2-4); Hemoglobin 15.2 g/dL (12.0-16.0); Lymphocytes Absolute Auto 3500 /uL (1100-4500); Lymphocytes Percent Auto 27.1 % (25-40); Mean Corpuscular Hemoglobin 32.1 PG (26-34); Mean Corpuscular Volume 97.4 fL (80-100); Monocytes Absolute Auto 1000 /uL (0-900); Monocytes Percent Auto 7.7 % (3-14); Neutrophils Absolute Auto 6800 /uL (1500-7000); Neutrophils Percent Auto 52.6 % (50-75); Platelet Count 294 X10^3/uL (150-400); Red Blood Cell Count 4.72 X10^6/uL (4.0-5.2); Red Cell Distribution Width 13.3 % (11.6-14.8)
[2024-09-29] MEDS: MAGNESIUM SULFATE 2 GM/50 ML PIGGYBACK IV (19:12)
[2024-09-29 19:14] LABS: Lactate (Lactic Acid) 3.4 mmol/L (0.7-2.1)
[2024-09-29 19:26] LABS: HEMOLYSIS < 15 (0-50); NT-proBNP (BNP-Adult 18+) < 20 pg/mL (<125); Troponin I < 0.012 ng/mL (0.01-0.034)
[2024-09-29 19:34] LABS: Alanine Aminotransferase 19 IU/L (<35); Albumin 4.6 g/dL (3.5-5.0); Albumin Globulin Ratio 1.2 (1.0-2.8); Alkaline Phosphatase 79 U/L (38-126); Aspartate Aminotransferase 23 IU/L (14-36); BUN Creatinine Ratio 11.1 (6-22); Bilirubin Total 0.5 mg/dL (0.2-1.3); Blood Urea Nitrogen 6 mg/dL (7-17); Calcium 9.2 mg/dL (8.4-10.2); Carbon Dioxide 24 mmol/L (22-32); Chloride 105 mmol/L (98-107); Estimated Glomerular Filt Rate > 60 mL/min (>60); Glucose 147 mg/dL (70-100); Potassium 3.6 mmol/L (3.4-5.1); Sodium 140 mmol/L (137-145); Total Protein 8.6 g/dL (6.3-8.2)
[2024-09-29 19:49] LABS: Magnesium 1.8 mg/dL (1.6-2.3); Phosphorous 3.3 mg/dL (2.5-4.5); Pregnancy Test Serum,Qual Negative (Negative)
[2024-09-29] MEDS: ALBUTEROL 2.5 MG/3 ML NEB (ADULT) 5 MG INH ×2 (19:49→21:20)
[2024-09-29 20:07] LABS: Procalcitonin 0.046 ng/mL (<0.5)
[2024-09-29 20:22] LABS: Reflexed Lactate in 2 Hours Y
--- NOTE | 2024-09-29 20:43 | PC.NURSE ---
Rpt lactate drawn from existing IV line.
--- NOTE | 2024-09-29 20:50 | PC.NURSE ---
Pt states I am feeling much more comfortable!
[2024-09-29 21:07] LABS: Lactate 2HR (Lactic Acid Rflx) 2.6 mmol/L (0.7-2.1)
--- NOTE | 2024-09-29 21:10 | RT ---
2014 -while getting breathing pt (on aerogen in-line), pt rolled over in bed and lost part of the breathing treatment. She did not get the entire 5 mg dose of albuterol. Currently on HF, tolerating well.
--- NOTE | 2024-09-29 21:51 | PC.NURSE ---
RT at bedside to remove high flow O2
--- NOTE | 2024-09-29 22:58 | PC.NURSE ---
Pt able to ambulate and maintain pulse ox 93-94%. Dr. Graham informed.
--- NOTE | 2024-09-30 01:13 | RT ---
Pt off HF and on room-air trial at 2152 on 09/29/24. Tolerating well. SpO2 94%, HR 111 BPM.
== END 2024-09-29 23:33 | disposition home or self-care (01) ==
PROVIDERS: Emergency Provider Emergency Medicine; PCP Nurse Practitioner Family
DX: R06.03 Acute respiratory distress (principal); J44.9 Chronic obstructive pulmonary disease, unspecified; R00.0 Tachycardia, unspecified; R79.89 Other specified abnormal findings of blood chemistry
CPT/HCPCS: 36415; 71045; 80053; 82962; 83605; 83735; 83880; 84100; 84145; 84484; 84703; 85025; 85610; 93005; 93010; 94640; 96365; 96375; 99284; J2919; J3475; J7613

== ENCOUNTER 2024-11-10 14:21 | Emergency (ER) | payer OTHER, SELFPAY ==
--- NOTE | 2024-11-10 15:09 | PC.NURSE ---
Patient called a few times. Not found in waiting room. This RN attempts to call again. Patient not in waiting room.
== END 2024-11-10 15:10 | disposition left against medical advice (07) ==
PROVIDERS: Emergency Provider Emergency Medicine; PCP Nurse Practitioner Family

== ENCOUNTER 2024-11-23 11:40 | Emergency (ER) | payer OTHER, SELFPAY ==
[2024-11-23] VITALS (21 sets, daily range): BP systolic 107–131; BP diastolic 58–84; PULSE 84–130; RESP 22–34; TEMP 36.7–36.9; O2SAT 94–99; BMI 23.0
--- NOTE | 2024-11-23 12:18 | DI.RAD.S_ITS ---
PROCEDURE: XR CHEST 1V INDICATIONS: DKA TECHNIQUE: One view of the chest was acquired. COMPARISON: [facility], CR, XR CHEST 1V, 09/29/2024, 18:45. [facility], CR, XR CHEST 1V, 10/18/2023, 11:55. FINDINGS: Surgical changes and devices: None. Lungs and pleura: Lungs are clear. No pleural effusions or pneumothorax. Mediastinum: Mediastinal contours appear normal. Heart size is normal. Bones and chest wall: No suspicious bony lesions. Overlying soft tissues appear unremarkable. IMPRESSION: No acute cardiopulmonary abnormality is seen. Dictated by: Grey Cedillo M.D. on 11/23/2024 at 13:21 Approved by: Grey Cedillo M.D. on 11/23/2024 at 13:22
[2024-11-23 12:38] LABS: Add Manual Diff / Slide Review NO; Appearance Urine UA CLEAR; Basophils Absolute Auto 0 /uL (0-100); Basophils Percent Auto 0.2 % (0-2); Bilirubin Urine UA NEGATIVE (NEGATIVE); Color Urine UA YELLOW; Eosinophils Absolute Auto 0 /uL (0-450); Eosinophils Percent Auto 0.2 % (2-4); Glucose Urine UA 2+ g/dL (Negative); Hematocrit 43.6 % (36-46); Hemoglobin 14.4 g/dL (12.0-16.0); Ketones Urine UA 3+ (NEGATIVE); Leukocyte Esterase Urine UA NEGATIVE (NEGATIVE); Lymphocytes Absolute Auto 1200 /uL (1100-4500); Lymphocytes Percent Auto 12.2 % (25-40); Mean Corpuscular HGB Conc 33.2 % (30-36); Mean Corpuscular Hemoglobin 32.5 PG (26-34); Mean Corpuscular Volume 97.9 fL (80-100); Monocytes Absolute Auto 700 /uL (0-900); Neutrophils Absolute Auto 8200 /uL (1500-7000); Neutrophils Percent Auto 80.4 % (50-75); Nitrite Urine UA NEGATIVE (Negative); Occult Blood Urine UA NEGATIVE (Negative); Platelet Count 181 X10^3/uL (150-400); Protein Urine UA NEGATIVE (Negative); Red Blood Cell Count 4.45 X10^6/uL (4.0-5.2); Red Cell Distribution Width 13.2 % (11.6-14.8); Specific Gravity Urine UA 1.025 (1.000-1.035); Urobilinogen Urine UA 0.2 E.U./dL (0.2); White Blood Cell Count 10.2 X10^3/uL (4.5-11.0)
[2024-11-23] MEDS: SODIUM CHLORIDE 0.9% 1,000 ML 1000 ML IV (12:38)
[2024-11-23 12:42] LABS: Base Excess VBG -11.7 mmol/L (0-4); HCO3 VBG 13 mmol/L (24-28); Oxygen Saturation VBG 85 % (70-75); PCO2 VBG 27.2 mmHg (45-50); PO2 VBG 54 mmHg (35-45); Total CO2 VBG 13 mmol/L (24-29); pH VBG 7.29 (7.33-7.43)
[2024-11-23 12:44] LABS: Urine Volume 10mL (spun); pH Urine UA 5.5 (4.5-8.0)
[2024-11-23 12:45] LABS: Bacteria Urine None Seen; Culture Indicated Urine Cult Not Indicated; RBC Urine None Seen (0-5/HPF); Squamous Epithelial Cell Urine 1-5 /HPF (0-5/HPF); WBC Urine None Seen (0-5/HPF)
[2024-11-23 12:50] LABS: Alanine Aminotransferase 31 IU/L (<35); Albumin 4.7 g/dL (3.5-5.0); Albumin Globulin Ratio 1.1 (1.0-2.8); Alkaline Phosphatase 89 U/L (38-126); Aspartate Aminotransferase 37 IU/L (14-36); BUN Creatinine Ratio 12.3 (6-22); Bilirubin Total 1.2 mg/dL (0.2-1.3); Blood Urea Nitrogen 8 mg/dL (7-17); Calcium 9.4 mg/dL (8.4-10.2); Carbon Dioxide 11 mmol/L (22-32); Chloride 106 mmol/L (98-107); Estimated Glomerular Filt Rate > 60 mL/min (>60); Globulin 4.1 g/dL (1.7-4.1); Glucose 315 mg/dL (70-100); HEMOLYSIS 25 (0-50); Lactate (Lactic Acid) 3.7 mmol/L (0.7-2.1); Potassium 3.8 mmol/L (3.4-5.1); Sodium 134 mmol/L (137-145); Total Protein 8.8 g/dL (6.3-8.2)
[2024-11-23 12:57] LABS: Ketones (Beta-Hydroxybutyrate) 2.82 mmol/L (<0.27)
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
[2024-11-23] MEDS: ONDANSETRON 4 MG/2 ML INJ IV (13:36)
[2024-11-23] MEDS: PANTOPRAZOLE 40 MG VIAL IV (13:36)
[2024-11-23] MEDS: KETOROLAC 30 MG/ML VIAL 15 MG IV (13:37)
[2024-11-23] MEDS: KCL 20 MEQ IN NS 1,000 ML 125 MEQ IV (13:44)
[2024-11-23 13:53] LABS: COVID-19 CEPHEID 4-PLEX PCR Negative (Negative); Influenza A - CEPHEID Flu A NEGATIVE (NEGATIVE); Influenza B - CEPHEID Flu B NEGATIVE (NEGATIVE); Respiratory Syncytial Virus Negative (Negative)
[2024-11-23] MEDS: INSULIN DRIP PREMIX 100 UNIT/100 ML PLAST..BAG 5.897 UNIT IV (13:53)
[2024-11-23 14:07] LABS: Reflexed Lactate in 2 Hours Y
--- NOTE | 2024-11-23 14:20 | PC.NURSE ---
Pt was started on IV insulin. Fingerstick BG obtained and BG had dropped since arrival. Rechecked fingerstick BG to check for accuracy and pt's BG 159 @ 1420. She initially reported her pump this morning. 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 Dr. Bowles notified. Repeat BMP and lactate ordered. IV insulin stopped until repeat labs result. Pt on q30 BG checks.
[2024-11-23 15:26] LABS: BUN Creatinine Ratio 15.4 (6-22); Blood Urea Nitrogen 8 mg/dL (7-17); Calcium 8.5 mg/dL (8.4-10.2); Carbon Dioxide 15 mmol/L (22-32); Chloride 111 mmol/L (98-107); Estimated Glomerular Filt Rate > 60 mL/min (>60); Glucose 151 mg/dL (70-100); HEMOLYSIS 21 (0-50); Lactate 2HR (Lactic Acid Rflx) 1.6 mmol/L (0.7-2.1); Potassium 3.9 mmol/L (3.4-5.1); Sodium 135 mmol/L (137-145)
[2024-11-23] MEDS: DEXTROSE 5%-0.45NS W/KCL 20MEQ 1,000 ML 125 MEQ IV (15:53)
--- NOTE | 2024-11-23 18:40 | PC.NURSE ---
Flushed IV with 2x NS syringe prior to drawing waste off of her right AC. Then moshe pt's repeat BMP, sent and labeled to lab.
[2024-11-23 19:07] LABS: BUN Creatinine Ratio 14.3 (6-22); Blood Urea Nitrogen 7 mg/dL (7-17); Calcium 8.3 mg/dL (8.4-10.2); Carbon Dioxide 18 mmol/L (22-32); Chloride 112 mmol/L (98-107); Estimated Glomerular Filt Rate > 60 mL/min (>60); Glucose 112 mg/dL (70-100); HEMOLYSIS 19 (0-50); Potassium 3.6 mmol/L (3.4-5.1); Sodium 135 mmol/L (137-145)
--- NOTE | 2024-11-23 19:20 | PC.NURSE ---
Provider at bedside to updated patient. Pt's cgm reading 70mg/dl. Fingerstick reads 69mg/dl. Provider states stop IV infusions of insulin and dextrose and allow patient to drink PO juice. Pt denies nausea. Pt able to drink 1x orange juice and eat 2x cheese sticks. BG checks [id number].
== END 2024-11-23 20:29 | disposition home or self-care (01) ==
PROVIDERS: Emergency Provider Emergency Medicine; PCP Nurse Practitioner Family
DX: E10.10 Type 1 diabetes mellitus with ketoacidosis without coma (principal); Z96.41 Presence of insulin pump (external) (internal)
CPT/HCPCS: 87635; 87400 ×2; 87420; 0241U; 36415; 71045; 80048; 80053; 81001; 81025; 82009; 82805; 82962; 83605; 85025; 87040; 96365; 96366; 96367; 96368; 96375; 99284; J1885; J2405; J2470

== ENCOUNTER 2024-11-27 14:56 | Emergency (ER) | payer OTHER, SELFPAY ==
[2024-11-27] VITALS (7 sets, daily range): BP systolic 106–123; BP diastolic 61–74; PULSE 86–106; RESP 21–29; TEMP 37.3; O2SAT 95–98; BMI 23.0
--- NOTE | 2024-11-27 15:14 | EKG_ITS ---
[address] [address] Test Date: 2024-11-27 Pat Name: Nettie Stone Department: Room: Gender: Female Web Site Developer: MAGDALENA : 2000 Requested By: Order Number: [id number] Reading MD: Az Duckworth Measurements Intervals [place] Rate: 89 P: 53 MN: 120 QRS: 75 QRSD: 90 T: 50 QT: 382 QTc: 464 Interpretive Statements Normal sinus rhythm RSR' or QR pattern in V1 suggests right ventricular conduction delay Electronically Signed On 11-28-2024 17:04:12 PST by Az Duckworth
--- NOTE | 2024-11-27 15:15 | DI.RAD.S_ITS ---
PROCEDURE: XR CHEST 1V INDICATIONS: chest pain TECHNIQUE: One view of the chest was acquired. COMPARISON: [facility], CR, XR CHEST 1V, 11/23/2024, 12:19. FINDINGS: Surgical changes and devices: None. Lungs and pleura: Lungs are clear. No pleural effusions or pneumothorax. Mediastinum: Mediastinal contours appear normal. Heart size is normal. Bones and chest wall: No suspicious bony lesions. Overlying soft tissues appear unremarkable. IMPRESSION: No acute cardiopulmonary abnormality is seen. Dictated by: Bola Salinas M.D. on 11/27/2024 at 15:37 Approved by: Bola Salinas M.D. on 11/27/2024 at 15:38
[2024-11-27 15:42] LABS: Add Manual Diff / Slide Review NO; Basophils Absolute Auto 100 /uL (0-100); Basophils Percent Auto 0.4 % (0-2); Eosinophils Absolute Auto 0 /uL (0-450); Eosinophils Percent Auto 0.2 % (2-4); Hematocrit 36.1 % (36-46); Hemoglobin 12.2 g/dL (12.0-16.0); Lymphocytes Absolute Auto 1300 /uL (1100-4500); Lymphocytes Percent Auto 8.2 % (25-40); Mean Corpuscular HGB Conc 33.7 % (30-36); Mean Corpuscular Hemoglobin 32.2 PG (26-34); Mean Corpuscular Volume 95.7 fL (80-100); Monocytes Absolute Auto 1000 /uL (0-900); Monocytes Percent Auto 6.2 % (3-14); Neutrophils Absolute Auto 13400 /uL (1500-7000); Platelet Count 184 X10^3/uL (150-400); Red Blood Cell Count 3.77 X10^6/uL (4.0-5.2); Red Cell Distribution Width 12.7 % (11.6-14.8); White Blood Cell Count 15.7 X10^3/uL (4.5-11.0)
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
[2024-11-27 15:58] LABS: Ethanol (ETOH) < 10 mg/dL
[2024-11-27 15:59] LABS: Alanine Aminotransferase 17 IU/L (<35); Albumin 3.8 g/dL (3.5-5.0); Albumin Globulin Ratio 1.1 (1.0-2.8); Alkaline Phosphatase 115 U/L (38-126); Aspartate Aminotransferase 21 IU/L (14-36); BUN Creatinine Ratio 14.5 (6-22); Bilirubin Total 0.8 mg/dL (0.2-1.3); Blood Urea Nitrogen 8 mg/dL (7-17); Carbon Dioxide 17 mmol/L (22-32); Chloride 107 mmol/L (98-107); Estimated Glomerular Filt Rate > 60 mL/min (>60); Globulin 3.6 g/dL (1.7-4.1); Glucose 292 mg/dL (70-100); HEMOLYSIS 26 (0-50); Lipase 36 U/L (23-300); Magnesium 1.7 mg/dL (1.6-2.3); Phosphorous 2.4 mg/dL (2.5-4.5); Potassium 4.1 mmol/L (3.4-5.1); Pregnancy Test Serum,Qual Negative (Negative); Sodium 134 mmol/L (137-145); Total Protein 7.4 g/dL (6.3-8.2)
[2024-11-27 16:00] LABS: Lactate (Lactic Acid) 1.4 mmol/L (0.7-2.1)
[2024-11-27] MEDS: SODIUM CHLORIDE 0.9% 1,000 ML 150 ML IV (16:01)
[2024-11-27] MEDS: HYDROMORPHONE 1 MG INJ IV (16:01)
[2024-11-27 16:10] LABS: Base Excess VBG -3.8 mmol/L (0-4); HCO3 VBG 17 mmol/L (24-28); Oxygen Saturation VBG 98 % (70-75); PCO2 VBG 19.7 mmHg (45-50); PO2 VBG 82 mmHg (35-45); Total CO2 VBG 16 mmol/L (24-29); pH VBG 7.53 (7.33-7.43)
[2024-11-27 16:15] LABS: Procalcitonin 0.112 ng/mL (<0.5)
[2024-11-27 16:17] LABS: Ketones (Beta-Hydroxybutyrate) 1.08 mmol/L (<0.27)
[2024-11-27 16:18] LABS: D Dimer 420 ng/ml (<500)
== END 2024-11-27 17:31 | disposition home or self-care (01) ==
PROVIDERS: Emergency Provider Emergency Medicine; PCP Nurse Practitioner Family
DX: M54.2 Cervicalgia (principal); R07.9 Chest pain, unspecified; E10.9 Type 1 diabetes mellitus without complications; Z79.4 Long term (current) use of insulin
CPT/HCPCS: 36415; 71045; 80053; 80320; 82009; 82805; 83605; 83690; 83735; 84100; 84145; 84703; 85025; 85379; 93005; 96374; 99284; J1171

== ENCOUNTER 2024-12-28 09:38 | Observation (INO) | payer OTHER, SELFPAY ==
[2024-12-28] VITALS (37 sets, daily range): BP systolic 95–128; BP diastolic 52–72; PULSE 99–141; RESP 0–39; TEMP 36.9–37.4; O2SAT 89–98; BMI 21.2
--- NOTE | 2024-12-28 09:49 | DI.RAD.S_ITS ---
PROCEDURE: XR CHEST 1V INDICATIONS: Shortness of breath TECHNIQUE: One view of the chest was acquired. COMPARISON: [facility], , XR CHEST 1V, 11/27/2024, 15:11. [facility], CR, XR CHEST 1V, 11/23/2024, 12:19. FINDINGS: Surgical changes and devices: None. Lungs and pleura: Lungs are clear. No pleural effusions or pneumothorax. Peribronchial cuffing. Mediastinum: Mediastinal contours appear normal. Heart size is normal. Bones and chest wall: No suspicious bony lesions. Overlying soft tissues appear unremarkable. IMPRESSION: Peribronchial cuffing, typically indicating infectious or inflammatory bronchitis. Dictated by: Severiano Langston M.D. on 12/28/2024 at 10:14 Approved by: Severiano Langston M.D. on 12/28/2024 at 10:14
--- NOTE | 2024-12-28 09:49 | EKG_ITS ---
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
[2024-12-28] MEDS: ALBUTEROL/IPRATROPIUM 3 ML AMPUL INH (09:53)
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
--- NOTE | 2024-12-28 10:00 | PC.NURSE ---
Pt arrives to ER room 10 in respiratory distress. RR 35/min and shallow, accessory muscle use noted. RT called to room for eval and treat. notified and in room. vibration technician to room for cultures.
[2024-12-28] MEDS: MAGNESIUM SULFATE 2 GM/50 ML PIGGYBACK IV (10:01)
[2024-12-28] MEDS: methylPREDNISolone 125 MG/2 ML VIAL IV (10:01)
[2024-12-28 10:05] LABS: Base Excess VBG -5.9 mmol/L (0-4); HCO3 VBG 16 mmol/L (24-28); Oxygen Saturation VBG 87 % (70-75); PCO2 VBG 22.7 mmHg (45-50); PO2 VBG 49 mmHg (35-45); Total CO2 VBG 15 mmol/L (24-29); pH VBG 7.46 (7.33-7.43)
[2024-12-28] MEDS: SODIUM CHLORIDE 0.9% 1,000 ML 1000 ML IV ×2 (10:05→11:01)
[2024-12-28 10:09] LABS: Add Manual Diff / Slide Review NO; Basophils Absolute Auto 0 /uL (0-100); Basophils Percent Auto 0.3 % (0-2); Eosinophils Absolute Auto 100 /uL (0-450); Eosinophils Percent Auto 0.8 % (2-4); Hematocrit 37.1 % (36-46); Hemoglobin 12.5 g/dL (12.0-16.0); Lymphocytes Absolute Auto 800 /uL (1100-4500); Lymphocytes Percent Auto 9.9 % (25-40); Mean Corpuscular HGB Conc 33.8 % (30-36); Mean Corpuscular Hemoglobin 32.2 PG (26-34); Mean Corpuscular Volume 95.4 fL (80-100); Monocytes Absolute Auto 600 /uL (0-900); Monocytes Percent Auto 7.4 % (3-14); Neutrophils Absolute Auto 6900 /uL (1500-7000); Neutrophils Percent Auto 81.6 % (50-75); Platelet Count 156 X10^3/uL (150-400); Red Blood Cell Count 3.89 X10^6/uL (4.0-5.2); Red Cell Distribution Width 12.4 % (11.6-14.8); White Blood Cell Count 8.4 X10^3/uL (4.5-11.0)
[2024-12-28] MEDS: ALBUTEROL 2.5 MG/3 ML NEB (ADULT) 10 MG INH ×2 (10:10→12:17)
[2024-12-28 10:18] LABS: Prothrombin Time 11.3 SECONDS (9.4-12.5)
--- NOTE | 2024-12-28 10:22 | PC.NURSE ---
Pt on second round of albuterol. pt laying back in rney. RR 25 and deeper. Appears more comfortable. Eyes closed.
[2024-12-28 10:24] LABS: Alanine Aminotransferase 31 IU/L (<35); Albumin 4.3 g/dL (3.5-5.0); Albumin Globulin Ratio 1.3 (1.0-2.8); Alkaline Phosphatase 112 U/L (38-126); Aspartate Aminotransferase 33 IU/L (14-36); BUN Creatinine Ratio 19.6 (6-22); Bilirubin Total 0.4 mg/dL (0.2-1.3); Blood Urea Nitrogen 10 mg/dL (7-17); Calcium 8.9 mg/dL (8.4-10.2); Carbon Dioxide 15 mmol/L (22-32); Chloride 108 mmol/L (98-107); Estimated Glomerular Filt Rate > 60 mL/min (>60); Globulin 3.3 g/dL (1.7-4.1); Glucose 151 mg/dL (70-100); HEMOLYSIS < 15 (0-50); Potassium 3.3 mmol/L (3.4-5.1); Sodium 135 mmol/L (137-145); Total Protein 7.6 g/dL (6.3-8.2)
[2024-12-28 10:25] LABS: Lactate (Lactic Acid) 4.2 mmol/L (0.7-2.1)
--- NOTE | 2024-12-28 10:26 | PC.NURSE ---
Lactate 4.2 Dr Abebe notified.
[2024-12-28 10:36] LABS: NT-proBNP (BNP-Adult 18+) 192 pg/mL (<125); Troponin I < 0.012 ng/mL (0.01-0.034)
[2024-12-28 10:46] LABS: Ketones (Beta-Hydroxybutyrate) 0.13 mmol/L (<0.27)
--- NOTE | 2024-12-28 10:48 | DI.CT.S_ITS ---
PROCEDURE: CT ANGIO CHEST PE PROTOCOL INDICATIONS: chest pain, dm1, r/o pe TECHNIQUE: After the administration of intravenous contrast, 2 mm thick sections acquired from the pulmonary apices to the posterior costophrenic angles. 3-dimensional maximum intensity projection (MIP) coronal and sagittal reformats were then acquired through the thorax. For radiation dose reduction, the following was used: automated exposure control, adjustment of mA and/or kV according to patient size. COMPARISON: [facility], CT, CT ANGIO CHEST PE PROTOCOL, 06/29/2021, 20:36. FINDINGS: Image quality: Diagnostic. Pulmonary arteries: Pulmonary arteries are normal in size, and demonstrate no intraluminal filling defects to suggest central pulmonary embolism. Lower Neck: No enlarged lymph nodes. Thyroid: No thyroid nodules which require sonographic follow up, per consensus guidelines. Axillae: No enlarged lymph nodes. Chest Wall: Unremarkable. Bones: Unremarkable. Lungs and Pleura: No pneumothorax or pleural effusions. There is patchy, peripheral ground-glass in all lobes. Heart: Heart size is normal. No pericardial effusion. Thoracic Vessels: No aortic aneurysm. Mediastinum and Ashley: Enlarged mediastinal and hilar nodes Esophagus: No wall thickening. No hiatal hernia. Upper Abdomen: Visualized upper abdomen solid organs and bowel loops appear normal. IMPRESSION: No pulmonary embolus. Patchy, peripheral ground-glass in all lobes. Findings are concerning for atypical/viral pneumonia. Enlarged mediastinal and hilar lymph nodes, greater than expected for a reactive etiology. Differential includes sarcoidosis or lymphoma. Consider outpatient endobronchial biopsy for confirmation. Dictated by: Severiano Langston M.D. on 12/28/2024 at 11:30 Approved by: Severiano Langston M.D. on 12/28/2024 at 11:33
[2024-12-28] MEDS: MORPHINE 4 MG/ML INJ IV (10:55)
[2024-12-28] MEDS: POTASSIUM CHLORIDE 20 MEQ TAB 40 MEQ PO (10:55)
[2024-12-28 10:59] LABS: Adenovirus Not Detected (Not Detect); B. parapertussis Not Detected (Not Detecte); Bordetella pertussis Not Detected (Not Detect); Chlamydophila pneumoniae Not Detected (Not Detect); Coronavirus 229E Not Detected (Not Detect); Coronavirus HKU1 Not Detected (Not Detect); Coronavirus NL 63 Not Detected (Not Detect); Coronavirus OC43 Not Detected (Not Detect); Human Metapneumovirus Detected (Not Detect); Human Rhinovirus/Enterovirus Not Detected (Not Detect); Influenza A Not Detected (Not Detect); Influenza B Not Detected (Not Detect); Mycoplasma pneumoniae Not Detected (Not Detect); Parainfluenza Virus 1 Not Detected (Not Detect); Parainfluenza Virus 2 Not Detected (Not Detect); Parainfluenza Virus 3 Not Detected (Not Detect); Parainfluenza Virus 4 Not Detected (Not Detect); Respiratory Syncytial Virus Not Detected (Not Detect); SARS- CoV-2 Not Detected (Not Detecte)
[2024-12-28 11:11] LABS: Lipase 51 U/L (23-300)
[2024-12-28 11:28] LABS: Procalcitonin 0.177 ng/mL (<0.5)
[2024-12-28 11:39] LABS: Reflexed Lactate in 2 Hours Y
[2024-12-28 12:10] LABS: Lactate 2HR (Lactic Acid Rflx) 4.7 mmol/L (0.7-2.1)
--- NOTE | 2024-12-28 12:18 | PC.NURSE ---
Pt lactate 4.7. Dr Abebe notified.
[2024-12-28] MEDS: ACETAMINOPHEN 325 MG TABLET 650 MG PO (14:50)
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
[2024-12-28 16:31] LABS: MRSA (Nasal) PCR NOT DETECTED (Not Detect)
--- NOTE | 2024-12-28 17:29 | PC.NURSE ---
Admit Note Pt arrived to room 226 at 1403. SBA from stretcher to bed, reports feeling a little dizzy but was steady on feet and BP stable. ST in the 130s on arrival down to 110s at rest. Initially 93% on RA but then desatted to 89% so put on 2L NC with SpO2 increasing to 94%. Reports breathing improved from admit, breathing still appears somewhat labored and in the upper 20s. Wheezes throughout lung abrams. Reports inspiratory pain in chest, medicated with tylenol. Own insulin pump in use, on left side of abdomen. Insulin pump agreement signed by pt and pt instructed on use of insulin log, log placed at pt bedside. Cell phone, backpack, shoes, and clothing with pt. Oriented to room and to call light/bed/tv controls. Call light within reach.
[2024-12-28] MEDS: CODEINE/GUAIFENESIN LIQUID 5ML UDC 10 ML PO (18:17)
[2024-12-28 19:35] LABS: Blood Urea Nitrogen 6 mg/dL (7-17); Calcium 8.8 mg/dL (8.4-10.2); Carbon Dioxide 18 mmol/L (22-32); Chloride 108 mmol/L (98-107); Estimated Glomerular Filt Rate > 60 mL/min (>60); Glucose 215 mg/dL (70-100); HEMOLYSIS < 15 (0-50); Potassium 4.4 mmol/L (3.4-5.1); Sodium 135 mmol/L (137-145)
[2024-12-28 19:36] LABS: Lactate (Lactic Acid) 3.1 mmol/L (0.7-2.1)
[2024-12-28 20:56] LABS: Reflexed Lactate in 2 Hours Y
[2024-12-28 21:40] LABS: Lactate 2HR (Lactic Acid Rflx) 1.8 mmol/L (0.7-2.1)
[2024-12-29] VITALS (31 sets, daily range): BP systolic 124–131; BP diastolic 70–79; PULSE 70–140; RESP 14–55; TEMP 36.7–37.7; O2SAT 88–98
[2024-12-29] MEDS: INSULIN PUMP 1 REQUEST MISC (00:22)
[2024-12-29] MEDS: CODEINE/GUAIFENESIN LIQUID 5ML UDC 10 ML PO ×2 (00:36→08:25)
[2024-12-29] MEDS: ALBUTEROL 2.5 MG/3 ML NEB (ADULT) INH ×5 (01:01→11:04)
[2024-12-29] MEDS: ACETAMINOPHEN 325 MG TABLET 650 MG PO ×2 (04:05→11:04)
[2024-12-29 05:26] LABS: Add Manual Diff / Slide Review NO; Basophils Absolute Auto 0 /uL (0-100); Basophils Percent Auto 0.3 % (0-2); Eosinophils Absolute Auto 0 /uL (0-450); Eosinophils Percent Auto 0.1 % (2-4); Hematocrit 35.3 % (36-46); Lymphocytes Absolute Auto 1500 /uL (1100-4500); Lymphocytes Percent Auto 15.7 % (25-40); Mean Corpuscular HGB Conc 34.1 % (30-36); Mean Corpuscular Hemoglobin 32.3 PG (26-34); Mean Corpuscular Volume 94.6 fL (80-100); Monocytes Absolute Auto 900 /uL (0-900); Monocytes Percent Auto 9.1 % (3-14); Neutrophils Absolute Auto 7000 /uL (1500-7000); Neutrophils Percent Auto 74.8 % (50-75); Platelet Count 142 X10^3/uL (150-400); Red Blood Cell Count 3.73 X10^6/uL (4.0-5.2); Red Cell Distribution Width 12.6 % (11.6-14.8); White Blood Cell Count 9.4 X10^3/uL (4.5-11.0)
[2024-12-29 05:40] LABS: BUN Creatinine Ratio 13.7 (6-22); Blood Urea Nitrogen 7 mg/dL (7-17); Calcium 8.4 mg/dL (8.4-10.2); Carbon Dioxide 18 mmol/L (22-32); Chloride 110 mmol/L (98-107); Estimated Glomerular Filt Rate > 60 mL/min (>60); Glucose 153 mg/dL (70-100); HEMOLYSIS < 15 (0-50); Magnesium 1.8 mg/dL (1.6-2.3); Potassium 3.3 mmol/L (3.4-5.1); Sodium 137 mmol/L (137-145)
[2024-12-29] MEDS: ENOXAPARIN 40 MG/0.4 ML SYRINGE SUBCUT (08:25)
[2024-12-29] MEDS: predniSONE 20 MG TABLET 40 MG PO (08:25)
[2024-12-29] MEDS: SODIUM CHLORIDE 0.9% FLUSH 10 ML IV (08:25)
[2024-12-29] MEDS: ALBUTEROL/IPRATROPIUM 3 ML AMPUL INH ×2 (11:03→16:02)
[2024-12-29] MEDS: POTASSIUM CHLORIDE 20 MEQ TAB 40 MEQ PO (11:30)
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
--- NOTE | 2024-12-29 16:36 | CM.DANOTE ---
B DCP assessment note Pt is a 24yo F admitted with asthma exacerbation, PMH of DM1. PCP Judith Braun Payer [employer] options and self pay [employer] WORK[employer] reviewed EMR. per chart, pt lives in [place] with parents. Per provider in morning rounds, anticipate dc home later today. off oxygen and no anticipated CM needs. [employer] WORKER unable to meet with pt today due to triaging needs. P: dc today with OP f/u recommended. 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 No Advance Directives on File No History Provided By Patient,Family Member,Medical Record Prior Living Arrangements Apartment/Condo Household Members significant other Type of transporation used prior to Drives own vehicle admit Independent with ADL's Yes Is patient alert and oriented? Yes Comment Home w/family. Close outpatient follow up recommended. Discharge Plan Home Transportation Arrangement Family to provide transportation Referrals Initiated None needed Additional Comment Patient active as outpatient with counseling for anxiety and depression. Review Status In Process Please Provide Date Initial DC 12/29/24 Assessment Was Performed Next Review Type Continued Stay Review
== END 2024-12-29 16:35 | disposition home or self-care (01) ==
LOC: ED 09:54 → AC 12:43 → ICU 14:17
PROVIDERS: Admitting Provider Internal Medicine; Emergency Provider Emergency Medicine; PCP Nurse Practitioner Family; Referring Provider Emergency Medicine; Visit Provider Internal Medicine
DX: J96.01 Acute respiratory failure with hypoxia (principal); J12.3 Human metapneumovirus pneumonia; E87.20 Acidosis, unspecified; J44.9 Chronic obstructive pulmonary disease, unspecified; Z72.0 Tobacco use; E11.9 Type 2 diabetes mellitus without complications; Z11.52 Encounter for screening for COVID-19; Z79.4 Long term (current) use of insulin; Z23 Encounter for immunization
CPT/HCPCS: 36415; 71045; 71275; 80048; 80053; 82009; 82805; 82962; 83605; 83690; 83735; 83880; 84145; 84484; 85025; 85610; 87040; 87633; 87797; 93005; 94640; 96365; 96366; 96372; 96375; 99284; 99291; G0378; J1650; J2270; J2919; J3475; J7613; Q9967

== ENCOUNTER 2024-12-31 14:24 | Emergency (ER) | payer OTHER, SELFPAY ==
[2024-12-28 14:26] VITALS: BMI 21.2
[2024-12-31 14:34] VITALS: BP 131/82; PULSE 116; RESP 20; TEMP 36.7; O2SAT 100; BMI 24.2
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
--- NOTE | 2024-12-31 15:53 | DI.CT.S_ITS ---
PROCEDURE: CT FACIAL BONES WO CON INDICATIONS: Atraumatic, left hemotympanum, bulging TM sinus pain. TECHNIQUE: Noncontrast 2.5 mm thick axial images acquired from the mandible through the frontal sinuses, with coronal and sagittal reformatting. For radiation dose reduction, the following was used: automated exposure control, adjustment of mA and/or kV according to patient size. COMPARISON: None. FINDINGS: Bones and teeth: Orbital ferguson are intact. Sinus ferguson show no fracture or deformity. Nasal bones and septum are intact. Visualized portions of the mandible demonstrate no fractures or subluxation. Zygomatic arches are intact. Pterygoid plates are intact. Visualized portions of the skull base and auditory canals are intact. Sinuses: Mild right maxillary , sphenoid and ethmoid mucosal thickening measures 2.5 mm Mastoid air cells are aerated. Fluid and debris noted in the left middle ear and left external auditory canal Soft tissues: No edema, masses, or fluid collections. No enlarged lymph nodes. No soft tissue lacerations or debris. Vascular: Visualized vascular structures appear normal in the absence of contrast. Bony vascular foramina and canals are intact. IMPRESSION: No evidence of facial bone fracture or intrinsic lesion. Fluid and debris noted in the left middle ear and external auditory canal. Consider Follow-up CT of the temporal bone for further evaluation. Maxillary, sphenoid and ethmoid mucosal sinus disease. No remodeling. Approved by: Huber Simons M.D. on 12/31/2024 at 16:20
[2024-12-31 16:16] LABS: Add Manual Diff / Slide Review NO; Basophils Absolute Auto 0 /uL (0-100); Basophils Percent Auto 0.5 % (0-2); Eosinophils Absolute Auto 0 /uL (0-450); Eosinophils Percent Auto 0.1 % (2-4); Hemoglobin 13.3 g/dL (12.0-16.0); Lymphocytes Absolute Auto 1600 /uL (1100-4500); Lymphocytes Percent Auto 22.1 % (25-40); Mean Corpuscular HGB Conc 34.2 % (30-36); Mean Corpuscular Hemoglobin 32.4 PG (26-34); Mean Corpuscular Volume 94.9 fL (80-100); Monocytes Absolute Auto 700 /uL (0-900); Monocytes Percent Auto 9.6 % (3-14); Neutrophils Absolute Auto 4800 /uL (1500-7000); Neutrophils Percent Auto 67.7 % (50-75); Platelet Count 167 X10^3/uL (150-400); Red Blood Cell Count 4.11 X10^6/uL (4.0-5.2); Red Cell Distribution Width 12.4 % (11.6-14.8); White Blood Cell Count 7.1 X10^3/uL (4.5-11.0)
[2024-12-31] MEDS: KETOROLAC 30 MG/ML VIAL 15 MG IV (16:16)
[2024-12-31 16:31] LABS: Alanine Aminotransferase 20 IU/L (<35); Albumin 4.4 g/dL (3.5-5.0); Albumin Globulin Ratio 1.2 (1.0-2.8); Alkaline Phosphatase 119 U/L (38-126); Aspartate Aminotransferase 25 IU/L (14-36); BUN Creatinine Ratio 22.8 (6-22); Bilirubin Total 0.7 mg/dL (0.2-1.3); Blood Urea Nitrogen 13 mg/dL (7-17); Calcium 9.7 mg/dL (8.4-10.2); Carbon Dioxide 21 mmol/L (22-32); Chloride 104 mmol/L (98-107); Estimated Glomerular Filt Rate > 60 mL/min (>60); Globulin 3.7 g/dL (1.7-4.1); Glucose 183 mg/dL (70-100); HEMOLYSIS < 15 (0-50); Sodium 136 mmol/L (137-145); Total Protein 8.1 g/dL (6.3-8.2)
[2024-12-31] MEDS: AMOXICILLIN/CLAV 875/125 MG 1 TAB PO (17:38)
[2024-12-31 17:44] VITALS: BP 118/79; PULSE 95; RESP 18; O2SAT 98
== END 2024-12-31 18:07 | disposition home or self-care (01) ==
PROVIDERS: Emergency Provider Physician Assistant Medical; PCP Nurse Practitioner Family
DX: H65.192 Other acute nonsuppurative otitis media, left ear (principal); J32.9 Chronic sinusitis, unspecified; J44.9 Chronic obstructive pulmonary disease, unspecified; R51.9 Headache, unspecified; Z88.2 Allergy status to sulfonamides; E10.9 Type 1 diabetes mellitus without complications; Z79.4 Long term (current) use of insulin
CPT/HCPCS: 36415; 70486; 80053; 85025; 96374; 99284; J1885

== ENCOUNTER 2025-05-18 12:59 | Emergency (ER) | payer OTHER, SELFPAY ==
[2024-12-28 14:26] VITALS: BMI 21.2
[2025-05-18 13:05] VITALS: BP 113/72; PULSE 98; RESP 18; TEMP 36.8; O2SAT 99; BMI 21.2
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
[2025-05-18 14:04] VITALS: BP 108/60; PULSE 89; RESP 17; O2SAT 98
== END 2025-05-18 14:06 | disposition home or self-care (01) ==
PROVIDERS: Emergency Provider Student in an Organized Health Care Education/Training Program; PCP Nurse Practitioner Family
DX: K12.0 Recurrent oral aphthae (principal); F17.290 Nicotine dependence, other tobacco product, uncomplicated
CPT/HCPCS: 99281

== ENCOUNTER 2025-05-31 14:15 | Inpatient (IN) | payer OTHER, SELFPAY ==
[2024-12-28 14:26] VITALS: BMI 21.2
[2025-05-31] VITALS (30 sets, daily range): BP systolic 104–125; BP diastolic 52–86; PULSE 78–108; RESP 13–40; TEMP 36.6–36.9; O2SAT 95–100; BMI 23.0
--- NOTE | 2025-05-31 14:21 | EKG_ITS ---
[address] [address] Test Date: 2025-05-31 Pat Name: Nettie Stone Department: Room: Gender: Female Service Consultant: GOLDEN : 2000 Requested By: Order Number: [id number] Reading MD: Narayan Camp MD Measurements Intervals [place] Rate: 82 P: 58 RI: 140 QRS: 64 QRSD: 92 T: 67 QT: 394 QTc: 460 Interpretive Statements Normal sinus rhythm Electronically Signed On 05-31-2025 15:05:41 PDT by Narayan Camp MD
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
[2025-05-31 14:42] LABS: Add Manual Diff / Slide Review NO; Hematocrit 36.8 % (36-46); Hemoglobin 12.3 g/dL (12.0-16.0); Lymphocytes Absolute Auto 900 /uL (1100-4500); Mean Corpuscular HGB Conc 33.5 % (30-36); Mean Corpuscular Hemoglobin 32.9 PG (26-34); Mean Corpuscular Volume 98.3 fL (80-100); Platelet Count 172 X10^3/uL (150-400)
[2025-05-31] MEDS: SODIUM CHLORIDE 0.9% 1,000 ML 1000 ML IV ×2 (14:43→15:45)
[2025-05-31] MEDS: INSULIN REGULAR 100 UNIT/ML 3 ML VIAL 10 UNIT SUBCUT (14:46)
--- NOTE | 2025-05-31 14:51 | DI.CT.S_ITS ---
PROCEDURE: CT ABDOMEN PELVIS W CON INDICATIONS: abd pain n/v TECHNIQUE: After the administration of intravenous contrast, axial sections acquired from the lung bases to the pubic symphysis. Coronal and sagittal reformats were performed. For radiation dose reduction, the following was used: automated exposure control, adjustment of mA and/or kV according to patient size. COMPARISON: [facility], CT, CT ABDOMEN PELVIS W CON, 06/29/2021, 20:36. FINDINGS: Image quality: Diagnostic. Lower Chest: No significant findings. ABDOMEN: Liver: No solid mass. Gallbladder: No radiopaque gallstones or wall thickening. Biliary ducts: No biliary dilation. Pancreas: No ductal dilation. Spleen: Size is within normal limits. Adrenal Glands: No adrenal nodules. Kidneys and Ureters: No hydronephrosis. No solid mass. No complex renal cystic lesion which requires follow up. Stomach and Bowel: Normal colonic caliber, without significant wall thickening. Moderate stool burden. Peritoneum: No abnormal intraperitoneal fluid. No free air. Ventral Wall: No significant ventral hernia. Abdominal Nodes: No retroperitoneal or mesenteric adenopathy by size criteria. Vessels: Aorta and inferior vena cava are normal in size. PELVIS: Pelvic Organs: Prominent adnexal vasculature, more pronounced on the left. Left ovarian cyst measuring 2.3 cm. Bladder: No bladder wall thickening, accounting for underdistention. Pelvic Nodes: No enlarged lymph nodes. Miscellaneous: No inguinal hernias are seen. Bones: No aggressive osseous abnormality. IMPRESSION: 1. No acute findings within the abdomen or pelvis to explain patient's symptoms. 2. Moderate stool burden. 3. Prominent adnexal vasculature, more pronounced on the left. Correlate for signs of pelvic congestion syndrome. Left ovarian cyst measuring 2.3 cm. Likely physiologic in a premenopausal female. Dictated by: Grey Cedillo M.D. on 05/31/2025 at 15:51 Approved by: Grey Cedillo M.D. on 05/31/2025 at 16:02
[2025-05-31 14:56] LABS: Alanine Aminotransferase 20 IU/L (<35); Albumin 4.3 g/dL (3.5-5.0); Albumin Globulin Ratio 1.4 (1.0-2.8); Alkaline Phosphatase 182 U/L (38-126); Blood Urea Nitrogen 17 mg/dL (7-17); Calcium 8.7 mg/dL (8.4-10.2); Carbon Dioxide 13 mmol/L (22-32); Chloride 97 mmol/L (98-107); Estimated Glomerular Filt Rate > 60 mL/min (>60); Globulin 3.1 g/dL (1.7-4.1); HEMOLYSIS < 15 (0-50); Lactate (Lactic Acid) 1.8 mmol/L (0.7-2.1); Lipase 61 U/L (23-300); Potassium 5.0 mmol/L (3.4-5.1); Sodium 129 mmol/L (137-145); Total Protein 7.4 g/dL (6.3-8.2)
[2025-05-31 15:03] LABS: Appearance Urine UA SL CLOUDY; Bilirubin Urine UA NEGATIVE (NEGATIVE); Glucose Urine UA 3+ g/dL (Negative); Ketones Urine UA 3+ (NEGATIVE); Leukocyte Esterase Urine UA NEGATIVE (NEGATIVE); Nitrite Urine UA NEGATIVE (Negative); Occult Blood Urine UA 3+ (Negative); Protein Urine UA NEGATIVE (Negative); Specific Gravity Urine UA <=1.005 (1.000-1.035); Urobilinogen Urine UA 0.2 E.U./dL (0.2)
[2025-05-31 15:04] LABS: Glucose 706 mg/dL (70-99)
[2025-05-31 15:04] LABS: Base Excess VBG -9.1 mmol/L (0-4); HCO3 VBG 16 mmol/L (24-28); Oxygen Saturation VBG 99 % (70-75); PCO2 VBG 31.9 mmHg (45-50); PO2 VBG 131 mmHg (35-45); Total CO2 VBG 15 mmol/L (24-29); pH VBG 7.31 (7.33-7.43)
[2025-05-31 15:09] LABS: Color Urine UA PINK; pH Urine UA 5.5 (4.5-8.0)
[2025-05-31 15:14] LABS: Culture Indicated Urine Cult Not Indicated
[2025-05-31 16:06] LABS: Ketones (Beta-Hydroxybutyrate) 4.71 mmol/L (<0.27)
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
--- NOTE | 2025-05-31 17:10 | DI.RAD.S_ITS ---
PROCEDURE: XR CHEST 1V INDICATIONS: Coughing TECHNIQUE: One view of the chest was acquired. COMPARISON: [facility], CR, XR CHEST 1V, 12/28/2024, 9:57. [facility], CR, XR CHEST 1V, 11/27/2024, 15:11. FINDINGS: Surgical changes and devices: None. Lungs and pleura: Lungs are clear. No pleural effusions or pneumothorax. Mediastinum: Mediastinal contours appear normal. Heart size is normal. Bones and chest wall: No suspicious bony lesions. Overlying soft tissues appear unremarkable. IMPRESSION: No acute cardiopulmonary abnormality is seen. Dictated by: Severiano Langston M.D. on 05/31/2025 at 17:47 Approved by: Severiano Langston M.D. on 05/31/2025 at 17:47
--- NOTE | 2025-05-31 17:38 | CM.DANOTE ---
ED CUSTOMER CARE AGENT DCP Assessment Note: Pt is a 24yo female, resident of [place], is admitted for possible DKA. Pt lives in a house with her family; her mother is emergency contact. Pt's Primary Care Provider is Dr. Judith Braun at [facility] and insurance is [employer] Reviewed chart and discussed with multidisciplinary team pt's medical status and initial discharge needs. ED CUSTOMER CARE AGENT met w/patient at bedside; introduced self and role. Present in the room is pt's mother, Deloris. Patient was found in bed, alert and oriented, cooperative with assessment. Pt confirmed living situation and good support in family. Pt expressed preference in discharge home when cleared, encouraged family to ensure close PCP follow up when discharged. Plan: ICU admission, anticipating dc home with family if medically cleared with PCP follow up. CM team will follow closely for coordination of discharge plans. APURVA Simon Discharge Planning/Care Management CM Discharge Assessment Start: 05/31/25 17:06 Freq: Status: Active Protocol: Document 05/31/25 17:37 MW (Rec: 05/31/25 17:38 MW [id number]) Discharge Planning Assessment Assigned Discharge BRIANNA Bob Marine Insulator DPOA/Assigned Deloris Garcias Mother Designee Name Contact Information [phone] Advance Directives? No Advance Directives No on File History Provided By Patient,Family Member,Medical Record Has Patient been No admitted in last 30 days? Prior Living House Arrangements Household Members family Type of Drives own vehicle transporation used prior to admit Independent with ADL Yes 's Is patient alert and Yes oriented? Caregiver for No Another DME Already Rented / Other Owned Comment Insulin Pump Comment Home w/family. Close outpatient follow up recommended. Discharge Plan Home Community Services Physical Therapy Transportation Family to provide transportation Arrangement Referrals Initiated None needed Review Status In Process Please Provide Date 05/31/25 Initial DC Assessment Was Performed Next Review Type Continued Stay Review
[2025-05-31] MEDS: SODIUM CHLORIDE 0.9% 1,000 ML 999 ML IV (17:45)
[2025-05-31] MEDS: INSULIN DRIP PREMIX 100 UNIT/100 ML PLAST..BAG 5.897 UNIT IV (17:50)
[2025-05-31] MEDS: SODIUM CHLORIDE 0.9% 1,000 ML 250 ML IV (17:56)
[2025-05-31 17:58] LABS: Blood Urea Nitrogen 14 mg/dL (7-17); Calcium 8.6 mg/dL (8.4-10.2); Carbon Dioxide 14 mmol/L (22-32); Chloride 104 mmol/L (98-107); Estimated Glomerular Filt Rate > 60 mL/min (>60); Glucose 311 mg/dL (70-99); HEMOLYSIS < 15 (0-50); Potassium 4.1 mmol/L (3.4-5.1); Sodium 137 mmol/L (137-145)
[2025-05-31] MEDS: OXYCODONE IR 5 MG TABLET PO (18:01)
--- NOTE | 2025-05-31 18:15 | PC.NURSE ---
Pt up from ED, DKA protocol started. Insulin and NS gtt started. Pt complaining of abd pain, PRN oxy utilized for pain. Mom at bedside, all questions anwered.
[2025-05-31] MEDS: ALBUTEROL 2.5 MG/3 ML NEB (ADULT) INH ×2 (19:36→23:30)
[2025-05-31] MEDS: BUDESONIDE 0.5 MG/2 ML NEB INH (19:36)
[2025-05-31] MEDS: DEXTROSE 5%-0.45% NS 1,000 ML 150 ML IV (19:52)
[2025-05-31 21:36] LABS: Blood Urea Nitrogen 10 mg/dL (7-17); Calcium 8.1 mg/dL (8.4-10.2); Carbon Dioxide 22 mmol/L (22-32); Chloride 109 mmol/L (98-107); Estimated Glomerular Filt Rate > 60 mL/min (>60); Glucose 184 mg/dL (70-99); HEMOLYSIS < 15 (0-50); Potassium 3.7 mmol/L (3.4-5.1); Sodium 136 mmol/L (137-145)
[2025-05-31] MEDS: POTASSIUM CHLORIDE IN WATER 10 MEQ/100 ML PIGGYBACK 100 MEQ IV ×2 (22:20→23:27)
[2025-05-31 23:25] LABS: Influenza A - CEPHEID Flu A NEGATIVE (NEGATIVE); Influenza B - CEPHEID Flu B NEGATIVE (NEGATIVE)
[2025-05-31 23:36] LABS: COVID-19 CEPHEID 4-PLEX PCR Negative (Negative)
[2025-06-01] VITALS (31 sets, daily range): BP systolic 102–128; BP diastolic 56–85; PULSE 79–103; RESP 7–39; TEMP 36.8; O2SAT 95–99
[2025-06-01] MEDS: DEXTROSE 5%-0.45% NS 1,000 ML 150 ML IV (01:45)
[2025-06-01] MEDS: ONDANSETRON 4 MG/2 ML INJ IV (02:15)
[2025-06-01] MEDS: ALBUTEROL 2.5 MG/3 ML NEB (ADULT) INH ×3 (02:19→11:31)
[2025-06-01 02:25] LABS: Blood Urea Nitrogen 9 mg/dL (7-17); Calcium 8.0 mg/dL (8.4-10.2); Carbon Dioxide 20 mmol/L (22-32); Chloride 108 mmol/L (98-107); Estimated Glomerular Filt Rate > 60 mL/min (>60); Glucose 129 mg/dL (70-99); HEMOLYSIS < 15 (0-50); Potassium 3.6 mmol/L (3.4-5.1); Sodium 135 mmol/L (137-145)
[2025-06-01] MEDS: POTASSIUM CHLORIDE IN WATER 10 MEQ/100 ML PIGGYBACK 100 MEQ IV ×4 (02:52→08:24)
[2025-06-01 06:07] LABS: Blood Urea Nitrogen 7 mg/dL (7-17); Calcium 7.8 mg/dL (8.4-10.2); Carbon Dioxide 21 mmol/L (22-32); Chloride 111 mmol/L (98-107); Estimated Glomerular Filt Rate > 60 mL/min (>60); Glucose 123 mg/dL (70-99); HEMOLYSIS < 15 (0-50); Potassium 3.5 mmol/L (3.4-5.1); Sodium 136 mmol/L (137-145)
--- NOTE | 2025-06-01 06:50 | PC.NURSE ---
Dietary Aide Teacher Summary-Insulin gtt continues per DKA orders, CBG 128-206, titrated accordingly-see Emar and flow sheet. D5 1/2NS @ 150ml/hr, receiving K+ riders as indicated-see Emar. VSS. RA sats 99%, neb tx, and IV Zofran x1 for nausea w/ emesis.
[2025-06-01] MEDS: BUDESONIDE 0.5 MG/2 ML NEB INH (07:04)
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
[2025-06-01] MEDS: INSULIN GLARGINE 100 UNIT/ML 3ML PEN 30 UNIT SUBCUT (09:18)
--- NOTE | 2025-06-01 11:56 | DIET.CONS ---
Dietary Consultation Note Admission Date: 05/31/2025 16:48 Assessment: 24 y F admitted for DKA. Consulted for difficulty getting insulin/DKA. Met with pt in room with pharmacist. Pt reports needing 35 units of glargine and around 60 units of lispro daily. Pt having difficulty getting the proper amount of insulin at the pharmacy and the proper type of insulin, i.e. sometimes not able to get the insulin for her pump so uses the pens instead. Has not been getting glargine, treating with lispro only. Has not been able to get a CGM from the pharmacy d/t stock. Uses iLet bionic insulin pump that works with G7 dexcom cgm. Ht: 160.02 cm Wt: 58.967 kg BMI: 23.0 Last BM: 05/31/25 (05/31/25 17:06) MNA: 12 Marcelo Score: 22 Diet: 06/01/25 Lunch Carbohydrate Consistent Diet Diet Modifications: Carbohydrate level: Medium (3 CHO) Reflex DM orders: No Food Texture: Level 7 - Regular Liquid Consistency: Level 0 - Thin Labs: RBC 3.74 X10^6/uL (4.0-5.2) L 05/31/25 14:28 Hgb 12.3 g/dL (12.0-16.0) 05/31/25 14:28 Hct 36.8 % (36-46) 05/31/25 14:28 Creatinine 0.49 mg/dL (0.52-1.04) L 06/01/25 05:30 Lactate 1.8 mmol/L (0.7-2.1) 05/31/25 14:28 Nutrition Diagnosis: Altered nutrition related lab values (BG) r/t endocrine function and difficulty getting correct amount of insulin aeb pt admitted for DKA Interventions: -Pharmacist ordering insulin based on pt reported use and running through her pharmacy to see if it is covered before d/c -Provided dexcom7 CGM sample Monitoring/Evaluations: pt to d/c f/u PRN Electronically Signed by: Alma Church 06/01/25 11:56 Clinical Dietitian [address] [address]
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
--- NOTE | 2025-06-01 12:16 | CM.DPNOTE ---
DCP note [facility] TECHNICIAN reviewed EMR. reviewed with team in multidiciplinary rounds. pt could benefit from insulin resources from Dietary/pharmacy. they plan to go talk to pt together. per RN, no other obvious DCP needs. per Provider in morning rounds anticipate dc later today if can tolerate general diet. P: dc today pending diet. OP f/u recommended. transport with family in POV. CM team will continue to follow as needed for DCP coordination. BRIANNA Hoyt
== END 2025-06-01 14:10 | disposition home or self-care (01) | DRG 420 ==
LOC: ED 16:23 → AC 16:49 → ICU 17:58
PROVIDERS: Admitting Provider Family Medicine; Emergency Provider Family Medicine; PCP Nurse Practitioner Family; Referring Provider Family Medicine; Visit Provider Family Medicine
DX: E10.10 Type 1 diabetes mellitus with ketoacidosis without coma (principal); J06.9 Acute upper respiratory infection, unspecified; K52.9 Noninfective gastroenteritis and colitis, unspecified; J44.9 Chronic obstructive pulmonary disease, unspecified; F32.A Depression, unspecified; E10.40 Type 1 diabetes mellitus with diabetic neuropathy, unspecified; L51.1 Stevens-Johnson syndrome; F17.290 Nicotine dependence, other tobacco product, uncomplicated; Z96.41 Presence of insulin pump (external) (internal)
CPT/HCPCS: 36415; 71045; 74177; 80048; 80053; 81001; 81025; 82009; 82805; 82962; 83605; 83690; 85025; 87637; 93005; 93010; 94640; 96360; 96361; 96372; 99284; J1815; J2405; J7613; Q9967

== ENCOUNTER 2025-06-25 14:22 | Emergency (ER) | payer OTHER, SELFPAY ==
[2025-05-31 17:06] VITALS: BMI 23.0
[2025-06-25] VITALS (32 sets, daily range): BP systolic 105–150; BP diastolic 59–94; PULSE 78–148; RESP 13–42; TEMP 36.7; O2SAT 97–100; BMI 22.1
--- NOTE | 2025-06-25 14:30 | EKG_ITS ---
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
--- NOTE | 2025-06-25 14:35 | DI.RAD.S_ITS ---
PROCEDURE: XR CHEST 1V INDICATIONS: Chest Pain TECHNIQUE: One view of the chest was acquired. COMPARISON: Merged With [facility], CR, XR CHEST 1V, 05/31/2025, 17:07. FINDINGS: Surgical changes and devices: None. Lungs and pleura: Lungs are clear. No pleural effusions or pneumothorax. Mediastinum: Mediastinal contours appear normal. Heart size is normal. Bones and chest wall: No suspicious bony lesions. Overlying soft tissues appear unremarkable. IMPRESSION: No acute cardiopulmonary pathology. Dictated by: Alverto Franco M.D. on 06/25/2025 at 15:08 Approved by: Alverto Franco M.D. on 06/25/2025 at 15:08
[2025-06-25 14:47] LABS: Add Manual Diff / Slide Review NO; Hematocrit 44.3 % (36-46); Hemoglobin 15.2 g/dL (12.0-16.0); Lymphocytes Absolute Auto 2400 /uL (1100-4500); Mean Corpuscular HGB Conc 34.3 % (30-36); Mean Corpuscular Hemoglobin 33.2 PG (26-34); Mean Corpuscular Volume 96.7 fL (80-100); Platelet Count 268 X10^3/uL (150-400)
--- NOTE | 2025-06-25 14:52 | ED_ITS ---
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 SECONDS D-Dimer (<500) ng/ml VBG pH 7.32 L (7.33-7.43) VBG pCO2 36.3 L (45-50) mmHg VBG pO2 45 (35-45) mmHg VBG HCO3 19 L (24-28) mmol/L VBG Total CO2 18 L (24-29) mmol/L VBG O2 Saturation 78 H (70-75) % VBG Base Excess -6.5 L (0-4) mmol/L Sodium (137-145) mmol/L Potassium (3.4-5.1) mmol/L Chloride (98-107) mmol/L Carbon Dioxide (22-32) mmol/L BUN (7-17) mg/dL Creatinine (0.52-1.04) mg/dL Estimated GFR (>60) mL/min BUN/Creatinine Ratio (6-22) Glucose (70-99) mg/dL POC Whole Bld Glucose 42 L* D 122 H (70-99) mg/dL Lactate (0.7-2.1) mmol/L Calcium (8.4-10.2) mg/dL Magnesium (1.6-2.3) mg/dL Total Bilirubin (0.2-1.3) mg/dL AST (14-36) IU/L ALT (<35) IU/L Alkaline Phosphatase (38-126) U/L Total Creatine Kinase (30-135) U/L Troponin I (0.01-0.034) ng/mL NT-Pro-B Natriuret Pep (<125) pg/mL Total Protein (6.3-8.2) g/dL Albumin (3.5-5.0) g/dL Globulin (1.7-4.1) g/dL Albumin/Globulin Ratio (1.0-2.8) Lipase (23-300) U/L TSH (0.47-4.68) uIU/mL Urine Color Urine Appearance Urine pH (4.5-8.0) Ur Specific [place] (1.000-1.035) Urine Protein (Negative) Urine Glucose (UA) (Negative) g/dL Urine Ketones (NEGATIVE) Urine Occult Blood (Negative) Urine Nitrate (Negative) Urine Bilirubin (NEGATIVE) Ur Bilirubin Confirm (Negative) Urine Urobilinogen (0.2) E.U./dL Ur Leukocyte Esterase (NEGATIVE) Urine RBC (0-5/HPF) Urine WBC (0-5/HPF) Ur Squamous Epith Cells (0-5/HPF) Urine Bacteria (None) Hyaline Casts (None) Ur Culture Indicated? Vol Urine Centrifuged Urine Test (Negative) Salicylates (<20) mg/dL U Opiates 300ng/mL cut (Negative) Ur Oxycodone Screen (Negative) Urine Methadone Screen (Negative) Acetaminophen (10-30) ug/mL Ur Barbiturates Screen (Negative) U Tricyclic Antidepress (Negative) Ur Phencyclidine Scrn (Negative) Ur Amphetamines Screen (Negative) U Methamphetamines Scrn (Negative) Ur MDMA Scrn (Ecstasy) (Negative) U Benzodiazepines Scrn (Negative) Urine Cocaine Screen (Negative) U Marijuana (THC) Screen (Negative) Urine Specific [place] (Normal) Ethyl Alcohol (<10) mg/dL Ketones (<0.27) mmol/L Ur Creatinine (Normal) 06/26/25 06/26/25 Range/Units 05:25 07:31 WBC (4.5-11.0) X10^3/uL RBC (4.0-5.2) X10^6/uL Hgb (12.0-16.0) g/dL Hct (36-46) % MCV (80-100) fL MCH (26-34) PG MCHC (30-36) % RDW (11.6-14.8) % Plt Count (150-400) X10^3/uL Neut % (Auto) (50-75) % Lymph % (Auto) (25-40) % [place] % (Auto) (3-14) % Eos % (Auto) (2-4) % Baso % (Auto) (0-2) % Neut # (Auto) (9614-2891) /uL Lymph # (Auto) (4059-6023) /uL [place] # (Auto) (0-900) /uL Eos # (Auto) (0-450) /uL Baso # (Auto) (0-100) /uL PT (9.4-12.5) SECONDS INR (0.9-1.3) APTT (25.1-36.5) SECONDS D-Dimer (<500) ng/ml VBG pH (7.33-7.43) VBG pCO2 (45-50) mmHg VBG pO2 (35-45) mmHg VBG HCO3 (24-28) mmol/L VBG Total CO2 (24-29) mmol/L VBG O2 Saturation (70-75) % VBG Base Excess (0-4) mmol/L Sodium 136 L (137-145) mmol/L Potassium 3.8 (3.4-5.1) mmol/L Chloride 110 H (98-107) mmol/L Carbon Dioxide 19 L (22-32) mmol/L BUN 6 L (7-17) mg/dL Creatinine 0.42 L (0.52-1.04) mg/dL Estimated GFR > 60 (>60) mL/min BUN/Creatinine Ratio 14.3 (6-22) Glucose 154 H (70-99) mg/dL POC Whole Bld Glucose 262 H D (70-99) mg/dL Lactate (0.7-2.1) mmol/L Calcium 8.2 L (8.4-10.2) mg/dL Magnesium (1.6-2.3) mg/dL Total Bilirubin (0.2-1.3) mg/dL AST (14-36) IU/L ALT (<35) IU/L Alkaline Phosphatase (38-126) U/L Total Creatine Kinase (30-135) U/L Troponin I (0.01-0.034) ng/mL NT-Pro-B Natriuret Pep (<125) pg/mL Total Protein (6.3-8.2) g/dL Albumin (3.5-5.0) g/dL Globulin (1.7-4.1) g/dL Albumin/Globulin Ratio (1.0-2.8) Lipase (23-300) U/L TSH (0.47-4.68) uIU/mL Urine Color Urine Appearance Urine pH (4.5-8.0) Ur Specific [place] (1.000-1.035) Urine Protein (Negative) Urine Glucose (UA) (Negative) g/dL Urine Ketones (NEGATIVE) Urine Occult Blood (Negative) Urine Nitrate (Negative) Urine Bilirubin (NEGATIVE) Ur Bilirubin Confirm (Negative) Urine Urobilinogen (0.2) E.U./dL Ur Leukocyte Esterase (NEGATIVE) Urine RBC (0-5/HPF) Urine WBC (0-5/HPF) Ur Squamous Epith Cells (0-5/HPF) Urine Bacteria (None) Hyaline Casts (None) Ur Culture Indicated? Vol Urine Centrifuged Urine Test (Negative) Salicylates (<20) mg/dL U Opiates 300ng/mL cut (Negative) Ur Oxycodone Screen (Negative) Urine Methadone Screen (Negative) Acetaminophen (10-30) ug/mL Ur Barbiturates Screen (Negative) U Tricyclic Antidepress (Negative) Ur Phencyclidine Scrn (Negative) Ur Amphetamines Screen (Negative) U Methamphetamines Scrn (Negative) Ur MDMA Scrn (Ecstasy) (Negative) U Benzodiazepines Scrn (Negative) Urine Cocaine Screen (Negative) U Marijuana (THC) Screen (Negative) Urine Specific [place] (Normal) Ethyl Alcohol (<10) mg/dL Ketones (<0.27) mmol/L Ur Creatinine (Normal) Point of Care Testing Glucose POC 262 Imaging Data Chest x-ray: Radiologist's Impression: PROCEDURE: XR CHEST 1V INDICATIONS: Chest Pain TECHNIQUE: One view of the chest was acquired. COMPARISON: [facility], CR, XR CHEST 1V, 05/31/2025, 17:07. FINDINGS: Surgical changes and devices: None. Lungs and pleura: Lungs are clear. No pleural effusions or pneumothorax. Mediastinum: Mediastinal contours appear normal. Heart size is normal. Bones and chest wall: No suspicious bony lesions. Overlying soft tissues appear unremarkable. IMPRESSION: No acute cardiopulmonary pathology. Dictated by: Alverto Franco M.D. on 06/25/2025 at 15:08 Approved by: Alverto Franco M.D. on 06/25/2025 at 15:08 ECG Data Interpretation: Her EKG showed sinus tachycardia 140 beats per minute without ischemic ST-T changes. MDM Narrative Medical decision making narrative: 24 years old female with history of diabetes type 1 on insulin came in today complaining of palpitation, nausea vomiting, generalized weakness, lightheadedness, fluctuation of the blood sugar since yesterday. Her CV exam showed tachycardia. Her lung exam, abdominal exam were benign. Her CBC was normal. Her PT INR PTT, D-dimer were normal. Her sugar was 199, bicarb of 13, anion gap of 19, alkaline phosphatase 161 otherwise normal CMP. Her troponin was negative. Her magnesium was normal. Her urine show a bilirubin in the urine without UTI. Her serum bilirubin was normal. Her test was negative. Her urine drug screen positive for benzodiazepine and marijuana. Her ketone was 2.79. Alcohol was negative. Her chest x-ray showed no acute finding. She was put on insulin drip for DKA and was given IV insulin with D5 half NS, after ringing lactate, normal saline IV bolus. I discussed the case with our hospitalist but later the powdered metal supervisor could not take this patient at this point due to shortage on nurses. I ordered a repeat BMP for her. I signded out to my colleague denied any shift change. Discharge Plan Departure Patient Disposition: Left Against Medical Advice Clinical Impression: Patient left without being discharged Type 1 diabetes mellitus Qualifiers: Diabetes mellitus complication status: without complication Qualified Code(s): E10.9 - Type 1 diabetes mellitus without complications DKA (diabetic ketoacidosis) Qualifiers: Diabetes mellitus type: type 1 Diabetes mellitus complication detail: without coma Qualified Code(s): E10.10 - Type 1 diabetes mellitus with ketoacidosis without coma Prescriptions: No Action cyclobenzaprine 10 mg tablet 10 mg PO TID PRN (Reason: muscle spasm) Qty: 21 0RF albuterol sulfate 90 mcg/actuation HFA aerosol inhaler 2 puff INHALATION Q4H PRN (Reason: wheezing) fluticasone propionate 110 mcg/actuation HFA aerosol inhaler 2 puff INHALATION BID fluticasone propion-salmeterol 45-21 mcg/actuation HFA aerosol inhaler 2 puff inhalation BID 30 Days Qty: 12 2RF lorazepam 0.5 mg tablet 0.5 mg PO PRN PRN (Reason: anxiety) insulin glargine [Lantus Solostar U-100 Insulin] 100 unit/mL (3 mL) Insulin Pen 35 unit SUBCUT DAILY Qty: 15 0RF insulin lispro [Humalog KwikPen Insulin] 100 unit/mL insulin pen 10 - 20 unit SUBCUT DIRECTED Qty: 15 0RF Rx Instructions: pt states pump provides dosing insulin lispro [Humalog U-100 Insulin] 100 unit/mL solution 10 unit SUBCUT TID Qty: 20 0RF Rx Instructions: For use in Insulin pump, up to 60 units per day (DME) Dexcom G7 Sensor Device See Rx Instructions .Route Qty: 3 0RF Rx Instructions: As directed epinephrine [EpiPen] 0.3 mg/0.3 mL auto-injector 0.3 mg IM Q4H PRN (Reason: anaphylaxis) Qty: 2 1RF Referrals: Judith Braun, KAYLEE, [facility] [employer] [Primary Care Provider, Medical]
[2025-06-25 14:54] LABS: INR 0.9 (0.9-1.3); Prothrombin Time 10.1 SECONDS (9.4-12.5)
[2025-06-25] MEDS: LACTATED RINGERS 1,000 ML 1000 ML IV (14:55)
[2025-06-25] MEDS: ASPIRIN 81 MG CHEW TAB 324 MG PO (14:55)
[2025-06-25 14:57] LABS: Alanine Aminotransferase 26 IU/L (<35); Albumin 5.3 g/dL (3.5-5.0); Albumin Globulin Ratio 1.1 (1.0-2.8); Alkaline Phosphatase 161 U/L (38-126); Blood Urea Nitrogen 17 mg/dL (7-17); Calcium 10.3 mg/dL (8.4-10.2); Carbon Dioxide 13 mmol/L (22-32); Chloride 105 mmol/L (98-107); Creatine Kinase 28 U/L (30-135); Estimated Glomerular Filt Rate > 60 mL/min (>60); Globulin 4.8 g/dL (1.7-4.1); Glucose 128 mg/dL (70-99); HEMOLYSIS < 15 (0-50); Lipase 63 U/L (23-300); Magnesium 2.3 mg/dL (1.6-2.3); PTT Partial Thromboplastin Tim 27 SECONDS (25.1-36.5); Potassium 4.0 mmol/L (3.4-5.1); Sodium 137 mmol/L (137-145); Total Protein 10.1 g/dL (6.3-8.2)
[2025-06-25 15:05] LABS: Ethanol (ETOH) < 10 mg/dL (<10)
[2025-06-25 15:06] LABS: Acetaminophen < 10 ug/mL (10-30); Salicylate < 1.0 mg/dL (<20)
[2025-06-25 15:09] LABS: NT-proBNP (BNP-Adult 18+) 84 pg/mL (<125); Troponin I < 0.012 ng/mL (0.01-0.034)
--- NOTE | 2025-06-25 15:26 | PC.NURSE ---
Patient reports substernal chest pain that radiates to her left chest, and upper left abdominal pain that began this morning at 1100 upon waking up. She states waking up yesterday and feeling off with some nausea and vomiting, weakness and shakiness. Chest pain has been constant since she woke up. She also reports upper left tooth pain, sinus pain and feeling like her voice is hoarse. Breathing is even and unlabored. Has not been on recent antibiotics.
[2025-06-25 15:37] LABS: TSH w/ Reflex to FT4 2.24 uIU/mL (0.47-4.68)
[2025-06-25 16:09] LABS: Bilirubin Urine UA 3+ (NEGATIVE); Color Urine UA YELLOW; Glucose Urine UA 1+ g/dL (Negative); Ketones Urine UA 3+ (NEGATIVE); Leukocyte Esterase Urine UA NEGATIVE (NEGATIVE); Nitrite Urine UA NEGATIVE (Negative); Occult Blood Urine UA NEGATIVE (Negative); Protein Urine UA 3+ (Negative); Specific Gravity Urine UA >=1.030 (1.000-1.035); Urobilinogen Urine UA 1.0 E.U./dL (0.2)
[2025-06-25 16:13] LABS: UR Morphine/Opiate cutoff 300 Negative (Negative); Ur Specific Gravity Normal (Normal); Urine MDMA Negative (Negative); Urine Methamphetamines Negative (Negative); Urine Tetrahydrocannabinol Positive (Negative); Urine Tricyclic Antidepressant Negative (Negative)
[2025-06-25 16:15] LABS: Appearance Urine UA Slightly Cloudy; pH Urine UA 5.5 (4.5-8.0)
[2025-06-25 16:24] LABS: Ictotest Urine Positive (Negative)
[2025-06-25 16:25] LABS: Culture Indicated Urine Cult Not Indicated
[2025-06-25 16:34] LABS: Lactate (Lactic Acid) 1.5 mmol/L (0.7-2.1)
[2025-06-25 16:41] LABS: Ketones (Beta-Hydroxybutyrate) 2.79 mmol/L (<0.27)
[2025-06-25] MEDS: SODIUM CHLORIDE 0.9% 1,000 ML 1000 ML IV ×2 (16:49→20:00)
[2025-06-25] MEDS: DEXTROSE 5%-0.45% NS 1,000 ML 150 ML IV ×2 (17:32→21:43)
[2025-06-25] MEDS: INSULIN DRIP PREMIX 100 UNIT/100 ML PLAST..BAG IV (17:34)
--- NOTE | 2025-06-25 18:13 | PC.NURSE ---
This RN checks on patient. She reports headache and continued 8/10 chest pain. Provider Nae made aware. New verbal order for 0.5mg IV Dilaudid given.
[2025-06-25 18:22] LABS: Blood Urea Nitrogen 15 mg/dL (7-17); Calcium 8.3 mg/dL (8.4-10.2); Carbon Dioxide 14 mmol/L (22-32); Chloride 106 mmol/L (98-107); Estimated Glomerular Filt Rate > 60 mL/min (>60); Glucose 228 mg/dL (70-99); HEMOLYSIS < 15 (0-50); Potassium 3.8 mmol/L (3.4-5.1); Sodium 134 mmol/L (137-145)
[2025-06-25] MEDS: SODIUM CHLORIDE 0.9% 500 ML 1000 ML IV (19:22)
--- NOTE | 2025-06-25 20:10 | PC.NURSE ---
Patient reports headache, shakiness and chest pain that radiates to upper left abdomen. Reports medication helped the headache and chest pain. Denies any current nausea and vomiting.
--- NOTE | 2025-06-25 21:15 | EKG_ITS ---
[address] [address] Test Date: 2025-06-25 Pat Name: Nettie Stone Department: Room: Gender: Female Converting Supervisor: NATY : 2000 Requested By: Order Number: [id number] Reading MD: Az Duckworth Measurements Intervals [place] Rate: 74 P: 68 GA: 140 QRS: 68 QRSD: 86 T: 57 QT: 410 QTc: 455 Interpretive Statements Normal sinus rhythm with sinus arrhythmia Cannot rule out Anterior infarct , age undetermined Electronically Signed On 07-02-2025 14:02:39 PDT by Az Duckworth
[2025-06-25] MEDS: ALBUTEROL 2.5 MG/3 ML NEB (ADULT) INH (21:21)
[2025-06-25 21:28] LABS: Base Excess VBG -4.3 mmol/L (0-4); HCO3 VBG 18 mmol/L (24-28); Oxygen Saturation VBG 40 % (70-75); PCO2 VBG 24.9 mmHg (45-50); PO2 VBG 21 mmHg (35-45); Total CO2 VBG 17 mmol/L (24-29); pH VBG 7.47 (7.33-7.43)
--- NOTE | 2025-06-25 21:40 | PC.NURSE ---
Patient has acute onset shortness of breath, is diaphoretic, and breathing at a rate of 36-40 respirations per minute. She complains of ongoing chest pain 8/. Patient has audible wheezing. Expiratory wheezes noted in LEFT upper anterior abrams of lungs. RT at bedside. New telephone verbal orders from provider Kanu for nebulizer treatment Q2H nebulizer treatment as per JAN, as well as stat EKG, VBG and 1mg PO lorazepam, 60mg IV methylprednisolone. Provider made aware of patient VBG results and improved breathing with nebulizer treatment.
--- NOTE | 2025-06-25 22:19 | DI.CT.S_ITS ---
PROCEDURE: CT ANGIO CHEST PE PROTOCOL INDICATIONS: dyspnea - r/o PE TECHNIQUE: After the administration of intravenous contrast, 2 mm thick sections acquired from the pulmonary apices to the posterior costophrenic angles. 3-dimensional maximum intensity projection (MIP) coronal and sagittal reformats were then acquired through the thorax. For radiation dose reduction, the following was used: automated exposure control, adjustment of mA and/or kV according to patient size. COMPARISON: [facility], CR, XR CHEST 1V, 06/25/2025, 14:39. [facility], CT, CT ANGIO CHEST PE PROTOCOL, 12/28/2024, 11:00. FINDINGS: Image quality: Diagnostic. Pulmonary arteries: Pulmonary arteries are normal in size, and demonstrate no intraluminal filling defects to suggest central pulmonary embolism. Lower Neck: No enlarged lymph nodes. Thyroid: No thyroid nodules which require sonographic follow up, per consensus guidelines. Axillae: No enlarged lymph nodes. Chest Wall: Unremarkable. Bones: Unremarkable. Lungs and Pleura: No pneumothorax or pleural effusions. No consolidation or suspicious nodules. Heart: Heart size is normal. Thoracic Vessels: No aortic aneurysm. Mediastinum and [place]: Mild prominent mediastinal lymph nodes although decreased in size compared to prior exam. Esophagus: No wall thickening. No hiatal hernia. Upper Abdomen: Visualized upper abdomen solid organs and bowel loops appear normal. IMPRESSION: No pulmonary embolus. No acute cardiopulmonary process. Dictated by: Nya Agudelo M.D. on 06/25/2025 at 23:08 Approved by: Nya Agudelo M.D. on 06/25/2025 at 23:10
[2025-06-26] VITALS (17 sets, daily range): BP systolic 98–129; BP diastolic 54–82; PULSE 71–106; RESP 0–104; TEMP 36.6; O2SAT 97–100
[2025-06-26] MEDS: INSULIN LISPRO 100 UNIT/ML 3ML VIAL 36 UNIT SUBCUT (00:53)
[2025-06-26] MEDS: INSULIN GLARGINE 100 UNIT/ML 3ML PEN 36 UNIT SUBCUT (00:56)
[2025-06-26] MEDS: DEXTROSE 5%-0.45% NS 1,000 ML 150 ML IV (00:57)
[2025-06-26 01:21] LABS: Blood Urea Nitrogen 8 mg/dL (7-17); Calcium 8.0 mg/dL (8.4-10.2); Carbon Dioxide 18 mmol/L (22-32); Chloride 110 mmol/L (98-107); Estimated Glomerular Filt Rate > 60 mL/min (>60); Glucose 111 mg/dL (70-99); HEMOLYSIS < 15 (0-50); Potassium 3.1 mmol/L (3.4-5.1); Sodium 136 mmol/L (137-145)
[2025-06-26] MEDS: DEXTROSE 5%-0.45NS W/KCL 20MEQ 1,000 ML 150 MEQ IV (01:57)
--- NOTE | 2025-06-26 02:01 | PC.NURSE ---
following DKA protocol as per Dr Bobby's orders pt's K+ is 3.1 so 20 meq is added to the IVF, do D51/2NS with 20KCL hung to infuse at 150 ml/hr and potassium will be repeated with am labs
[2025-06-26 02:23] LABS: Base Excess VBG -6.5 mmol/L (0-4); HCO3 VBG 19 mmol/L (24-28); Oxygen Saturation VBG 78 % (70-75); PCO2 VBG 36.3 mmHg (45-50); PO2 VBG 45 mmHg (35-45); Total CO2 VBG 18 mmol/L (24-29); pH VBG 7.32 (7.33-7.43)
--- NOTE | 2025-06-26 02:25 | PC.NURSE ---
pt's bs 42 pt given sandwich and juice and D10 hung per orders, pt is aao x 3
--- NOTE | 2025-06-26 02:26 | PC.NURSE ---
Addendum entered by Parisa Parra R.N. 06/26/25 02:29: as per DKA protocol orders Original Note: pt has an anion gap of 7. Insulin infusion stopped
[2025-06-26] MEDS: DEXTROSE 10 % IN WATER 100 ML 999 ML IV (02:55)
--- NOTE | 2025-06-26 03:30 | PC.NURSE ---
pt tolerated food without any n/v, continues aaox 3, D10 infused, family continues at bedside
--- NOTE | 2025-06-26 03:40 | PC.NURSE ---
updated Dr Bobby on pt status, received orders for pt to go to med-surg bed, coordinator notified
[2025-06-26 05:48] LABS: Blood Urea Nitrogen 6 mg/dL (7-17); Calcium 8.2 mg/dL (8.4-10.2); Carbon Dioxide 19 mmol/L (22-32); Chloride 110 mmol/L (98-107); Estimated Glomerular Filt Rate > 60 mL/min (>60); Glucose 154 mg/dL (70-99); HEMOLYSIS 29 (0-50); Potassium 3.8 mmol/L (3.4-5.1); Sodium 136 mmol/L (137-145)
--- NOTE | 2025-06-26 05:58 | PC.NURSE ---
Per written DKA protocol no change in current IVF. Repeat BMP in 4 hours.
--- NOTE | 2025-06-26 07:46 | PC.NURSE ---
Patient requesting to speak with hospitalist and wants to be discharged home. Repeat labs and fingerstick blood sugar drawn. Patient has been able to ambulate independently steady gate to restroom. Denies chest pain, nausea, vomiting. Patient is tolerating PO. Patients VSS and labs improved from admission DKA without insulin drip. Family at bedside. Multiple attempts made to reach hospitalist by this RN as well as overnight by multiple RNs in last 12 hours. Even after patient was admitted and accepted overnight by hospitalist providers, no admission orders put in by providers, despite multiple request. All orders placed by protocols and entered by previous RN and overnight RN hospital coordinator. Unable to reach hospitalist at this time, this am depsite my multiple attempts. Patient request to be able to leave and expresses frustration with waiting to speak with provider and not being seen by them overnight. Patient verbalizes understanding of managing DM type 1 and use of her prescribed sliding scale, return precautions, and need to f/u with primary care and endocrinology. Patient is aggreable to these and is discharging home with mother. AMA form to be completed and signed. gas dispenser notified.
== END 2025-06-26 08:00 | disposition left against medical advice (07) ==
LOC: ED 19:12 → AC 21:43
PROVIDERS: Emergency Medicine; Internal Medicine; Emergency Provider Family Medicine; PCP Nurse Practitioner Family
DX: E10.10 Type 1 diabetes mellitus with ketoacidosis without coma (principal); R07.9 Chest pain, unspecified; R11.2 Nausea with vomiting, unspecified
CPT/HCPCS: 36415; 71045; 71275; 80048; 80053; 80305; 80320; 80329; 81001; 81025; 82009; 82550; 82805; 82962; 83605; 83690; 83735; 83880; 84443; 84484; 85025; 85379; 85610; 85730; 93005; 96361; 96365; 96366; 96372; 96375; 99285; G0480; J1171; J1815; J2919; J7613; Q9967

== ENCOUNTER 2025-10-31 10:05 | Observation (INO) | payer OTHER, SELFPAY ==
[2025-05-31 17:06] VITALS: BMI 23.0
[2025-10-31] VITALS (17 sets, daily range): BP systolic 112–153; BP diastolic 61–88; PULSE 79–141; RESP 14–28; TEMP 36.4–37.2; O2SAT 97–100; BMI 23.0
--- NOTE | 2025-10-31 10:26 | EKG_ITS ---
[address] [address] Test Date: 2025-10-31 Pat Name: Nettie Stone Department: Room: 229 Gender: Female Internal Medicine Nurse: MAXIMILIANO : 2000 Requested By: Order Number: [id number] Reading MD: Narayan Camp MD Measurements Intervals [place] Rate: 109 P: 74 ME: 148 QRS: 77 QRSD: 92 T: 58 QT: 340 QTc: 457 Interpretive Statements Sinus tachycardia RSR' or QR pattern in V1 suggests right ventricular conduction delay Cannot rule out Anterior infarct , age undetermined Electronically Signed On 11-01-2025 11:24:05 PST by Narayan Camp MD
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
[2025-10-31] MEDS: ONDANSETRON 4 MG/2 ML INJ IV (10:59)
[2025-10-31] MEDS: SODIUM CHLORIDE 0.9% 2,000 ML 1000 ML IV (10:59)
[2025-10-31 11:01] LABS: Add Manual Diff / Slide Review NO; Hematocrit 41.3 % (36-46); Hemoglobin 13.9 g/dL (12.0-16.0); Lymphocytes Absolute Auto 1200 /uL (1100-4500); Mean Corpuscular HGB Conc 33.5 % (30-36); Mean Corpuscular Hemoglobin 32.4 PG (26-34); Mean Corpuscular Volume 96.6 fL (80-100); Platelet Count 190 X10^3/uL (150-400)
[2025-10-31 11:27] LABS: Culture Indicated Urine Cult Not Indicated
[2025-10-31 11:50] LABS: Alanine Aminotransferase 27 IU/L (<35); Albumin 5.0 g/dL (3.5-5.0); Albumin Globulin Ratio 1.4 (1.0-2.8); Alkaline Phosphatase 114 U/L (38-126); Blood Urea Nitrogen 21 mg/dL (7-17); Calcium 9.6 mg/dL (8.4-10.2); Carbon Dioxide 14 mmol/L (22-32); Chloride 102 mmol/L (98-107); Estimated Glomerular Filt Rate > 60 mL/min (>60); Globulin 3.6 g/dL (1.7-4.1); Glucose 253 mg/dL (70-99); HEMOLYSIS < 15 (0-50); Lipase 63 U/L (23-300); Potassium 3.9 mmol/L (3.4-5.1); Sodium 135 mmol/L (137-145); Total Protein 8.6 g/dL (6.3-8.2)
[2025-10-31 11:56] LABS: Ketones (Beta-Hydroxybutyrate) 1.83 mmol/L (<0.27)
[2025-10-31] MEDS: KETOROLAC 30 MG/ML VIAL IV (12:54)
[2025-10-31 13:34] LABS: Base Excess VBG -5.1 mmol/L (0-4); HCO3 VBG 20 mmol/L (24-28); Oxygen Saturation VBG 79 % (70-75); PCO2 VBG 34.0 mmHg (45-50); PO2 VBG 44 mmHg (35-45); Total CO2 VBG 19 mmol/L (24-29); pH VBG 7.37 (7.33-7.43)
--- NOTE | 2025-10-31 13:36 | DI.CT.S_ITS ---
4PROCEDURE: CT ABDOMEN PELVIS W CON INDICATIONS: abd pain and dka TECHNIQUE: After the administration of intravenous contrast, axial sections acquired from the lung bases to the pubic symphysis. Coronal and sagittal reformats were performed. For radiation dose reduction, the following was used: automated exposure control, adjustment of mA and/or kV according to patient size. COMPARISON: [facility], CT, CT ABDOMEN PELVIS W CON, 05/31/2025, 15:26. [facility], CT, CT ABDOMEN PELVIS W CON, 06/29/2021, 20:36. FINDINGS: Image quality: Diagnostic. Lower Chest: No significant findings. ABDOMEN: Liver: No solid mass. Gallbladder: No radiopaque gallstones or wall thickening. Biliary ducts: No biliary dilation. Pancreas: No ductal dilation. Spleen: Size is within normal limits. Adrenal Glands: No adrenal nodules. Kidneys and Ureters: No hydronephrosis. No solid mass. No complex renal cystic lesion which requires follow up. Stomach and Bowel: Normal colonic caliber, without significant wall thickening. Nonvisualized appendix. Peritoneum: No abnormal intraperitoneal fluid. No free air. Ventral Wall: No significant ventral hernia. Abdominal Nodes: No retroperitoneal or mesenteric adenopathy by size criteria. Vessels: Aorta and inferior vena cava are normal in size. PELVIS: Pelvic Organs: Interval increase in size of the 7.6 cm left ovarian cystic lesion.. Bladder: No bladder wall thickening, accounting for underdistention. Pelvic Nodes: No enlarged lymph nodes. Miscellaneous: No inguinal hernias are seen. Bones: No aggressive osseous abnormality. IMPRESSION: 1. No acute infectious finding in the abdomen or pelvis to correlate as etiology for patient's diabetic ketoacidosis. 2. Interval enlargement of a left adnexal 7.6 cm cystic lesion. Recommend further evaluation with pelvic ultrasound. Recommend additional further imaging with nonemergent pelvic MRI with without contrast (ovarian protocol) when patient is able to sufficiently breath hold as required for MRI to reduce artifact and ensure a diagnostic exam. Dictated by: Fab Evans M.D. on 10/31/2025 at 13:29 Approved by: Fab Evans M.D. on 10/31/2025 at 13:34
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
[2025-10-31] MEDS: DEXTROSE 5%-0.45% NS 1,000 ML 250 ML IV (14:42)
[2025-10-31] MEDS: INSULIN DRIP PREMIX 100 UNIT/100 ML PLAST..BAG 5.897 UNIT IV (14:43)
[2025-10-31] MEDS: POTASSIUM CHLORIDE IN WATER 10 MEQ/100 ML PIGGYBACK 100 MEQ IV ×4 (14:56→19:22)
[2025-10-31 18:02] LABS: Blood Urea Nitrogen 19 mg/dL (7-17); Calcium 8.5 mg/dL (8.4-10.2); Carbon Dioxide 19 mmol/L (22-32); Chloride 110 mmol/L (98-107); Estimated Glomerular Filt Rate > 60 mL/min (>60); Glucose 193 mg/dL (70-99); HEMOLYSIS < 15 (0-50); Potassium 4.0 mmol/L (3.4-5.1); Sodium 136 mmol/L (137-145)
[2025-10-31] MEDS: INSULIN GLARGINE 100 UNIT/ML 3ML PEN 15 UNIT SUBCUT (19:20)
[2025-10-31] MEDS: INSULIN LISPRO 100 UNIT/ML 3ML VIAL SUBCUT (21:15)
[2025-11-01 00:06] VITALS: BP 101/59; PULSE 68; RESP 16; O2SAT 98
[2025-11-01] MEDS: INSULIN LISPRO 100 UNIT/ML 3ML VIAL SUBCUT ×2 (01:04→09:01)
[2025-11-01 06:37] VITALS: BP 132/67; PULSE 90; RESP 16; O2SAT 98
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
[2025-11-01 07:57] VITALS: PULSE 89; RESP 18; O2SAT 99
[2025-11-01] MEDS: BUDESONIDE 0.5 MG/2 ML NEB INH (07:57)
[2025-11-01] MEDS: FLUoxetine 10 MG CAPSULE PO (09:01)
[2025-11-01] MEDS: INSULIN GLARGINE 100 UNIT/ML 3ML PEN 25 UNIT SUBCUT (09:01)
[2025-11-01] MEDS: ALBUTEROL 2.5 MG/3 ML NEB (ADULT) INH (09:55)
[2025-11-01 10:00] VITALS: BP 127/69; PULSE 84; RESP 17; O2SAT 98
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
--- NOTE | 2025-11-01 15:19 | CM.DANOTE ---
DCP Ax note pt is a 25 yo F here with DKA. 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 per chart lives in [place] with family. already sees OP MH for anxiety and depression. 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 No Advance Directives No on File History Provided By Patient,Family Member,Medical Record Has Patient been No admitted in last 30 days? Comment recent inpt psych hospitalization for 10 days for ptsd symptoms Prior Living Apartment/Condo Arrangements Household Members family Type of Drives own vehicle transporation used prior to admit Independent with ADL Yes 's Is patient alert and Yes oriented? Comment Insulin Pump Comment Home w/family. Close outpatient follow up recommended. Discharge Plan Home Transportation Family to provide transportation Arrangement Referrals Initiated None needed Additional Comment Patient active as outpatient with counseling for anxiety and depression. Review Status In Process Please Provide Date 11/01/25 Initial DC Assessment Was Performed Next Review Type Continued Stay Review
== END 2025-11-01 11:15 | disposition home or self-care (01) ==
LOC: ED 11:03 → AC 13:41 → ICU 15:25
PROVIDERS: Admitting Provider Hospitalist; Emergency Provider Emergency Medicine; PCP Nurse Practitioner Family; Referring Provider Emergency Medicine; Visit Provider Hospitalist
DX: E10.10 Type 1 diabetes mellitus with ketoacidosis without coma (principal); R10.13 Epigastric pain; F43.10 Post-traumatic stress disorder, unspecified; F32.A Depression, unspecified; F41.9 Anxiety disorder, unspecified; F17.210 Nicotine dependence, cigarettes, uncomplicated; Z79.4 Long term (current) use of insulin; N83.202 Unspecified ovarian cyst, left side
CPT/HCPCS: 36415; 74177; 80048; 80053; 81003; 81015; 81025; 82009; 82805; 82962; 83690; 85025; 93005; 93010; 94640; 96365; 96366; 96367; 96368; 96372; 96375; 99284; G0378; A9270; J1815; J1885; J2405; J7030; J7613; Q9967